=== PATIENT | female | born 1955 | race Caucasian/White ===

== ENCOUNTER 2020-09-22 12:06 | Outpatient (REF) | payer OTHER, SELFPAY ==
[2020-09-22 13:04] LABS: MANUAL DIFF FLAG NO
[2020-09-22 13:08] LABS: Basophils Percent Auto 0.4 % (0-2); Eosinophils Absolute Auto 0.1 X10*3/uL (0.0-0.4); Eosinophils Percent Auto 0.5 % (0-4); Hematocrit 43.6 % (37-47); Hemoglobin 14.3 g/dl (12.0-16.0); Imm Gran Abs Auto 0.04 X10*3/uL (0.00-0.03); Imm Gran Pct Auto 0.4 % (0.0-0.4); Lymphocytes Absolute Auto 1.7 X10*3/uL (1.2-4.9); Lymphocytes Percent Auto 16.1 % (20-40); Mean Corpuscular HGB Conc 32.8 g/dl (31.0-35.0); Mean Corpuscular Hemoglobin 28.5 pg (27.0-33.0); Mean Corpuscular Volume 86.9 fL (80-98); Mean Platelet Volume 11.6 fL (9.4-12.3); Monocytes Absolute Auto 0.5 X10*3/uL (0.1-1.2); Monocytes Percent Auto 4.8 % (2-11); Neutrophils Absolute Auto 8.4 X10*3/uL (2.0-8.3); Neutrophils Percent Auto 77.8 % (45-73); Platelet Count 263 X10*3/uL (160-400); Red Blood Count 5.02 X10*6/uL (4.20-5.50); Red Cell Distribution Width 13.5 % (11.0-16.0); White Blood Count 10.7 X10*3/uL (4.8-10.8)
[2020-09-22 13:16] LABS: Estimated Average Glucose 318 mg/dL; Hemoglobin A1c % 12.7 %
[2020-09-22 13:33] LABS: Alanine Aminotransferase 28 U/L (0-31); Alkaline Phosphatase 117 U/L (39-117); Anion Gap 14 (12-20); Aspartate Amino Transferase 21 U/L (5-31); Bilirubin Total 0.6 mg/dL (0.0-1.0); Blood Urea Nitrogen 14 mg/dL (9-16); C Reactive Protein 2.42 mg/dL (< or = 0.50); Calcium 9.6 mg/dL (8.4-10.2); Carbon Dioxide 24 mmol/L (22-29); Chloride 103 mmol/L (96-108); Cholesterol 248 mg/dL; Estimated Glomerular Filt Rate > 60; Glucose Random 346 mg/dL (60-115); Potassium 4.1 mmol/L (3.3-5.1); Sodium 137 mmol/L (135-145); Total Protein 7.5 g/dL (6.5-8.0)
[2020-09-22 13:55] LABS: Free T4 (Free Thyroxine) 1.05 ng/dL (0.71-1.85); Thyroid Stimulating Hormone 0.77 uIU/mL (0.32-4.0)
== END 2020-09-22 12:07 | disposition home or self-care (01) ==
LOC: HO.LAB 12:06
PROVIDERS: PCP Internal Medicine; Visit Provider Internal Medicine
DX: R00.0 Tachycardia, unspecified (principal); L98.499 Non-pressure chronic ulcer of skin of other sites with unspecified severity; Z83.3 Family history of diabetes mellitus
CPT/HCPCS: 36415; 80053; 82465; 83036; 84439; 84443; 85025; 86140

== ENCOUNTER 2020-10-13 08:49 | Outpatient (RCR) | payer OTHER, SELFPAY ==
--- NOTE | ~2020-10-13 | XR_ITS ---
EXAMINATION: XR FOOT, RIGHT CLINICAL INFORMATION: Nonhealing ulcer. COMPARISON: 11/28/2016 TECHNIQUE: AP, lateral, and oblique views of the right foot. FINDINGS: Screw device again seen overlying the distal fibula. Anterior tibiotalar degenerative changes are again seen. Osteoarthritis is again noted involving the tarsal bones and chronic thickening with periosteal reaction remains in the 2nd and 4th metatarsals. No bony destructive lesions are seen to suggest osteomyelitis. XR/XR foot RT min 3V IMPRESSION: Degenerative and postoperative changes without evidence of osteomyelitis.
[2020-10-13 11:43] LABS: MANUAL DIFF FLAG NO
[2020-10-13 11:56] LABS: Basophils Percent Auto 0.3 % (0-2); Eosinophils Absolute Auto 0.1 X10*3/uL (0.0-0.4); Eosinophils Percent Auto 0.7 % (0-4); Hematocrit 44.1 % (37-47); Hemoglobin 14.3 g/dl (12.0-16.0); Imm Gran Abs Auto 0.03 X10*3/uL (0.00-0.03); Imm Gran Pct Auto 0.3 % (0.0-0.4); Lymphocytes Absolute Auto 1.6 X10*3/uL (1.2-4.9); Lymphocytes Percent Auto 14.5 % (20-40); Mean Corpuscular HGB Conc 32.4 g/dl (31.0-35.0); Mean Corpuscular Hemoglobin 28.2 pg (27.0-33.0); Mean Platelet Volume 11.3 fL (9.4-12.3); Monocytes Absolute Auto 0.5 X10*3/uL (0.1-1.2); Monocytes Percent Auto 4.8 % (2-11); Neutrophils Absolute Auto 8.9 X10*3/uL (2.0-8.3); Neutrophils Percent Auto 79.4 % (45-73); Platelet Count 271 X10*3/uL (160-400); Red Blood Count 5.07 X10*6/uL (4.20-5.50); Red Cell Distribution Width 13.6 % (11.0-16.0); White Blood Count 11.2 X10*3/uL (4.8-10.8)
[2020-10-13 12:02] LABS: Estimated Average Glucose 280 mg/dL; Hemoglobin A1c % 11.4 %
[2020-10-13 12:35] LABS: Anion Gap 13 (12-20); Blood Urea Nitrogen 14 mg/dL (9-16); C Reactive Protein 2.17 mg/dL (< or = 0.50); Calcium 9.6 mg/dL (8.4-10.2); Carbon Dioxide 25 mmol/L (22-29); Chloride 105 mmol/L (96-108); Estimated Glomerular Filt Rate > 60; Glucose Random 290 mg/dL (60-115); Potassium 4.3 mmol/L (3.3-5.1); Sodium 139 mmol/L (135-145)
[2020-10-13 12:53] LABS: Erythrocyte Sedimentation Rate 33 MM/HR (0-20)
== END 2021-03-21 15:08 | disposition home or self-care (01) ==
LOC: HO.WCC 08:49
PROVIDERS: PCP Internal Medicine; Visit Provider Physician Assistant
DX: E11.621 Type 2 diabetes mellitus with foot ulcer (principal); L97.412 Non-pressure chronic ulcer of right heel and midfoot with fat layer exposed; E11.51 Type 2 diabetes mellitus with diabetic peripheral angiopathy without gangrene; E11.40 Type 2 diabetes mellitus with diabetic neuropathy, unspecified; L84 Corns and callosities
CPT/HCPCS: 11042; 11045; 36415; 73630; 80048; 83036; 84134; 85025; 85652; 86140; 97597; 99212

== ENCOUNTER 2020-10-18 09:06 | Outpatient (REF) | payer OTHER, SELFPAY ==
[2020-10-18 09:46] LABS: Appearance Urine HAZY; Color Urine YELLOW; Glucose Urine UA 250 MG/DL (NEG); Leukocyte Esterase Urine NEG (NEG); Nitrite Urine NEG (NEG); Specific Gravity - Urine >= 1.030 (1.005-1.025); Urine Blood NEG (NEG); Urine Ketones 15 MG/DL (NEG); Urine Protein 1+ MG/DL (NEG-TRACE)
[2020-10-18 09:57] LABS: Bacteria Urine 1+ /LPF; Mucus Urine 2+ /LPF; RBC Urine 0-2 /HPF (0); Squamous Epithelial Cell Urine 2+ /LPF; WBC Urine 0-2 /HPF (0-4)
[2020-10-18 10:00] LABS: Creatinine Urine 252.07 mg/dL; Microalbum/Creatinine Ratio Ur 22.2 ug/mg cr
[2020-10-18 10:17] LABS: Anion Gap 15 (12-20); Blood Urea Nitrogen 16 mg/dL (9-16); Calcium 9.6 mg/dL (8.4-10.2); Carbon Dioxide 27 mmol/L (22-29); Chloride 98 mmol/L (96-108); Estimated Glomerular Filt Rate > 60; Glucose Random 356 mg/dL (60-115); Potassium 4.2 mmol/L (3.3-5.1); Sodium 136 mmol/L (135-145)
[2020-10-18 10:57] LABS: Estimated Average Glucose 272 mg/dL; Hemoglobin A1c % 11.1 %
== END 2020-10-18 09:07 | disposition home or self-care (01) ==
LOC: HO.LAB 09:06
PROVIDERS: PCP Internal Medicine; Visit Provider Internal Medicine
DX: E11.9 Type 2 diabetes mellitus without complications (principal)
CPT/HCPCS: 36415; 80048; 81001; 82043; 83036

== ENCOUNTER 2020-12-12 07:40 | Outpatient (REF) | payer OTHER, SELFPAY ==
[2020-12-12 09:01] LABS: Estimated Average Glucose 223 mg/dL; Hemoglobin A1c % 9.4 %
[2020-12-12 09:07] LABS: Alanine Aminotransferase 19 U/L (0-31); Albumin Level 4.1 g/dL (3.5-5.0); Alkaline Phosphatase 94 U/L (39-117); Anion Gap 10 (12-20); Aspartate Amino Transferase 17 U/L (5-31); Bilirubin Total 0.9 mg/dL (0.0-1.0); Blood Urea Nitrogen 8 mg/dL (9-16); Calcium 9.6 mg/dL (8.4-10.2); Carbon Dioxide 29 mmol/L (22-29); Chloride 106 mmol/L (96-108); Cholesterol 227 mg/dL; Estimated Glomerular Filt Rate > 60; Glucose Fasting 163 mg/dL (60-99); HDL Cholesterol 47 mg/dL; LDL Cholesterol Calculated 152 mg/dl; Potassium 4.2 mmol/L (3.3-5.1); Sodium 141 mmol/L (135-145); Total Protein 7.4 g/dL (6.5-8.0); Triglycerides 144 mg/dL
[2020-12-12 10:47] LABS: Creatinine Urine 149.39 mg/dL; Microalbum/Creatinine Ratio Ur 22.7 ug/mg cr
== END 2020-12-12 07:41 | disposition home or self-care (01) ==
LOC: HO.LAB 07:40
PROVIDERS: PCP Internal Medicine; Visit Provider Internal Medicine
DX: E11.9 Type 2 diabetes mellitus without complications (principal); E78.00 Pure hypercholesterolemia, unspecified
CPT/HCPCS: 36415; 80053; 80061; 82043; 83036

== ENCOUNTER 2021-03-19 10:02 | Outpatient (REF) | payer OTHER, SELFPAY ==
[2021-03-19 11:14] LABS: Anion Gap 12 (12-20); Blood Urea Nitrogen 11 mg/dL (9-16); Calcium 9.7 mg/dL (8.4-10.2); Carbon Dioxide 29 mmol/L (22-29); Chloride 104 mmol/L (96-108); Estimated Glomerular Filt Rate > 60; Glucose Random 138 mg/dL (60-115); Potassium 4.2 mmol/L (3.3-5.1); Sodium 141 mmol/L (135-145)
[2021-03-19 11:40] LABS: Estimated Average Glucose 171 mg/dL; Hemoglobin A1c % 7.6 %
== END 2021-03-19 10:03 | disposition home or self-care (01) ==
LOC: HO.LAB 10:02
PROVIDERS: PCP Internal Medicine; Visit Provider Internal Medicine
DX: E11.9 Type 2 diabetes mellitus without complications (principal); R03.0 Elevated blood-pressure reading, without diagnosis of hypertension
CPT/HCPCS: 36415; 80048; 83036

== ENCOUNTER 2021-04-20 08:01 | Outpatient (RCR) | payer OTHER, SELFPAY | END 2021-07-19 08:09 | disposition home or self-care (01) | LOC: HO.WCC 08:01 | PROVIDERS: PCP Internal Medicine; Visit Provider Surgery | DX: L97.411 Non-pressure chronic ulcer of right heel and midfoot limited to breakdown of skin (principal); E11.621 Type 2 diabetes mellitus with foot ulcer; E11.65 Type 2 diabetes mellitus with hyperglycemia; E11.40 Type 2 diabetes mellitus with diabetic neuropathy, unspecified; L84 Corns and callosities | CPT/HCPCS: 11042; 11055; 87071; 87205; 97597; 99212 ==

== ENCOUNTER 2021-06-19 06:35 | Outpatient (REF) | payer OTHER, SELFPAY ==
[2021-06-19 06:50] LABS: MANUAL DIFF FLAG NO
[2021-06-19 07:35] LABS: Basophils Percent Auto 0.2 % (0-2); Eosinophils Absolute Auto 0.1 X10*3/uL (0.0-0.4); Eosinophils Percent Auto 1.7 % (0-4); Hemoglobin 13.4 g/dl (12.0-16.0); Imm Gran Abs Auto 0.03 X10*3/uL (0.00-0.03); Imm Gran Pct Auto 0.4 % (0.0-0.4); Lymphocytes Absolute Auto 1.7 X10*3/uL (1.2-4.9); Lymphocytes Percent Auto 20.1 % (20-40); Mean Corpuscular HGB Conc 32.7 g/dl (31.0-35.0); Mean Corpuscular Hemoglobin 28.6 pg (27.0-33.0); Mean Corpuscular Volume 87.6 fL (80.0-98.0); Mean Platelet Volume 10.7 fL (9.4-12.3); Monocytes Absolute Auto 0.5 X10*3/uL (0.1-1.2); Monocytes Percent Auto 5.7 % (2-11); Neutrophils Percent Auto 71.9 % (45-73); Platelet Count 258 X10*3/uL (160-400); Red Blood Count 4.68 X10*6/uL (4.20-5.50); Red Cell Distribution Width 14.2 % (11.0-16.0); White Blood Count 8.3 X10*3/uL (4.8-10.8)
[2021-06-19 07:57] LABS: Creatinine Urine 65.78 mg/dL; Microalbum/Creatinine Ratio Ur 19.7 ug/mg cr
[2021-06-19 08:14] LABS: Alanine Aminotransferase 17 U/L (0-31); Albumin Level 3.9 g/dL (3.5-5.0); Alkaline Phosphatase 89 U/L (39-117); Anion Gap 11 (12-20); Aspartate Amino Transferase 16 U/L (5-31); Bilirubin Total 0.8 mg/dL (0.0-1.0); Blood Urea Nitrogen 12 mg/dL (9-16); Calcium 9.6 mg/dL (8.4-10.2); Carbon Dioxide 27 mmol/L (22-29); Chloride 107 mmol/L (96-108); Cholesterol 227 mg/dL; Estimated Glomerular Filt Rate > 60; Glucose Fasting 148 mg/dL (60-99); HDL Cholesterol 55 mg/dL; LDL Cholesterol Calculated 147 mg/dl; Potassium 4.7 mmol/L (3.3-5.1); Sodium 140 mmol/L (135-145); Total Protein 7.4 g/dL (6.5-8.0); Triglycerides 129 mg/dL
[2021-06-19 08:25] LABS: Estimated Average Glucose 171 mg/dL; Hemoglobin A1c % 7.6 %
== END 2021-06-19 06:36 | disposition home or self-care (01) ==
LOC: HO.LAB 06:35
PROVIDERS: PCP Internal Medicine; Visit Provider Internal Medicine
DX: E11.9 Type 2 diabetes mellitus without complications (principal); E78.00 Pure hypercholesterolemia, unspecified
CPT/HCPCS: 36415; 80053; 80061; 82043; 83036; 85025

== ENCOUNTER 2021-11-22 10:58 | Outpatient (REF) | payer OTHER, SELFPAY ==
[2021-11-22 12:24] LABS: Estimated Average Glucose 157 mg/dL; Hemoglobin A1C 200.4986 umol/L; Hemoglobin A1c % 7.1 %
[2021-11-22 13:19] LABS: Alanine Aminotransferase 20 U/L (0-31); Albumin Level 4.2 g/dL (3.5-5.0); Alkaline Phosphatase 99 U/L (39-117); Anion Gap 14 (12-20); Aspartate Amino Transferase 15 U/L (5-31); Bilirubin Total 0.4 mg/dL (0.0-1.0); Blood Urea Nitrogen 18 mg/dL (9-16); Calcium 9.8 mg/dL (8.4-10.2); Carbon Dioxide 27 mmol/L (22-29); Chloride 104 mmol/L (96-108); Estimated Glomerular Filt Rate > 60; Glucose Random 113 mg/dL (60-115); Potassium 4.2 mmol/L (3.3-5.1); Sodium 141 mmol/L (135-145); Total Protein 7.3 g/dL (6.5-8.0)
== END 2021-11-22 10:59 | disposition home or self-care (01) ==
LOC: HO.LAB 10:58
PROVIDERS: PCP Internal Medicine; Visit Provider Internal Medicine
DX: E11.9 Type 2 diabetes mellitus without complications (principal); I10 Essential (primary) hypertension
CPT/HCPCS: 36415; 80053; 83036

== ENCOUNTER 2022-04-09 10:54 | Outpatient (REF) | payer MEDICARE, MEDICAID, SELFPAY ==
[2022-04-09 11:15] LABS: MANUAL DIFF FLAG NO
[2022-04-09 11:47] LABS: Basophils Percent Auto 0.4 % (0-2); Eosinophils Absolute Auto 0.2 X10*3/uL (0.0-0.4); Eosinophils Percent Auto 1.6 % (0-4); Hematocrit 45.1 % (37.0-47.0); Hemoglobin 14.9 g/dl (12.0-16.0); Imm Gran Abs Auto 0.05 X10*3/uL (0.00-0.03); Imm Gran Pct Auto 0.5 % (0.0-0.4); Lymphocytes Absolute Auto 1.9 X10*3/uL (1.2-4.9); Lymphocytes Percent Auto 18.2 % (20-40); Mean Corpuscular Hemoglobin 28.8 pg (27.0-33.0); Mean Corpuscular Volume 87.1 fL (80.0-98.0); Mean Platelet Volume 11.4 fL (9.4-12.3); Monocytes Absolute Auto 0.6 X10*3/uL (0.1-1.2); Monocytes Percent Auto 6.2 % (2-11); Neutrophils Absolute Auto 7.6 x10*3/uL (2.0-8.3); Neutrophils Percent Auto 73.1 % (45-73); Platelet Count 256 X10*3/uL (160-400); Red Blood Count 5.18 X10*6/uL (4.20-5.50); Red Cell Distribution Width 13.7 % (11.0-16.0); White Blood Count 10.4 X10*3/uL (4.8-10.8)
[2022-04-09 12:18] LABS: Estimated Average Glucose 298 mg/dL
[2022-04-09 12:50] LABS: Anion Gap 14 (12-20); Blood Urea Nitrogen 17 mg/dL (9-16); Calcium 9.6 mg/dL (8.4-10.2); Carbon Dioxide 28 mmol/L (22-29); Chloride 100 mmol/L (96-108); Estimated Glomerular Filt Rate > 60; Sodium 137 mmol/L (135-145)
[2022-04-09 15:21] LABS: Glucose Random 390 mg/dL (60-115)
== END 2022-04-09 10:55 | disposition home or self-care (01) ==
LOC: HO.LAB 10:54
PROVIDERS: PCP Internal Medicine; Visit Provider Internal Medicine
DX: E11.9 Type 2 diabetes mellitus without complications (principal)
CPT/HCPCS: 36415; 80048; 83036; 85025

== ENCOUNTER 2022-06-17 09:53 | Outpatient (REF) | payer MEDICARE, MEDICAID, SELFPAY ==
[2022-06-17 12:27] LABS: Anion Gap 13 (12-20); Blood Urea Nitrogen 19 mg/dL (9-16); Calcium 9.5 mg/dL (8.4-10.2); Carbon Dioxide 30 mmol/L (22-29); Chloride 104 mmol/L (96-108); Estimated Glomerular Filt Rate > 60; Glucose Random 189 mg/dL (60-115); Potassium 4.5 mmol/L (3.3-5.1); Sodium 142 mmol/L (135-145)
[2022-06-17 12:44] LABS: Estimated Average Glucose 223 mg/dL; Hemoglobin A1c % 9.4 %
== END 2022-06-17 09:54 | disposition home or self-care (01) ==
LOC: HO.10HDL 09:53
PROVIDERS: Visit Provider Internal Medicine
DX: E11.9 Type 2 diabetes mellitus without complications (principal)
CPT/HCPCS: 36415; 80048; 83036

== ENCOUNTER 2022-10-17 09:27 | Outpatient (REF) | payer MEDICARE, OTHER, SELFPAY ==
[2022-10-17 10:39] LABS: Anion Gap 12 (12-20); Blood Urea Nitrogen 16 mg/dL (9-16); Calcium 10.1 mg/dL (8.4-10.2); Carbon Dioxide 28 mmol/L (22-29); Chloride 103 mmol/L (96-108); Estimated Glomerular Filt Rate > 60; Glucose Random 158 mg/dL (60-115); Potassium 4.4 mmol/L (3.3-5.1); Sodium 139 mmol/L (135-145)
[2022-10-17 10:52] LABS: Estimated Average Glucose 160 mg/dL; Hemoglobin A1c % 7.2 % (<6.0)
== END 2022-10-17 09:28 | disposition home or self-care (01) ==
LOC: HO.LAB 09:27
PROVIDERS: PCP Internal Medicine; Visit Provider Internal Medicine
DX: E11.9 Type 2 diabetes mellitus without complications (principal)
CPT/HCPCS: 36415; 80048; 83036

== ENCOUNTER 2022-11-04 08:00 | Outpatient (RCR) | payer MEDICARE, OTHER, SELFPAY ==
--- NOTE | 2022-09-30 08:59 | MHC.PT.EP ---
[facility] [place] Office [place] [facility] [place] Office [address] [phone] F: [phone] F: [phone] F: [phone] F: [phone] Physical Therapy Plan of Care Date of Evaluation: Date of Surgery: NA Diagnosis: Assess and treat for gait training related to non healing wound to R calcaneous Assessment: Colleen is a 66 year old female who is referred to PT for Assess and treat for gait training related to non healing wound to R calcaneous . She has had this non healing wound for about a year. She is currently an active patient with the wound care center. She is referred to PT to improve gait mechanics to enable fast healing of the wound. On PT examination she presents with 2-3/10 pain/ discomfort around R ankle dorsal aspect, decreased R ankle ROM, decreased R LE strength, altered balance and posture. She is independent with all ADLS but has to modify them to decreased weight bearing on R LE. She would benefit from skilled PT to address the aforementioned impairments and improve tolerance to functional activities. Frequency and Duration: The patient will be seen Recommended 2/week for 4 weeks however pt wants to come only 1/week Short Term Goals: 1. Will demonstrate initiation of HEP in 2 weeks 2. Pt will demonstrate improved ankle ROM which will enable her walk with a heel strike in 3 weeks. Penitentiary Goals: 1. Pt will demonstrate an increase in muscle strength by 1 grade which will enable her walk with decreased ankle pronation collapse by 50% in 4 weeks 2. Pt will be independent with all HEP for symptom management and maintenance following d/c in 4 weeks. Treatment Plan: Modalities to reduce pain, spasms and effusion. Manual therapy to restore motion and function. Therapeutic exercise to improve strength and flexibility. Neuromuscular re-education for posture and balance. Therapeutic activities to return to functional activities of daily living. Electronically signed by: Maddie Meyer PT DPT Please sign and return to therapist. Thank you for your referral.
--- NOTE | 2022-11-15 15:19 | MHC.PT.DC ---
[facility] [place] [facility] [place] Office [place] Office [address] Jenniffer Baird [address] [phone] F: [phone] F: [phone] F: [phone] F: [phone] Physical Therapy Discharge Report Diagnosis: Assess and treat for gait training related to non healing wound to R calcaneous Date of Surgery: NA Date of Evaluation: 09/30/22 Date of Discharge: 11/15/22 Treatments to Date: 4 Cancellations to Date: 2 No Shows to Date: Discharge Status: Patient Elected to Stop Discharge Summary: Colleen only attended 4 PT visits. She was non compliant with her HEP and canceled her last visit. Colleen elected to stop PT. She is therefore being d/c from PT. Electronically signed by: Maddie Meyer PT DPT Please sign and return to therapist. Thank you for your referral.
== END 2022-11-15 15:20 | disposition home or self-care (01) ==
LOC: HO.PT 08:00
PROVIDERS: PCP Internal Medicine; Visit Provider Surgery
DX: R26.89 Other abnormalities of gait and mobility (principal); L97.512 Non-pressure chronic ulcer of other part of right foot with fat layer exposed; E11.621 Type 2 diabetes mellitus with foot ulcer
CPT/HCPCS: 11042; 97110; 97116; 97161; 97597

== ENCOUNTER 2022-12-24 16:29 | Outpatient (REF) | payer MEDICARE, OTHER, SELFPAY | END 2022-12-24 16:30 | disposition home or self-care (01) | LOC: HO.LNP 16:29 | PROVIDERS: Visit Provider Physician Assistant | DX: Z13.89 Encounter for screening for other disorder (principal) | CPT/HCPCS: 87070; 87205 ==

== ENCOUNTER 2023-01-06 06:54 | Outpatient (REF) | payer MEDICARE, SELFPAY ==
[2023-01-06 07:05] LABS: MANUAL DIFF FLAG NO
[2023-01-06 07:45] LABS: Basophils Percent Auto 0.3 % (0-2); Eosinophils Absolute Auto 0.2 X10*3/uL (0.0-0.4); Hematocrit 43.1 % (37.0-47.0); Hemoglobin 13.8 g/dl (12.0-16.0); Imm Gran Abs Auto 0.04 X10*3/uL (0.00-0.03); Imm Gran Pct Auto 0.4 % (0.0-0.4); Lymphocytes Absolute Auto 1.8 X10*3/uL (1.2-4.9); Lymphocytes Percent Auto 19.6 % (20-40); Mean Corpuscular Hemoglobin 28.2 pg (27.0-33.0); Mean Platelet Volume 10.8 fL (9.4-12.3); Monocytes Absolute Auto 0.5 X10*3/uL (0.1-1.2); Neutrophils Absolute Auto 6.6 x10*3/uL (2.0-8.3); Neutrophils Percent Auto 72.7 % (45-73); Platelet Count 293 X10*3/uL (160-400); Red Cell Distribution Width 14.7 % (11.0-16.0); White Blood Count 9.1 X10*3/uL (4.8-10.8)
[2023-01-06 07:57] LABS: Estimated Average Glucose 174 mg/dL; Hemoglobin A1c % 7.7 % (<6.0)
[2023-01-06 08:27] LABS: Alanine Aminotransferase 28 U/L (0-31); Albumin Level 4.1 g/dL (3.5-5.0); Alkaline Phosphatase 99 U/L (39-117); Anion Gap 11 (12-20); Aspartate Amino Transferase 19 U/L (5-31); Bilirubin Total 0.6 mg/dL (0.0-1.0); Blood Urea Nitrogen 16 mg/dL (9-16); Calcium 8.8 mg/dL (8.4-10.2); Carbon Dioxide 28 mmol/L (22-29); Chloride 105 mmol/L (96-108); Cholesterol 210 mg/dL (<200); Estimated Glomerular Filt Rate > 60; Glucose Fasting 164 mg/dL (60-99); HDL Cholesterol 60 mg/dL (>40); LDL Cholesterol Calculated 123 mg/dL (<100); Sodium 140 mmol/L (135-145); Triglycerides 138 mg/dL (<150)
[2023-01-06 08:32] LABS: Creatinine Urine 139.09 mg/dL; Microalbum/Creatinine Ratio Ur 38.8 ug/mg cr (<30)
[2023-01-06 08:48] LABS: Thyroid Stimulating Hormone 1.06 uIU/mL (0.32-4.0); Vitamin D 25-OH Total 15.5 ng/mL (>30)
== END 2023-01-06 06:55 | disposition home or self-care (01) ==
LOC: HO.LAB 06:54
PROVIDERS: PCP Internal Medicine; Visit Provider Internal Medicine
DX: E11.9 Type 2 diabetes mellitus without complications (principal); I10 Essential (primary) hypertension; E78.5 Hyperlipidemia, unspecified; M19.90 Unspecified osteoarthritis, unspecified site; M85.80 Other specified disorders of bone density and structure, unspecified site
CPT/HCPCS: 36415; 80053; 80061; 82043; 82306; 82570; 83036; 84443; 85025

== ENCOUNTER 2023-05-12 09:07 | Outpatient (REF) | payer MEDICARE, SELFPAY ==
[2023-05-12 09:44] LABS: MANUAL DIFF FLAG NO
[2023-05-12 10:16] LABS: Basophils Percent Auto 0.2 % (0-2); Eosinophils Absolute Auto 0.1 X10*3/uL (0.0-0.4); Eosinophils Percent Auto 0.9 % (0-4); Hematocrit 42.9 % (37.0-47.0); Hemoglobin 13.7 g/dl (12.0-16.0); Imm Gran Abs Auto 0.03 X10*3/uL (0.00-0.03); Imm Gran Pct Auto 0.3 % (0.0-0.4); Lymphocytes Absolute Auto 1.6 X10*3/uL (1.2-4.9); Lymphocytes Percent Auto 15.7 % (20-40); Mean Corpuscular HGB Conc 31.9 g/dl (31.0-35.0); Mean Corpuscular Hemoglobin 27.7 pg (27.0-33.0); Mean Corpuscular Volume 86.8 fL (80.0-98.0); Monocytes Absolute Auto 0.7 X10*3/uL (0.1-1.2); Monocytes Percent Auto 6.9 % (2-11); Neutrophils Absolute Auto 7.5 x10*3/uL (2.0-8.3); Platelet Count 254 X10*3/uL (160-400); Red Blood Count 4.94 X10*6/uL (4.20-5.50); White Blood Count 9.9 X10*3/uL (4.8-10.8)
[2023-05-12 10:52] LABS: Anion Gap 11 (12-20); Blood Urea Nitrogen 15 mg/dL (9-16); C Reactive Protein 3.43 mg/dL (< or = 0.50); Calcium 9.6 mg/dL (8.4-10.2); Carbon Dioxide 28 mmol/L (22-29); Chloride 103 mmol/L (96-108); Estimated Glomerular Filt Rate > 60; Glucose Random 225 mg/dL (60-115); Potassium 4.1 mmol/L (3.3-5.1); Sodium 138 mmol/L (135-145)
[2023-05-12 10:55] LABS: Erythrocyte Sedimentation Rate 32 MM/HR (0-20)
[2023-05-13 17:48] LABS: Transferrin 265 mg/dL (188-341)
== END 2023-05-12 09:08 | disposition home or self-care (01) ==
LOC: HO.LAB 09:07
PROVIDERS: Visit Provider Podiatrist
DX: L97.412 Non-pressure chronic ulcer of right heel and midfoot with fat layer exposed (principal)
CPT/HCPCS: 36415; 80048; 82040; 84134; 84466; 85025; 85652; 86140

== ENCOUNTER 2023-07-26 07:50 | Outpatient (REF) | payer MEDICARE, SELFPAY ==
[2023-07-26 09:06] LABS: Anion Gap 13 (12-20); Blood Urea Nitrogen 17 mg/dL (9-16); Calcium 9.8 mg/dL (8.4-10.2); Carbon Dioxide 24 mmol/L (22-29); Chloride 108 mmol/L (96-108); Estimated Glomerular Filt Rate > 60; Glucose Random 158 mg/dL (60-115); Potassium 4.1 mmol/L (3.3-5.1); Sodium 141 mmol/L (135-145)
[2023-07-26 09:08] LABS: Estimated Average Glucose 174 mg/dL; Hemoglobin A1c % 7.7 % (<6.0)
== END 2023-07-26 07:51 | disposition home or self-care (01) ==
LOC: HO.LAB 07:50
PROVIDERS: PCP Internal Medicine; Visit Provider Internal Medicine
DX: E11.9 Type 2 diabetes mellitus without complications (principal)
CPT/HCPCS: 36415; 80048; 83036

== ENCOUNTER 2023-10-27 07:45 | Outpatient (REF) | payer MEDICARE, SELFPAY ==
[2023-10-27 11:17] LABS: MANUAL DIFF FLAG NO
[2023-10-27 11:34] LABS: Appearance Urine Cloudy; Color Urine Yellow; Glucose Urine UA Negative (Negative); Leukocyte Esterase Urine Moderate (2+) (Negative); Nitrite Urine Negative (Negative); UMIC TRIGGER UA YES; Urine Blood Negative (Negative); Urine Ketones Negative (Negative); Urine Protein Trace mg/dL (Neg-Trace)
[2023-10-27 11:48] LABS: Basophils Percent Auto 0.4 % (0-2); Eosinophils Absolute Auto 0.1 X10*3/uL (0.0-0.4); Eosinophils Percent Auto 1.7 % (0-4); Hematocrit 41.6 % (37.0-47.0); Hemoglobin 13.3 g/dl (12.0-16.0); Imm Gran Abs Auto 0.03 X10*3/uL (0.00-0.03); Imm Gran Pct Auto 0.4 % (0.0-0.4); Lymphocytes Absolute Auto 1.5 X10*3/uL (1.2-4.9); Lymphocytes Percent Auto 18.1 % (20-40); Mean Corpuscular Hemoglobin 28.1 pg (27.0-33.0); Mean Corpuscular Volume 87.9 fL (80.0-98.0); Mean Platelet Volume 10.9 fL (9.4-12.3); Monocytes Absolute Auto 0.5 X10*3/uL (0.1-1.2); Neutrophils Absolute Auto 6.1 x10*3/uL (2.0-8.3); Neutrophils Percent Auto 73.4 % (45-73); Platelet Count 254 X10*3/uL (160-400); Red Blood Count 4.73 X10*6/uL (4.20-5.50); Red Cell Distribution Width 15.1 % (11.0-16.0); White Blood Count 8.3 X10*3/uL (4.8-10.8)
[2023-10-27 11:49] LABS: Bacteria Urine Trace (None Seen); Hyaline Casts Urine 0-2 /LPF (0-2); RBC Urine 0-2 /HPF (0-2)
[2023-10-27 12:16] LABS: Estimated Average Glucose 177 mg/dL; Hemoglobin A1c % 7.8 % (<6.0)
[2023-10-27 12:20] LABS: Creatinine Urine 106.54 mg/dL; Microalbum/Creatinine Ratio Ur 44.1 ug/mg cr (<30)
[2023-10-27 12:39] LABS: Alanine Aminotransferase 22 U/L (0-31); Albumin Level 3.9 g/dL (3.5-5.0); Alkaline Phosphatase 94 U/L (39-117); Anion Gap 13 (12-20); Aspartate Amino Transferase 18 U/L (5-31); Bilirubin Total 0.5 mg/dL (0.0-1.0); Blood Urea Nitrogen 15 mg/dL (9-16); Calcium 9.5 mg/dL (8.4-10.2); Carbon Dioxide 27 mmol/L (22-29); Chloride 106 mmol/L (96-108); Cholesterol 214 mg/dL (<200); Estimated Glomerular Filt Rate > 60; Glucose Fasting 152 mg/dL (60-99); HDL Cholesterol 54 mg/dL (>40); LDL Cholesterol Calculated 133 mg/dL (<100); Potassium 4.1 mmol/L (3.3-5.1); Sodium 142 mmol/L (135-145); Total Protein 7.6 g/dL (6.5-8.0); Triglycerides 136 mg/dL (<150)
[2023-10-27 12:45] LABS: Vitamin D 25-OH Total 26.5 ng/mL (>30)
== END 2023-10-27 07:46 | disposition home or self-care (01) ==
LOC: HO.WFDLDS 07:45
PROVIDERS: Visit Provider Internal Medicine
DX: Z13.89 Encounter for screening for other disorder (principal)
CPT/HCPCS: 36415; 80053; 80061; 81001; 82043; 82306; 82570; 83036; 85025

== ENCOUNTER 2024-01-27 08:01 | Outpatient (REF) | payer MEDICARE, SELFPAY ==
[2024-01-27 10:54] LABS: Estimated Average Glucose 189 mg/dL; Hemoglobin A1C 231.4707 umol/L; Hemoglobin A1c % 8.2 % (<6.0); Total Hemoglobin (HGBA1C) 3499.2215 umol/L
[2024-01-27 10:57] LABS: Anion Gap 14 (12-20); Blood Urea Nitrogen 15 mg/dL (9-16); Calcium 8.9 mg/dL (8.4-10.2); Carbon Dioxide 25 mmol/L (22-29); Chloride 102 mmol/L (96-108); Estimated Glomerular Filt Rate > 60; Glucose Random 297 mg/dL (60-115); Potassium 4.4 mmol/L (3.3-5.1); Sodium 137 mmol/L (135-145)
== END 2024-01-27 08:02 | disposition home or self-care (01) ==
LOC: HO.HMGCLDS 08:01
PROVIDERS: PCP Internal Medicine; Visit Provider Internal Medicine
DX: E11.9 Type 2 diabetes mellitus without complications (principal)
CPT/HCPCS: 36415; 80048; 83036

== ENCOUNTER 2024-04-20 09:12 | Outpatient (REF) | payer MEDICARE, OTHER, SELFPAY ==
--- OUTSIDE RECORDS SUMMARY | 2024-04-20 10:15 | XMS_ITS | Clinical Summary ---
Author Organization Unknown Care Team Providers Care Decorative Engraver Name Role Phone JAK ALCARAZ, LINDA Unavailable Unavailable RHINA MARQUEZ, MERRITT Unavailable Unavailab dana ZABALA LPN, JENNI Unavailable Unavail able Payers Payer Name Policy Type Policy Number Effective Date Expira tion Date [facility].ID[facility] [id number] MEDICARE.[facility] [id number] Problems Condition Name Condition Details Condition Category Status Onset Date Resolution Date Last Treatment Date Treating Clinician Comments TYPE 2 DIABETES MELLITUS WITH FOOT ULCER Active 11-06 00:00: 00 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 Propensity to adverse reactions Active 2023-10 05:17:1 8 Medications Ordered Medication Name Filled Medication Name Start Date Stop Date Current Medication? Ordering Clinician Indication Dosage Frequency Signature (SIG) Comments Components amoxicillin 875 mg-potassiu m clavulanate 125 mg tablet 11-09 00:00: 00 11-16 23:59 :00 No [id number] CELLULITIS RIGHT HEEL 1 tablet 2 TIMES DAILY 1 tablet 2 TIMES DAILY (route: oral) Med Classific ation: Anti-Infe ctive Agents doxycycline monohydrate 100 mg tablet 11-09 00:00: 00 11-16 23:59 :00 No [id number] CELLULITIS 1 tablet 2 TIMES DAILY 1 tablet 2 TIMES DAILY (route: oral) Med Classific ation: Anti-Infe ctive Agents metformin 500 mg tablet 11-06 00:00: 00 Yes [id number] DIABETES 1 tablet 2 TIMES DAILY 1 tablet 2 TIMES DAILY (route: oral) Med Classific ation: Endocrine acetaminoph en 325 mg tablet 11-09 00:00: 00 11-14 23:59 :00 No [id number] PAIN 2 tablet EVERY 4 HOURS 2 tablet EVERY 4 HOURS (route: oral) Med Classific ation: Analgesic , Anti-infl ammatory or Antipyret ic glipizide ER 10 mg tablet, extended release 24 hr 11-06 00:00: 00 Yes [id number] DIABETES 1 tablet 2 TIMES DAILY 1 tablet 2 TIMES DAILY (route: oral) Med Classific ation: Endocrine cholecalcif angie (vitamin D3) 25 mcg (1,000 unit) tablet 2023-02 00:00: 00 Yes [id number] SUPPLEMENT 1 tablet DAILY 1 tablet DAILY (route: oral) Med Classific ation: Electroly te Balance-N utritiona l Products amlodipine 5 mg tablet 2023-02 00:00: 00 Yes [id number] HTN 5 mg DAILY 5 mg CHRISTINE Y (route: oral) Med Classific ation: Cardiovas cular Therapy Agents Vital Signs Vital Name Observation Time Observation Value Commen ts Temperature 2024-04-09 09:38:00.000 98 [degF] Temperature 2024-04-02 08:53:00.000 97.8 [degF] Temperature 2024-03-26 10:24:00.000 97.7 [degF] Temperature 2024-03-19 08:35:00.000 98.3 [degF] Pulse 2024-04-09 09:38:00.000 70 /min Pulse 2024-04-02 08:53:00.000 61 /min Pulse 2024-03-26 10:24:00.000 90 /min Pulse 2024-03-19 08:35:00.000 80 /min O2 Saturation (%) 2024-04-02 08:53:00.000 97 % O2 Saturation (%) 2024-03-19 08:36:00.000 99 % Respirations 2024-04-09 09:38:00.000 17 /min Respirations 2024-04-02 08:53:00.000 18 /min Respirations 2024-03-26 10:24:00.000 18 /min Respirations 2024-03-19 08:35:00.000 18 /min Systolic Blood Pressure 2024-04-09 09:38:00.000 150 mm [Hg] Systolic Blood Pressure 2024-04-02 08:53:00.000 128 mm [Hg] Systolic Blood Pressure 2024-03-26 10:24:00.000 144 mm [Hg] Systolic Blood Pressure 2024-03-19 08:35:00.000 160 mm [Hg] Diastolic Blood Pressure 2024-04-09 09:38:00.000 67 mm [Hg] Diastolic Blood Pressure 2024-04-02 08:53:00.000 60 mm [Hg] Diastolic Blood Pressure 2024-03-26 10:24:00.000 74 mm [Hg] Diastolic Blood Pressure 2024-03-19 08:35:00.000 90 mm [Hg] Plan of Treatment Planned Activity Planned Date Details Comments Future Scheduled Test RN TO OBSE RVE, ASSESS, EVALUATE, AND DEVELOP AN INDIVIDUALIZED PLAN OF CARE. AGENCY MAY ACCEPT ORDERS FROM CONSULTING PHYSICIANS. RN TO OBSERVE AND ASSESS, HEALTH CENTER MANAGER/TURRET PUNCH OPERATOR TO OBSERVE FOR RISK FOR FALLS AND INSTRUCT IN FALL PREVENTION, HOME SAFETY, MEDICATION MANAGEMENT, INFECTION PREVENTION, AND NUTRITION MANAGEMENT. RN/HEALTH CENTER MANAGER/TURRET PUNCH OPERATOR NURSE MAY PERFORM O2 SATURATION LEVEL ON ADMISSION AND PRN FOR RN TO ASSESS/HEALTH CENTER MANAGER TO OBSERVE PATIENT, WITH NOTIFICATION TO THE PHYSICIAN IF SATURATION IS 90% IN THE ABSENCE OF MORE SPECIFIC PARAMETERS FROM THE PHYSICIAN. AGENCY MAY PERFORM A RESUMPTION OF CARE VISIT FOLLOWING ANY HOSPITAL ADMISSION. RN/HEALTH CENTER MANAGER/TURRET PUNCH OPERATOR TO MONITOR CO-MORBID CONDITIONS LISTED ON THE PLAN OF CARE AND ANY NEW CONDITIONS THAT PRESENT THEMSELVES DURING THIS EPISODE TO IDENTIFY CHANGES AND INTERVENE TO MINIMIZE COMPLICATIONS. [code = RN TO OBSERVE, ASSESS, EVALUATE, AND DEVELOP AN INDIVIDUALIZED PLAN OF CARE. AGENCY MAY ACCEPT ORDERS FROM CONSULTING PHYSICIANS. RN TO OBSERVE AND ASSESS, HEALTH CENTER MANAGER/TURRET PUNCH OPERATOR TO OBSERVE FOR RISK FOR FALLS AND INSTRUCT IN FALL PREVENTION, HOME SAFETY, MEDICATION MANAGEMENT, INFECTION PREVENTION, AND NUTRITION MANAGEMENT. RN/HEALTH CENTER MANAGER/TURRET PUNCH OPERATOR NURSE MAY PERFORM O2 SATURATION LEVEL ON ADMISSION AND PRN FOR RN TO ASSESS/HEALTH CENTER MANAGER TO OBSERVE PATIENT, WITH NOTIFICATION TO THE PHYSICIAN IF SATURATION IS 90% IN THE ABSENCE OF MORE SPECIFIC PARAMETERS FROM THE PHYSICIAN. AGENCY MAY PERFORM A RESUMPTION OF CARE VISIT FOLLOWING ANY HOSPITAL ADMISSION. RN/HEALTH CENTER MANAGER/TURRET PUNCH OPERATOR TO MONITOR CO-MORBID CONDITIONS LISTED ON THE PLAN OF CARE AND ANY NEW CONDITIONS THAT PRESENT THEMSELVES DURING THIS EPISODE TO IDENTIFY CHANGES AND INTERVENE TO MINIMIZE COMPLICATIONS.] Future Scheduled Test RISK FOR H OSPITALIZATION; RN TO ASSESS/TEACH, TURRET PUNCH OPERATOR/HEALTH CENTER MANAGER TO OBSERVE/TEACH PATIENT/CAREGIVER ON RISK FOR HOSPITALIZATION/EMERGENCY ROOM VISITS, TEACH SIGNS AND SYMPTOMS THAT PUT PATIENT AT RISK, WHEN TO NOTIFY NURSE/PHYSICIAN OF COMPLICATIONS/DECLINE, AND WHEN TO CALL 911. [code = RISK FOR HOSPITALIZATION; RN TO ASSESS/TEACH, TURRET PUNCH OPERATOR/HEALTH CENTER MANAGER TO OBSERVE/TEACH PATIENT/CAREGIVER ON RISK FOR HOSPITALIZATION/EMERGENCY ROOM VISITS, TEACH SIGNS AND SYMPTOMS THAT PUT PATIENT AT RISK, WHEN TO NOTIFY NURSE/PHYSICIAN OF COMPLICATIONS/DECLINE, AND WHEN TO CALL 911.] Future Scheduled Test MEDICATION MANAGEMENT; RN/HEALTH CENTER MANAGER/TURRET PUNCH OPERATOR TO REVIEW MEDICATIONS FOR INTERACTIONS, EFFECTIVENESS OF DRUG THERAPY, AND SIGNS/SYMPTOMS OF ADVERSE REACTIONS. MAY INSTRUCT AND REINFORCE MEDICATION TEACHING RELATED TO THE USE OF MEDICATIONS, DOSAGE, FREQUENCY, PURPOSE, SIDE EFFECTS, AND TO REPORT COMPLICATIONS. [code = MEDICATION MANAGEMENT; RN/HEALTH CENTER MANAGER/TURRET PUNCH OPERATOR TO REVIEW MEDICATIONS FOR INTERACTIONS, EFFECTIVENESS OF DRUG THERAPY, AND SIGNS/SYMPTOMS OF ADVERSE REACTIONS. MAY INSTRUCT AND REINFORCE MEDICATION TEACHING RELATED TO THE USE OF MEDICATIONS, DOSAGE, FREQUENCY, PURPOSE, SIDE EFFECTS, AND TO REPORT COMPLICATIONS.] Future Scheduled Test SKIN INTEG RITY RN TO ASSESS AND TEACH, HEALTH CENTER MANAGER/TURRET PUNCH OPERATOR TO OBSERVE AND TEACH INTEGUMENTARY STATUS TO IDENTIFY CHANGES AND INTERVENE TO MINIMIZE COMPLICATIONS. PROVIDE SKILLED TEACHING OF GENERAL WOUND AND SKIN CARE AND PREVENTION RELATED TO ACTUAL ALTERED SKIN INTEGRITY [code = SKIN INTEGRITY RN TO ASSESS AND TEACH, HEALTH CENTER MANAGER/TURRET PUNCH OPERATOR TO OBSERVE AND TEACH INTEGUMENTARY STATUS TO IDENTIFY CHANGES AND INTERVENE TO MINIMIZE COMPLICATIONS. PROVIDE SKILLED TEACHING OF GENERAL WOUND AND SKIN CARE AND PREVENTION RELATED TO ACTUAL ALTERED SKIN INTEGRITY ] Future Scheduled Test RN TO ASSE SS, HEALTH CENTER MANAGER/TURRET PUNCH OPERATOR TO OBSERVE DIABETIC FOOT ULCERS - NEUROPATHIC AND INTERVENE TO MINIMIZE COMPLICATIONS. PROVIDE SKILLED TEACHING TO PATIENT/CAREGIVER RELATED TO ALTERED SKIN INTEGRITY. REPORT SIGNIFICANT CHANGES IN STATUS TO PHYSICIAN FOR EARLY INTERVENTION. [code = RN TO ASSESS, HEALTH CENTER MANAGER/TURRET PUNCH OPERATOR TO OBSERVE DIABETIC FOOT ULCERS - NEUROPATHIC AND INTERVENE TO MINIMIZE COMPLICATIONS. PROVIDE SKILLED TEACHING TO PATIENT/CAREGIVER RELATED TO ALTERED SKIN INTEGRITY. REPORT SIGNIFICANT CHANGES IN STATUS TO PHYSICIAN FOR EARLY INTERVENTION.] Future Scheduled Test PAIN MANAG EMENT; RN TO ASSESS AND TEACH, TURRET PUNCH OPERATOR/HEALTH CENTER MANAGER TO OBSERVE AND TEACH AND PROVIDE EDUCATION ON PAIN MANAGEMENT TECHNIQUES. [code = PAIN MANAGEMENT; RN TO ASSESS AND TEACH, TURRET PUNCH OPERATOR/HEALTH CENTER MANAGER TO OBSERVE AND TEACH AND PROVIDE EDUCATION ON PAIN MANAGEMENT TECHNIQUES.] Future Scheduled Test FALL REDUC TION MANAGEMENT; RN TO ASSESS AND OBSERVE, HEALTH CENTER MANAGER/TURRET PUNCH OPERATOR TO OBSERVE FALL RISK FACTORS AND EDUCATE PATIENT/CAREGIVER ON STRATEGIES TO MINIMIZE THE RISK OF FALLING. [code = FALL REDUCTION MANAGEMENT; RN TO ASSESS AND OBSERVE, HEALTH CENTER MANAGER/TURRET PUNCH OPERATOR TO OBSERVE FALL RISK FACTORS AND EDUCATE PATIENT/CAREGIVER ON STRATEGIES TO MINIMIZE THE RISK OF FALLING.] Goal Patient Goal - HELP HEEL THE WOUND Goal 2024-01-08 Patient Goal - HELP HEEL THE WOUND Goal 2024-03-10 Patient Goal - HELP HEEL THE WOUND Goal Provider Goal - A PLAN OF CARE WILL BE ESTABLISHED THAT MEETS THE PATIENTS NEEDS. PATIENT WILL DEMONSTRATE OXYGEN SATURATION WITHIN NORMAL LIMITS OR PATIENTS OPTIMAL LEVEL ESTABLISHED BY THE PHYSICIAN THROUGHOUT CARE. CHANGES TO CO-MORBID CONDITIONS AND ANY NEW CONDITIONS WILL BE IDENTIFIED AND REPORTED TO THE PHYSICIAN. Goal Provider Goal - PATIENT/CAREGIVER WILL VERBALIZE UNDERSTANDING OF SIGNS AND SYMPTOMS THAT PUT THE PATIENT AT RISK FOR HOSPITALIZATION /EMERGENCY ROOM VISITS, WHEN TO NOTIFY NURSE/PHYSICIAN OF COMPLICATIONS/DECLINE AND WHEN TO CALL 911. Goal Provider Goal - PATIENT/CAREGIVER TO VERBALIZE, AND CONSISTENTLY DEMONSTRATE EFFECTIVE, SAFE MANAGEMENT OF MEDICATION INCLUDING KNOWLEDGE OF EFFECTIVENESS, POTENTIAL SIDE EFFECTS AND DRUG REACTIONS AND WHEN TO CONTACT THE APPROPRIATE CARE PROVIDER. PATIENT/CAREGIVER WILL BE ABLE TO VERBALIZE UNDERSTANDING OF MEDICATION REGIMEN AND ACCURATELY TAKE MEDICATIONS PRESCRIBED WITHOUT ADVERSE EFFECTS BY EOE Goal Provider Goal - CHANGES IN SKIN INTEGRITY STATUS WILL BE IDENTIFIED AND REPORTED TO THE PHYSICIAN FOR PROMPT INTERVENTION. PATIENT / CAREGIVER WILL VERBALIZE/DEMONSTRATE ADEQUATE KNOWLEDGE OF INTEGUMENTARY STATUS AND APPROPRIATE MEASURES TO PROMOTE SKIN INTEGRITY AND PREVENT INJURY BY EOE Goal Provider Goal - CHANGES IN SKIN INTEGRITY STATUS WILL BE IDENTIFIED AND REPORTED TO THE PHYSICIAN FOR PROMPT INTERVENTION. PATIENT / CAREGIVER WILL VERBALIZE/DEMONSTRATE ADEQUATE KNOWLEDGE OF INTEGUMENTARY STATUS AND APPROPRIATE MEASURES TO PROMOTE SKIN INTEGRITY AND PREVENT INJURY BY EOE Goal Provider Goal - PATIENT / CAREGIVER WILL VERBALIZE / DEMONSTRATE UNDERSTANDING OF PAIN CONTROL MEASURES BY EOE Goal Provider Goal - PATIENT/CAREGIVER WILL VERBALIZE/DEMONSTRATE UNDERSTANDING OF FALL RISK FACTORS AND IMPLEMENT STRATEGIES TO MINIMIZE FALL RISK. PATIENT/CAREGIVER WILL VERBALIZE/DEMONSTRATE AN ABILITY TO ADHERE TO FALL REDUCTION SELF-MANAGEMENT AND LIFE-STYLE CHANGES BY EOE Encounters Start Date/Time End Date/Time Encounter Type Admission Type Attending [facility] Care Department Encounter ID Discharge Date Discharge Status Discharge Condition Discharge Reason Percent Goals Met 2023-11-13 00:00:00 2024-05-10 00:00:00 Outpatient RECERTIFIC ATMERRITT COUCH [facility] [id number]
--- OUTSIDE RECORDS SUMMARY | 2024-04-20 10:15 | XMS_ITS | Patient Health Record ---
[facility] Address [address] [facility] [place] [address] Care Team Providers Care Director Special Education Name Role Phone Zia Morales MD Primary Care Provider Ivette Escudero Unavailable [phone] Allergies Allergen (clinical drug ingredient) Drug/Non Drug Allergy documented on EMR Reaction Allergy Type Onset Date Status sulfamethoxazole / trimethoprim Bactrim rash Drug Allergy Active Results Component Value Reference Range Notes HEMOGLOBIN A1C (GLYCOHEMOGLO BIN) Reviewed date:11/21/2023 11:22:30 AM Interpretation: Performing Lab: Notes/Report: TOTAL HEMOGLOBIN (HGBA1C) 7.8 HEMOGLOBIN A1C (GLYCOHEMOGLO BIN) Reviewed date:02/24/2024 09:07:31 AM Interpretation: Performing Lab: Notes/Report: HEMOGLOBIN A1C % (HH) 8.2 Reason For Referral No Information Medications Medication SIG (Take, Route, Frequency, Duration) Notes Start Date End Date Status glipiZIDE ER 10 MG 1 tablet with breakf ast Orally Once a day Active metFORMIN HCl 500 MG 1 tablet with a nata l Orally Once a day Active Walker as directed 05/06/2023 Active Keflex 500 MG 1 capsule Orally srinivas ry 12 hrs for 10 day(s) 08/19/2023 Not-Taking Extra Depth Orthopedic Shoes (1 Pair) with Customized Heat Molded Multidensity Innersoles (3 Pair) as directed Dx: NIDDM/Polyneuropathy (E11.42), Hammertoe Foot Deformity (M20.41,M20.42), Preulcerative Skin Lesion(s) (L85.1, ulcer sub 1st and heel Right -offloading needed for orthotic 02/24/2024 Active Cipro 500 MG 1 tablet Orally ever y 12 hrs for 7 days 08/25/2023 Not-Taking Augmentin 500-125 MG 1 tablet Orally srinivas ry 12 hrs for 7 day(s) 08/25/2023 Not-Taking Immunizations Vaccine Route Administration Date Status Comme nts Influenza Unknown 10/18/2022 Administered Social History Tobacco Use: Social History Observation Description Date Details (start date - stop date) Never Smoker NA - NA Tobacco Use/Smoking Question Answer Notes Are you a: nonsmoker Additional Findings: Tobacco Non-User Current no n-smoker Alcohol Screen Question Answer Notes Did you have a drink containing alcohol in the p ast year? No Points 0 Interpretation Negative Tobacco use other than smoking: Question Answer Notes Are you an other tobacco user? No Problems Problem Type SNOMED Code ICD Code Onset Dates Problem Status W/U Status Risk Notes Problem Acquired hammer toe of right foot (5631900018411170 ) Other hammer toe(s) (acquired), right foot (M20.41) Active confirmed Problem Acquired hammer toe of left foot (0217701205182229 ) Other hammer toe(s) (acquired), left foot (M20.42) Active confirmed Problem Polyneuropathy due to diabetes mellitus type I (706311418) Type 1 diabetes mellitus with diabetic polyneuropathy (E10.42) Active confirmed Problem Polyneuropathy due to type 2 diabetes mellitus (562707971) Type 2 diabetes mellitus with diabetic polyneuropathy (E11.42) Active confirmed Problem 115997429 Non-pressure chronic ulcer of other part of unspecified foot with unspecified severity (L97.509) Active confirmed Problem [id number] Primary osteoarthritis, right ankle and foot (M19.071) Active confirmed Problem 38345732 Type 2 diabetes mellitus with polyneuropathy (E11.42) Active confirmed Problem [id number] Type 2 diabetes mellitus with foot ulcer (E11.621) Active confirmed Problem 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) Active confirmed Response to treatment - Unchanged Problem Localized, secondary osteoarthritis of the ankle and/or foot (118565469) Post-traumatic arthritis of ankle, right (M19.171) Active confirmed Problem Congenital pes planus (66077034) Rigid pes planus, right (Q66.51) Active confirmed Vital Signs Blood pressure diastolic 80 mm Hg 02/24/2024 Height 5ft7in in 02/24/2024 Blood pressure systolic 168 mm Hg 02/24/2024 Weight 260 lbs 02/24/2024 BMI 40.72 kg/m2 02/24/2024 Encounters Encounter Location Date Provider Diagnosis [address] [address] 05/06/2023 Ivette Diaz Type 2 diabetes mellitus with diabetic polyneuropathy E11.42 ; 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 L97.412 ; Tinea unguium B35.1 ; Primary osteoarthritis, right ankle and foot M19.071 ; Post-traumatic arthritis of ankle, right M19.171 and Rigid pes planus, right Q66.[address] [address] 06/06/2023 Ivette Diaz Type 2 diabetes mellitus with diabetic polyneuropathy E11.42 ; 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 L97.412 ; Primary osteoarthritis, right ankle and foot M19.071 ; Post-traumatic arthritis of ankle, right M19.171 and Rigid pes planus, right Q66.[address] [address] 08/19/2023 Ivette Diaz Type 2 diabetes mellitus with diabetic polyneuropathy E11.42 ; 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 L97.412 ; Tinea unguium B35.1 ; Primary osteoarthritis, right ankle and foot M19.071 ; Post-traumatic arthritis of ankle, right M19.171 ; Rigid pes planus, right Q66.51 ; Type 2 diabetes mellitus with foot ulcer E11.621 and Cellulitis of right foot L03.[address] [address] 11/07/2023 Ivette Diaz 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 L97.412 ; Cellulitis of right foot L03.115 ; Type 2 diabetes mellitus with diabetic polyneuropathy E11.42 ; Primary osteoarthritis, right ankle and foot M19.071 ; Post-traumatic arthritis of ankle, right M19.171 ; Rigid pes planus, right Q66.51 and Type 2 diabetes mellitus with foot ulcer E11.[address] [address] 11/21/2023 Ivette Diaz 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 L97.412 ; Cellulitis of right foot L03.115 ; Type 2 diabetes mellitus with diabetic polyneuropathy E11.42 ; Primary osteoarthritis, right ankle and foot M19.071 ; Post-traumatic arthritis of ankle, right M19.171 ; Rigid pes planus, right Q66.51 ; Type 2 diabetes mellitus with foot ulcer E11.621 and Tinea unguium B35.[address] [address] 02/24/2024 Ivette Diaz 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 L97.412 ; Type 2 diabetes mellitus with foot ulcer E11.621 ; Type 2 diabetes mellitus with diabetic polyneuropathy E11.42 ; Primary osteoarthritis, right ankle and foot M19.071 ; Post-traumatic arthritis of ankle, right M19.171 ; Rigid pes planus, right Q66.51 ; Tinea unguium B35.1 ; Other hammer toe(s) (acquired), right foot M20.41 and Other hammer toe(s) (acquired), left foot M20.[address] [address] 05/12/2023 Ivette Diaz [address] [address] 08/01/2023 Ivette Diaz [address] [address] 08/19/2023 Ivette Diaz [facility] [address] 11/07/2023 Ivette Diaz [facility] [address] 11/07/2023 Ivette Diaz [facility] [address] 11/07/2023 Ivette Diaz Assessments Encounter Date Diagnosis (ICD Code) Assessment Notes Treatment Notes Treatment Clinical Notes Section Notes 05/06/2023 Type 2 diabetes mellitus with diabetic polyneuropathy (ICD-10 - E11.42) 05/06/2023 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 (ICD-10 - L97.412) Response to treatment - Unchanged 06/06/2023 Type 2 diabetes mellitus with diabetic polyneuropathy (ICD-10 - E11.42) 08/19/2023 Type 2 diabetes mellitus with diabetic polyneuropathy (ICD-10 - E11.42) 11/07/2023 Cellulitis of right foot (ICD-10 - L03.115) 11/07/2023 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 (ICD-10 - L97.412) 11/21/2023 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 (ICD-10 - L97.412) 11/21/2023 Cellulitis of right foot (ICD-10 - L03.115) 02/24/2024 Type 2 diabetes mellitus with foot ulcer (ICD-10 - E11.621) 02/24/2024 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 (ICD-10 - L97.412) 02/24/2024 Type 2 diabetes mellitus with diabetic polyneuropathy (ICD-10 - E11.42) 11/21/2023 Type 2 diabetes mellitus with diabetic polyneuropathy (ICD-10 - E11.42) 11/07/2023 Type 2 diabetes mellitus with diabetic polyneuropathy (ICD-10 - E11.42) 08/19/2023 Tinea unguium (ICD-10 - B35.1) 05/06/2023 Tinea unguium (ICD-10 - B35.1) 08/19/2023 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 (ICD-10 - L97.412) Response to treatment - Unchanged 06/06/2023 Primary osteoarthritis, right ankle and foot (ICD-10 - M19.071) 06/06/2023 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 (ICD-10 - L97.412) Response to treatment - Unchanged 06/06/2023 Post-traumatic arthritis of ankle, right (ICD-10 - M19.171) 05/06/2023 Primary osteoarthritis, right ankle and foot (ICD-10 - M19.071) 08/19/2023 Primary osteoarthritis, right ankle and foot (ICD-10 - M19.071) 11/07/2023 Primary osteoarthritis, right ankle and foot (ICD-10 - M19.071) 11/21/2023 Primary osteoarthritis, right ankle and foot (ICD-10 - M19.071) 02/24/2024 Primary osteoarthritis, right ankle and foot (ICD-10 - M19.071) 11/21/2023 Post-traumatic arthritis of ankle, right (ICD-10 - M19.171) 11/07/2023 Post-traumatic arthritis of ankle, right (ICD-10 - M19.171) 08/19/2023 Post-traumatic arthritis of ankle, right (ICD-10 - M19.171) 05/06/2023 Post-traumatic arthritis of ankle, right (ICD-10 - M19.171) 06/06/2023 Rigid pes planus, right (ICD-10 - Q66.51) 02/24/2024 Post-traumatic arthritis of ankle, right (ICD-10 - M19.171) 02/24/2024 Rigid pes planus, right (ICD-10 - Q66.51) 05/06/2023 Rigid pes planus, right (ICD-10 - Q66.51) 08/19/2023 Rigid pes planus, right (ICD-10 - Q66.51) 11/07/2023 Rigid pes planus, right (ICD-10 - Q66.51) 11/21/2023 Rigid pes planus, right (ICD-10 - Q66.51) 02/24/2024 Tinea unguium (ICD-10 - B35.1) 11/21/2023 Type 2 diabetes mellitus with foot ulcer (ICD-10 - E11.621) 11/07/2023 Type 2 diabetes mellitus with foot ulcer (ICD-10 - E11.621) 08/19/2023 Type 2 diabetes mellitus with foot ulcer (ICD-10 - E11.621) 08/19/2023 Cellulitis of right foot (ICD-10 - L03.115) 11/21/2023 Tinea unguium (ICD-10 - B35.1) 02/24/2024 Other hammer toe(s) (acquired), right foot (ICD-10 - M20.41) Patient Educated with: DIABETIC FOOT CARE INSTRUCTIONS. pdf (DIABETIC FOOT CARE INSTRUCTIONS. pdf) 02/24/2024 Other hammer toe(s) (acquired), left foot (ICD-10 - M20.42) Plan Of Treatment Pending Test Test Name Order Date Albumin, Serum 05/06/2023 Hemoglobin A1c 05/06/2023 Transferrin 05/06/2023 *CBC With Differential/Platelet 05/06/19 RBC 05/06/2023 C-Reactive Protein, Quant 05/06/2023 Prealbumin 05/06/2023 Basic Metabolic Panel (8) 05/06/2023 ESR 05/06/2023 X ray : Foot, right 3V 05/06/2023 X ray : Foot, right 3V 11/07/2023 X ray : Ankle, right 3V 05/06/2023 Next Appt Details Provider Name:Ivette lock, 05/19/2024 09:00:00 AM, [address] [place] [address], [phone], Insurance Providers Payer Name Payer Address Payer Phone Subscriber Number Group Number Insured Name Patient Relationship to Insured Coverage Start Date Coverage End Date [employer] [address] [place] [address] [id number] Colleen Das Self - patient is the insured 4 Medical (General) History Medical History History ICD Code Diabetic Neuropathy ulcer Measles Bone implants/screws Surgical History Surgery Date(Month/Year) Broken right ankle 2012 Hospitalization History Reason Date(Month/Year) infected ulcer on left foot
--- OUTSIDE RECORDS SUMMARY | 2024-04-20 10:16 | XMS_ITS | Encounter Summary ---
Author Organization [facility] Address [address] [place] [address] Care Team Providers Care Scientist Immunology Name Role Phone Zia Morales MD Primary Care Provider [phone] Reason for Visit * Reason Comments Wound Care Encounter Details Date Type Department Care Team (Late st Contact Info) Description 04/12/2024 9:00 AM EST Office Visit [facility] [address] [place] [phone] Patsy Granado MD [address] [address] Type 2 diabetes mellitus with foot ulcer (CODE) (CMS/HCC) (Primary Dx); Chronic heel ulcer, right, with fat layer exposed (CMS/HCC); Non-pressure chronic ulcer of other part of right foot with fat layer exposed (CMS/HCC) Social History Tobacco Use Types Packs/Day Years Used Date Smoking Tobacco: Never Smokeless Tobacco: Never Alcohol Use Standard Drinks/Week Comments Never 0 (1 standard drink = 0.6 oz pur e alcohol) Comments Unknown Sex and Gender Information Value Date Recorded Sex Assigned at Not on file Legal Sex Female 3:42 PM EDT Gender Identity Not on file Sexual Orientation Not on file documented as of this encounter Last Filed Vital Signs Vital Sign Reading Time Taken Comments Blood Pressure 130/72 04/12/2024 10:00 AM EST Pulse 92 04/12/2024 10:00 AM EST Temperature 36.7 ??C (98 ??F) 04/12/2024 9:15 AM EST Respiratory Rate 18 04/12/2024 10:00 AM EST Oxygen Saturation 98% 04/12/2024 10:00 AM EST Inhaled Oxygen Concentration - - Weight - - Height - - Body Mass Index - - documented in this encounter Progress Notes * Monica Gotti RN - 04/12/2024 9:00 AM EST PROVIDER ORDERS Go to ER if you are presenting with fever, chills, increased redness, pain, swelling, warmth aroundwound area and/or foul smelling odor. If you have any questions or concerns, please contact the [facility] [facility] at . It was noted today during your visit that your blood pressure is elevated. Close follow-up with PCPis recommended for possible evaluation of starting and or changing blood pressure medication. VisitVitals BP 135/74 Pulse 98 Temp 36.7 ??C (98 ??F) (Temporal) Resp 18 SpO2 100% Smoking Status Never Follow up(s)/ Referrals: Podiatry: Follow up as scheduled Make sure to use you offloading shoe Retirement: Home care: [facility] Additional Orders: - Get labs drawn before next visit -Increase protein in your diet to help promote wound healing, -Maintain good blood sugar control Lidocaine Order: Apply Lidocaine 4% Topical Solution prior to debridements at Wound Care appointments Edema Control: (If your compression wrap(s) feel to tight, please elevate your leg(s) about heart level. If your wrap(s) are becoming painful and/or you loose sensation of toes/ are having toe discoloration (a change from your baseline), please remove / unwrap compression and notify [facility] at . ) -Elevate legs above heart level as much as possible, -Avoid standing for extended periods of time Offloading: -Peg Assist offloading shoe to right foot- make sure to wear to help offload wound areas (getting dm shoes scheduled for fitting in april) -Limit pressure to wound as much as possible -Orthofelt Negative Pressure Wound Therapy: (If wound vac is off/non functioning for more than 2 hours, please remove vac dressing, apply a wetto dry dressing and notify your home care agency) N/A Cellular/Tissue Based Products: N/A Bathing / Showering / Hygiene: May shower with protection but DO NOT get wound dressing(s) wet. Protect dressing(s) with water repellant cover ( for example- large plastic bag or cast bag) and then may take shower. Non-wound Condition/ Other Skin Care: Moisturize skin daily, avoiding wound area Wound Location(s): Wound #1 (Right heel): Cleanser: Cleanse with Normal Saline Periwound: N/A Topical: N/A Primary dressing: Calcium Alginate AG Secondary dressinx4 woven gauze (non-sterile), 5x9 ABD pad, Orthofelt Secure with: 3 conforming gauze roll, Spandage size 3, 1 paper tape Compression Therapy: Elevate legs above heart level as much as possible Dressing Change Frequency: Every Other Day Wound #2 (Right plantar foot): Cleanser: Cleanse with Normal Saline Periwound: N/A Topical: N/A Primary dressing: Calcium Alginate AG Secondary dressinx4 woven gauze (non-sterile), Orthofelt Secure with: 3 conforming gauze roll, Spandage size 3, 1 paper tape Compression Therapy: Elevate legs above heart level as much as possible Dressing Change Frequency: Every Other Day * Patsy Granado MD - 04/12/2024 9:00 AM ESTAssociated Order(s): Debridement Diabetic Ulcer Right;Plantar Foot; Debridement Diabetic Ulcer Right Heel Post-Procedure Diagnose(s): 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 Topical: N/A [facility] at [address] [address] Office Visit Visit Date: 04/12/2024 Patient Name: Colleen Das Date of : 1955 PCP: Zia Morales MD HPI: Colleen is seen for follow-up right foot plantar first toe ulcer and right heel ulcer, treatedwith alginate dressing change every other day. Patient is 68 years old woman with history of diabetes mellitus with neuropathy. She has had no fever no chills. Minimal drainage. No pain no leg edema.She has an upcoming appointment with her veterinary virus serum inspector February 24, 2024, right foot offloading shoe was ordered, she got her offloading shoe wears them in the house only. Assessment and Plan: Type 2 diabetes mellitus with right diabetic foot ulcer (CMS/HCC) (Primary) - CBC and differential; Future - Basic metabolic panel; Future - Hemoglobin A1c; Future - C-reactive protein; Future - Sedimentation rate; Future - Debridement Diabetic Ulcer Right;Plantar Foot - Debridement Diabetic Ulcer Right Heel Chronic heel ulcer, right, with fat layer exposed (CMS/HCC) - CBC and differential; Future - Basic metabolic panel; Future - Hemoglobin A1c; Future - C-reactive protein; Future - Sedimentation rate; Future - Debridement Diabetic Ulcer Right Heel Non-pressure chronic ulcer of other part of right foot with fat layer exposed (CMS/HCC) - CBC and differential; Future - Basic metabolic panel; Future - Hemoglobin A1c; Future - C-reactive protein; Future - Sedimentation rate; Future - Debridement Diabetic Ulcer Right;Plantar Foot All questions were answered to her satisfaction. She was counseled regarding my impressions, instructions for management, and the importance of compliance with treatment. Follow up in 2 weeks (on 04/26/2024) for Follow up with Dr. Granado. >>>>>>>>>>>>>>>>>>>>>>>>>>>>>>>>>>>>>>>>>>>>>>>>>>> Vital Signs: Visit Vitals BP 130/72 Pulse 92 Temp 36.7 ??C (98 ??F) (Temporal) Resp 18 Review of Systems: No fever no chills drainage decreased PHYSICAL EXAM right foot plantar heel ulcer with thick callus around the edges, central granulationtissue, fibrin and slough. By measurement both the right foot plantar first toe and heel ulcer smaller in size. Periwound skin is intact no cellulitis. Dorsalis pedis pulse palpable. There is no leg or foot edema no cellulitis. WOUND ASSESSMENT If photograph of wound not visible on this note, please check under Media tab. Wound Diabetic Ulcer 11/24/23 Heel Right (Active) Date First Assessed: 11/24/23 Primary Wound Type: Diabetic Ulcer Wound Approximate Age at First Assessment (Weeks): 67 weeks Hand Hygiene Completed: Yes Diabetic Ulcer Grading: Grade 1 Location: HeelWound Location Orientation: Right Assessments 12/29/2023 9:16 AM 04/12/2024 9:15 AM Wound Image Wound Bed Tissue Assessment Granulation;Pale;[place];Sloughing Red;Granulation;Sloughing Pamela-Wound Assessment Callused;Peeling Callused;Dry;Peeling Wound Length (cm) 0.9 cm 1.2 cm Wound Width (cm) 1.5 cm 1.5 cm Wound Surface Area (cm^2) 1.35 cm^2 1.8 cm^2 Wound Depth (cm) 0.3 cm 0.2 cm Wound Volume (cm^3) 0.405 cm^3 0.36 cm^3 Wound Healing % -- 11 Drainage Description Serosanguineous Serosanguineous Drainage Amount Moderate Moderate Treatments Other (Comment);Cleansed Cleansed;Other (Comment) Dressing Gauze -- Dressing Status Removed Removed Wound Bed Granulation (%) 90 % 40 % Wound Bed Slough (%) 10 % 60 % Wound Bed Eschar (%) 0 % 0 % Tunneling 0 cm 0 cm Undermining 0.3 cm 0 cm Underming Start Clock Position of Wound 10 o'clock -- Underming End Clock Position of Wound 1 o'clock -- Edges Well-defined edges;Not attached Well-defined edges Non-staged Wound Description Full thickness Full thickness Active Orders Date Order Priority Status Authorizing Provider 04/12/24 0946 Debridement Diabetic Ulcer Right Heel Routine Active Patsy Granado MD Inactive Orders Date Order Priority Status Authorizing Provider 03/29/24 0932 Debridement Diabetic Ulcer Right Heel Routine Completed Patsy Granado MD 03/15/24 1043 Debridement Diabetic Ulcer Right Heel Routine Completed Patsy Granado MD 02/23/24 1030 Debridement Diabetic Ulcer Right Heel Routine Completed Patsy Granado MD 02/09/24 1010 Debridement Diabetic Ulcer Right Heel Routine Completed Patsy Granado MD 01/26/24 0946 Debridement Diabetic Ulcer Right Heel Routine Completed Patsy Granado MD 12/29/23 1231 Wound Care Procedure Diabetic Ulcer Right Heel Routine Completed Patsy Granado MD Wound Diabetic Ulcer 11/24/23 Foot Right;Plantar (Active) Date First Assessed: 11/24/23 Primary Wound Type: Diabetic Ulcer Wound Approximate Age at First Assessment (Weeks): 7 weeks Hand Hygiene Completed: Yes Diabetic Ulcer Grading: Grade 1 Location: Foot Wound Location Orientation: Right;Plantar Wo... Assessments 12/29/2023 9:12 AM 04/12/2024 9:17 AM Wound Image Wound Bed Tissue Assessment Granulation;Red Granulation;Sloughing;Red Pamela-Wound Assessment Callused;Peeling Callused;Dry Wound Length (cm) 0.5 cm 0.7 cm Wound Width (cm) 0.2 cm 0.6 cm Wound Surface Area (cm^2) 0.1 cm^2 0.42 cm^2 Wound Depth (cm) 0.3 cm 0.4 cm Wound Volume (cm^3) 0.03 cm^3 0.168 cm^3 Wound Healing % -- -460 Drainage Description Serosanguineous Serosanguineous Drainage Amount Moderate Moderate Treatments Cleansed Cleansed;Other (Comment) Dressing Gauze -- Dressing Status Removed;Old drainage Removed Wound Bed Granulation (%) 100 % 50 % Wound Bed Slough (%) 0 % 50 % Wound Bed Eschar (%) 0 % 0 % Tunneling 0.5 cm 0 cm Tunneling Clock Position of Wound 7 o'clock -- Undermining 0 cm 0.3 cm Underming Start Clock Position of Wound -- 6 o'clock Underming End Clock Position of Wound -- 2 o'clock Edges Well-defined edges;Not attached Well-defined edges;Not attached Non-staged Wound Description Full thickness Full thickness Active Orders Date Order Priority Status Authorizing Provider 04/12/24 0944 Debridement Diabetic Ulcer Right;Plantar Foot Routine Active Patsy Granado MD Inactive Orders Date Order Priority Status Authorizing Provider 03/29/24 0929 Debridement Diabetic Ulcer Right;Plantar Foot Routine Completed Patsy Granado MD 03/15/24 1035 Debridement Diabetic Ulcer Right;Plantar Foot Routine Completed Patsy Granado MD 02/23/24 1028 Debridement Diabetic Ulcer Right;Plantar Foot Routine Completed Patsy Granado MD 02/09/24 1008 Debridement Diabetic Ulcer Right;Plantar Foot Routine Completed Patsy Granado MD 01/26/24 0944 Debridement Diabetic Ulcer Right;Plantar Foot Routine Completed Patsy Granado MD 01/12/24 1012 Debridement Diabetic Ulcer Right;Plantar Foot Routine Completed Patsy Granado MD 12/29/23 1222 Wound Care Procedure Diabetic Ulcer Right;Plantar Foot Routine Completed Patsy Granado MD Debridement Diabetic Ulcer Right;Plantar Foot Performed by: Patsy Granado MD Authorized by: Patsy Granado MD Associated wounds: Wound Diabetic Ulcer 11/24/23 Foot Right;Plantar Consent: Consent obtained: Verbal Consent given by: Patient Risks discussed: Yes Time out: Immediately prior to the procedure a time out was called Time out performed at: 04/12/2024 9:40 AM Debridement Details: Performed by: Physician Type: selective Pain control: Lidocaine 4% Pain control administration: topical anesthesia Severity of Tissue Pre Debridement: Fat layer exposed Severity of Tissue Post Debridement: Fat layer exposed Time taken: 04/12/2024 9:17 AM Length (cm): 0.7 Width (cm): 0.6 Depth (cm): 0.4 Area (cm^2): 0.42 Time taken: 04/12/2024 9:18 AM Length (cm): 0.7 Width (cm): 0.6 Depth (cm): 0.2 Percent Debrided (%): 100 Surface Area (cm^2): 0.42 Area Debrided (cm^2): 0.42 Volume (cm^3): 0.08 Devitalized tissue debrided: callus, fibrin and slough Devitalized tissue debrided comment: Devitalized skin Instrument: Blade and forceps Amount of bleeding: small Hemostasis obtained with: Pressure and silver nitrate Procedural pain: 0 Post-procedural pain: 0 Response to treatment: Procedure was tolerated well Debridement Diabetic Ulcer Right Heel Performed by: Patsy Granado MD Authorized by: Patsy Granado MD Associated wounds: Wound Diabetic Ulcer 11/24/23 Heel Right Consent: Consent obtained: Verbal Consent given by: Patient Risks discussed: Yes Time out: Immediately prior to the procedure a time out was called Time out performed at: 04/12/2024 9:44 AM Debridement Details: Performed by: Physician Type: selective Pain control: Lidocaine 4% Pain control administration: topical anesthesia Severity of Tissue Pre Debridement: Fat layer exposed Severity of Tissue Post Debridement: Fat layer exposed Time taken: 04/12/2024 9:15 AM Length (cm): 1.2 Width (cm): 1.5 Depth (cm): 0.2 Area (cm^2): 1.8 Time taken: 04/12/2024 9:16 AM Length (cm): 1.2 Width (cm): 1.5 Depth (cm): 0.2 Percent Debrided (%): 100 Surface Area (cm^2): 1.8 Area Debrided (cm^2): 1.8 Volume (cm^3): 0.36 Devitalized tissue debrided: callus, fibrin and slough Devitalized tissue debrided comment: Devitalized skin Instrument: Blade and forceps Amount of bleeding: small Hemostasis obtained with: Pressure and silver nitrate Procedural pain: 0 Post-procedural pain: 0 Response to treatment: Procedure was tolerated well Open wound debridement carried out with scalpel and forceps right heel and right foot plantar ulcer, topical 4% lidocaine. Minimal bleeding, controlled with pressure. Patient tolerated the procedure well. PROVIDER ORDERS Patient Instructions PROVIDER ORDERS Go to ER if you are presenting with fever, chills, increased redness, pain, swelling, warmth aroundwound area and/or foul smelling odor. If you have any questions or concerns, please contact the [facility] at . It was noted today during your visit that your blood pressure is elevated. Close follow-up with PCPis recommended for possible evaluation of starting and or changing blood pressure medication. VisitVitals BP 135/74 Pulse 98 Temp 36.7 ??C (98 ??F) (Temporal) Resp 18 SpO2 100% Smoking Status Never Follow up(s)/ Referrals: Podiatry: Follow up as scheduled Make sure to use you offloading shoe Retirement: Home care: [facility] Additional Orders: - Get labs drawn before next visit -Increase protein in your diet to help promote wound healing, -Maintain good blood sugar control Lidocaine Order: Apply Lidocaine 4% Topical Solution prior to debridements at Wound Care appointments Edema Control: (If your compression wrap(s) feel to tight, please elevate your leg(s) about heart level. If your wrap(s) are becoming painful and/or you loose sensation of toes/ are having toe discoloration (a change from your baseline), please remove / unwrap compression and notify [facility] at . ) -Elevate legs above heart level as much as possible, -Avoid standing for extended periods of time Offloading: -Peg Assist offloading shoe to right foot- make sure to wear to help offload wound areas (getting dm shoes scheduled for fitting in april) -Limit pressure to wound as much as possible -Orthofelt Negative Pressure Wound Therapy: (If wound vac is off/non functioning for more than 2 hours, please remove vac dressing, apply a wetto dry dressing and notify your home care agency) N/A Cellular/Tissue Based Products: N/A Bathing / Showering / Hygiene: May shower with protection but DO NOT get wound dressing(s) wet. Protect dressing(s) with water repellant cover ( for example- large plastic bag or cast bag) and then may take shower. Non-wound Condition/ Other Skin Care: Moisturize skin daily, avoiding wound area Wound Location(s): Wound #1 (Right heel): Cleanser: Cleanse with Normal Saline Periwound: N/A Topical: N/A Primary dressing: Calcium Alginate AG Secondary dressinx4 woven gauze (non-sterile), 5x9 ABD pad, Orthofelt Secure with: 3 conforming gauze roll, Spandage size 3, 1 paper tape Compression Therapy: Elevate legs above heart level as much as possible Dressing Change Frequency: Every Other Day Wound #2 (Right plantar foot): Cleanser: Cleanse with Normal Saline Periwound: N/A Topical: N/A Primary dressing: Calcium Alginate AG Secondary dressinx4 woven gauze (non-sterile), Orthofelt Secure with: 3 conforming gauze roll, Spandage size 3, 1 paper tape Compression Therapy: Elevate legs above heart level as much as possible Dressing Change Frequency: Every Other Day 04/12/2024 12:20 PM EST Patsy Granado MD * Adilene Giordano RN - 04/12/2024 9:00 AM EST Discharge Patient directed to check out at front office director and collect visit summary with wound care directions and book follow up as directed. Dressings applied: Wound #1 (Right heel): Cleanser: Normal Saline Primary dressing: Calcium Alginate AG Secondary dressinx4 woven gauze (non-sterile), Orthofelt Secure with: 3 conforming gauze roll, Spandage size 3, 1 paper tape Wound #2 (Right plantar foot): Cleanser: Normal Saline Primary dressing: Calcium Alginate AG Secondary dressinx4 woven gauze (non-sterile), Orthofelt Secure with: 3 conforming gauze roll, Spandage size 3, 1 paper tape Dressing technique was demonstrated and explained. Patient questions answered. Pt discharge from wound care center without issue or incidence. documented in this encounter Plan of Treatment Upcoming Encounters Date Type Department Care Team (Late st Contact Info) Description 04/26/2024 9:15 AM EDT Clinical Support [facility] [address] [place] [phone] Scheduled Orders Name Type Priority Associated Diagnoses Orde r Schedule CBC and differential Lab Routine Type 2 diabetes mellitus with foot ulcer (CODE) (CMS/HCC) Chronic heel ulcer, right, with fat layer exposed (CMS/HCC) Non-pressure chronic ulcer of other part of right foot with fat layer exposed (CMS/HCC) 1 Occurrences starting 04/12/2024 until 04/12/2025 Basic metabolic panel Lab Routine Type 2 diabetes mellitus with foot ulcer (CODE) (CMS/HCC) Chronic heel ulcer, right, with fat layer exposed (CMS/HCC) Non-pressure chronic ulcer of other part of right foot with fat layer exposed (CMS/HCC) 1 Occurrences starting 04/12/2024 until 04/12/2025 Hemoglobin A1c Lab Routine Type 2 diabetes mellitus with foot ulcer (CODE) (CMS/HCC) Chronic heel ulcer, right, with fat layer exposed (CMS/HCC) Non-pressure chronic ulcer of other part of right foot with fat layer exposed (CMS/HCC) 1 Occurrences starting 04/12/2024 until 04/12/2025 C-reactive protein Lab Routine Type 2 diabetes mellitus with foot ulcer (CODE) (CMS/HCC) Chronic heel ulcer, right, with fat layer exposed (CMS/HCC) Non-pressure chronic ulcer of other part of right foot with fat layer exposed (CMS/HCC) 1 Occurrences starting 04/12/2024 until 04/12/2025 Sedimentation rate Lab Routine Type 2 diabetes mellitus with foot ulcer (CODE) (CMS/HCC) Chronic heel ulcer, right, with fat layer exposed (CMS/HCC) Non-pressure chronic ulcer of other part of right foot with fat layer exposed (CMS/HCC) 1 Occurrences starting 04/12/2024 until 04/12/2025 CBC auto differential Lab Routine Type 2 diabetes mellitus with foot ulcer (CODE) (CMS/HCC) Chronic heel ulcer, right, with fat layer exposed (CMS/HCC) Non-pressure chronic ulcer of other part of right foot with fat layer exposed (CMS/HCC) Ordered: 04/12/2024 documented as of this encounter Goals Goal Patient Goal Type Associated Problems Recent Progress Patient-Stated? Author Decrease Wound Volume by X% by date (in notes) Care Plan Impaired Tissue No change(2024 9:22 AM EST) Monica Delgado RN Patient and Caregiver Understand Wound Care Education Care Plan Impaired Tissue Not on track( 025 9:22 AM EST) Monica Delgado RN Wound volume breakdown reduced by X% by week 4 Care Plan Impaired Tissue No Monica Gotti RN Wound volume breakdown reduced by X% by week 8 Care Plan Impaired Tissue No Monica Gotti RN Wound volume breakdown reduced by X% by week 12 Care Plan Impaired Tissue No Monica Gotti RN Quit using tobacco (cigarettes, smokeless, etc) Care Plan Education needed on impact of smoking on wound No Monica Gotti RN Reduce tobacco use (cigarettes, smokeless, etc) Care Plan Education needed on impact of smoking on wound No Monica Gotti RN Decrease Wound Volume by X% by date (in notes) Care Plan Education needed on impact of smoking on wound No Monica Gotti, RN Patient and Caregiver Understand Wound Care Education Care Plan Education needed related to ulceration/compr omised skin integrity. No Monica Gotti RN documented as of this encounter Procedures Procedure Name Priority Date/Time Associated Diagnosis Comments DEBRIDEMENT Routine 04/12/2024 9:00 AM EST Type 2 diabetes mellitus with foot ulcer (CODE) ([facility]) Chronic heel ulcer, right, with fat layer exposed ([facility]) DEBRIDEMENT Routine 04/12/2024 9:00 AM EST Type 2 diabetes mellitus with foot ulcer (CODE) ([facility]) Non-pressure chronic ulcer of other part of right foot with fat layer exposed ([facility]) documented in this encounter Results * Debridement Diabetic Ulcer Right Heel (04/12/2024 9:00 AM EST) Narrative Patsy Granado MD - 04/12/2024 9:00 AM EST Patsy Granado MD ? 04/12/2024 12:30 PM Debridement Diabetic Ulcer Right Heel Performed by: Patsy Granado MD Authorized by: Patsy Granado MD ??Associated wounds: Wound Diabetic Ulcer 11/24/23 Heel Right Consent: ??Consent obtained: ??Verbal ??Consent given by: ??Patient ??Risks discussed: Yes ?? Time out: Immediately prior to the procedure a time out was called ?? Time out performed at: ??04/12/2024 9:44 AM Debridement Details: ??Performed by: ??Physician ??Type: selective ?Pain control: ??Lidocaine 4% ??Pain control administration: topical anesthesia ?Severity of Tissue Pre Debridement: ??Fat layer exposed ??Severity of Tissue Post Debridement: ??Fat layer exposed ??Time taken: ??04/12/2024 9:15 AM ??Length (cm): ??1.2 ??Width (cm): ??1.5 ??Depth (cm): ??0.2 ??Area (cm^2): ??1.8 ??Time taken: ??04/12/2024 9:16 AM ??Length (cm): ??1.2 ??Width (cm): ??1.5 ??Depth (cm): ??0.2 ??Percent Debrided (%): ??100 ??Surface Area (cm^2): ??1.8 ??Area Debrided (cm^2): ??1.8 ??Volume (cm^3): ??0.36 ??Devitalized tissue debrided: callus, fibrin and slough ?Devitalized tissue debrided comment: ??Devitalized skin ??Instrument: ??Blade and forceps ??Amount of bleeding: small ?Hemostasis obtained with: ??Pressure and silver nitrate ??Procedural pain: ??0 ??Post-procedural pain: ??0 ??Response to treatment: ??Procedure was tolerated well us Patsy Granado MD IN CLINIC/BEDSIDE ORDERAB LES Final Result * Debridement Diabetic Ulcer Right;Plantar Foot (04/12/2024 9:00 AM EST) Narrative Patsy Granado MD - 04/12/2024 9:00 AM EST Patsy Granado MD ? 04/12/2024 12:30 PM Debridement Diabetic Ulcer Right;Plantar Foot Performed by: Patsy Granado MD Authorized by: Patsy Granado MD ??Associated wounds: Wound Diabetic Ulcer 11/24/23 Foot Right;Plantar Consent: ??Consent obtained: ??Verbal ??Consent given by: ??Patient ??Risks discussed: Yes ?? Time out: Immediately prior to the procedure a time out was called ?? Time out performed at: ??04/12/2024 9:40 AM Debridement Details: ??Performed by: ??Physician ??Type: selective ?Pain control: ??Lidocaine 4% ??Pain control administration: topical anesthesia ?Severity of Tissue Pre Debridement: ??Fat layer exposed ??Severity of Tissue Post Debridement: ??Fat layer exposed ??Time taken: ??04/12/2024 9:17 AM ??Length (cm): ??0.7 ??Width (cm): ??0.6 ??Depth (cm): ??0.4 ??Area (cm^2): ??0.42 ??Time taken: ??04/12/2024 9:18 AM ??Length (cm): ??0.7 ??Width (cm): ??0.6 ??Depth (cm): ??0.2 ??Percent Debrided (%): ??100 ??Surface Area (cm^2): ??0.42 ??Area Debrided (cm^2): ??0.42 ??Volume (cm^3): ??0.08 ??Devitalized tissue debrided: callus, fibrin and slough ?Devitalized tissue debrided comment: ??Devitalized skin ??Instrument: ??Blade and forceps ??Amount of bleeding: small ?Hemostasis obtained with: ??Pressure and silver nitrate ??Procedural pain: ??0 ??Post-procedural pain: ??0 ??Response to treatment: ??Procedure was tolerated well us Patsy Granado MD IN CLINIC/BEDSIDE ORDERAB LES Final Result documented in this encounter Visit Diagnoses Diagnosis Type 2 diabetes mellitus with foot ulcer (CODE) (CMS/HCC)- Primary Chronic heel ulcer, right, with fat layer exposed (CMS/HCC) Non-pressure chronic ulcer of other part of right foot with fat layer exposed (CMS/HCC) documented in this encounter Additional Health Concerns Active Problems Noted Date Diagnosed Date Impaired Tissue 12/29/2023 Education needed on impact of smoking on wound 1 02/27/2023 Education needed related to ulceration/compromised skin integrity. 12/29/2023 documented as of this encounter Care Teams Scientist Immunology Relationship Specialty Start Date End Date Zia Morales MD [address] [place] [address] Dr Esteban MA PCP - General Internal Medicine 12/15/23 documented as of this encounter
--- OUTSIDE RECORDS SUMMARY | 2024-04-20 10:16 | XMS_ITS ---
[facility] Address 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 Name Role Phone Zai Morales MD Primary Care Provider Ivette Escudero Unavailable [phone] Allergies Allergen (clinical drug ingredient) Drug/Non Drug Allergy documented on EMR Reaction Allergy Type Onset Date Status sulfamethoxazole / trimethoprim Bactrim rash Drug Allergy Active REASON FOR VISIT Open sore, Toe Irritation, At Risk Footcare Medications Medication SIG (Take, Route, Frequency, Duration) Notes Start Date End Date Status metFORMIN HCl 500 MG 1 tablet with a nata l Orally Once a day Active Walker as directed 05/06/2023 Active Keflex 500 MG 1 capsule Orally srinivas ry 12 hrs for 10 day(s) 08/19/2023 Not-Taking Cipro 500 MG 1 tablet Orally ever y 12 hrs for 7 days 08/25/2023 Not-Taking Augmentin 500-125 MG 1 tablet Orally srinivas ry 12 hrs for 7 day(s) 08/25/2023 Not-Taking glipiZIDE ER 10 MG 1 tablet with breakf ast Orally Once a day Active Extra Depth Orthopedic Shoes (1 Pair) with Customized Heat Molded Multidensity Innersoles (3 Pair) as directed Dx: NIDDM/Polyneuropathy (E11.42), Hammertoe Foot Deformity (M20.41,M20.42), Preulcerative Skin Lesion(s) (L85.1, ulcer sub 1st and heel Right -offloading needed for orthotic 02/24/2024 Active Social History Tobacco Use: Social History Observation Description Date Details (start date - stop date) Never Smoker NA - NA Tobacco Use/Smoking Question Answer Notes Are you a: nonsmoker Additional Findings: Tobacco Non-User Current no n-smoker Tobacco use other than smoking: Question Answer Notes Are you an other tobacco user? No Problems Problem Type SNOMED Code ICD Code Onset Dates Problem Status W/U Status Risk Notes Problem Acquired hammer toe of right foot (3924439716552 105) Other hammer toe(s) (acquired), right foot (M20.41) Active confirmed Problem Acquired hammer toe of left foot (3247016368020 103) Other hammer toe(s) (acquired), left foot (M20.42) Active confirmed Vital Signs Height 5ft7in in 02/24/2024 Weight 260 lbs 02/24/2024 BMI 40.72 kg/m2 02/24/2024 Blood pressure systolic 168 mm Hg 02/23/19 25 Blood pressure diastolic 80 mm Hg 025 Encounters Encounter Location Date Provider Diagnosis [facility] [address] [place] [address] 02/24/2024 Ivette Diaz Neuropathic ulcer of right [...] Other hammer toe(s) (acquired), left foot M20.42 Assessments Encounter Date Diagnosis (ICD Code) Assessment Notes Treatment Notes Treatment Clinical Notes Section Notes 02/24/2024 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 pdf (DIABETIC FOOT CARE INSTRUCTIONS. pdf) 02/24/2024 Other hammer toe(s) (acquired), left foot (ICD-10 - M20.42) Plan Of Treatment Medication Medication Name Sig Start Date Stop Date Notes Extra Depth Orthopedic Shoes (1 Pair) with Customized Heat Molded Multidensity Innersoles (3 Pair) as directed Dx: NIDDM/Polyneuropathy (E11.42), Hammertoe Foot Deformity (M20.41,M20.42), Preulcerative Skin Lesion(s) (L85.1, ulcer sub 1st and heel Right -offloading needed for orthotic 02/24/2024 Treatment Notes Assessment Notes Other hammer toe(s) (acquired), right fo ot Patient Educated with: DIABETIC FOOT CARE INSTRUCTIONS.pdf (DIABETIC FOOT CARE INSTRUCTIONS.pdf) Next Appt Details Follow Up: 3 Months, Reason: Provider Name:Ivette lock, 05/19/2024 09:00:00 AM, [address] [place] [address], [id number], Procedure Notes * Category Sub-Category Detail Notes Debride Nail 6-10 Nail debridement Due to the cl inical pathology outlined in the exam findings, performance of this nail treatment is medically necessary as its management by an unskilled/untrained nonprofessional would put this patients foot and overall health at risk. Therefore, debridement to affected nail(s), as described in exam (TA, T1, T2, T3, T4, T5, T6, T7, T8, T9, ), was performed exclusively by the physician of record to reduce/remove overall nail length, girth, thickness, subungual debris, and necrotic tissue, by manual and/or electrical means through the use of a nail nipper and/or dremel-type tile grinder, to a more viable healthy nail plate or bed tissue 6-10 nails in total. Silver nitrate was used for any petechial bleeding as necessary. Definitive antifungal treatment options, both pharmaceutical and surgical, have been reviewed and discussed with the patient. The patient solely prefers the use of intermittent/as needed professional debridement services for their nail condition and understands the need for additional periodic treatments to maintain effectiveness in symptomatic relief - 58545 Keratoma Treatment Parring or Cutting o f Benign Hyperkeratotic Lesion(s) (-57) More than 4 Lesions - Due to the at risk nature of the patients medical condition as documented in the exam findings, performance of this keratoderma treatment is medically necessary as its management by an unskilled/untrained nonprofessional would put this patients foot and overall health at risk. Therefore, the benign hyperkeratotic lesions, (5 ) in total, locations as stated and described in the exam ( TA , T5 , SUB MTH (s) , 1 , B/L , Heel(s) , Right ), were pared, and/or cut utilizing a sterile 15 blade, tissue nippers, and/or power dremel instrumentation by the physician of record - 96262 Progress Notes * Colleen DAS ADOB:[birth year] (68 yo F)Acc No.[id number]:02/24/2024 Progress Note Patient:?Colleen DAS Daria Provider:?Ivette Diaz DPM :1955???Age:68 Y???Sex:Female D ate:02/24/2024 Address:[address] [place], [place] [id number] Pcp:Zia Morales MD Subjective: * Chief Complaints: * ???Open soreToe IrritationAt Risk Footcare * HPI: ???At Risk footcare:?Pt States Last PCP Visit:?Date?02/13/2024 ???Skin problems:?Nature:?Open sore , odor , redness.?Location:?Heel/Rearfoot ,and now forefoot?Bottom , Right.?Duration:?several years.?Onset/Cause:?gradual , walking.?Course:?unchanged, continued wounds to right foot.?Aggravated by:?any pressure , standing , walking , shoe gear.?Treatments:?silver alginate dressing changes QOD, offloading boot, C wound care-per pt she was discharged as there was nothing more they could do for the pt, per wound care notes pt has declined offloading cast boot or PECHANGA due to stability issues and concern for falling, pt defers surgery or ortho consult, pt's PCP was setting pt up with another wound care center, however pt states she did not pursue it and has not had any treatment for her wounds; spent 3 days in [facility] for infection, MRI (-) for osteomyelitis, has [facility] and [facility] currently using Medihoney.?Toe pain:?Location:?B/L feet.?Duration:?several years.?Course:?worse.?Aggravated by:?shoes, any pressure.?Treatments:?change in shoes.? * ROS:?General/Constitutional:?Nausea?denies.?Vomiting?denies.?Hunger Thirst?denies.?Loss appetite?denies.?Chills?denies.?Fatigue?denies.?Fever?denies.?Night Sweats?denies.?Unexplained weight loss?denies.?Unexplained weight gain?denies.?HEENTM:?Dentures?denies.?Dizziness?denies.?Glasses/contacts?denies.?Retinopathy?den ies.?Blurred/double vision?denies.?TMJ?denies.?Discharge/drainage?denies.?Implants?denies.?Sore throat?denies.?Dental implants?denies.?Hard of hearing ?denies.?Difficulty chewing/swallowing/speaking?denies.?Nose bleeds?denies.?Sore mouth?denies.?Respiratory:?On O xygen?denies.?Pneumonia/pleurisy?denies.?Bronchitis?denies.?Emphysema?denies.?Co ughing?denies.?Cough blood?denies.?Shortness of breath?denies.?Wheezing?denies.?Cardiovascular:?Pacemaker?denies.?MVP?denies.?WPW?denies.?CHF?denies.?Heart attack?denies.?Septal defect?denies.?Rapid beat?denies.?Chest pain ?denies.?Atrial Fib.?denies.?Murmur/Palpitations?denies.?Gastrointestinal:?Hemorrhoids?denies.?Stomach/Abdominal pain?denies.?Dark blood stool?denies.?Irritable bowel ?denies.?Constipation?denies.?Diarrhea?denies.?Hematology:?Swelling?denies.?Clots?denies.?Varicose Veins?denies.?Bruising?denies.?Bleeding problem?denies.?Genitourinary:?Blood urine?denies.?Frequent/Painfu/urination/bladder control?denies.?Kidney stones?denies.?Infection (UTI)?denies.?Nephropathy??admits.?sex trans dis (STD)?denies.?Prostate?denies.?Musculoskeletal:?Hammertoes?denies.?Bunions?denies.?Back Pain?denies.?Muscle Cramps/ Resting?denies.?Muscle cramps / walking?denies.?Generalized aches and pains?admits.?Weakness?denies.?Integ.:?Mckinney?denies.?Scars?denies.?Corns/calluses?admits.?Ingrown nails?denies.?Painful nails?denies.?Open Sores?admits.?Rashes?denies.?Neurologic:?Difficulty sleeping?denies.?Brain disorder?denies.?Numbness?admits.?Balance t rouble?denies.?Confusion?denies.?Fainting/blackouts?denies.?Tingling?admits.?Parth mors?denies.? * Medical History:? * Surgical History:?Broken rig ht ankle 2012 * Hospitalization/Major Diagno stic Procedure:?infected ulcer on left foot * Family History:?Mother: dece ased.?Father: .?Siblings: Kidney/Liver Disease, diagnosed with Other specified conditions influencing health status.? * Social History:?Tobacco Use:?Tobacco Use/Smoking?Are you a:?nonsmoker ?Additional Findings: Tobacco Non-User?Current non-smoker ?Tobacco use other than smoking?Are you an other tobacco user??No * Medications:?TakingglipiZIDE ER 10 MG Tablet Extended Release 24 Hour 1 tablet with breakfast Orally Once a day metFORMIN HCl 500 MG Tablet 1 tablet with a meal Orally Once a day Walker as directed Taking glipiZIDE ER 10 MG Tablet Extended Release 24 Hour 1 tablet with breakfast Orally Once a day Taking metFORMIN HCl 500 MG Tablet 1 tablet with a meal Orally Once a day Taking Walker as directed Not- Taking/PRNKeflex 500 MG Capsule 1 capsule Orally every 12 hrs Cipro 500 MG Tablet 1 tablet Orally every 12 hrs Augmentin 500-125 MG Tablet 1 tablet Orally every 12 hrs Medication List reviewed and reconciled with the patientNot-Taking/PRN Keflex 500 MG Capsule 1 capsule Orally every 12 hrs Not-Taking/PRN Cipro 500 MG Tablet 1 tablet Orally every 12 hrs Not-Taking/PRN Augmentin 500-125 MG Tablet 1 tablet Orally every 12 hrs Medication List reviewed and reconciled with the patient * Allergies:?Bactrim: rash - A llergyyes[Allergies Verified] Objective: * Vitals:?Ht: 5ft7in, Wt:260, BMI:40.72, Shoe size: L: 10-11W M10-11, BP:168/80mm Hg, BS: 155, Ht-cm: 170.18 cm, Wt-k.93 kg. * ???Past Orders: ???Lab:HEMOGLOBIN A1C (GLYCO HEMOGLOBIN) (Order Date - 02/13/2024) (Collection Date & Time - 02/13/2024 09:06 AM) ? Value Reference Range ?HEMOGLOBIN A1C % (HH) 8.2 * Examination: ???Ophthalmology Referral: ?DIABETES EYE EXAM?Procedure Performed:?Yes ?Date of Exam Performed?09/02/2023 ?Findings of Diabetic Eye Exam:?retinopathy?Neurological: ?SENSORY:?(DM/Neuro) Neurological exam demonstrates reduced sharp/dull pin prick discrimination reduced light touch sensation reduced vibration sensation reduced proprioception sensation in a stocking fashion 5.07 monofilament test performed at plantar aspects of 5 varied sites per foot shows sensation plantar aspects absent at Forefoot B/L.?Dermatologic: ?SKIN FINDINGS:?Skin shows NO sign(s) of , cellulitis right foot , Skin exam reveals Keratotic lesion(s) located at , TA , T5 , SUB MTH (s) , 1 , B/L , Heel(s) , Right.?ULCER:? LOCATION, plantar heel?RIGHT, SIZE, 40 mm X 30 mm X 4mm, BASE, fibro-granular, RIM, hyperkeratotic, UNDERMINING, severe, TRACKING, Sub Q with Fat layer exposed, DRAINAGE, serosanguineous, increased, NECROTIC TISSUE, adherent, black and yellow slough, MALODOR, absent CALOR, absent, ERYTHEMA, absent; LOCATION, plantar 1st met head RIGHT SIZE, 5 mm X 3 mm X 3mm, BASE, fibro- granular, RIM, hyperkeratotic, UNDERMINING, mild, TRACKING, Sub Q with Fat layer exposed, DRAINAGE, serosanguineous, moderate, NECROTIC TISSUE,adherent, yellow slough, MALODOR, absent, CALOR, absent, ERYTHEMA, absent .?Vascular: ?DP PULSES (B):?3/4, B/L.?PT PULSES (B):?3/4, B/L.?CAPILLARY FILL TIME:?immediate, all digits, B/L.?TROPHIC CONDITION-TEXTURE/ELASTICITY/TURGOR/HAIR GROWTH (B):?decreased, with sparse to absent hair growth, fragile, thin, shiny skin.?TEMPERTURE GRADIENT (C):?normal, warm to cool, proximal to distal, B/L, B/L.?PIGMENTATION:?pale, B/L.?EDEMA (C):?1/, Right, Foot.?Orthopedic: ?MUSCLE STRENGTH:?/5 all groups in a symmetrical fashion, B/L.?GAIT ABNORMALITY:?Pronated.?FOOT MORPHOLOGY:?Rigid medial/plantar protrusion of Midfoot at area of Navicular tuberosity , Pes Planus structure , Rigid R>>L.?DIGITAL DEFORMITIES:?Digital contracture, PIPJ, 2-5 B/L, incompl-reducible to push-up test, no over, nor underlapping,?there is?evidence of shoe producing skin irritation.?FOOTWEAR:?surgical shoe right- , worn, non-supportive, odor present , worn, non-supportive, shoe gear properties exacerbate patient's foot/toe deformity.?General Examination: ?GENERAL APPEARANCE:?Pt relates recent?fever, chills, malaise, lymphadenopathy.?ORIENTED:?person, place, and time.?FOOT EXAM:?Lower Extremity Neurological Exam performed:?Yes Date ?Visual exam of foot performed:?Yes ?Date?02/24/2024 ?Sensory testing performed:?sensations diminished ?Pedal pulse taking performed:?2+ ?Footwear Evaluation?Footwear Evaluation performed:?Yes?Nails: ?NAILS are:?Elongated, overgrown, dystrophic, lytic, greater than 3mm thick, discolored and friable with crumbly malodorous subungual debris , with dull to no pain on palpation due to neuropathy, TA, T1, T2, T3, T4, T5, T6, T7, T8, T9.? 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 Plan: * Treatment: * Procedures:?Debride Nail 6-10:?Nail debridement?Due to the clinical pathology outlined in the exam findings, performance of this nail treatment is medically necessary as its management by an unskilled/untrained nonprofessional would put this patients foot and overall health at risk. Therefore, debridement to affected nail(s), as described in exam (TA, T1, T2, T3, T4, T5, T6, T7, T8, T9, ), was performed exclusively by the physician of record to reduce/remove overall nail length, girth, thickness, subungual debris, and necrotic tissue, by manual and/or electrical means through the use of a nail nipper and/or dremel-type tile grinder, to a more viable healthy nail plate or bed tissue 6- 10 nails in total. Silver nitrate was used for any petechial bleeding as necessary. Definitive antifungal treatment options, both pharmaceutical and surgical, have been reviewed and discussed with the patient. The patient solely prefers the use of intermittent/as needed professional debridement services for their nail condition and understands the need for additional periodic treatments to maintain effectiveness in symptomatic relief - 18398.?Keratoma Treatment:?Parring or Cutting of Benign Hyperkeratotic Lesion(s)?(-57) More than 4 Lesions - Due to the at risk nature of the patients medical condition as documented in the exam findings, performance of this keratoderma treatment is medically necessary as its management by an unskilled/untrained nonprofessional would put this patients foot and overall health at risk. Therefore, the benign hyperkeratotic lesions, (5 ) in total, locations as stated and described in the exam (?TA?,?T5?,?SUB MTH (s)?,?1?,?B/L?,?Heel(s)?,?Right?), were pared, and/or cut utilizing a sterile 15 blade, tissue nippers, and/or power dremel instrumentation by the physician of record - 11367.? * Procedure Codes:?72288 DEBRI DE NAIL, 6 OR MORE, Modifiers: XS 01334 TRIM SKIN LESIONS, OVER 4, Modifiers: XS * Preventive Medicine:? ??Counseling:?Discussion:?-14: Office or other outpatient visit for the evaluation and management of an established patient, which required a medically appropriate history and/or examination and MODERATE level of DECISION MAKING for: 1 OR MORE CHRONIC PROBLEM(S) THATS WORSENING, 2 STABLE CHRONIC PROBLEMS, A NEWLY DIAGNOSED PROBLEM WITH UNCERTAIN PROGNOSIS, AN ACUTE COMPLICATED INJURY WITH MULTIPLE TREATMENT OPTIONS, OR AN ACUTE PROBLEM WITH ACCOMPANYING SYSTEMIC SYMPTOMS, THAT POSE(S) A MODERATE RISK OF MORBIDITY. THIS CONDITION MAY ALSO INCLUDE RX DRUG MANAGEMENT, OR A DECISON FOR MINOR SURGERY. The visit on the day of the encounter encompassed interpreting the data and educating the patient as to the nature of their condition, treatment options available according to their individual PMH, meds, allergies, and overall health/living conditions, as well as any potential risks or complications that may occur from a failure to adhere to, and participate in, the recommended course of therapy. The discussion included a complete verbal, and/or written explanation of the examination results, any x-rays taken, the proposed diagnosis, and outline of the treatment plan. A schedule for future care needs was also explained. The patient verbalized an understanding of the instructions at this time and agreed to be an active participant in their treatment. If the patient should think of any questions or concerns after the visit, I have encouraged the patient to call the office.?Digital Surgery:?Digital surgery was discussed with the patient, We elected to try conservative treatment at the present time, due to the patients medical history and increased asssociated post-operative risks.?Digital Treatment:?HT- I explained to the patient the possible etiologies of Hammertoes, including genetics/foot type/shoegear/activity level/exercise routine and the risks/benefits of all the different treatment options for their pain including: No treatment at all, Rest, Ice, New/supportive/wider/deeper Shoegear, Digital Padding/Strapping/Taping/Bracing/Gel protective sleeves, Foot/Ankle AFO Bracing, Stretching exercises, Deep Tissue Massage, Arch support/shoe inserts with splay metatarsal padding, and Custom orthoses. I insisted that any digital devices be removed daily and not worn overnight for safety. The patient is to carefully examine the toes daily for any skin irritation while using any splinting or padding device. The advantages and disadvantages of each option were discussed and the patients questions re: shoegear, padding, custom vs prefabricated inserts, activity level, and consistency in home treatment regimens for optimal success were answered to their verbally confirmed satisfaction.?Shoe Gear Counseling:?SHOE Rx - The patient was counseled in great detail on their muscoloskeletal foot and toe deformities which coincided with the dermatological presentations visualized on exam. We discussed how their deformities put the integrity of their feet at risk for potential pedal complications which makes the accomidative diabetic shoes and cutomizable inserts medically necessary. We discussed the different shoe and insert treatment types and options, as well as the important advantages for adhering to regularly wearing these accomidative devices daily. The patient was made aware of the fact that a failure to abide by these recommedations may be deleterious to their foot health as they are able to prevent many pedal complications such as skin irritation, skin ulceration, infection, and even loss of toe/foot/leg/or life. Time was also spent with the patient dispensing and discussing proper diabetic footcare techniques including daily skin moisturization, daily foot inspection for any interruption in skin integrity including open lesions, or sign of infection such as redness/malodor/drainage/swelling. Also discussed and recommended were procedures regarding daily shoe inspection for the presence of internal foreign bodies as well as any visualized irregular shoe or insert wear. Patient questions re: shoes, inserts, and self foot inspections were answered to their satisfaction as the patient verbally confirmed a full understanding of the above information. A Rx for Extra Depth Orthopedic Shoes with 3 pair of custom heat-molded inserts was dispensed.?Ulcer:?Pt to continue with Ramiro CARRANZA and MATT for dressing changes, A detailed plan of care was reviewed with the patient. We emphasized the fact that the patient takes on an active participating role in the treatment process and emphasized to them that they are an included, valued, and important member of the wound healing team in order to reach an expedient successful outcome. The patient agreed to follow their medically recommended diet while increasing their protein intake if safely able to do so, maintain proper bodily hydaration, abide by weight-bearing restrictions at all times, quit all current smoking habits if any, and diligently follow any/all dressing change instructions. It was clearly made known to the patient that if they fail to do their part, they will likely extend their course of treatment as well as possibly increase their risk of adverse events including amputation. The patient was instructed on importance of proper wound care consisting of pressure reduction, and proper maintainance of a moist wound environment. The patient is to cleanse the wound with warm soapy water/peroxide/saline, or betadine BID based on product availability. The patient is to apply Medihoney to the wound and cover with a DSD as directed. The patient was instructed to change dressings according to orders, or PRN saturation, leaks. The patient was instructed to monitor and report any signs or symptoms of infection or any untoward reactions. Precautions Taken: Offloading/Pressure reduction via rest/ limited activity to essential to daily life only, cane/ crutches/ walker/ knee scooter/ wheel chair, shoe modification, accommodative padding, sharp debridement, and take/apply medication as directed. THE GOALS of wound debridement to remove devitilized tissue, decrease risk for infection, promote wound healing and prevent further complication were discussed/reviewed. Debridement frequency as indicated, PREVENTIVE STRATEGIES were reviewed with the patient to avoid recurrent ulceration. A set of verbal and written instructions regarding proper daily diabetic footcare techniques was discussed and dispensed. The patient is to pay close attention to skin hydration by maintaining proper moisturization through correct water consumption and consistent application of skin lotions/creams/ointments. They are also to perform regular visual and tactile foot inspections for any interruption in skin integrity including cracks, open lesions, and immediately report to the office any sign of infection such as redness/malodor/drainage/swelling. We discussed and recommended practices and procedures regarding regular shoe and insert evaluations for the presence of foreign bodies as well as for any irregular shoe or insert wear. We reinforced the importance for the patient to adhere to wearing their orthopedic shoes and pressure accommodative innersoles whenever walking. We stressed the significant value for the patient to remain consistent concerning their medically prescribed diet, participate in regular nonweight-bearing exercise (seated weights, exercise bike, or swimming), and keep their scheduled at risk foot care podiatric appointments. We also reviewed the possible role for additional Rx foot/leg bracing or surgical intervention when/if medically warranted. , The wound was not debrided due to appointment at wound care yesterday.? ??Screening/Special Tests:?Fall Risk?Assessment:?Performed ?Screening:?No falls in the past year ?FALLS: Screening for Future Fall Risk?Have you had two or more falls in the past year??No ?Have you had any falls with injury in the past year??No * Follow Up:?3 Months * Images: * Sign off status: Completed true * Provider:?Ivette Diaz DPM Date:?08/2024 Generated for Oleksandr looney/Titi/Ras on:?04/20/2024 10:15 AM EST History and Physical Notes * HPI (History of Present Illness) Category Sub-Category Detail Notes Category Not es Toe pain Location: B/L feet Duration: several years Course: worse Aggravated by: shoes, any pressure Treatments: change in shoes Skin problems Nature: Open sore , odor , redness Location: Heel/Rearfoot ,and n ow forefoot Bottom , Right Duration: several years Onset/Cause: gradual , walking Course: unchanged, continued wounds to right foot Aggravated by: any pressure , stand ing , walking , shoe gear Treatments: silver alginate dres sing changes QOD, offloading boot, [facility] wound care-per pt she was discharged as there was nothing more they could do for the pt, per wound care notes pt has declined offloading cast boot or PECHANGA due to stability issues and concern for falling, pt defers surgery or ortho consult, pt's PCP was setting pt up with another wound care center, however pt states she did not pursue it and has not had any treatment for her wounds; spent 3 days in [facility] for infection, MRI (-) for osteomyelitis, has [facility] and [facility] currently using [facility] Pt States Last PCP Visit: Date: 4 Examination Category Sub-Category Detail Notes Category Not es Neurological SENSORY: (DM/Neuro) Neuro logical exam demonstrates reduced sharp/dull pin prick discrimination reduced light touch sensation reduced vibration sensation reduced proprioception sensation in a stocking fashion 5.07 monofilament test performed at plantar aspects of 5 varied sites per foot shows sensation plantar aspects absent at Forefoot B/L Dermatologic SKIN FINDINGS: Skin shows NO si gn(s) of , cellulitis right foot , Skin exam reveals Keratotic lesion(s) located at , TA , T5 , SUB MTH (s) , 1 , B/L , Heel(s) , Right ULCER: LOCATION, plantar he el RIGHT, SIZE, 40 mm X 30 mm X 4mm, BASE, fibro- granular, RIM, hyperkeratotic, UNDERMINING, severe, TRACKING, Sub Q with Fat layer exposed, DRAINAGE, serosanguineous, increased, NECROTIC TISSUE, adherent, black and yellow slough, MALODOR, absent CALOR, absent, ERYTHEMA, absent; LOCATION, plantar 1st met head RIGHT SIZE, 5 mm X 3 mm X 3mm, BASE, fibro-granular, RIM, hyperkeratotic, UNDERMINING, mild, TRACKING, Sub Q with Fat layer exposed, DRAINAGE, serosanguineous, moderate, NECROTIC TISSUE,adherent, yellow slough, MALODOR, absent, CALOR, absent, ERYTHEMA, absent Orthopedic GAIT ABNORMALITY: Pronated FOOT MORPHOLOGY: Rigid medial/plantar protrusion of Midfoot at area of Navicular tuberosity , Pes Planus structure , Rigid R>>L FOOTWEAR: surgical shoe right- , worn, non-supportive, odor present , worn, non-supportive, shoe gear properties exacerbate patient's foot/toe deformity DIGITAL DEFORMITIES: Digital contracture , PIPJ, 2-5 B/L, incompl-reducible to push-up test, no over, nor underlapping, there is evidence of shoe producing skin irritation MUSCLE STRENGTH: 5/5 all groups in a symmetrical fashion, B/L General Examination GENERAL APPEARANCE: Pt relat es recent fever, chills, malaise, lymphadenopathy FOOT EXAM: Lower Extremity Neurological Exa m performed:: Yes Date Visual exam of foot performed:: Yes Date: 02/24/2024 Sensory testing performed:: sensations d iminished Pedal pulse taking performed:: 2+ ORIENTED: person, place, and t maritza Footwear Evaluation Footwear Evaluation performe d:: Yes Ophthalmology Referral DIABETES EYE EXAM Procedure Perform ed:: Yes ?Date of Exam Performed: 09/02/2023 Findings of Diabetic Eye Exam:: retinopa thy Vascular DP PULSES (B): 3/4, B/L PT PULSES (B): 3/4, B/L CAPILLARY FILL TIME: immediate, all digi ts, B/L TEMPERTURE GRADIENT (C): normal, warm to cool, proximal to distal, B/L, B/L TROPHIC CONDITION-TEXTURE/ELASTICITY/TURGOR/HAIR GROWTH (B): decreased, with sparse to absent hair gr owth, fragile, thin, shiny skin EDEMA (C): 1/4, Right, Foot PIGMENTATION: pale, B/L Nails NAILS are: Elongated, overg rown, dystrophic, lytic, greater than 3mm thick, discolored and friable with crumbly malodorous subungual debris , with dull to no pain on palpation due to neuropathy, TA, T1, T2, T3, T4, T5, T6, T7, T8, T9
--- OUTSIDE RECORDS SUMMARY | 2024-04-20 10:16 | XMS_ITS ---
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 12/29/2023 Goals Goal Patient Goal Type Associated Problems Recent Progress Patient-Stated? Author Decrease Wound Volume by X% by date (in notes) Care Plan Impaired Tissue No change(2024 9:22 AM EST) No Monica Gotti RN Patient and Caregiver Understand Wound Care Education Care Plan Impaired Tissue Not on track( 025 9:22 AM EST) No Monica Gotti RN Wound volume breakdown [...] needed on impact of smoking on wound Monica Delgado RN Decrease Wound Volume by X% by date (in notes) Care Plan Education needed on impact of smoking on wound Monica Delgado RN Patient and Caregiver Understand Wound Care Education Care Plan Education needed related to ulceration/compr omised skin integrity. No Monica Gotti RN Interventions Care Plan Interventions Intervention Entry Date Outcome Provide caregiver with wound care procedure information 12/29/2023 Educate caregiver on proper wound care procedures 12/29/2023 Give provider list of wound care supplies 12/29/2023 Refill wound care supplies 12/29/2023 Send Wound Care Supplies 12/29/2023 Give provider list of wound care supplies 12/29/2023 Refill wound care supplies 12/29/2023 Send Wound Care Supplies 12/29/2023 Provide caregiver with wound care procedure information 12/29/2023 Educate caregiver on proper wound care procedures 12/29/2023 Document patient eligibility for HBO 12/29/2023 Assess patient for HBO treatment 12/29/2023 Record wound depth 12/29/2023 Record total wound area 12/29/2023 Measure wound progress 12/29/2023 Create an action plan identifying patient strengths and supports 12/29/2023 Establish quit date with patient 12/29/2023 Discuss prior cessation attempts 12/29/2023 Discuss preferred method of cessation and plan 12/29/2023 Discuss barriers to smoking cessation 12/29/2023 Discuss smoking status with patient 12/29/2023 Create an action plan identifying patient strengths and supports 12/29/2023 Establish quit date with patient 12/29/2023 Discuss prior cessation attempts 12/29/2023 Discuss preferred method of cessation and plan 12/29/2023 Discuss barriers to smoking cessation 12/29/2023 Discuss smoking status with patient 12/29/2023 Provide caregiver with wound care procedure information 12/29/2023 Educate caregiver on proper wound care procedures 12/29/2023 Document patient eligibility for HBO 12/29/2023 Assess patient for HBO treatment 12/29/2023 Record wound depth 12/29/2023 Record total wound area 12/29/2023 Measure wound progress 12/29/2023 Provide caregiver with wound care procedure information 12/29/2023 Educate caregiver on proper wound care procedures 12/29/2023 Document patient eligibility for HBO 12/29/2023 Assess patient for HBO treatment 12/29/2023 Record wound depth 12/29/2023 Record total wound area 12/29/2023 Measure wound progress 12/29/2023 Provide caregiver with wound care procedure information 12/29/2023 Educate caregiver on proper wound care procedures 12/29/2023 Document patient eligibility for HBO 12/29/2023 Assess patient for HBO treatment 12/29/2023 Record wound depth 12/29/2023 Record total wound area 12/29/2023 Measure wound progress 12/29/2023 Provide caregiver with wound care procedure information 12/29/2023 Educate caregiver on proper wound care procedures 12/29/2023 Give provider list of wound care supplies 12/29/2023 Refill wound care supplies 12/29/2023 Send Wound Care Supplies 12/29/2023 Give provider list of wound care supplies 12/29/2023 Refill wound care supplies 12/29/2023 Send Wound Care Supplies 12/29/2023 Provide caregiver with wound care procedure information 12/29/2023 Educate caregiver on proper wound care procedures 12/29/2023 Document patient eligibility for HBO 12/29/2023 Assess patient for HBO treatment 12/29/2023 Record wound depth 12/29/2023 Record total wound area 12/29/2023 Measure wound progress 12/29/2023 Related Goals and Interventions Goal Associated Intervent ions Decrease Wound Volume by X% by date (in notes) Give provider list of wound care supplie s; Refill wound care supplies; Send Wound Care Supplies; Provide caregiver with wound care procedure information; Educate caregiver on proper wound care procedures; Document patient eligibility for HBO; Assess patient for HBO treatment; Record wound depth; Record total wound area; Measure wound progress Patient and Caregiver Unders tand Wound Care Education Provide caregiver with wound care proced ure information; Educate caregiver on proper wound care procedures; Give provider list of wound care supplies; Refill wound care supplies; Send Wound Care Supplies Wound volume breakdown reduc ed by X% by week 4 Provide caregiver with wound care proced ure information; Educate caregiver on proper wound care procedures; Document patient eligibility for HBO; Assess patient for HBO treatment; Record wound depth; Record total wound area; Measure wound progress Wound volume breakdown reduc ed by X% by week 8 Provide caregiver with wound care proced ure information; Educate caregiver on proper wound care procedures; Document patient eligibility for HBO; Assess patient for HBO treatment; Record wound depth; Record total wound area; Measure wound progress Wound volume breakdown reduc ed by X% by week 12 Provide caregiver with wound care proced ure information; Educate caregiver on proper wound care procedures; Document patient eligibility for HBO; Assess patient for HBO treatment; Record wound depth; Record total wound area; Measure wound progress Quit using tobacco (cigarett es, smokeless, etc) Create an action plan identifying patien t strengths and supports; Establish quit date with patient; Discuss prior cessation attempts; Discuss preferred method of cessation and plan; Discuss barriers to smoking cessation; Discuss smoking status with patient Reduce tobacco use (cigarett es, smokeless, etc) Create an action plan identifying patien t strengths and supports; Establish quit date with patient; Discuss prior cessation attempts; Discuss preferred method of cessation and plan; Discuss barriers to smoking cessation; Discuss smoking status with patient Decrease Wound Volume by X% by date (in notes) Give provider list of wound care supplie s; Refill wound care supplies; Send Wound Care Supplies; Provide caregiver with wound care procedure information; Educate caregiver on proper wound care procedures; Document patient eligibility for HBO; Assess patient for HBO treatment; Record wound depth; Record total wound area; Measure wound progress Patient and Caregiver Unders tand Wound Care Education Provide caregiver with wound care proced ure information; Educate caregiver on proper wound care procedures; Give provider list of wound care supplies; Refill wound care supplies; Send Wound Care Supplies
--- OUTSIDE RECORDS SUMMARY | 2024-04-20 10:16 | XMS_ITS ---
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 Generated for Eligioi aure/Titi/eTransmitting on:?04/20/2024 10:16 AM EST
--- OUTSIDE RECORDS SUMMARY | 2024-04-20 10:16 | XMS_ITS | Encounter Summary ---
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) (Primary Dx); Chronic heel ulcer, right, [...] Sign Reading Time Taken Comments Blood Pressure 142/86 03/29/2024 9:40 AM EST Pulse 89 03/29/2024 9:40 AM EST Temperature 36.4 ??C (97.6 ??F) 03/29/2024 9:04 AM ES T Respiratory Rate 18 03/29/2024 9:40 AM EST Oxygen Saturation 98% 03/29/2024 9:40 AM EST Inhaled Oxygen Concentration - - Weight - - Height - - Body Mass Index - - documented in this encounter Progress Notes * Monica Gotti RN - 03/29/2024 9:00 AM EST PROVIDER ORDERS Go to ER if you are presenting with fever, chills, increased redness, pain, swelling, warmth aroundwound area and/or foul smelling odor. If you have any questions or concerns, please contact the [facility] at . It was noted today during your visit that your blood pressure is elevated. Close follow-up with PCPis recommended for possible evaluation of starting and or changing blood pressure medication. VisitVitals BP (!) 147/88 Pulse 99 Temp 36.4 ??C (97.6 ??F) Resp 18 SpO2 99% Smoking Status Never Follow up(s)/ Referrals: Podiatry: Follow up as scheduled Make sure to use you offloading shoe and bring with you to next appt Group Home: Home care: [facility] Additional Orders: -Increase protein in your diet to help promote wound healing, -Maintain good blood sugar control Edema Control: (If your compression wrap(s) feel to tight, please elevate your leg(s) about heart level. If your wrap(s) are becoming painful and/or you loose sensation of toes/ are having toe discoloration (a change from your baseline), please remove / unwrap compression and notify [facility] at . ) -Elevate legs above heart level as much as possible, -Avoid standing for extended periods of time Offloading: -Open toe surgical shoe to right foot- make sure to wear to help offload wound areas (getting dm shoes scheduled for fitting in april) -Limit pressure to wound as much as possible Negative Pressure Wound Therapy: (If wound vac [...] Secondary dressinx4 woven gauze (non-sterile), 5x9 ABD pad Secure with: 3 conforming gauze roll, 1 paper tape Compression Therapy: Elevate legs above heart level as much as possible Dressing Change Frequency: Every Other Day Wound #2 (Right plantar foot): Cleanser: Cleanse with Normal Saline Periwound: N/A Topical: N/A Primary dressing: Calcium Alginate AG Secondary dressinx4 woven gauze (non-sterile) Secure with: 3 conforming gauze roll, 1 paper tape Compression Therapy: Elevate legs above heart level as much as possible Dressing Change Frequency: Every Other Day * Patsy Granado MD - 03/29/2024 9:00 AM ESTAssociated Order(s): Debridement Diabetic Ulcer [...] [facility] [place] [address] Office Visit Visit Date: 03/29/2024 Patient Name: Colleen Das Date of : 1955 PCP: Zia Morales MD HPI: Colleen is seen for follow-up right foot plantar first toe ulcer and right heel ulcer, treatedwith Medihoney alginate dressing change every other day. Patient is 68 years old woman with historyof diabetes mellitus with neuropathy. She has had no fever no chills. Minimal drainage. No pain no leg edema. She has an upcoming appointment with her instructional media services technician February 24, 2024, right foot offloading shoe was ordered, and is waiting for it. 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 She was counseled regarding my impressions, instructions for management, and the importance of compliance with treatment. Follow up in about 2 weeks (around 04/12/2024) for Follow up with Dr. Granado. >>>>>>>>>>>>>>>>>>>>>>>>>>>>>>>>>>>>>>>>>>>>>>>>>>> Vital Signs: Visit Vitals BP (!) 142/86 Pulse 89 Temp 36.4 ??C (97.6 ??F) Resp 18 Review of Systems: No fever [...] Location Orientation: Right Assessments 12/29/2023 9:16 AM 03/29/2024 9:06 AM Wound Image Wound Bed Tissue Assessment Granulation;Pale;[place];Sloughing Red;Sloughing Pamela-Wound Assessment Callused;Peeling Callused;Dry;Ecchymotic Shape -- Irregular Wound Length (cm) 0.9 cm 1.1 cm Wound Width (cm) 1.5 cm 1.4 cm Wound Surface Area (cm^2) 1.35 cm^2 1.54 cm^2 Wound Depth (cm) 0.3 cm 0.5 cm Wound Volume (cm^3) 0.405 cm^3 0.77 cm^3 Wound Healing % -- -90 Drainage Description Serosanguineous Serosanguineous Drainage Amount Moderate Moderate Treatments Other (Comment);Cleansed Cleansed Dressing Gauze -- Dressing Status Removed Removed Wound Bed Granulation (%) 90 % 30 % Wound Bed Epithelialization (%) -- 0 % Wound Bed Slough (%) 10 % 70 % Wound Bed Eschar (%) 0 % 0 % Tunneling 0 cm 0 cm Undermining 0.3 cm 0 cm Underming Start Clock Position of Wound 10 o'clock -- Underming End Clock Position of Wound 1 o'clock -- Edges Well-defined edges;Not attached Well-defined edges Non-staged Wound Description Full thickness -- Active Orders Date Order Priority Status Authorizing Provider 03/29/24 0932 Debridement Diabetic Ulcer Right Heel Routine Active Patsy Granado MD Inactive Orders Date Order Priority Status Authorizing Provider 03/15/24 1043 Debridement Diabetic Ulcer Right Heel [...] Orientation: Right;Plantar Wo... Assessments 12/29/2023 9:12 AM 03/29/2024 9:07 AM Wound Image Wound Bed Tissue Assessment Granulation;Red Red;Sloughing Pamela-Wound Assessment Callused;Peeling Callused;Dry;Ecchymotic Shape -- Round Wound Length (cm) 0.5 cm 0.5 cm Wound Width (cm) 0.2 cm 0.5 cm Wound Surface Area (cm^2) 0.1 cm^2 0.25 cm^2 Wound Depth (cm) 0.3 cm 0.2 cm Wound Volume (cm^3) 0.03 cm^3 0.05 cm^3 Wound Healing % -- -67 Drainage Description Serosanguineous Serosanguineous Drainage Amount Moderate Moderate Treatments Cleansed Cleansed Dressing Gauze -- Dressing Status Removed;Old drainage Removed Wound Bed Granulation (%) 100 % 70 % Wound Bed Epithelialization (%) -- 0 % Wound Bed Slough (%) 0 % 30 % Wound Bed Eschar (%) 0 % 0 % Tunneling 0.5 cm 0 cm Tunneling Clock Position of Wound 7 o'clock -- Undermining 0 cm 0 cm Edges Well-defined edges;Not attached Well-defined edges Non-staged Wound Description Full thickness -- Active Orders Date Order Priority Status Authorizing Provider 03/29/24 0929 Debridement Diabetic Ulcer Right;Plantar Foot Routine Active Patsy Granado MD Inactive Orders Date Order Priority Status Authorizing Provider 03/15/24 1035 Debridement Diabetic Ulcer Right;Plantar Foot [...] out was called Time out performed at: 03/29/2024 9:25 AM Debridement Details: Performed by: Physician Type: selective Pain control: Lidocaine 4% Pain control administration: topical anesthesia Severity of Tissue Pre Debridement: Fat layer exposed Severity of Tissue Post Debridement: Fat layer exposed Time taken: 03/29/2024 9:07 AM Length (cm): 0.5 Width (cm): 0.5 Depth (cm): 0.2 Area (cm^2): 0.25 Time taken: 03/29/2024 9:08 AM Length (cm): 0.5 Width (cm): 0.5 Depth (cm): 0.2 Percent Debrided (%): 100 Surface Area (cm^2): 0.25 Area Debrided (cm^2): 0.25 Volume (cm^3): 0.05 Devitalized tissue debrided: callus, fibrin and slough Devitalized tissue debrided comment: Devitalized skin Instrument: Blade and forceps Amount of bleeding: small Hemostasis obtained with: Pressure Procedural pain: 0 Post-procedural pain: 0 Response to treatment: Procedure was tolerated well Debridement Diabetic Ulcer Right Heel Performed by: Patsy Granado MD Authorized by: Patsy Granado MD Associated wounds: Wound Diabetic Ulcer 11/24/23 Heel Right Consent: Consent obtained: Verbal Consent given by: Patient Risks discussed: Yes Time out: Immediately prior to the procedure a time out was called Time out performed at: 03/29/2024 9:32 AM Debridement Details: Performed by: Physician Type: selective Pain control administration: topical anesthesia Severity of Tissue Pre Debridement: Fat layer exposed Severity of Tissue Post Debridement: Fat layer exposed Time taken: 03/29/2024 9:06 AM Length (cm): 1.1 Width (cm): 1.4 Depth (cm): 0.5 Area (cm^2): 1.54 Time taken: 03/29/2024 9:07 AM Length (cm): 1.1 Width (cm): 1.4 Depth (cm): 0.3 Percent Debrided (%): 100 Surface Area (cm^2): 1.54 Area Debrided (cm^2): 1.54 Volume (cm^3): 0.46 Devitalized tissue debrided: callus, fibrin and slough Devitalized tissue debrided comment: Devitalized skin Instrument: Blade and forceps Amount of bleeding: small Hemostasis obtained with: Pressure Procedural pain: 0 Post-procedural pain: 0 Response [...] any questions or concerns, please contact the [facility] at . It was noted today during your visit that your blood pressure is elevated. Close follow-up with PCPis recommended for possible evaluation of starting and or changing blood pressure medication. VisitVitals BP (!) 147/88 Pulse 99 Temp 36.4 ??C (97.6 ??F) Resp 18 SpO2 99% Smoking Status Never Follow up(s)/ Referrals: Podiatry: Follow up as scheduled Make sure to use you offloading shoe and bring with you to next appt Group Home: Home care: [facility] Additional Orders: -Increase protein in your diet to help promote wound healing, -Maintain good blood sugar control Edema Control: (If your compression wrap(s) feel to tight, please elevate your leg(s) about heart level. If your wrap(s) are becoming painful and/or you loose sensation of toes/ are having toe discoloration (a change from your baseline), please remove / unwrap compression and notify [facility] at . ) -Elevate legs above heart level as much as possible, -Avoid standing for extended periods of time Offloading: -Open toe surgical shoe to right foot- make sure to wear to help offload wound areas (getting dm shoes scheduled for fitting in april) -Limit pressure to wound as much as possible Negative Pressure Wound Therapy: (If wound vac [...] Secondary dressinx4 woven gauze (non-sterile), 5x9 ABD pad Secure with: 3 conforming gauze roll, 1 paper tape Compression Therapy: Elevate legs above heart level as much as possible Dressing Change Frequency: Every Other Day Wound #2 (Right plantar foot): Cleanser: Cleanse with Normal Saline Periwound: N/A Topical: N/A Primary dressing: Calcium Alginate AG Secondary dressinx4 woven gauze (non-sterile) Secure with: 3 conforming gauze roll, 1 paper tape Compression Therapy: Elevate legs above heart level as much as possible Dressing Change Frequency: Every Other Day 03/29/2024 1:47 PM EST Patsy Granado MD * Adilene Giordano RN - 03/29/2024 9:00 AM EST Discharge Patient directed to check out at front services agent and collect visit summary with wound care directions and book follow up as directed. Dressings applied: Wound #1 (Right heel): Cleanser: Normal Saline Primary dressing: Calcium Alginate AG Secondary dressinx4 woven gauze Secure with: 3 conforming gauze roll, 1 paper tape Wound #2 (Right plantar foot): Cleanser: Normal Saline Primary dressing: Calcium Alginate AG Secondary dressinx4 woven gauze Secure with: 3 conforming gauze roll, 1 paper tape Dressing technique was demonstrated and explained. Patient questions answered. Pt discharge from wound care center without issue or incidence. documented in this encounter Plan of Treatment Upcoming Encounters Date Type Department Care Team (Late st Contact Info) Description 04/26/2024 9:15 AM EDT Clinical Support [facility] [address] [place] [address] documented as of this encounter Goals Goal [...] by week 4 Care Plan Impaired Tissue Monica Delgado RN Wound volume breakdown reduced [...] smoking on wound No Monica Gotti RN Patient and Caregiver Understand Wound Care Education Care Plan Education needed related to ulceration/compr omised skin integrity. 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 03/29/2024 ??1:51 PM Debridement Diabetic Ulcer Right Heel Performed by: Patsy Granado MD Authorized by: Pasty Granado MD ??Associated wounds: Wound Diabetic Ulcer 11/24/23 Heel Right Consent: ??Consent obtained: ??Verbal ??Consent given by: ??Patient ??Risks discussed: Yes ?? Time out: Immediately prior to the procedure a time out was called ?? Time out performed at: ??03/29/2024 9:32 AM Debridement Details: ??Performed by: ??Physician ??Type: selective ?Pain control administration: topical anesthesia ?Severity of Tissue Pre Debridement: ??Fat layer exposed ??Severity of Tissue Post Debridement: ??Fat layer exposed ??Time taken: ??03/29/2024 9:06 AM ??Length (cm): ??1.1 ??Width (cm): ??1.4 ??Depth (cm): ??0.5 ??Area (cm^2): ??1.54 ??Time taken: ??03/29/2024 9:07 AM ??Length (cm): ??1.1 ??Width (cm): ??1.4 ??Depth (cm): ??0.3 ??Percent Debrided (%): ??100 ??Surface Area (cm^2): ??1.54 ??Area Debrided (cm^2): ??1.54 ??Volume (cm^3): ??0.46 ??Devitalized tissue debrided: callus, fibrin and slough ?Devitalized tissue debrided comment: ??Devitalized skin ??Instrument: ??Blade and forceps ??Amount of bleeding: small ?Hemostasis obtained with: ??Pressure ??Procedural pain: ??0 ??Post-procedural pain: ??0 ??Response to treatment: ??Procedure was tolerated well us Patsy Granado MD IN CLINIC/BEDSIDE ORDERAB LES Final Result * Debridement Diabetic Ulcer Right;Plantar Foot (03/29/2024 9:00 AM EST) Narrative Patsy Granado MD - 03/29/2024 9:00 AM EST Patsy Granado MD ? 03/29/2024 ??1:51 PM Debridement Diabetic Ulcer Right;Plantar Foot Performed by: Patsy Granado MD Authorized by: Patsy Granado MD ??Associated wounds: Wound Diabetic Ulcer 11/24/23 Foot Right;Plantar Consent: ??Consent obtained: ??Verbal ??Consent given by: ??Patient ??Risks discussed: Yes ?? Time out: Immediately prior to the procedure a time out was called ?? Time out performed at: ??03/29/2024 9:25 AM Debridement Details: ??Performed by: ??Physician ??Type: selective ?Pain control: ??Lidocaine 4% ??Pain control administration: topical anesthesia ?Severity of Tissue Pre Debridement: ??Fat layer exposed ??Severity of Tissue Post Debridement: ??Fat layer exposed ??Time taken: ??03/29/2024 9:07 AM ??Length (cm): ??0.5 ??Width (cm): ??0.5 ??Depth (cm): ??0.2 ??Area (cm^2): ??0.25 ??Time taken: ??03/29/2024 9:08 AM ??Length (cm): ??0.5 ??Width (cm): ??0.5 ??Depth (cm): ??0.2 ??Percent Debrided (%): ??100 ??Surface Area (cm^2): ??0.25 ??Area Debrided (cm^2): ??0.25 ??Volume (cm^3): ??0.05 ??Devitalized tissue debrided: callus, fibrin and slough ?Devitalized tissue debrided comment: ??Devitalized skin ??Instrument: ??Blade and forceps ??Amount of bleeding: small ?Hemostasis obtained with: ??Pressure ??Procedural pain: ??0 ??Post-procedural pain: ??0 ??Response to treatment: ??Procedure was tolerated well us Patsy Granado MD IN CLINIC/BEDSIDE ORDERAB LES Final Result documented in this encounter Visit Diagnoses Diagnosis Type 2 diabetes mellitus with right diabetic foot ulcer (CMS/HCC)- Primary Chronic heel ulcer, right, with [...] documented as of this encounter Care Teams Durable Medical Equipment Repairer Relationship Specialty Start Date End Date Zia Morales MD [address] [place] [address] Dr Esteban [place] PCP - General Internal Medicine 12/15/23 documented as of this encounter
--- OUTSIDE RECORDS SUMMARY | 2024-04-20 10:16 | XMS_ITS | Clinical Summary ---
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) USE OF ORAL HYPOGLYCEMIC DRUGS Active [...] 11-09 00:00: 00 11-16 23:59 :00 No [id number] CELLULITIS RIGHT HEEL 1 tablet 2 TIMES DAILY 1 tablet 2 TIMES DAILY (route: oral) Med Classific ation: Anti-Infe ctive Agents doxycycline monohydrate 100 mg tablet 11-09 00:00: 00 11-16 23:59 :00 No [id number] CELLULITIS 1 tablet 2 TIMES DAILY 1 tablet 2 TIMES DAILY (route: oral) Med Classific ation: Anti-Infe ctive Agents metformin 500 mg tablet 11-06 00:00: 00 Yes [id number] DIABETES 1 tablet 2 TIMES DAILY 1 tablet 2 TIMES DAILY (route: oral) Med Classific ation: Endocrine acetaminoph en 325 mg tablet 11-09 00:00: 00 11-14 23:59 :00 No [id number] PAIN 2 tablet EVERY 4 HOURS 2 tablet EVERY 4 HOURS (route: oral) Med Classific ation: Analgesic , Anti-infl ammatory or Antipyret ic glipizide ER 10 mg tablet, extended release 24 hr 11-06 00:00: 00 Yes [id number] DIABETES 1 tablet 2 TIMES DAILY 1 tablet 2 TIMES DAILY (route: oral) Med Classific ation: Endocrine cholecalcif angie (vitamin D3) 25 mcg (1,000 unit) tablet 2023-02 00:00: 00 Yes [id number] SUPPLEMENT 1 tablet DAILY 1 tablet DAILY (route: oral) Med Classific ation: Electroly te Balance-N utritiona l Products amlodipine 5 mg tablet 2023-02 00:00: 00 Yes [id number] HTN 5 mg DAILY 5 mg CHRISTINE [...] CONSULTING PHYSICIANS. RN TO OBSERVE AND ASSESS, MOTION PICTURE SET UP WORKER/APPRAISER IRRIGATION TAX TO OBSERVE FOR RISK FOR FALLS AND INSTRUCT IN FALL PREVENTION, HOME SAFETY, MEDICATION MANAGEMENT, INFECTION PREVENTION, AND NUTRITION MANAGEMENT. RN/MOTION PICTURE SET UP WORKER/APPRAISER IRRIGATION TAX NURSE MAY PERFORM O2 SATURATION LEVEL ON ADMISSION AND PRN FOR RN TO ASSESS/MOTION PICTURE SET UP WORKER TO OBSERVE PATIENT, WITH NOTIFICATION TO THE PHYSICIAN IF SATURATION IS 90% IN THE ABSENCE OF MORE SPECIFIC PARAMETERS FROM THE PHYSICIAN. AGENCY MAY PERFORM A RESUMPTION OF CARE VISIT FOLLOWING ANY HOSPITAL ADMISSION. RN/MOTION PICTURE SET UP WORKER/APPRAISER IRRIGATION TAX TO MONITOR CO-MORBID CONDITIONS LISTED ON THE PLAN OF CARE AND ANY NEW CONDITIONS THAT PRESENT THEMSELVES DURING THIS EPISODE TO IDENTIFY CHANGES AND INTERVENE TO MINIMIZE COMPLICATIONS. [code = RN TO OBSERVE, ASSESS, EVALUATE, AND DEVELOP AN INDIVIDUALIZED PLAN OF CARE. AGENCY MAY ACCEPT ORDERS FROM CONSULTING PHYSICIANS. RN TO OBSERVE AND ASSESS, MOTION PICTURE SET UP WORKER/APPRAISER IRRIGATION TAX TO OBSERVE FOR RISK FOR FALLS AND INSTRUCT IN FALL PREVENTION, HOME SAFETY, MEDICATION MANAGEMENT, INFECTION PREVENTION, AND NUTRITION MANAGEMENT. RN/MOTION PICTURE SET UP WORKER/APPRAISER IRRIGATION TAX NURSE MAY PERFORM O2 SATURATION LEVEL ON ADMISSION AND PRN FOR RN TO ASSESS/MOTION PICTURE SET UP WORKER TO OBSERVE PATIENT, WITH NOTIFICATION TO THE PHYSICIAN IF SATURATION IS 90% IN THE ABSENCE OF MORE SPECIFIC PARAMETERS FROM THE PHYSICIAN. AGENCY MAY PERFORM A RESUMPTION OF CARE VISIT FOLLOWING ANY HOSPITAL ADMISSION. RN/MOTION PICTURE SET UP WORKER/APPRAISER IRRIGATION TAX TO MONITOR CO-MORBID CONDITIONS LISTED ON THE PLAN OF CARE AND ANY NEW CONDITIONS THAT PRESENT THEMSELVES DURING THIS EPISODE TO IDENTIFY CHANGES AND INTERVENE TO MINIMIZE COMPLICATIONS.] Future Scheduled Test RISK FOR H OSPITALIZATION; RN TO ASSESS/TEACH, APPRAISER IRRIGATION TAX/MOTION PICTURE SET UP WORKER TO OBSERVE/TEACH PATIENT/CAREGIVER ON RISK FOR HOSPITALIZATION/EMERGENCY ROOM VISITS, TEACH SIGNS AND SYMPTOMS THAT PUT PATIENT AT RISK, WHEN TO NOTIFY NURSE/PHYSICIAN OF COMPLICATIONS/DECLINE, AND WHEN TO CALL 911. [code = RISK FOR HOSPITALIZATION; RN TO ASSESS/TEACH, APPRAISER IRRIGATION TAX/MOTION PICTURE SET UP WORKER TO OBSERVE/TEACH PATIENT/CAREGIVER ON RISK FOR HOSPITALIZATION/EMERGENCY ROOM VISITS, TEACH SIGNS AND SYMPTOMS THAT PUT PATIENT AT RISK, WHEN TO NOTIFY NURSE/PHYSICIAN OF COMPLICATIONS/DECLINE, AND WHEN TO CALL 911.] Future Scheduled Test MEDICATION MANAGEMENT; RN/MOTION PICTURE SET UP WORKER/APPRAISER IRRIGATION TAX TO REVIEW MEDICATIONS FOR INTERACTIONS, EFFECTIVENESS OF DRUG THERAPY, AND SIGNS/SYMPTOMS OF ADVERSE REACTIONS. MAY INSTRUCT AND REINFORCE MEDICATION TEACHING RELATED TO THE USE OF MEDICATIONS, DOSAGE, FREQUENCY, PURPOSE, SIDE EFFECTS, AND TO REPORT COMPLICATIONS. [code = MEDICATION MANAGEMENT; RN/MOTION PICTURE SET UP WORKER/APPRAISER IRRIGATION TAX TO REVIEW MEDICATIONS FOR INTERACTIONS, EFFECTIVENESS OF DRUG THERAPY, AND SIGNS/SYMPTOMS OF ADVERSE REACTIONS. MAY INSTRUCT AND REINFORCE MEDICATION TEACHING RELATED TO THE USE OF MEDICATIONS, DOSAGE, FREQUENCY, PURPOSE, SIDE EFFECTS, AND TO REPORT COMPLICATIONS.] Future Scheduled Test SKIN INTEG RITY RN TO ASSESS AND TEACH, MOTION PICTURE SET UP WORKER/APPRAISER IRRIGATION TAX TO OBSERVE AND TEACH INTEGUMENTARY STATUS TO IDENTIFY CHANGES AND INTERVENE TO MINIMIZE COMPLICATIONS. PROVIDE SKILLED TEACHING OF GENERAL WOUND AND SKIN CARE AND PREVENTION RELATED TO ACTUAL ALTERED SKIN INTEGRITY [code = SKIN INTEGRITY RN TO ASSESS AND TEACH, MOTION PICTURE SET UP WORKER/APPRAISER IRRIGATION TAX TO OBSERVE AND TEACH INTEGUMENTARY STATUS TO IDENTIFY CHANGES AND INTERVENE TO MINIMIZE COMPLICATIONS. PROVIDE SKILLED TEACHING OF GENERAL WOUND AND SKIN CARE AND PREVENTION RELATED TO ACTUAL ALTERED SKIN INTEGRITY ] Future Scheduled Test RN TO ASSE SS, MOTION PICTURE SET UP WORKER/APPRAISER IRRIGATION TAX TO OBSERVE DIABETIC FOOT ULCERS - NEUROPATHIC AND INTERVENE TO MINIMIZE COMPLICATIONS. PROVIDE SKILLED TEACHING TO PATIENT/CAREGIVER RELATED TO ALTERED SKIN INTEGRITY. REPORT SIGNIFICANT CHANGES IN STATUS TO PHYSICIAN FOR EARLY INTERVENTION. [code = RN TO ASSESS, MOTION PICTURE SET UP WORKER/APPRAISER IRRIGATION TAX TO OBSERVE DIABETIC FOOT ULCERS - NEUROPATHIC AND INTERVENE TO MINIMIZE COMPLICATIONS. PROVIDE SKILLED TEACHING TO PATIENT/CAREGIVER RELATED TO ALTERED SKIN INTEGRITY. REPORT SIGNIFICANT CHANGES IN STATUS TO PHYSICIAN FOR EARLY INTERVENTION.] Future Scheduled Test PAIN MANAG EMENT; RN TO ASSESS AND TEACH, APPRAISER IRRIGATION TAX/MOTION PICTURE SET UP WORKER TO OBSERVE AND TEACH AND PROVIDE EDUCATION ON PAIN MANAGEMENT TECHNIQUES. [code = PAIN MANAGEMENT; RN TO ASSESS AND TEACH, APPRAISER IRRIGATION TAX/MOTION PICTURE SET UP WORKER TO OBSERVE AND TEACH AND PROVIDE EDUCATION ON PAIN MANAGEMENT TECHNIQUES.] Future Scheduled Test FALL REDUC TION MANAGEMENT; RN TO ASSESS AND OBSERVE, MOTION PICTURE SET UP WORKER/APPRAISER IRRIGATION TAX TO OBSERVE FALL RISK FACTORS AND EDUCATE PATIENT/CAREGIVER ON STRATEGIES TO MINIMIZE THE RISK OF FALLING. [code = FALL REDUCTION MANAGEMENT; RN TO ASSESS AND OBSERVE, MOTION PICTURE SET UP WORKER/APPRAISER IRRIGATION TAX TO OBSERVE FALL RISK FACTORS AND EDUCATE [...] End Date/Time Encounter Type Admission Type Attending [facility] Care Department Encounter ID Discharge Date Discharge Status Discharge Condition Discharge Reason Percent Goals Met 2023-11-13 00:00:00 2024-05-10 00:00:00 Outpatient RECERTIFIC ATM[facility]ITT [facility] [id number]
--- OUTSIDE RECORDS SUMMARY | 2024-04-20 10:16 | XMS_ITS | Continuity of Care Document ---
Author Organization [facility] Address [address] [place] [address]- Care Team Providers Care Analytics Developer Name Role Phone Zia Morales MD Primary Care Physician Encounter [facility] Date(s): 04/17/24 - 04/17/[address] [address]- Encounter Diagnosis Hypertension(Final) - 04/17/24 Discharge Disposition: A-D/C Home Attending Physician: Radha Alcazar MD Admitting Physician: Radha Alcazar MD Referring Physician: Not on Staff, Referring MD Encounter Type: Disch ES Allergies, Adverse Reactions, Alerts Substance Criticality Severity Reaction Reaction Severity Status sulfa drugs Active Vital Signs Most recent to oldest [Reference Range]: 1 2 Height 170 cm (04/17/24 10:44 AM) Weight 120 kg (04/17/24 10:44 AM) Oxygen Saturation [94-100 %] 100 % (04/17/24 11:00 AM) 100 % (04/17/24 10:00 AM) Pulse Rate [55-90 bpm] 99 bpm *H* (04/17/24 10:00 AM) Blood Pressure [90-138/55-84 mm Hg] 156/ 96mm Hg *H* (04/17/24 11:00 AM) 168/113mm Hg *H* (04/17/24 10:00 AM) Respiratory Rate [16-30 br/min] 18 br/mi n (04/17/24 11:00 AM) Temperature [96.8-100.4 DegF] 98.6 DegF (04/17/24 11:00 AM) Mode of Delivery (Oxygen) Room air (04/17/24 11:00 AM) Room air (04/17/24 10:00 AM) Blood pressure sites Arm, right (04/17/24 11:00 AM) Arm, right (04/17/24 10:00 AM) Dry Weight 120 kg (04/17/24 10:44 AM) Weight Obtained Via Patient/family state d (04/17/24 10:44 AM) Dry Weight Obtained Via Patient/family s tated (04/17/24 10:44 AM) Note * Radha Alcazar MD: PERFORM Event Display: Patient Education Leaflets Authored Date: [id number] High Blood Pressure,??To Be Confirmed, No Treatment ?? [id number] High Blood Pressure,??To Be Confirmed, No Treatment Your blood pressure today was higher than normal. Sometimes anxiety, pain, or other issues can cause a short-term rise in blood pressure. It later returns to normal. Blood pressure that is high only once doesn???t mean that you have high blood pressure (hypertension). High blood pressure is a long-term (chronic) illness. But you should have your blood pressure measured again in the next few days to find out if it???s still high. Blood pressure measurements are given as 2 numbers. Systolic blood pressure is the upper number. This is the pressure when the heart contracts. Diastolic blood pressure is the lower number. This is the pressure when the heart relaxes between beats. You will see your blood pressure readings written together. For example, a person with a systolic pressure of 118 and a diastolic pressure of 78 will have 118/78 written in the medical record. Blood pressure is classified as normal, raised (elevated), or stage 1 or stage 2 high blood pressure. ??? Normal blood pressure. Systolic of less than 120 and diastolic of less than 80 (120/80). ??? Elevated blood pressure. Systolic of 120 to 129 and diastolic less than 80. ??? Stage 1 high blood pressure. Systolic is 130 to 139 or diastolic between 80 to 89. ??? Stage 2 high blood pressure. Systolic is 140 or higher or the diastolic is 90 or higher. Lifestyle changes can help manage your blood pressure. These include weight loss, exercise, and quitting smoking. Have your blood pressure checked regularly to be sure it's under control. Home care To track your blood pressure, your health care provider may ask you to come into the office at different times and on different days. If your provider asks you to check your readings at home, ask them what times of the day to test and for how many days. Before you leave the office, ask your provider to show you how to take your blood pressure. Ask questions if you don't understand something. Using a home blood pressure monitor Think about buying an automatic blood pressure monitor. Ask your provider for a recommendation as well as the correct size cuff to fit your arm. You can buy blood pressure monitors at most pharmacies. The [place] [employer] advises the following guidelines for home blood pressure monitoring:??? Don't smoke or drink coffee or other caffeinated drinks for 30 minutes before taking your bloodpressure. ??? Go to the bathroom before the test. ??? Relax for at least 5 minutes before taking the measurement. ??? Sit with your back supported (don't sit on a couch or soft chair). Keep your feeton the floor uncrossed. Place your arm on a solid flat surface (like a table) with the upper part of the arm at heart level. Place the middle of the cuff directly above the bend of the elbow. Do not take measurements over clothing. Check the monitor's instruction manual for an illustration. ??? Take multiple readings. When you measure, take 2 or 3 readings 1 minute apart. Record all of the results. ??? Take your blood pressure at the same time every day, or as your provider advises. ??? Record the date, time, and blood pressure reading. ??? Take the record with you to your next medical appointment. If your blood pressure monitor has a built-in memory, simply take the monitor with you to your next appointment. ??? Call your provider if you have several high readings. Don't be frightened bya single high blood pressure reading. But if you get a few high readings, check in with your provider. ?? Follow-up care Go to all of your follow-up appointments. If your blood pressure is more than 120 over 80 on 2 out of 3 days, you will need to follow up with your health care provider for more evaluation and treatment. Don???t put this off! High blood pressure can be treated. High blood pressure that???s not treated raises your risk for heart attack, heart failure, kidney disease, and stroke. ?? Call 911 Call 911 if you have any of these: ??? Blood pressure of 180/120 or higher, along with any symptomslisted below ??? Unusual chest pain or shortness of breath ??? Weakness of an arm or leg or one side of the face ??? Problems speaking or seeing ??? Severe headache ??? Sudden severe pain in your belly (abdomen) ??? Extreme drowsiness, confusion, or fainting ??? Severe or persistent dizziness or spinning feeling (vertigo) ?? When to get medical advice Contact your health care provider or get medical care right away if you have: ??? Blood pressure of 180/120 or higher after testing several times, without other symptoms. ??? Throbbing or rushing sound in the ears. ??? Nosebleed. ??? Mild or intermittent dizziness or spinning feeling (vertigo). ?? Last Reviewed Date: 2024 ?? [id number] [employer]!. All rights reserved. This information is not intended as a substitute for professional medical care. Always follow your healthcare professional's instructions. ?? Patient Care team information Care Team Personnel Name: Zia Morales MD Position: [facility] Outreach Member Role: PCP Address: [address] [place] [address] [place] [address] [employer]: Insurance Providers Guarantor name: [employer] Health Plan Information #: 1 Payer: [employer] Member Number: [id number] Policy Number: [employer] Group Number: [id number] Plan Information #: 2 Payer: [employer] Member Number: [id number] Policy Number: [employer]AR[employer] Group Number: [id number]
--- OUTSIDE RECORDS SUMMARY | 2024-04-20 10:16 | XMS_ITS | Clinical Summary ---
Author Organization [facility] Address [address] [place] [address] Phone Care Team Providers Care Inspector Conveyor Line Name Role Phone Zia Morales MD Primary Care Provider [phone] Allergies Active Allergy Reactions Criticality Noted Date Comments Sulfa (Sulfonamide Antibiotics) Hives High 10/19 Medications glipiZIDE (GLUCOTROL XL) 10 mg 24 hr tablet Take 1 tablet (10 mg total) by mouth 2 (two) times a day. Active metFORMIN (GLUCOPHAGE) 500 mg tablet Take 1 tablet (500 mg total) by mouth 2 (two) times a day. Active blood sugar diagnostic (True Metrix Glucose Test Strip) test strip USE TO TEST BLOOD SUGAR TWICE DAILY DIRECTED 12/09/2023 Active Active Problems Problem Noted Date Diagnosed Date Chronic heel ulcer, right, with fat layer expose d 01/12/2024 Type 2 diabetes mellitus with right diabetic alisia t ulcer 01/05/2024 Non-pressure chronic ulcer o f other part of right foot with fat layer exposed 01/05/2024 Encounters Date Type Department Care Team Description 04/12/2024 9:00 AM EST Office Visit [facility] [address] [place] [address] Patsy Granado MD Type 2 diabetes mellitus with foot ulcer (CODE) ([facility]/HCC) (Primary Dx); Chronic heel ulcer, right, with fat layer exposed (CMS/HCC); Non-pressure chronic ulcer of other part of right foot with fat layer exposed (CMS/HCC) 03/29/2024 9:00 AM EST Office Visit [facility] [address] [place] [phone] Patsy Granado MD Type 2 diabetes mellitus with right diabetic foot ulcer (CMS/HCC) (Primary Dx); Chronic heel ulcer, right, with fat layer exposed (CMS/HCC); Non-pressure chronic ulcer of other part of right foot with fat layer exposed (CMS/HCC) 03/15/2024 9:30 AM EST Office Visit [facility] [address] [place] [phone] Patsy Granado MD Type 2 diabetes mellitus with right diabetic foot ulcer (CMS/HCC) (Primary Dx); Chronic heel ulcer, right, with fat layer exposed (CMS/HCC); Non-pressure chronic ulcer of other part of right foot with fat layer exposed (CMS/HCC) 02/23/2024 9:30 AM EST Office Visit [facility] [address] [place] [phone] Patsy Granado MD Type 2 diabetes mellitus with right diabetic foot ulcer (CMS/HCC) (Primary Dx); Chronic heel ulcer, right, with fat layer exposed (CMS/HCC); Non-pressure chronic ulcer of other part of right foot with fat layer exposed (CMS/HCC) 02/09/2024 9:15 AM EST Office Visit [facility] [address] [place] [phone] Patsy Granado MD Type 2 diabetes mellitus with right diabetic foot ulcer (CMS/HCC) (Primary Dx); Chronic heel ulcer, right, with fat layer exposed (CMS/HCC); Non-pressure chronic ulcer of other part of right foot with fat layer exposed (CMS/HCC) 01/26/2024 9:15 AM EST Office Visit [facility] [address] [place] [phone] Patsy Granado MD Type 2 diabetes mellitus with right diabetic foot ulcer (CMS/HCC) (Primary Dx); Chronic heel ulcer, right, with fat layer exposed (CMS/HCC); Non-pressure chronic ulcer of other part of right foot with fat layer exposed (CMS/HCC) from Last 3 Months Surgical History Surgery Date Site/Laterality Comments ANKLE FRACTURE SURGERY 02/18/2012 - 02/16/2013 Right Medical History Medical History Date Comments Diabetes mellitus (CMS/HCC) Arthritis Neuropathy Family History Medical History Relation Name Comments Diabetes Father Heart disease Father Diabetes Sister 1 Kidney disease Sister 1 Liver cancer Sister 2 Relation Name Status Comments Father Mother Sister 1 Sister 2 Social History Tobacco Use Types Packs/Day Years Used Date Smoking Tobacco: Never Smokeless Tobacco: Never Tobacco Cessation:Counseling Given: Not Answered Alcohol Use Standard Drinks/Week Comments Never 0 (1 standard drink = 0.6 oz pur e alcohol) Comments Unknown Sex and Gender Information Value Date Recorded Sex Assigned at Not on file Legal Sex Female 3:42 PM EDT Gender Identity Not on file Sexual Orientation Not on file Obstetrics History Last Filed Vital Signs Vital Sign Reading Time Taken Comments Blood Pressure 130/72 04/12/2024 10:00 AM EST Pulse 92 04/12/2024 10:00 AM EST Temperature 36.7 ??C (98 ??F) 04/12/2024 9:15 AM EST Respiratory Rate 18 04/12/2024 10:00 AM EST Oxygen Saturation 98% 04/12/2024 10:00 AM EST Inhaled Oxygen Concentration - - Weight 116 kg (255 lb) 12/29/2023 9:08 AM EST Height 170.2 cm (5' 7 ) 02/09/2024 9:26 AM EST Body Mass Index 39.94 12/29/2023 9:08 AM EST Plan of Treatment Upcoming Encounters Date Type Department Care Team (Late st Contact Info) Description 04/26/2024 9:15 AM EDT Clinical Support [facility] [address] [place] [phone] Health Maintenance Due Date Last Done Comments Breast Cancer Screening 1955 Diabetes: Annual GFR (Glomerular Filtration Rate) 1956 Diabetes: Annual Foot Exam 1966 Diabetes: Annual Retina Eye Exam 1966 Pneumococcal Vaccine: 50+ Years (1 of 2 - PCV) 12/17/1975 Zoster Vaccines (1 of 2) 2006 RSV Immunization Patients 60 + Years Old (1 - Risk 60-74 years 1-dose series) 2016 DTaP,Tdap,and Td Vaccines (2 - Td or Tdap) 10/28/2022 10/28/2012 COVID-19 Vaccine (3 - 2023-2 5 season) 2023 02/05/2021, 12/14/2020 Influenza Vaccine (#1) 2023 Cholesterol Screening (Lipid Panel) 11/27/2023 Colorectal Cancer Screening: Colonoscopy 11/27/2023 Depression Screening 11/27/2023 Diabetes: Annual Urine Albumin-Creatinine Ratio (uACR) 11/27/2023 Diabetes: Blood Sugar Contro l Test (HGBA1C) 11/27/2023 Hepatitis C Screening 11/27/2023 Medicare Annual Wellness Visit 11/27/2023 Osteoporosis Screening (Bone Density Screening) 11/27/2023 Social Influencers of Health Screening 11/27/2023 Falls Risk Assessment 02/08/2025 02/09/2024 HIB Vaccines Aged Out No longer eligi ble based on patient's age to complete this topic HPV Vaccines Aged Out No longer eligi ble based on patient's age to complete this topic Hepatitis A Vaccines Aged Out No long er eligible based on patient's age to complete this topic Hepatitis B Vaccines Aged Out No long er eligible based on patient's age to complete this topic IPV Vaccines Aged Out No longer eligi ble based on patient's age to complete this topic MMR Vaccines Aged Out No longer eligi ble based on patient's age to complete this topic Meningococcal ACWY Vaccine Aged Out N o longer eligible based on patient's age to complete this topic Meningococcal B Vacine Aged Out No lo nger eligible based on patient's age to complete this topic RSV Immunization Patients Under 20 months Aged Out No longer eligible b ased on patient's age to complete this topic Varicella Vaccines Aged Out No longer eligible based on patient's age to complete this topic Goals Goal Patient Goal Type Associated Problems Recent Progress Patient-Stated? Author Decrease Wound Volume by X% by date (in notes) Care Plan Impaired Tissue No change(2024 9:22 AM EST) No Monica Gotti RN Patient and Caregiver Understand Wound Care Education Care Plan Impaired Tissue Not on track( 025 9:22 AM EST) No Monica Gotti insurance underwriting assistant volume breakdown reduced by X% by week 4 Care Plan Impaired Tissue Monica Delgado RN Wound volume breakdown reduced by X% by week 8 Care Plan Impaired Tissue Monica Delgado RN Wound volume breakdown reduced by X% by week 12 Care Plan Impaired Tissue Monica Delgado RN Quit using tobacco (cigarettes, smokeless, etc) Care Plan Education needed on impact of smoking on wound Monica Delgado RN Reduce tobacco use (cigarettes, smokeless, etc) Care Plan Education needed on impact of smoking on wound Monica Delgado RN Decrease Wound Volume by X% by date (in notes) Care Plan Education needed on impact of smoking on wound Monica Delgado RN Patient and Caregiver Understand Wound Care Education Care Plan Education needed related to ulceration/compr omised skin integrity. Monica Delgado RN Procedures Procedure Name Priority Date/Time Associated Diagnosis Comments DEBRIDEMENT Routine 04/12/2024 9:00 AM EST Type 2 diabetes mellitus with foot ulcer (CODE) (CMS/HCC) Chronic heel ulcer, right, with fat layer exposed (CMS/HCC) DEBRIDEMENT Routine 04/12/2024 9:00 AM EST Type 2 diabetes mellitus with foot ulcer (CODE) (CMS/HCC) Non-pressure chronic ulcer of other part of right foot with fat layer exposed (CMS/HCC) DEBRIDEMENT Routine 03/29/2024 9:00 AM EST Type 2 diabetes mellitus with right diabetic foot ulcer (CMS/HCC) Chronic heel ulcer, right, with fat layer exposed (CMS/HCC) DEBRIDEMENT Routine 03/29/2024 9:00 AM EST Type 2 diabetes mellitus with right diabetic foot ulcer (CMS/HCC) Non-pressure chronic ulcer of other part of right foot with fat layer exposed (CMS/HCC) DEBRIDEMENT Routine 03/15/2024 9:30 AM EST Type 2 diabetes mellitus with right diabetic foot ulcer (CMS/HCC) Chronic heel ulcer, right, with fat layer exposed (CMS/HCC) DEBRIDEMENT Routine 03/15/2024 9:30 AM EST Type 2 diabetes mellitus with right diabetic foot ulcer (CMS/HCC) Non-pressure chronic ulcer of other part of right foot with fat layer exposed (CMS/HCC) DEBRIDEMENT Routine 02/23/2024 9:30 AM EST Type 2 diabetes mellitus with right diabetic foot ulcer (CMS/HCC) Chronic heel ulcer, right, with fat layer exposed (CMS/HCC) DEBRIDEMENT Routine 02/23/2024 9:30 AM EST Type 2 diabetes mellitus with right diabetic foot ulcer (CMS/HCC) Non-pressure chronic ulcer of other part of right foot with fat layer exposed (CMS/HCC) DEBRIDEMENT Routine 02/09/2024 9:15 AM EST Type 2 diabetes mellitus with right diabetic foot ulcer (CMS/HCC) Chronic heel ulcer, right, with fat layer exposed (CMS/HCC) DEBRIDEMENT Routine 02/09/2024 9:15 AM EST Type 2 diabetes mellitus with right diabetic foot ulcer (CMS/HCC) Non-pressure chronic ulcer of other part of right foot with fat layer exposed (CMS/HCC) DEBRIDEMENT Routine 01/26/2024 9:15 AM EST Type 2 diabetes mellitus with right diabetic foot ulcer (CMS/HCC) Chronic heel ulcer, right, with fat layer exposed (CMS/HCC) DEBRIDEMENT Routine 01/26/2024 9:15 AM EST Type 2 diabetes mellitus with right diabetic foot ulcer (CMS/HCC) Non-pressure chronic ulcer of other part of right foot with fat layer exposed (CMS/HCC) from Last 3 Months Results * Debridement Diabetic Ulcer Right Heel (04/12/2024 9:00 AM EST) Patsy Lutz MD - 04/12/2024 9:00 AM EST Patsy [...] LES Final Result * Debridement Diabetic Ulcer Right Heel (03/29/2024 [...] Ulcer Right;Plantar Foot (03/29/2024 9:00 AM EST) Patsy Lutz MD - 03/29/2024 9:00 AM EST Patsy [...] LES Final Result * Debridement Diabetic Ulcer Right Heel (03/15/2024 9:30 AM EST) Narrative Patsy Granado MD - 03/15/2024 9:30 AM EST Patsy Granado MD ? 03/15/2024 12:16 PM Debridement Diabetic Ulcer Right Heel Performed by: Patsy Granado MD Authorized by: Patsy Granado MD ?? Associated wounds: Wound Diabetic Ulcer 11/24/23 Heel Right Consent: ??Consent obtained: ??Verbal ??Consent given by: ??Patient ??Risks discussed: Yes ?? Time out: Immediately prior to the procedure a time out was called ?? Time out performed at: ??03/15/2024 10:39 AM Debridement Details: ??Performed by: ??Physician ??Type: selective ?Pain control: ??Lidocaine 4% ??Pain control administration: topical anesthesia ?Severity of Tissue Pre Debridement: ??Fat layer exposed ??Severity of Tissue Post Debridement: ??Fat layer exposed ??Time taken: ??03/15/2024 9:46 AM ??Length (cm): ??1 ??Width (cm): ??1.3 ??Depth (cm): ??0.3 ??Area (cm^2): ??1.3 ??Time taken: ??03/15/2024 9:47 AM ??Length (cm): ??1 ??Width (cm): ??1.3 ??Depth (cm): ??0.3 ??Percent Debrided (%): ??100 ??Surface Area (cm^2): ??1.3 ??Area Debrided (cm^2): ??1.3 ??Volume (cm^3): ??0.39 ??Devitalized tissue debrided: callus, fibrin and slough ?Devitalized tissue debrided comment: ??Devitalized skin ??Instrument: ??Blade and forceps ??Amount of bleeding: small ?Hemostasis obtained with: ??Pressure ??Procedural pain: ??0 ??Post-procedural pain: ??0 ??Response to treatment: ??Procedure was tolerated well us Patsy Granado MD IN CLINIC/BEDSIDE ORDERAB LES Final Result * Debridement Diabetic Ulcer Right;Plantar Foot (03/15/2024 9:30 AM EST) Narrative Patsy Granado MD - 03/15/2024 9:30 AM EST Patsy Granado MD ? 03/15/2024 12:16 PM Debridement Diabetic Ulcer Right;Plantar Foot Performed by: Patsy Granado MD Authorized by: Patsy Granado MD ?? Associated wounds: Wound Diabetic Ulcer 11/24/23 Foot Right;Plantar Consent: ??Consent obtained: ??Verbal ??Consent given by: ??Patient ??Risks discussed: Yes ?? Time out: Immediately prior to the procedure a time out was called ?? Time out performed at: ??03/15/2024 10:35 AM Debridement Details: ??Performed by: ??Physician ??Type: selective ?Pain control: ??Lidocaine 4% ??Pain control administration: topical anesthesia ?Severity of Tissue Pre Debridement: ??Fat layer exposed ??Severity of Tissue Post Debridement: ??Fat layer exposed ??Time taken: ??03/15/2024 9:47 AM ??Length (cm): ??0.5 ??Width (cm): ??0.5 ??Depth (cm): ??0.3 ??Area (cm^2): ??0.25 ??Time taken: ??03/15/2024 9:48 AM ??Length (cm): ??0.7 ??Width (cm): ??0.7 ??Depth (cm): ??0.2 ??Percent Debrided (%): ??100 ??Surface Area (cm^2): ??0.49 ??Area Debrided (cm^2): ??0.49 ??Volume (cm^3): ??0.1 ??Devitalized tissue debrided: callus, fibrin and slough ?Devitalized tissue debrided comment: ??Devitalized skin ??Instrument: ??Blade and forceps ??Amount of bleeding: small ?Hemostasis obtained with: ??Pressure ??Procedural pain: ??0 ??Post-procedural pain: ??0 ??Response to treatment: ??Procedure was tolerated well us Patsy Granado MD IN CLINIC/BEDSIDE ORDERAB LES Final Result * Debridement Diabetic Ulcer Right Heel (02/23/2024 9:30 AM EST) Narrative Oneil Grissom MD - 02/23/2024 9:30 AM EST Oneil Grissom MD ? 02/26/2024 ??8:50 AM Debridement Diabetic Ulcer Right Heel Performed by: Patsy Granado MD Authorized by: Patsy Granado MD ?? Associated wounds: Wound Diabetic Ulcer 11/24/23 Heel Right Consent: ??Consent obtained: ??Verbal ??Consent given by: ??Patient ??Risks discussed: Yes ?? Time out: Immediately prior to the procedure a time out was called ?? Time out performed at: ??02/23/2024 10:30 AM Debridement Details: ??Performed by: ??Physician ??Type: surgical ?Level: subcutaneous tissue ?Pain control: ??Lidocaine 4% ??Pain control administration: topical anesthesia ?Severity of Tissue Pre Debridement: ??Fat layer exposed ??Severity of Tissue Post Debridement: ??Fat layer exposed ??Time taken: ??02/23/2024 9:54 AM ??Length (cm): ??0.8 ??Width (cm): ??1.5 ??Depth (cm): ??0.2 ??Area (cm^2): ??1.2 ??Time taken: ??02/23/2024 9:55 AM ??Length (cm): ??0.8 ??Width (cm): ??1.5 ??Depth (cm): ??0.2 ??Percent Debrided (%): ??100 ??Surface Area (cm^2): ??1.2 ??Area Debrided (cm^2): ??1.2 ??Volume (cm^3): ??0.24 ??Tissue and other material debrided: subcutaneous tissue ?Devitalized tissue debrided: callus, fibrin and slough ?Devitalized tissue debrided comment: ??Devitalized skin ??Instrument: ??Blade and forceps ??Amount of bleeding: small ?Hemostasis obtained with: ??Pressure ??Procedural pain: ??0 ??Post-procedural pain: ??0 ??Response to treatment: ??Procedure was tolerated well us Patsy Granado MD IN CLINIC/BEDSIDE ORDERAB LES Edited Result - Final * Debridement Diabetic Ulcer Right;Plantar Foot (02/23/2024 9:30 AM EST) Narrative Oneil Grissom MD - 02/23/2024 9:30 AM EST Oneil Grissom MD ? 02/26/2024 ??8:50 AM Debridement Diabetic Ulcer Right;Plantar Foot Performed by: Patsy Granado MD Authorized by: Patsy Granado MD ?? Associated wounds: Wound Diabetic Ulcer 11/24/23 Foot Right;Plantar Consent: ??Consent obtained: ??Verbal ??Consent given by: ??Patient ??Risks discussed: Yes ?? Time out: Immediately prior to the procedure a time out was called ?? Time out performed at: ??02/23/2024 10:28 AM Debridement Details: ??Performed by: ??Physician ??Type: surgical ?Level: subcutaneous tissue ?Pain control: ??Lidocaine 4% ??Pain control administration: topical anesthesia ?Severity of Tissue Pre Debridement: ??Fat layer exposed ??Severity of Tissue Post Debridement: ??Fat layer exposed ??Time taken: ??02/23/2024 9:51 AM ??Length (cm): ??0.6 ??Width (cm): ??0.7 ??Depth (cm): ??0.2 ??Area (cm^2): ??0.42 ??Time taken: ??02/23/2024 9:52 AM ??Length (cm): ??0.6 ??Width (cm): ??0.7 ??Depth (cm): ??0.2 ??Percent Debrided (%): ??100 ??Surface Area (cm^2): ??0.42 ??Area Debrided (cm^2): ??0.42 ??Volume (cm^3): ??0.08 ??Tissue and other material debrided: subcutaneous tissue ?Devitalized tissue debrided: callus, fibrin and slough ?Devitalized tissue debrided comment: ??Devitalized skin ??Instrument: ??Blade and forceps ??Amount of bleeding: small ?Hemostasis obtained with: ??Pressure ??Procedural pain: ??0 ??Post-procedural pain: ??0 ??Response to treatment: ??Procedure was tolerated well us Patsy Granado MD IN CLINIC/BEDSIDE ORDERAB LES Edited Result - Final * Debridement Diabetic Ulcer Right Heel (02/09/2024 9:15 AM EST) Narrative Patsy Granado MD - 02/09/2024 9:15 AM EST Patsy Granado MD ? 02/09/2024 ??1:08 PM Debridement Diabetic Ulcer Right Heel Performed by: Patsy Granado MD Authorized by: Patsy Granado MD ?? Associated wounds: Wound Diabetic Ulcer 11/24/23 Heel Right Consent: ??Consent obtained: ??Verbal ??Consent given by: ??Patient ??Risks discussed: Yes ?? Time out: Immediately prior to the procedure a time out was called ?? Time out performed at: ??02/09/2024 10:10 AM Debridement Details: ??Performed by: ??Physician ??Type: surgical ?Level: subcutaneous tissue ?Pain control: ??Lidocaine 5% and lidocaine 4% ??Pain control administration: topical anesthesia ?Severity of Tissue Pre Debridement: ??Fat layer exposed ??Severity of Tissue Post Debridement: ??Fat layer exposed ??Time taken: ??02/09/2024 9:38 AM ??Length (cm): ??1.2 ??Width (cm): ??1.5 ??Depth (cm): ??0.3 ??Area (cm^2): ??1.8 ??Time taken: ??02/09/2024 9:39 AM ??Length (cm): ??1.2 ??Width (cm): ??1.5 ??Depth (cm): ??0.2 ??Percent Debrided (%): ??100 ??Surface Area (cm^2): ??1.8 ??Area Debrided (cm^2): ??1.8 ??Volume (cm^3): ??0.36 ??Tissue and other material debrided: subcutaneous tissue ?Devitalized tissue debrided: callus, fibrin and slough ?Devitalized tissue debrided comment: ??Devitalized skin ??Instrument: ??Blade and forceps ??Amount of bleeding: small ?Hemostasis obtained with: ??Pressure ??Procedural pain: ??0 ??Post-procedural pain: ??0 ??Response to treatment: ??Procedure was tolerated well us Patsy Granado MD IN CLINIC/BEDSIDE ORDERAB LES Final Result * Debridement Diabetic Ulcer Right;Plantar Foot (02/09/2024 9:15 AM EST) Narrative Patsy Granado MD - 02/09/2024 9:15 AM EST Patsy Granado MD ? 02/09/2024 ??1:08 PM Debridement Diabetic Ulcer Right;Plantar Foot Performed by: Patsy Granado MD Authorized by: Patsy Granado MD ?? Associated wounds: Wound Diabetic Ulcer 11/24/23 Foot Right;Plantar Consent: ??Consent obtained: ??Verbal ??Consent given by: ??Patient ??Risks discussed: Yes ?? Time out: Immediately prior to the procedure a time out was called ?? Time out performed at: ??02/09/2024 10:08 AM Debridement Details: ??Performed by: ??Physician ??Type: surgical ?Level: subcutaneous tissue ?Pain control: ??Lidocaine 4% ??Pain control administration: topical anesthesia ?Severity of Tissue Pre Debridement: ??Fat layer exposed ??Severity of Tissue Post Debridement: ??Fat layer exposed ??Time taken: ??02/09/2024 9:36 AM ??Length (cm): ??0.5 ??Width (cm): ??0.3 ??Depth (cm): ??0.1 ??Area (cm^2): ??0.15 ??Time taken: ??02/09/2024 9:37 AM ??Length (cm): ??0.5 ??Width (cm): ??0.7 ??Depth (cm): ??0.1 ??Percent Debrided (%): ??100 ??Surface Area (cm^2): ??0.35 ??Area Debrided (cm^2): ??0.35 ??Volume (cm^3): ??0.03 ??Tissue and other material debrided: subcutaneous tissue ?Devitalized tissue debrided: callus, fibrin and slough ?Devitalized tissue debrided comment: ??Devitalized skin ??Instrument: ??Blade and forceps ??Amount of bleeding: small ?Hemostasis obtained with: ??Pressure ??Procedural pain: ??0 ??Post-procedural pain: ??0 ??Response to treatment: ??Procedure was tolerated well us Patsy Granado MD IN CLINIC/BEDSIDE ORDERAB LES Final Result * Debridement Diabetic Ulcer Right Heel (01/26/2024 9:15 AM EST) Narrative Patsy Granado MD - 01/26/2024 9:15 AM EST Patsy Granado MD ? 01/26/2024 10:49 AM Debridement Diabetic Ulcer Right Heel Performed by: Patsy Granado MD Authorized by: Patsy Granado MD ?? Associated wounds: Wound Diabetic Ulcer 11/24/23 Heel Right Consent: ??Consent obtained: ??Verbal ??Consent given by: ??Patient ??Risks discussed: Yes ?? Time out: Immediately prior to the procedure a time out was called ?? Time out performed at: ??01/26/2024 9:46 AM Debridement Details: ??Performed by: ??Physician ??Type: surgical ?Level: subcutaneous tissue ?Pain control: ??Lidocaine 4% ??Pain control administration: topical anesthesia ?Severity of Tissue Pre Debridement: ??Fat layer exposed ??Severity of Tissue Post Debridement: ??Fat layer exposed ??Time taken: ??01/26/2024 9:25 AM ??Length (cm): ??1.1 ??Width (cm): ??1.5 ??Depth (cm): ??0.3 ??Area (cm^2): ??1.65 ??Time taken: ??01/26/2024 9:26 AM ??Length (cm): ??1.1 ??Width (cm): ??1.5 ??Depth (cm): ??0.2 ??Percent Debrided (%): ??100 ??Surface Area (cm^2): ??1.65 ??Area Debrided (cm^2): ??1.65 ??Volume (cm^3): ??0.33 ??Tissue and other material debrided: subcutaneous tissue ?Instrument: ??Blade and forceps ??Amount of bleeding: small ?Hemostasis obtained with: ??Pressure ??Procedural pain: ??0 ??Post-procedural pain: ??0 ??Response to treatment: ??Procedure was tolerated well us Patsy Granado MD IN CLINIC/BEDSIDE ORDERAB LES Final Result * Debridement Diabetic Ulcer Right;Plantar Foot (01/26/2024 9:15 AM EST) Narrative Patsy Granado MD - 01/26/2024 9:15 AM EST Patsy Granado MD ? 01/26/2024 10:49 AM Debridement Diabetic Ulcer Right;Plantar Foot Performed by: Patsy Granado MD Authorized by: Patsy Granado MD ?? Associated wounds: Wound Diabetic Ulcer 11/24/23 Foot Right;Plantar Consent: ??Consent obtained: ??Verbal ??Consent given by: ??Patient ??Risks discussed: Yes ?? Time out: Immediately prior to the procedure a time out was called ?? Time out performed at: ??01/26/2024 9:42 AM Debridement Details: ??Performed by: ??Physician ??Type: surgical ?Level: subcutaneous tissue ?Pain control: ??Lidocaine 4% ??Pain control administration: topical anesthesia ?Severity of Tissue Pre Debridement: ??Fat layer exposed ??Severity of Tissue Post Debridement: ??Fat layer exposed ??Time taken: ??01/26/2024 9:24 AM ??Length (cm): ??0.8 ??Width (cm): ??0.1 ??Depth (cm): ??0.4 ??Area (cm^2): ??0.08 ??Time taken: ??01/26/2024 9:25 AM ??Length (cm): ??0.8 ??Width (cm): ??0.1 ??Depth (cm): ??0.3 ??Percent Debrided (%): ??100 ??Surface Area (cm^2): ??0.08 ??Area Debrided (cm^2): ??0.08 ??Volume (cm^3): ??0.02 ??Tissue and other material debrided: subcutaneous tissue ?Devitalized tissue debrided: callus, fibrin and slough ?Instrument: ??Blade and forceps ??Amount of bleeding: small ?Hemostasis obtained with: ??Pressure ??Procedural pain: ??0 ??Post-procedural pain: ??0 ??Response to treatment: ??Procedure was tolerated well us Patsy Granado MD IN CLINIC/BEDSIDE ORDERAB LES Final Result from Last 3 Months Additional Health Concerns Active Problems Noted Date Diagnosed Date Impaired Tissue 12/29/2023 Education needed on impact of smoking on wound 1 02/27/2023 Education needed related to ulceration/compromised skin integrity. 12/29/2023 Insurance MEDICARE HEALTH SAFETY NET [employer] MED[employer]ARE [employer]AGE Care Teams Inspector Conveyor Line Relationship Specialty Start Date End Date Zia Morales MD [address] [place] [address] Dr Esteban MA PCP - General Internal Medicine 12/15/23
--- OUTSIDE RECORDS SUMMARY | 2024-04-20 10:17 | XMS_ITS ---
[facility] Address [address] [address] Care Team Providers Care Legal Manager Name Role Phone Zia Morales MD Primary Care Provider Ivette Escudero Unavailable [phone] Allergies Allergen (clinical drug ingredient) Drug/Non Drug Allergy documented on EMR Reaction Allergy Type Onset Date Status sulfamethoxazole / trimethoprim Bactrim rash Drug Allergy Active REASON FOR VISIT last visit pcp 11/14/23, Open sore Medications Medication SIG (Take, Route, Fr equency, Duration) Notes Start Date End Date Status Cipro 500 MG 1 tablet Orally ever y 12 hrs for 7 days 08/25/2023 Active Augmentin 500-125 MG 1 tablet Orally srinivas ry 12 hrs for 7 day(s) 08/25/2023 Active Walker as directed 05/06/2023 Active Keflex 500 MG 1 capsule Orally srinivas ry 12 hrs for 10 day(s) 08/19/2023 Active metFORMIN HCl 500 MG 1 tablet with a nata l Orally Once a day Active glipiZIDE ER 10 MG 1 tablet with breakf ast Orally Once a day Active Social History Tobacco Use: Social History [...] Problem Status W/U Status Risk Notes Problem Localized, secondary osteoarthritis of the ankle and/or foot (857729826) Post-traumati c arthritis of ankle, right (M19.171) Active confirmed Problem Congenital pes planus (63232347) Rigid pes planus, right (Q66.51) Active confirmed Vital Signs Height 5ft 7in in 11/21/2023 Weight 250 lbs 11/21/2023 BMI 39.15 kg/m2 11/21/2023 Encounters Encounter Location Date Provider Diagnosis [facility] [address] [place] [address] 11/21/2023 Ivette Diaz 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 L97.412 ; Cellulitis of right foot L03.115 ; Type 2 diabetes mellitus with diabetic polyneuropathy E11.42 ; Primary osteoarthritis, right ankle and foot M19.071 ; Post-traumatic arthritis of ankle, right M19.171 ; Rigid pes planus, right Q66.51 ; Type 2 diabetes mellitus with foot ulcer E11.621 and Tinea unguium B35.1 Assessments Encounter Date Diagnosis (ICD Code) Assessment Notes Treatment Notes Treatment Clinical Notes Section Notes 11/21/2023 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 (ICD-10 - L97.412) 11/21/2023 Cellulitis of right foot (ICD-10 - L03.115) 11/21/2023 Type 2 diabetes mellitus with diabetic polyneuropathy (ICD-10 - E11.42) 11/21/2023 Primary osteoarthritis, right ankle and foot (ICD-10 - M19.071) 11/21/2023 Post-traumatic arthritis of ankle, right (ICD-10 - M19.171) 11/21/2023 Rigid pes planus, right (ICD-10 - Q66.51) 11/21/2023 Type 2 diabetes mellitus with foot ulcer (ICD-10 - E11.621) 11/21/2023 Tinea unguium (ICD-10 - B35.1) Plan Of Treatment Next Appt Details Follow Up: 2 Months, Reason: Provider Name:Ivette lock, 05/19/2024 09:00:00 AM, [address] [place] [address], [phone], Procedure Notes * Category Sub-Category Detail Notes Debride Nail 6-10 Nail debridement Performance o f this nail treatment by a nonprofessional would put this patients foot and overall health at risk. Therefore, nail debridement was performed extensively to reduce/remove overall nail length, girth, thickness, subungual debris, and necrotic tissue, by manual and/or electrical means through the use of a nail nipper and/or dremel-type backside grinder, to a more viable healthy nail plate or bed tissue 6-10. Silver nitrate used for any petechial bleeding as necessary. Definitive antifungal treatment options have been reviewed and discussed with the patient. The patient chooses, no pharmaceutical tx - 56920 Debride skin and subQ Open wound NEUROPATHY : Physician of record performed open wound selective debridement of devitalized necrotic/nonviable soft tissue, fibrin, exudate, epidermis, dermis, thru skin and subcutaneous fat tissue, first 20 sq cm or less, using sharp dissection with sterile 15 blade, and/or tissue nippers. ANESTHESIA was not required due to presence of NEUROPATHY. Hemostasis was controlled through direct pressure. Sterile antibiotic dressing applied. Post debridement measurements: 45 mm x 25 mm x 8mm , The patient was instructed on importance of proper wound care consisting of pressure reduction, maintainance of moist wound environment, and regular debridement of devitilized tissue Keratoma Treatment Parring or Cutting o f Benign Hyperkeratotic Lesion(s) (-57) More than 4 Lesions - The Benign hyperkeratotic lesions, as described above were pared, and/or cut utilizing a sterile 15 blade, tissue nippers, and/or dremel - 32251 Progress Notes * BRANDENDARIUSCARMELOColleen Stanford ADOB:[birth year] (68 yo F)Acc No.[id number]:11/21/2023 Progress Notes Patient:?Colleen DAS Provider:?Ivette Diaz DPM :1955???Age:67 Y???Sex:Female D ate:11/21/2023 Address: [address] [facility] Pcp:Zia Morales MD Subjective: * Chief Complaints: * ???Last visit pcp 11/14/23Op en sore * HPI: ???Skin problems:?Nature:?Open sore , odor , redness.?Location:?Heel/Rearfoot ,and now forefoot?Bottom , Right.?Duration:?2 years per pt for heel and worse in last few months.?Onset/Cause:?gradual , walking.?Course:?infection. improved.?Aggravated by:?any pressure , standing , walking , shoe gear.?Treatments:?silver alginate dressing changes QOD, offloading boot, [facility] wound care-per pt she was discharged as there was nothing more they could do for the pt, per wound care notes pt has declined offloading cast boot or EKUK due to stability issues and concern for falling, pt defers surgery or ortho consult, pt's PCP was setting pt up with another wound care center, however pt states she did not pursue it and has not had any treatment for her wounds; spent 3 days in [facility] for infection, MRI (-) for osteomyelitis, [facility].?At Risk footcare:?Pt States Last PCP Visit:?Date?11/14/2023 * ROS:?General/Constitutional:?Nausea?denies.?Vomiting?denies.?Hunger Thirst?denies.?Loss appetite?denies.?Chills?denies.?Fatigue?denies.?Fever?denies.?Night Sweats?denies.?Unexplained weight loss?denies.?Unexplained [...] than smoking?Are you an other tobacco user??No ???Drugs/Alcohol:?Drugs?Have you used drugs other than those for medical reasons in the past 12 months??No ?Alcohol Screen?Did you have a drink containing alcohol in the past year??No ?Points?0 ?Interpretation?Negative ???Miscellaneous:?Caffeine: yes, more than 4 cups per day - coffee and tea. ?Children: no. ?Exercise: no. ?Marital status: single. 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 * Medications:?TakingglipiZIDE ER 10 MG Tablet Extended Release 24 Hour 1 tablet with breakfast Orally Once a day metFORMIN HCl 500 MG Tablet 1 tablet with a meal Orally Once a day Walker as directed Keflex 500 MG Capsule 1 capsule Orally every 12 hrs Cipro 500 MG Tablet 1 tablet Orally every 12 hrs Augmentin 500-125 MG Tablet 1 tablet Orally every 12 hrs Medication List reviewed and reconciled with the patientTaking glipiZIDE ER 10 MG Tablet Extended Release 24 Hour 1 tablet with breakfast Orally Once a day Taking metFORMIN HCl 500 MG Tablet 1 tablet with a meal Orally Once a day Taking Walker as directed Taking Keflex 500 MG Capsule 1 capsule Orally every 12 hrs Taking Cipro 500 MG Tablet 1 tablet Orally every 12 hrs Taking Augmentin 500-125 MG Tablet 1 tablet Orally every 12 hrs Medication List reviewed and reconciled with the patient * Allergies:?Bactrim: rash - A llergyyes[Allergies Verified] Objective: * Vitals:?Ht:5ft 7in, Wt:250, BMI:39.15, BS:189, Ht-cm: 170.18 cm, Wt-k.4 kg. * ???Past Orders: ???Lab:HEMOGLOBIN A1C (GLYCO HEMOGLOBIN) (Order Date - 11/14/2023) (Collection Date & Time - 11/14/2023 11:20 AM) ? Value Reference Range ?TOTAL HEMOGLOBIN (HGBA1C) 7.8 * Examination: ???Ophthalmology Referral: ?DIABETES EYE EXAM?Procedure Performed:?Yes ?Date of Exam Performed?09/02/2023 ?Diabetic Retinopathy Screening:?Yes ?Findings of Diabetic Eye Exam:?no retinopathy?Neurological: ?SENSORY:? Neurological exam demonstrates, reduced light touch sensation, reduced sharp/dull pin prick discrimination , B/L, 5.07 monofilament test performed at plantar aspects of 5 varied sites per foot shows sensation, reduced , B/L, Pt relates, anesthesia, B/L.?Dermatologic: ?SKIN FINDINGS:?Skin shows NO sign(s) of , cellulitis with localized lymphangitis, redness, warmth right foot , Skin exam reveals Keratotic [...] FILL TIME:?immediate, all digits, B/L.?TROPHIC CONDITION-TEXTURE/ELASTICITY/TURGOR/HAIR GROWTH (B):?normal, B/L.?TEMPERTURE GRADIENT (C):?warm right foot and leg.?PIGMENTATION:?rubrous , Right.?EDEMA (C):?2/4 , Right.?Orthopedic: ?MUSCLE STRENGTH:?5/5 all groups in a symmetrical fashion, B/L.?GAIT ABNORMALITY:?Pronated.?FOOT MORPHOLOGY:?Rigid medial/plantar protrusion of Midfoot at area of Navicular tuberosity , Pes Planus structure , Rigid R>>L.?FOOTWEAR:?surgical shoe right- , worn, non-supportive, odor present , fair condition.?General Examination: ?GENERAL APPEARANCE:?Pt relates recent?fever, chills, malaise, lymphadenopathy.?ORIENTED:?person, place, and time.?FOOT EXAM:?Lower Extremity Neurological Exam performed:?Yes ?Visual exam of foot performed:?Yes ?Date?11/21/2023 ?Footwear Evaluation?Footwear Evaluation performed:?Yes?Nails: ?NAILS are:?Elongated, overgrown, dystrophic, lytic, greater than 3mm thick, discolored and friable with crumbly malodorous subungual debris , with dull to no pain on palpation due to neuropathy , 1-5 B/L.? Assessment: * Assessment: 1.?Cellulitis of right foot - L03.115 (Primary)???2.?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 - L97.412???3.?Type 2 diabetes mellitus with diabetic polyneuropathy - E11.42???4.?Primary osteoarthritis, right ankle and foot - M19.071???5.?Post-traumatic arthritis of ankle, right - M19.171???6.?Rigid pes planus, right - Q66.51???7.?Type 2 diabetes mellitus with foot ulcer - E11.621???8.?Tinea unguium - B35.1??? Plan: * Treatment: * Procedures:?Debride Nail 6-10:?Nail debridement?Performance of this nail treatment by a nonprofessional would put this patients foot and overall health at risk. Therefore, nail debridement was performed extensively to reduce/remove overall nail length, girth, thickness, subungual debris, and necrotic tissue, by manual and/or electrical means through the use of a nail nipper and/or dremel-type backside grinder, to a more viable healthy nail plate or bed tissue 6-10. Silver nitrate used for any petechial bleeding as necessary. Definitive antifungal treatment options have been reviewed and discussed with the patient. The patient chooses, no pharmaceutical tx - 59068.?Debride skin and subQ:?Open wound?NEUROPATHY: Physician of record performed open wound selective debridement of devitalized necrotic/nonviable soft tissue, fibrin, exudate, epidermis, dermis, thru skin and subcutaneous fat tissue, first 20 sq cm or less, using sharp dissection with sterile 15 blade, and/or tissue nippers. ANESTHESIA was not required due to presence of NEUROPATHY. Hemostasis was controlled through direct pressure. Sterile antibiotic dressing applied. Post debridement measurements: 45 mm x 25 mm x 8mm , The patient was instructed on importance of proper wound care consisting of pressure reduction, maintainance of moist wound environment, and regular debridement of devitilized tissue.?Keratoma Treatment:?Parring or Cutting of Benign Hyperkeratotic Lesion(s)?(-57) More than 4 Lesions - The Benign hyperkeratotic lesions, as described above were pared, and/or cut utilizing a sterile 15 blade, tissue nippers, and/or dremel - 42920.? * Procedure Codes:?80952 DEBRI DE SKIN/TISSUE, Modifiers: XS 50597 DEBRIDE NAIL, 6 OR MORE, Modifiers: XS 06922 TRIM SKIN LESIONS, OVER 4, Modifiers: XS * Preventive Medicine:? ??Counseling:?Discussion:?-13: Office or other outpatient visit for the evaluation and management of an established patient, which required a medically appropriate history and/or examination and LOW level of DECISION MAKING for: 1 STABLE ACUTE UNCOMPLICATED PROBLEM, 2 OR MORE MINOR PROBLEMS, OR 1 STABLE CHRONIC PROBLEM, THAT POSE(S) A LOW RISK FOR MORBIDITY/MORTALITY. The visit on the day of the [...] have encouraged the patient to call the office.?Cellulitis/Lymphangitis?completed antibiotics.?Ulcer:?Pt has appt with Tamy CARRANZA on Friday and VN for dressing changes, A detailed plan of [...] further complication were discussed/reviewed. Debridement frequency as indicated.? ??Screening/Special Tests:?Fall Risk?Assessment:?Performed ?Screening:?No falls in the past year ?FALLS: Screening for Future Fall Risk?Have you had two or more falls in the past year??No ?Have you had any falls with injury in the past year??No * Follow Up:?2 Months * Images: * Sign off status: Completed true * Provider:?Ivette Diaz DPM Date:?05/2023 Generated for Oleksandr looney/Titi/Ras on:?04/20/2024 10:16 AM EST History and Physical Notes * HPI (History of Present Illness) Category Sub-Category Detail Notes Category Not es Skin problems Nature: Open sore , odor , redness Location: Heel/Rearfoot ,and n ow forefoot Bottom , Right Duration: 2 years per pt for h eel and worse in last few months Onset/Cause: gradual , walking Course: infection. improved Aggravated by: any pressure , stand ing , walking , shoe gear Treatments: silver alginate dres sing changes QOD, offloading boot, [facility] wound care-per pt she was discharged as there was nothing more they could do for the pt, per wound care notes pt has declined offloading cast boot or EKUK due to stability issues and concern for falling, pt defers surgery or ortho consult, pt's PCP was setting pt up with another wound care center, however pt states she did not pursue it and has not had any treatment for her wounds; spent 3 days in [facility] for infection, MRI (-) for osteomyelitis, has [facility] At Risk footcare Pt States Last PCP Visit: Date: 4 Examination Category Sub-Category Detail Notes Category Not es Neurological SENSORY: Neurological exa m demonstrates, reduced light touch sensation, reduced sharp/dull pin prick discrimination , B/L, 5.07 monofilament test performed at plantar aspects of 5 varied sites per foot shows sensation, reduced , B/L, Pt relates, anesthesia, B/L Dermatologic SKIN FINDINGS: Skin shows NO si gn(s) of , cellulitis with localized lymphangitis, redness, warmth right foot , Skin exam reveals Keratotic [...] right- , worn, non-supportive, odor present , fair condition MUSCLE STRENGTH: 5/5 all groups in a symmetrical fashion, B/L General Examination GENERAL APPEARANCE: Pt relat es recent fever, chills, malaise, lymphadenopathy FOOT EXAM: Lower Extremity Neurological Exa m performed:: Yes Visual exam of foot performed:: Yes Date: 11/21/2023 ORIENTED: person, place, and t maritza Footwear Evaluation Footwear Evaluation performe d:: Yes Ophthalmology Referral DIABETES EYE EXAM Procedure Perform ed:: Yes ?Date of Exam Performed: 09/02/2023 Diabetic Retinopathy Screening:: Yes Findings of Diabetic Eye Exam:: no retin opathy Vascular DP PULSES (B): 3/4, B/L PT PULSES (B): 3/4, B/L CAPILLARY FILL TIME: immediate, all digi ts, B/L TEMPERTURE GRADIENT (C): warm right foot and leg TROPHIC CONDITION-TEXTURE/EL ASTICITY/TURGOR/HAIR GROWTH (B): normal, B/L EDEMA (C): 2/4 , Right PIGMENTATION: rubrous , Right Nails NAILS are: Elongated, overg rown, dystrophic, lytic, greater than 3mm thick, discolored and friable with crumbly malodorous subungual debris , with dull to no pain on palpation due to neuropathy , 1-5 B/L
[2024-04-20 14:11] LABS: MANUAL DIFF FLAG NO
[2024-04-20 14:20] LABS: Basophils Percent Auto 0.3 % (0-2); Eosinophils Absolute Auto 0.2 X10*3/uL (0.0-0.4); Eosinophils Percent Auto 1.9 % (0-4); Hematocrit 42.1 % (37.0-47.0); Hemoglobin 13.5 g/dl (12.0-16.0); Imm Gran Abs Auto 0.04 X10*3/uL (0.00-0.03); Imm Gran Pct Auto 0.4 % (0.0-0.4); Lymphocytes Absolute Auto 1.7 X10*3/uL (1.2-4.9); Lymphocytes Percent Auto 18.5 % (20-40); Mean Corpuscular HGB Conc 32.1 g/dl (31.0-35.0); Mean Corpuscular Hemoglobin 27.6 pg (27.0-33.0); Mean Corpuscular Volume 85.9 fL (80.0-98.0); Monocytes Absolute Auto 0.5 X10*3/uL (0.1-1.2); Monocytes Percent Auto 5.4 % (2-11); Neutrophils Absolute Auto 6.7 x10*3/uL (2.0-8.3); Neutrophils Percent Auto 73.5 % (45-73); Platelet Count 277 X10*3/uL (160-400); Red Cell Distribution Width 15.5 % (11.0-16.0); White Blood Count 9.1 X10*3/uL (4.8-10.8)
[2024-04-20 14:40] LABS: Alanine Aminotransferase 23 U/L (0-31); Albumin Level 3.8 g/dL (3.5-5.0); Alkaline Phosphatase 95 U/L (39-117); Anion Gap 12 (12-20); Aspartate Amino Transferase 37 U/L (5-31); Bilirubin Total 0.6 mg/dL (0.0-1.0); Blood Urea Nitrogen 13 mg/dL (9-16); C Reactive Protein 0.78 mg/dL (< or = 0.50); Carbon Dioxide 26 mmol/L (22-29); Chloride 106 mmol/L (96-108); Estimated Glomerular Filt Rate > 60; Glucose Fasting 189 mg/dL (60-99); Potassium 4.1 mmol/L (3.3-5.1); Sodium 140 mmol/L (135-145); Total Protein 7.9 g/dL (6.5-8.0)
[2024-04-20 14:59] LABS: Vitamin D 25-OH Total 35.5 ng/mL (>30)
[2024-04-20 15:03] LABS: Erythrocyte Sedimentation Rate 26 MM/HR (0-20)
[2024-04-20 15:25] LABS: Estimated Average Glucose 177 mg/dL; Hemoglobin A1C 218.2642 umol/L; Hemoglobin A1c % 7.8 % (<6.0); Total Hemoglobin (HGBA1C) 3533.1075 umol/L
== END 2024-04-20 09:13 | disposition home or self-care (01) ==
LOC: HO.CHCLDS 09:12
PROVIDERS: PCP Internal Medicine; Visit Provider Internal Medicine
DX: E11.9 Type 2 diabetes mellitus without complications (principal); E55.9 Vitamin D deficiency, unspecified; L97.819 Non-pressure chronic ulcer of other part of right lower leg with unspecified severity
CPT/HCPCS: 36415; 80053; 82306; 83036; 85025; 85652; 86140

== ENCOUNTER 2024-07-01 10:18 | Outpatient (AMB) | payer MEDICARE, MEDICAID, SELFPAY ==
--- NOTE | 2024-07-01 10:19 | MHC.PC.OV ---
Vital Signs 07/01/24 10:35 Height 5 ft 7 in Weight 255 lb BMI 39.9 BP 138/84 Blood Pressure Location Lt brachial Position Sitting Pulse 100 Pulse Source Pulse Oximeter Temp 97.6 F Temp Source Axillary Pulse Oximetry (%) 98 Oxygen Delivery Method Room Air Intake Visit Reasons: Routine - see comments Pre Press Proofer Required: No Accompanied by: Self / Same As Patient Allergies Iodinated Contrast Media [IV CONTRAST] Allergy (Mild, Verified 07/01/24 10:19) itching on trunk of body dye-radiology Allergy (Unknown, Uncoded 07/01/24 10:19) Unknown Tobacco use date assessed: 07/01/24 Fall risk assessment: 1 Fall in past year Last assessed Fall Risk: 07/01/24 Dental Screening Dental Screen Date: 07/01/24 Did you have a dental visit in the last 12 months?: No Did you have a dental problem in the last 6 months where you did not have access to dental care?: No HPI HPI Comments History of Present Illness Details The patient is a 68 year old female with a past medical history of diabetes, hypertension, neuropathy, depression, low vitamin D presenting for follow up. Seen in Dec by pcp CV: 138/84. Denies chest pain, exertional dyspnea. DM-glipizide 10mg twice daily, metformin 500mg twice daily. Last A1C 7.9% 04/2024 from 8.2. Gets eye exams-fosters eye and lasik. Sees Dr Rouse at [facility] and goes to [facility]. She does not want to increase medications at this time Mammogram-declines testing Colon cancer screening-declines colonoscopy and cologuard. ROS CONSTITUTIONAL: Denies weight loss, fever and chills. HEENT: Denies changes in vision and hearing. RESPIRATORY: Denies SOB and cough. CV: Denies palpitations and CP GI: Denies abdominal pain, nausea, vomiting and diarrhea. : Denies dysuria and urinary frequency. MSK: Denies new myalgia and joint pain. SKIN: Denies rash and pruritus. NEUROLOGICAL: Denies headache PSYCHIATRIC: Denies recent changes in mood. PHYSICAL EXAM: GENERAL: Alert and oriented x 3. NAD EYES: EOMI. Anicteric. HENT: Moist mucous membranes. No scleral icterus. No cervical lymphadenopathy. LUNGS: Clear to auscultation bilaterally. CARDIOVASCULAR: Regular rate and rhythm. No murmur. No JVD. ABDOMEN: Soft, non-tender +bs EXTREMITIES: Non pitting edema. Right foot in boot SKIN: No rashes or lesions. Warm. NEUROLOGIC: No focal neurological deficits. CN II-XII grossly intact PSYCHIATRIC: Cooperative. Appropriate mood and affect [facility] Family History Mother No problems noted. Father No problems noted. Social History Housing: House Patient Tobacco Use Status: Never used Tobacco e-Cigarette/Vaping Use: Never Used service: No Current occupational status: retired Cognitive needs: Yes (cane) Hearing needs: No Vision needs: Yes (reading glasses) Questionnaire PHQ-9 Over the last 2 weeks, how often have you been bothered by any of the following problems? 1. Little interest or pleasure in doing things: not at all 2. Feeling down, depressed, or hopeless: not at all 3. Trouble falling or staying asleep, or sleeping too much: not at all 4. Feeling tired or having little energy: not at all 5. Poor appetite or overeating: not at all 6. Feeling bad about yourself - or that you are a failure or have let yourself or your family down: not at all 7. Trouble concentrating on things, such as reading the newspaper or watching television: not at all 8. Moving or speaking so slowly that other people could have noticed. Or the opposite - being so fidgety or restless that you have been moving around a lot more than usual: not at all 9. Thoughts that you would be better off or of hurting yourself in some way: not at all Total score: 0 Depression Screening Interpretation: Negative Depression Screening Done: Yes 07956 - PHQ-9 Billing: Yes Source: Developed by Drs. René Barnard, Nava Jenkins, Florentin Lucio and colleagues, with an educational jana from [email or web address]. Thrive Questionnaire Date Thrive assessed: 07/01/24 I am a: Patient Within the past 12 months, did the food you bought not last and you didn't have the money to get more?: Never true Within the past 12 months, did you worry whether your food would run out before you got money to buy more?: Never true Do you have trouble paying for medicines?: No Do you have trouble getting transportation to medical appointments?: No Do you have trouble paying your heating and electricity bill?: No Do you have trouble taking care of your child, family member or friend?: No Do you have trouble with day-to-day activities such as bathing, preparing meals, shopping, managing finances, etc.?: No Are you currently unemployed and looking for a job?: No Are you interested in more education?: No THRIVE Score: 0 AUDIT C Alcohol Use Questionnaire (AUDIT-C) 1. How often do you have a drink containing alcohol?: Never 3. How often do you have six or more drinks on one occasion?: Never Total Score: 0 CARISA-7 AMB Questionnaire CARISA-7 Date CARISA - 7 assessed: 07/01/24 Feeling nervous, anxious, or on edge: 0 = Not at all Not being able to stop or control worryin = Not at all Worrying too much about different things: 0 = Not at all Trouble relaxin = Not at all Being so restless that it is hard to sit still: 0 = Not at all Becoming easily annoyed or irritable: 0 = Not at all Feeling afraid as if something awful might happen: 0 = Not at all Total CARISA-7 score (0-4 normal; 5-9 mild; 10-14 moderate; 15-21 severe): 0 Source: Developed by Drs. René Barnard, Nava Jenkins, Florentin Lucio and colleagues, with an educational jana from [email or web address]. Physical exam (Primary Care) Vital Signs: Last Vital Signs Temp 97.6 F 07/01/24 10:35 Pulse 100 07/01/24 10:35 BP 138/84 07/01/24 10:35 Pulse Ox 98 07/01/24 10:35 Oxygen Delivery Method Room Air 07/01/24 10:35 BMI result Body Mass Index 39.9 Tobacco/Smoking Status: Tobacco use Status Tobacco use date assessed 07/01/24 07/01/24 10:21 Patient Tobacco Use Status Never used Tobacco 07/01/24 10:21 e-Cigarette/Vaping Use Never Used 07/01/24 10:21 PHQ-9: PHQ-9 Score PHQ-9: Total score 0 07/01/24 10:44 Depression Screening Interpretation: Negative Thrive Assessment: Date of Thrive Assessment Date Thrive assessed 07/01/24 07/01/24 10:21 Coding Level of Care Code New Pt Level 4 (57247) Complex EM visit Add On G2211 Diagnoses Diabetic polyneuropathy associated with type 2 diabetes mellitus E11.42 Diabetes mellitus type: type 2 Diabetes mellitus complication detail: diabetic polyneuropathy Type 2 diabetes mellitus with hyperglycemia, without long-term current use of insulin E11.65 Diabetes mellitus type: type 2 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: without marine oil 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 superintendent use Diabetes mellitus complication status: with hyperglycemia Weight gain R63.5 Additional Codes PHQ-9 - 08570 - PHQ-9 Billing: Yes ([id number]) Assessment & Plan Assessment & Plan (1) Diabetic neuropathy: Code(s): E11.40 - Type 2 diabetes mellitus with diabetic neuropathy, unspecified Category: Medical Qualifiers: Diabetes mellitus type: type 2 Diabetes mellitus complication detail: diabetic polyneuropathy Qualified Code(s): E11.42 - Type 2 diabetes mellitus with diabetic polyneuropathy (2) Diabetes mellitus: Code(s): E11.9 - Type 2 diabetes mellitus without complications Category: Medical Qualifiers: Diabetes mellitus type: type 2 Diabetes mellitus nursing home insulin use: without marine oil terminal superintendent use Diabetes mellitus complication status: with hyperglycemia Qualified Code(s): E11.65 - Type 2 diabetes mellitus with hyperglycemia (3) Weight gain: Code(s): R63.5 - Abnormal weight gain Category: Medical Plan 68 year old female presenting to replaced by [facility] Past medical, surgical, social reviewed DM-suboptimal control. Discussed increasing metformin or adding GLP-declines at this time She will work on dietary changes and increase walking as tolerated Discussed and declined mammogram and colon cancer screening Orders: Orders Lipid Panel 3 Months E11.40 - Type 2 diabetes mellitus with diabetic neuropathy, unspecified, E11.9 - Type 2 diabetes mellitus without complications Hemoglobin A1c 3 Months E11.40 - Type 2 diabetes mellitus with diabetic neuropathy, unspecified, E11.9 - Type 2 diabetes mellitus without complications Comprehensive Met. Panel 3 Months E11.40 - Type 2 diabetes mellitus with diabetic neuropathy, unspecified, E11.9 - Type 2 diabetes mellitus without complications Microalbumin, Random (w Creat) 3 Months E11.40 - Type 2 diabetes mellitus with diabetic neuropathy, unspecified, E11.9 - Type 2 diabetes mellitus without complications TSH reflex Free T4 Today R63.5 - Abnormal weight gain
[2024-07-01 10:35] VITALS: BP 138/84; PULSE 100; TEMP 36.4; O2SAT 98; BMI 39.9
--- OUTSIDE RECORDS SUMMARY | 2024-07-01 11:18 | XMS_ITS | Encounter Summary ---
Author Organization [facility] Address [address] [place] [address] Care Team Providers Care Studio Owner Name Role Phone Zia Morales MD Primary Care Provider [phone] Reason for Visit * Reason Comments Wound Care Encounter Details Date Type Department Care Team (Late st Contact Info) Description 06/28/2024 8:30 AM EDT Office Visit [facility] [address] [place] [phone] Patsy Granado MD [address] [address] Type 2 diabetes mellitus with foot ulcer (CODE) ([facility] V24, [facility] V28) (Primary Dx); Chronic heel ulcer, right, with fat layer exposed ([facility] V24, [facility] V28) Social History Tobacco Use Types Packs/Day Years [...] Sign Reading Time Taken Comments Blood Pressure 158/82 06/28/2024 8:39 AM EDT Pulse 96 06/28/2024 8:39 AM EDT Temperature 36 ??C (96.8 ??F) 06/28/2024 8:39 AM EDT Respiratory Rate 17 06/28/2024 8:39 AM EDT Oxygen Saturation 97% 06/28/2024 8:39 AM EDT Inhaled Oxygen Concentration - - Weight - - Height - - Body Mass Index - - documented in this encounter Progress Notes * Monica Gotti RN - 06/28/2024 8:30 AM EDT PROVIDER ORDERS Go to ER if you are presenting with fever, chills, increased redness, pain, swelling, warmth aroundwound area and/or foul smelling odor. If you have any questions or concerns, please contact the [facility] [place] at . It was noted today during your visit that your blood pressure is elevated. Close follow-up with PCPis recommended for possible evaluation of starting and or changing blood pressure medication. VisitVitals BP (!) 158/82 Pulse 96 Temp 36 ??C (96.8 ??F) (Temporal) Resp 17 SpO2 97% Smoking Status Never Follow up(s)/ Referrals: Podiatry: Follow up as scheduled -Make sure to use you offloading shoe Senior Care: Home care: [facility] Additional Orders: -Increase protein in your diet to help promote wound healing, -Maintain good blood sugar control Lidocaine Order: Apply Lidocaine 5% Topical Ointment prior to debridements at Wound Care appointments Edema Control: (If your compression wrap(s) feel to tight, please elevate your leg(s) about heart level. If your wrap(s) are becoming painful and/or you loose sensation of toes/ are having toe discoloration (a change from your baseline), please remove / unwrap compression and notify [facility] at . ) -Elevate legs above heart level as much as possible, -Avoid standing for extended periods of time Offloading: -Peg Assist offloading shoe to right foot- make sure to wear to help offload wound areas (dm shoes fitted, awaiting appt for sign off on paperwork in June) -Limit pressure to wound as much as possible -Orthofelt if tolerates Negative Pressure Wound Therapy: (If wound vac [...] Saline Periwound: N/A Topical: N/A Primary dressing: Collagen with Silver- will dissolve in wound. If not dissolving you may moisten with saline prior to covering. Secondary dressinx4 woven gauze (non-sterile) Secure with: 3 conforming gauze roll, Spandage size 3, 1 paper tape Compression Therapy: Elevate legs above heart level as much as possible Dressing Change Frequency: Every Other Day * Patsy Granado MD - 06/28/2024 8:30 AM EDTAssociated Order(s): Debridement Diabetic Ulcer Right Heel Post-Procedure Diagnose(s): Type 2 diabetes mellitus with foot ulcer (CODE) ([facility] V24, [facility] V28); Chronic heel ulcer, right, with fat layer exposed ([facility] V24, [facility] V28) Images from the original note were not included. Topical: N/A [facility] [place] [address] Office Visit Visit Date: 06/28/2024 Patient Name: Colleen Das Date of : 1955 PCP: Zia Morales MD HPI: Colleen is seen for follow-up right foot plantar first toe ulcer and right heel ulcer, treatedwith alginate dressing change every other day. Patient is 68 years old woman with history of diabetes mellitus with neuropathy. She denies any dysuria or frequency or cough. No pain no leg edema. Herdiabetes is well- controlled, last hemoglobin A1c in February was 7.8. She declined the use of total contact cast to offload her foot. She is afraid she may fall The ulcers have improved, smaller in size with pink granulation tissue. She had also a medial heel ulcer that is now healed. Assessment and Plan: Type 2 diabetes mellitus with foot ulcer (CODE) ([facility] V24, [facility] V28) (Primary) - Debridement Diabetic Ulcer Right Heel Chronic heel ulcer, right, with fat layer exposed ([facility] V24, [facility] V28) - Debridement Diabetic Ulcer Right Heel Open wound debridement right foot ulcers covered with scalpel and forceps. Continue Aquacel Ag dressing. Continue her antibiotics. All questions were answered to her satisfaction. She was counseled regarding my impressions, instructions for management, and the importance of compliance with treatment. Follow up in about 1 week (around 07/05/2024) for Follow up with Dr. Granado. >>>>>>>>>>>>>>>>>>>>>>>>>>>>>>>>>>>>>>>>>>>>>>>>>>> Vital Signs: Visit Vitals BP (!) 158/82 Pulse 96 Temp 36 ??C (96.8 ??F) (Temporal) Resp 17 Review of Systems: No fever no chills drainage decreased PHYSICAL EXAM right foot plantar heel ulcer with thick callus around the edges, central granulationtissue, fibrin and slough. Right foot plantar MP joint first toe ulcer is healed. There is callus on the first toe MP joint area. Right foot heel ulcer smaller in size with pink granulation tissue, thick callus around the edges, and fibrin. Periwound skin is intact no cellulitis. Dorsalis pedis pulse palpable. There is no leg or foot edema WOUND ASSESSMENT If photograph of wound not visible on this note, please check under Media tab. Wound Diabetic Ulcer 11/24/23 Heel Right (Active) Date First Assessed: 11/24/23 Primary Wound Type: Diabetic Ulcer Wound Approximate Age at First Assessment (Weeks): 67 weeks Hand Hygiene Completed: Yes Diabetic Ulcer Grading: Grade 1 Location: HeelWound Location Orientation: Right Assessments 12/29/2023 9:16 AM 06/28/2024 8:43 AM Wound Image Wound Bed Tissue Assessment Granulation;Pale;[place];Sloughing Granulation Pamela-Wound Assessment Callused;Peeling Callused;Dry;Intact Wound Length (cm) 0.9 cm 0.7 cm Wound Width (cm) 1.5 cm 0.9 cm Wound Surface Area (cm^2) 1.35 cm^2 0.63 cm^2 Wound Depth (cm) 0.3 cm 0.3 cm Wound Volume (cm^3) 0.405 cm^3 0.189 cm^3 Wound Healing % -- 53 Drainage Description Serosanguineous Serosanguineous Drainage Amount Moderate Moderate Treatments Other (Comment);Cleansed Cleansed;Other (Comment) Dressing Gauze -- Dressing Status Removed Removed Wound Bed Granulation (%) 90 % 100 % Wound Bed Slough (%) 10 % 0 % Wound Bed Eschar (%) 0 % 0 % Tunneling 0 cm 0 cm Undermining 0.3 cm 0 cm Underming Start Clock Position of Wound 10 o'clock -- Underming End Clock Position of Wound 1 o'clock -- Edges Well-defined edges;Not attached Well-defined edges;Attached edges Non-staged Wound Description Full thickness Full thickness Active Orders Date Order Priority Status Authorizing Provider 06/28/24 0911 Debridement Diabetic Ulcer Right Heel Routine Active Patsy Granado MD Inactive Orders Date Order Priority Status Authorizing Provider 06/14/24 0918 Debridement Diabetic Ulcer Right Heel Routine Completed Patsy Granado MD 06/08/24 1022 Debridement Diabetic Ulcer Right Heel Routine Completed JANUSZ Sanders 05/24/24 1009 Debridement Diabetic Ulcer Right Heel Routine Completed Patsy Granado MD 05/10/24 1032 Debridement Diabetic Ulcer Right Heel Routine Completed Patsy Granado MD 04/26/24 1053 Debridement Diabetic Ulcer Right Heel Routine Completed Patsy Granado MD 04/12/24 0946 Debridement Diabetic Ulcer Right Heel Routine Completed aPtsy Granado MD 03/29/24 0932 Debridement Diabetic Ulcer Right Heel [...] Right Heel Routine Completed Patsy Granado MD Debridement Diabetic Ulcer Right Heel Performed by: Patsy Granado MD Authorized by: Patsy Granado MD Associated wounds: Wound Diabetic Ulcer 11/24/23 Heel Right Consent: Consent obtained: Verbal Consent given by: Patient Risks discussed: Yes Time out: Immediately prior to the procedure a time out was called Time out performed at: 06/28/2024 9:11 AM Debridement Details: Performed by: Physician Type: selective Pain control: Lidocaine 5% Pain control administration: topical anesthesia Severity of Tissue Pre Debridement: Fat layer exposed Severity of Tissue Post Debridement: Fat layer exposed Time taken: 06/28/2024 8:43 AM Length (cm): 0.7 Width (cm): 0.9 Depth (cm): 0.3 Area (cm^2): 0.63 Time taken: 06/28/2024 8:44 AM Length (cm): 0.7 Width (cm): 0.9 Depth (cm): 0.2 Percent Debrided (%): 100 Surface Area (cm^2): 0.63 Area Debrided (cm^2): 0.63 Volume (cm^3): 0.13 Devitalized tissue debrided: callus, fibrin and slough [...] any questions or concerns, please contact the [facility] at . It was noted today during your visit that your blood pressure is elevated. Close follow-up with PCPis recommended for possible evaluation of starting and or changing blood pressure medication. VisitVitals BP (!) 158/82 Pulse 96 Temp 36 ??C (96.8 ??F) (Temporal) Resp 17 SpO2 97% Smoking Status Never Follow up(s)/ Referrals: Podiatry: Follow up as scheduled -Make sure to use you offloading shoe Senior Care: Home care: [facility] Additional Orders: -Increase protein in your diet to help promote wound healing, -Maintain good blood sugar control Lidocaine Order: Apply Lidocaine 5% Topical Ointment prior to debridements at Wound Care appointments Edema Control: (If your compression wrap(s) feel to tight, please elevate your leg(s) about heart level. If your wrap(s) are becoming painful and/or you loose sensation of toes/ are having toe discoloration (a change from your baseline), please remove / unwrap compression and notify [facility] at . ) -Elevate legs above heart level as much as possible, -Avoid standing for extended periods of time Offloading: -Peg Assist offloading shoe to right foot- make sure to wear to help offload wound areas (dm shoes fitted, awaiting appt for sign off on paperwork in June) -Limit pressure to wound as much as possible -Orthofelt if tolerates Negative Pressure Wound Therapy: (If wound vac [...] Saline Periwound: N/A Topical: N/A Primary dressing: Collagen with Silver- will dissolve in wound. If not dissolving you may moisten with saline prior to covering. Secondary dressinx4 woven gauze (non-sterile) Secure with: 3 conforming gauze roll, Spandage size 3, 1 paper tape Compression Therapy: Elevate legs above heart level as much as possible Dressing Change Frequency: Every Other Day 06/28/2024 1:10 PM EDT Patsy Granado MD * Kalee Grayson RN - 06/28/2024 8:30 AM EDT Discharge Patient directed to check out at service desk lead and collect visit summary with wound care directions and book follow up as directed. Dressings applied: Wound #1 (Right heel): Cleanser: Cleanse with Normal Saline Primary dressing: Collagen with Silver- will dissolve in wound. If not dissolving you may moisten with saline prior to covering. Secondary dressinx4 woven gauze (non-sterile) Secure with: 3 conforming gauze roll, Spandage size 3, 1 paper tape Dressing technique was demonstrated and explained. Patient questions answered. Pt discharge from wound care center without issue or incidence. documented in this encounter Plan of Treatment Upcoming Encounters Date Type Department Care Team (Late st Contact Info) Description 07/05/2024 9:00 AM EDT Clinical Support [facility] [address] [place] [phone] documented as of this encounter Goals Goal Patient Goal Type Associated Problems Recent Progress Patient-Stated? Author Decrease Wound Volume by X% by date (in notes) Care Plan Impaired Tissue On track( 025 9:13 AM EDT) Monica Delgado RN Note: 04/26- Patient still is not wearing Offloading shoe Patient and Caregiver Understand Wound Care Education Care Plan Impaired Tissue On track( 025 9:13 AM EDT) Monica Delgado comber tender volume breakdown reduced by X% by week [...] Priority Date/Time Associated Diagnosis Comments DEBRIDEMENT Routine 06/28/2024 8:30 AM EDT Type 2 diabetes mellitus with foot ulcer (CODE) ([facility] V24, [facility] V28) Chronic heel ulcer, right, with fat layer exposed ([facility] V24, [facility] V28) documented in this encounter Results * Debridement Diabetic Ulcer Right Heel (06/28/2024 8:30 AM EDT) Narrative Patsy Granado MD - 06/28/2024 8:30 AM EDT Patsy Granado MD ? 06/28/2024 ??1:12 PM Debridement Diabetic Ulcer Right Heel Performed by: Patsy Granado MD Authorized by: Patsy Granado MD ??Associated wounds: Wound Diabetic Ulcer 11/24/23 Heel Right Consent: ??Consent obtained: ??Verbal ??Consent given by: ??Patient ??Risks discussed: Yes ?? Time out: Immediately prior to the procedure a time out was called ?? Time out performed at: ??06/28/2024 9:11 AM Debridement Details: ??Performed by: ??Physician ??Type: selective ?Pain control: ??Lidocaine 5% ??Pain control administration: topical anesthesia ?Severity of Tissue Pre Debridement: ??Fat layer exposed ??Severity of Tissue Post Debridement: ??Fat layer exposed ??Time taken: ??06/28/2024 8:43 AM ??Length (cm): ??0.7 ??Width (cm): ??0.9 ??Depth (cm): ??0.3 ??Area (cm^2): ??0.63 ??Time taken: ??06/28/2024 8:44 AM ??Length (cm): ??0.7 ??Width (cm): ??0.9 ??Depth (cm): ??0.2 ??Percent Debrided (%): ??100 ??Surface Area (cm^2): ??0.63 ??Area Debrided (cm^2): ??0.63 ??Volume (cm^3): ??0.13 ??Devitalized tissue debrided: callus, fibrin and slough [...] 2 diabetes mellitus with foot ulcer (CODE) ([facility] V24, [facility] V28)- Primary Chronic heel ulcer, right, with fat layer exposed ([facility] V24, [facility] V28) documented in this encounter Additional Health Concerns Active Problems Noted Date Diagnosed Date Impaired Tissue 12/29/2023 Education needed on impact of smoking on wound 1 02/27/2023 Education needed related to ulceration/compromised skin integrity. 12/29/2023 documented as of this encounter Care Teams Studio Owner Relationship Specialty Start Date End Date Zia Morales MD [address] [place] [address] Dr Esteban [place] PCP - General Internal Medicine 12/15/23 documented as of this encounter
--- OUTSIDE RECORDS SUMMARY | 2024-07-01 11:18 | XMS_ITS | Patient Health Record ---
Author Organization [facility] Address [address] [place] [address] Care Team Providers Care Director Of Healthcare Systems Name Role Phone Alison Christian MD Primary Care Provider Ivette Castellano Unavailable [phone] Allergies Allergen (clinical drug ingredient) Drug/Non Drug [...] Duration) Notes Start Date End Date Status Ciprofloxacin HCl 500 MG 1 tablet Orally every 12 hrs for 7 days 05/24/2024 Active Augmentin 500-125 MG 1 tablet Orally srinivas ry 12 hrs for 10 days 08/25/2023 Active Walker as directed 05/06/2023 Active Extra Depth Orthopedic Shoes (1 Pair) with Customized Heat Molded Multidensity Innersoles (3 Pair) as directed Dx: NIDDM/Polyneuropathy (E11.42), Hammertoe Foot Deformity (M20.41,M20.42), Preulcerative Skin Lesion(s) (L85.1, ulcer sub 1st and heel Right -offloading needed for orthotic 02/24/2024 Active glipiZIDE ER 10 MG 1 tablet with breakf ast Orally Once a day Active metFORMIN HCl 500 MG 1 tablet with a nata l Orally Once a day Active Keflex 500 MG 1 capsule Orally srinivas ry 12 hrs for 10 day(s) 08/19/2023 Not-Taking Cipro 500 MG 1 tablet Orally ever y 12 hrs for 7 days 08/25/2023 Not-Taking Immunizations Vaccine Route Administration Date [...] Problem Acquired hammer toe of right foot (1919341091884507 ) Other hammer toe(s) (acquired), right foot (M20.41) Active confirmed Problem Acquired hammer toe of left foot (2253129586404773 ) Other hammer toe(s) (acquired), left foot (M20.42) Active confirmed Problem Polyneuropathy due to diabetes mellitus type I (644820757) Type 1 diabetes mellitus with diabetic polyneuropathy (E10.42) Active confirmed Problem Polyneuropathy due to type 2 diabetes mellitus (751411823) Type 2 diabetes mellitus with diabetic polyneuropathy (E11.42) Active confirmed Problem 846185873 Non-pressure chronic ulcer of other part of unspecified foot with unspecified severity (L97.509) Active confirmed Problem 653912069312688 Primary osteoarthritis, right ankle and foot (M19.071) Active confirmed Problem 41777472 Type 2 diabetes mellitus with polyneuropathy (E11.42) Active confirmed Problem 0154998229776 Type 2 diabetes mellitus with foot ulcer (E11.621) Active confirmed Problem 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) Active confirmed Response to treatment - Unchanged Problem Localized, secondary osteoarthritis of the ankle and/or foot (526417524) Post-traumatic arthritis of ankle, right (M19.171) Active confirmed Problem Congenital pes planus (94094432) Rigid pes planus, right (Q66.51) Active confirmed Vital Signs Blood pressure diastolic 80 mm Hg 05/19/2024 Height 5ft7in in 05/19/2024 Blood pressure systolic 120 mm Hg 05/19/2024 Weight 260 lbs 05/19/2024 BMI 40.72 kg/m2 05/19/2024 Encounters Encounter Location Date Provider Diagnosis [address] [phone] 08/19/2023 Ivette Diaz Type 2 diabetes mellitus with diabetic polyneuropathy E11.42 ; 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 L97.412 ; Tinea unguium B35.1 ; Primary osteoarthritis, right ankle and foot M19.071 ; Post-traumatic arthritis of ankle, right M19.171 ; Rigid pes planus, right Q66.51 ; Type 2 diabetes mellitus with foot ulcer E11.621 and Cellulitis of right foot L03.[address] [address] 11/07/2023 Ivette Diaz 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 L97.412 ; Cellulitis of right foot L03.115 ; Type 2 diabetes mellitus with diabetic polyneuropathy E11.42 ; Primary osteoarthritis, right ankle and foot M19.071 ; Post-traumatic arthritis of ankle, right M19.171 ; Rigid pes planus, right Q66.51 and Type 2 diabetes mellitus with foot ulcer E11.[address] [address] 11/21/2023 Ivette Diaz 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 L97.412 ; Cellulitis of right foot L03.115 ; Type 2 diabetes mellitus with diabetic polyneuropathy E11.42 ; Primary osteoarthritis, right ankle and foot M19.071 ; Post-traumatic arthritis of ankle, right M19.171 ; Rigid pes planus, right Q66.51 ; Type 2 diabetes mellitus with foot ulcer E11.621 and Tinea unguium B35.[address] [address] 02/24/2024 Ivette Diaz Neuropathic ulcer of right [...] Other hammer toe(s) (acquired), left foot M20.42 [facility] [address] 05/19/2024 Ivette Diaz Type 2 diabetes mellitus with foot ulcer E11.621 ; Cellulitis of right foot L03.115 ; 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 L97.412 ; Type 2 diabetes mellitus with diabetic polyneuropathy E11.42 ; Primary osteoarthritis, right ankle and foot M19.071 ; Post-traumatic arthritis of ankle, right M19.171 ; Rigid pes planus, right Q66.51 ; Tinea unguium B35.1 ; Other hammer toe(s) (acquired), right foot M20.41 and Other hammer toe(s) (acquired), left foot M20.[address] [address] 08/01/2023 Ivette Diaz [facility] [address] 08/19/2023 Ivette Figueroaa [address] [address] 11/07/2023 Ivette Perica [facility] [address] 11/07/2023 Ivette Perica [facility] [address] 11/07/2023 Ivette Perica [facility] [address] 05/19/2024 Ivette Diaz Assessments Encounter Date Diagnosis (ICD Code) Assessment Notes Treatment Notes Treatment Clinical Notes Section Notes 08/19/2023 Type 2 diabetes mellitus with diabetic [...] with fat layer exposed (ICD-10 - L97.412) 05/19/2024 Cellulitis of right foot (ICD-10 - L03.115) 05/19/2024 Type 2 diabetes mellitus with foot ulcer (ICD-10 - E11.621) 05/19/2024 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 (ICD-10 - L97.412) 02/24/2024 Type 2 diabetes mellitus with diabetic polyneuropathy (ICD-10 - E11.42) 11/21/2023 Type 2 diabetes mellitus with diabetic polyneuropathy (ICD-10 - E11.42) 11/07/2023 Type 2 diabetes mellitus with diabetic polyneuropathy (ICD-10 - E11.42) 08/19/2023 Tinea unguium (ICD-10 - B35.1) 08/19/2023 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 (ICD-10 - L97.412) Response to treatment - Unchanged 08/19/2023 Primary osteoarthritis, right ankle and foot (ICD-10 - M19.071) 11/07/2023 Primary osteoarthritis, right ankle and foot (ICD-10 - M19.071) 11/21/2023 Primary osteoarthritis, right ankle and foot (ICD-10 - M19.071) 02/24/2024 Primary osteoarthritis, right ankle and foot (ICD-10 - M19.071) 05/19/2024 Type 2 diabetes mellitus with diabetic polyneuropathy (ICD-10 - E11.42) 05/19/2024 Primary osteoarthritis, right ankle and foot (ICD-10 - M19.071) 02/24/2024 Post-traumatic arthritis of ankle, right (ICD-10 - M19.171) 11/21/2023 Post-traumatic arthritis of ankle, right (ICD-10 - M19.171) 11/07/2023 Post-traumatic arthritis of ankle, right (ICD-10 - M19.171) 08/19/2023 Post-traumatic arthritis of ankle, right (ICD-10 - M19.171) 08/19/2023 Rigid pes planus, right (ICD-10 - Q66.51) 11/07/2023 Rigid pes planus, right (ICD-10 - Q66.51) 11/21/2023 Rigid pes planus, right (ICD-10 - Q66.51) 02/24/2024 Rigid pes planus, right (ICD-10 - Q66.51) 05/19/2024 Post-traumatic arthritis of ankle, right (ICD-10 - M19.171) 05/19/2024 Rigid pes planus, right (ICD-10 - Q66.51) [...] INSTRUCTIONS. pdf (DIABETIC FOOT CARE INSTRUCTIONS. pdf) 05/19/2024 Tinea unguium (ICD-10 - B35.1) 05/19/2024 Other hammer toe(s) (acquired), right foot (ICD-10 - M20.41) 02/24/2024 Other hammer toe(s) (acquired), left foot (ICD-10 - M20.42) 05/19/2024 Other hammer toe(s) (acquired), left foot (ICD-10 [...] 05/06/2023 Next Appt Details Provider Name:Ivette lock, 08/18/2024 09:00:00 AM, [address] [place] [address], [place], [phone], Insurance Providers Payer Name Payer Address Payer Phone Subscriber Number Group Number Insured Name Patient Relationship to Insured Coverage Start Date Coverage End Date [employer] [address] [place] [address] [id number] Colleen Das Self - patient is the insured 4 Medical (General) History Medical History History ICD Code Diabetic Neuropathy ulcer Measles Bone implants/screws Surgical History Surgery Date(Month/Year) Broken right ankle 2012 Hospitalization History Reason Date(Month/Year) infected ulcer on left foot ER- fell 04/17/24
--- OUTSIDE RECORDS SUMMARY | 2024-07-01 11:18 | XMS_ITS ---
[facility] Address [address] [place] [address] Care Team Providers Care Per Diem Name Role Phone Anahi ALCARAZ, Alison Primary Care Provider Ivette Castellano Unavailable [phone] Allergies Allergen (clinical drug ingredient) Drug/Non Drug Allergy documented on EMR Reaction Allergy Type Onset Date Status sulfamethoxazole / trimethoprim Bactrim rash Drug Allergy Active REASON FOR VISIT Open sore, Toe Irritation, At Risk Footcare Medications Medication SIG (Take, Route, Frequency, Duration) Notes Start Date End Date Status Augmentin 500-125 MG 1 tablet Orally srinivas ry 12 hrs for 10 days 08/25/2023 Active Walker as directed 05/06/2023 Active Extra Depth Orthopedic Shoes (1 Pair) with Customized Heat Molded Multidensity Innersoles (3 Pair) as directed Dx: NIDDM/Polyneuropathy (E11.42), Hammertoe Foot Deformity (M20.41,M20.42), Preulcerative Skin Lesion(s) (L85.1, ulcer sub 1st and heel Right -offloading needed for orthotic 02/24/2024 Active Keflex 500 MG 1 capsule Orally srinivas ry 12 hrs for 10 day(s) 08/19/2023 Not-Taking Cipro 500 MG 1 tablet Orally ever y 12 hrs for 7 days 08/25/2023 Not-Taking glipiZIDE ER 10 MG 1 tablet with breakf ast Orally Once a day Active metFORMIN HCl 500 MG 1 tablet with a nata l Orally Once a day Active Social History Tobacco Use: Social History Observation Description Date Details (start date - stop date) Never Smoker NA - NA Tobacco Use/Smoking Question Answer Notes Are you a: nonsmoker Additional Findings: Tobacco Non-User Current no n-smoker Tobacco use other than smoking: Question Answer Notes Are you an other tobacco user? 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 (ICD-10 - L97.412) 05/19/2024 Type 2 diabetes mellitus with diabetic polyneuropathy (ICD-10 - E11.42) 05/19/2024 Primary osteoarthritis, right ankle and foot (ICD-10 - M19.071) 05/19/2024 Post-traumatic arthritis of ankle, right (ICD-10 - M19.171) 05/19/2024 Rigid pes planus, right (ICD-10 - Q66.51) 05/19/2024 Tinea unguium (ICD-10 - B35.1) 05/19/2024 Other hammer toe(s) (acquired), right foot (ICD-10 - M20.41) 05/19/2024 Other hammer toe(s) (acquired), left foot (ICD-10 - M20.42) Plan Of Treatment Medication Medication Name Sig Start Date Stop Date Notes Augmentin 500-125 MG 1 tablet Orally srinivas ry 12 hrs for 10 days 08/25/2023 Next Appt Details Follow Up: 3 Months, Reason: Provider Name:Ivettestuart lock, 08/18/2024 09:00:00 AM, [address] [place] [address], [id number], Procedure Notes * Category Sub-Category Detail Notes [...] use of a nail nipper and/or dremel-type tool grinder operator, to a more viable healthy nail plate [...] to maintain effectiveness in symptomatic relief - 95762 Debride skin and subQ Open wound NEUROPATHY [...] Sterile antibiotic dressing applied. Post debridement measurements: 25 mm x 25 mm x 5 mm. Character of the wound post debridement is stable (43412), The patient was instructed on importance of proper wound care consisting of pressure reduction, maintainance of moist wound environment, and regular debridement of devitilized tissue, The patient is to cleanse the wound with warm soapy water/peroxide/saline or betadine BID based on product availability, The patient is to apply Alginate to the wound and cover with a DSD, The patient was instructed to change dressings according to orders or PRN saturation, leaks, The patient was instructed to monitor and report any signs or symptoms of infection or any untoward reactions, The patient is to cont the local wound care as directed Keratoma Treatment Parring or Cutting o f Benign Hyperkeratotic Lesion(s) (-57) More than 4 Lesions - Due to the at risk nature of the patients medical condition as documented in the exam findings, performance of this keratoderma treatment is medically necessary as its management by an unskilled/untrained nonprofessional would put this patients foot and overall health at risk. Therefore, the benign hyperkeratotic lesions, (6 ) in total, locations as stated and described in the exam ( Medial plantar, TA , T5 , SUB MTH (s) , 1 , B/L , Heel(s) , B/L ), were pared, and/or cut utilizing a sterile 15 blade, tissue nippers, and/or power dremel instrumentation by the physician of record - 16003 Progress Notes * DAMIANCARMELOColleen Stanford ADOB:[birth year] (68 yo F)Acc No.[id number]:05/19/2024 Progress Note Patient:?Colleen DAS Provider:?Ivette Diaz DPM :1955???Age:68 Y???Sex:Female D ate:05/19/2024 [facility] Pcp:Alison Christian MD Subjective: * Chief Complaints: * ???Open soreToe IrritationAt Risk Footcare * HPI: ???At Risk footcare:?Pt States Last PCP Visit:?Date?02/13/2024 ???Skin problems:?Nature:?Open sore , odor , redness.?Location:?Heel/Rearfoot ,and now forefoot?Bottom , Right.?Duration:?several years.?Onset/Cause:?gradual , walking.?Course:?worse, increased odor.?Aggravated by:?any pressure , standing , walking , shoe gear.?Treatments:?silver alginate dressing changes QOD, offloading boot, C wound care-per pt she was discharged as there was nothing more they could do for the pt, per wound care notes pt has declined offloading cast boot or ZUNI due to stability issues and concern for falling, pt defers surgery or ortho consult, pt's PCP was setting pt up with another wound care center, however pt states she did not pursue it and has not had any treatment for her wounds; spent 3 days in [facility] for infection, MRI (-[facility] for osteomyelitis[facility].?Misc:?Patient relates a few days of chills, denies N/V/F or BS changes.?Toe pain:?Location:?B/L feet.?Duration:?several years.?Course:?worse.?Aggravated by:?shoes, any pressure.?Treatments:?states delivery pending.? * ROS:?General/Constitutional:?Nausea?denies.?Vomiting?denies.?Hunger Thirst?denies.?Loss appetite?denies.?Chills?denies.?Fatigue?denies.?Fever?denies.?Night Sweats?denies.?Unexplained weight loss?denies.?Unexplained [...] Diagno stic Procedure:?infected ulcer on left foot ER- fell 04/17/24 * Family History:?Mother: dece ased.?Father: .?Siblings: Kidney/Liver Disease, diagnosed with Other specified conditions influencing health status.? * Social History:?Tobacco Use:?Tobacco Use/Smoking?Are you a:?nonsmoker ?Additional Findings: Tobacco Non-User?Current non-smoker ?Tobacco use other than smoking?Are you an other tobacco user??No ???Miscellaneous:?Caffeine: yes, more than 4 cups per day - coffee and tea. ?Children: no. ?Exercise: no. ?Marital status: single. 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 * Medications:?TakingglipiZIDE ER 10 MG Tablet Extended Release 24 Hour 1 tablet with breakfast Orally Once a day metFORMIN HCl 500 MG Tablet 1 tablet with a meal Orally Once a day Walker as directed Extra Depth Orthopedic Shoes (1 Pair) with Customized Heat Molded Multidensity Innersoles (3 Pair) as directed Dx: NIDDM/Polyneuropathy (E11.42), Hammertoe Foot Deformity (M20.41,M20.42), Preulcerative Skin Lesion(s) (L85.1, ulcer sub 1st and heel Right -offloading needed for orthotic Taking glipiZIDE ER 10 MG Tablet Extended Release 24 Hour 1 tablet with breakfast Orally Once a day Taking metFORMIN HCl 500 MG Tablet 1 tablet with a meal Orally Once a day Taking Walker as directed Taking Extra Depth Orthopedic Shoes (1 Pair) with Customized Heat Molded Multidensity Innersoles (3 Pair) as directed Dx: NIDDM/Polyneuropathy (E11.42), Hammertoe Foot Deformity (M20.41,M20.42), Preulcerative Skin Lesion(s) (L85.1, ulcer sub 1st and heel Right -offloading needed for orthotic Not-Taking/PRNKeflex 500 MG Capsule 1 capsule Orally every [...] Wt:260, BMI:40.72, Shoe size: L: 10-11W M10-11, BP:120/80mm Hg, BS: 162, Ht-cm: 170.18 cm, Wt-k.94 kg. * ???Past Orders: ???Lab:HEMOGLOBIN A1C (GLYCO HEMOGLOBIN) (Order Date - 02/13/2024) (Collection Date & Time - 02/13/2024 09:06 AM) ? Value Reference Range ?HEMOGLOBIN A1C % (HH) 8.2 * Examination: ???Ophthalmology Referral: ?DIABETES EYE EXAM?Procedure Performed:?Yes ?Date of Exam Performed?08/18/2023 ?Findings of Diabetic Eye Exam:?no retinopathy?Neurological: ?SENSORY:?(DM/Neuro) Neurological exam demonstrates reduced sharp/dull pin prick discrimination reduced light touch sensation reduced vibration sensation reduced proprioception sensation in a stocking fashion 5.07 monofilament test performed at plantar aspects of 5 varied sites per foot shows sensation plantar aspects absent at Forefoot B/L.?Dermatologic: ?SKIN FINDINGS:?Skin shows sign(s) of localized cellulitis right heel/foot , Skin exam reveals Keratotic lesion(s) located at , Medial plantar, TA , T5 , SUB MTH (s) , 1 , B/L , Heel(s) , B/L.?ULCER:? LOCATION, plantar heel?RIGHT, SIZE, 25 mm X 20 mm X 4mm, BASE, fibro-granular, RIM, hyperkeratotic, UNDERMINING, severe, TRACKING, Sub Q with Fat layer exposed, DRAINAGE, serosanguineous, increased, NECROTIC TISSUE, adherent, black and yellow slough, MALODOR, present CALOR, present, ERYTHEMA, present; LOCATION, plantar 1st met head RIGHT SIZE, 2 mm X 3 mm X 3mm, BASE, fibro- granular, RIM, hyperkeratotic, UNDERMINING, mild, TRACKING, Sub Q with Fat layer exposed, DRAINAGE, serosanguineous, moderate, NECROTIC TISSUE,adherent, yellow slough, MALODOR, absent, CALOR, absent, ERYTHEMA, absent.?Vascular: ?DP PULSES (B):?3/4, B/L.?PT PULSES (B):?3/4, B/L.?CAPILLARY FILL TIME:?immediate, all digits, B/L.?TROPHIC CONDITION-TEXTURE/ELASTICITY/TURGOR/HAIR GROWTH (B):?decreased, with sparse to absent hair growth, fragile, thin, shiny skin.?TEMPERTURE GRADIENT (C):?increased warmth right foot.?PIGMENTATION:?pale, B/L.?EDEMA (C):?1/4, Right, Foot.?Orthopedic: ?MUSCLE STRENGTH:?5/5 all groups in a symmetrical fashion, B/L.?GAIT ABNORMALITY:?Pronated.?FOOT MORPHOLOGY:?Rigid medial/plantar protrusion of Midfoot at area of Navicular tuberosity , Pes Planus structure , Rigid R>>L.?DIGITAL DEFORMITIES:?Digital contracture, PIPJ, 2-5 B/L, incompl-reducible to push-up test, no over, nor underlapping,?there is?evidence of shoe producing skin irritation.?FOOTWEAR EVALUATION:?surgical shoe right- , worn, non-supportive, odor present , worn, non-supportive, shoe gear properties exacerbate patient's foot/toe deformity.?General Examination: ?GENERAL APPEARANCE:?Pt relates recent?fever, malaise, lymphadenopathy; (+) chills.?ORIENTED:?person, place, and time.?FOOT EXAM:?Lower Extremity Neurological Exam performed:?Yes Date ?Visual exam of foot performed:?Yes ?Date?05/19/2024 ?Sensory testing performed:?sensations diminished ?Pedal pulse taking performed:?2+ ?Footwear Evaluation?Footwear Evaluation performed:?Yes?Nails: ?NAILS are:?Elongated, overgrown, dystrophic, lytic, greater than 3mm thick, discolored and friable with crumbly malodorous subungual debris , with dull to no pain on palpation due to neuropathy, TA, T1, T2, T3, T4, T5, T6, T7, T8, T9.? Assessment: * Assessment: 1.?Cellulitis of right foot - L03.115 (Primary)???Specify :Acute problem, Complicated w/ Multiple Tx Options(4)???2.?Type 2 diabetes mellitus with foot ulcer - E11.621???3. 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 - L97.412???4.?Type 2 diabetes mellitus with diabetic polyneuropathy - E11.42???5.?Primary osteoarthritis, right ankle and foot - M19.071???6.?Post-traumatic arthritis of ankle, right - M19.171???7.?Rigid pes planus, right - Q66.51???8.?Tinea unguium - B35.1???9.?Other hammer toe(s) (acquired), right foot - M20.41???Specify :Chronic problem, Worse (4),Rx Management (4)???10.?Other hammer toe(s) (acquired), left foot - M20.42???Specify [...] use of a nail nipper and/or dremel-type tool grinder operator, to a more viable healthy nail plate [...] to maintain effectiveness in symptomatic relief - 03413.?Debride skin and subQ:?Open wound?NEUROPATHY: Physician of record [...] Sterile antibiotic dressing applied. Post debridement measurements: 25 mm x 25 mm x 5 mm. Character of the wound post debridement is stable (61899), The patient was instructed on importance of proper wound care consisting of pressure reduction, maintainance of moist wound environment, and regular debridement of devitilized tissue, The patient is to cleanse the wound with warm soapy water/peroxide/saline or betadine BID based on product availability, The patient is to apply Alginate to the wound and cover with a DSD, The patient was instructed to change dressings according to orders or PRN saturation, leaks, The patient was instructed to monitor and report any signs or symptoms of infection or any untoward reactions, The patient is to cont the local wound care as directed.?Keratoma Treatment:?Parring or Cutting of Benign Hyperkeratotic Lesion(s)?(-57) More than 4 Lesions - Due to the at risk nature of the patients medical condition as documented in the exam findings, performance of this keratoderma treatment is medically necessary as its management by an unskilled/untrained nonprofessional would put this patients foot and overall health at risk. Therefore, the benign hyperkeratotic lesions, (6 ) in total, locations as stated and described in the exam (?Medial plantar,?TA?,?T5?,?SUB MTH (s)?,?1?,?B/L?,?Heel(s)?,?B/L??), were pared, and/or cut utilizing a sterile 15 blade, tissue nippers, and/or power dremel instrumentation by the physician of record - 30493.? * Procedure Codes:?46152 DEBRI DE NAIL, 6 OR MORE, Modifiers: XS 98580 TRIM SKIN LESIONS, OVER 4, Modifiers: XS 72318 DEBRIDE SKIN/TISSUE, Modifiers: XS * Preventive Medicine:? ??Counseling:?Discussion:?-14: Office [...] have encouraged the patient to call the office.?Cellulitis/Lymphangitis?The patient was counseled on the diagnosis, etiology, treatment options, and importance for adherence to recommendations regarding the treatment for Cellulitis. Abx were Rxed to address the cellulitis. The advantages and disadvantages of an antibiotic medication, along with its side effects, were discussed with the patient to their comprehended satisfaction. Patient questions re: use, dosage, and possible pharmacutical interactions were reviewed and the answers clearly understood. If the condition should worsen while taking the antibiotics as directed, it was recommeded that the patient call the office immediately or seek emergency medical care. The patient verbally confirmed a full understanding of the above information, Rxed Abx, Wound culture taken and will call pt with results and change antibiotics accordingly.?Digital Surgery:?Digital surgery was discussed with the patient, [...] answered to their verbally confirmed satisfaction.?Shoe Gear Counseling:?Patient to obtain shoes hopefully soon.?Ulcer:?Pt to continue with [facility] and [facility] for dressing changes,, A detailed plan of care was reviewed [...] able to do so, maintain proper bodily hydration, abide by weight-bearing restrictions at all times, [...] care consisting of pressure reduction, and proper maintenance of a moist wound environment. The patient is to cleanse the wound with warm soapy water/peroxide/saline, or betadine BID based on product availability. The patient is to apply (alginate) Antibiotic to the wound and cover with a DSD as directed. The patient was instructed to change dressings according to orders, or PRN saturation, leaks. The patient was instructed to monitor and report any signs or symptoms of infection or any untoward reactions. Precautions Taken: Offloading/Pressure reduction via rest/ limited activity to essential to daily life only, cane/ crutches/ walker/ knee scooter/ wheelchair, shoe modification, accommodative padding, sharp debridement, and take/apply medication as directed. THE SHORT-TERM GOALS of wound care include, prevent hospitalization, debridement to remove devitalized tissue, minimize risk for soft tissue or bone infection, initiate and promote the wound healing process, and prevent further complication such as loss of limb or life were discussed/reviewed. THE LONG-TERM GOALS of wound care include, complete wound closure if possible, facilitate patient comfort, prevent recurrence, and return the patient to their pre-ulcerative state of activity and lifestyle if possible, Debridement frequency as indicated, ER: Discussed with the patient that if there is any worsening of the condition, then he/she is to report to the ER/EW for evaluation/treatment. The patient stated to fully understand the recommendations/instructions.? ??Screening/Special Tests:?Fall Risk?Assessment:?Performed ?Screening:?No falls in the past year ?FALLS: Screening for Future Fall Risk?Have you had two or more falls in the past year??No ?Have you had any falls with injury in the past year??No * Follow Up:?3 Months * Images: * Sign off status: Completed true * Provider:?Ivette Diaz DPM Date:?03/2024 Generated for Oleksandr looney/Titi/Pratibhaitting on:?07/01/2024 11:18 AM EDT History and Physical Notes * HPI (History of Present Illness) Category Sub-Category Detail Notes Category Not es Toe pain Location: B/L feet Duration: several years Course: worse Aggravated by: shoes, any pressure Treatments: states delivery pend ing Skin problems Nature: Open sore , odor , redness Location: Heel/Rearfoot ,and n ow forefoot Bottom , Right Duration: several years Onset/Cause: gradual , walking Course: worse, increased odo r Aggravated by: any pressure , stand ing , walking , shoe gear Treatments: silver alginate dres sing changes QOD, offloading boot, [facility] wound care-per pt she was discharged as there was nothing more they could do for the pt, per wound care notes pt has declined offloading cast boot or ZUNI due to stability issues and concern for falling, pt defers surgery or ortho consult, pt's PCP was setting pt up with another wound care center, however pt states she did not pursue it and has not had any treatment for her wounds; spent 3 days in [facility] for infection, MRI (-) for osteomyelitis, has [facility] and [facility] currently using alginate Misc: Patient relates a fe w days of chills, denies N/V/F or BS changes At Risk footcare Pt States Last PCP [...] Forefoot B/L Dermatologic SKIN FINDINGS: Skin shows sign( s) of localized cellulitis right heel/foot , Skin exam reveals Keratotic lesion(s) located at , Medial plantar, TA , T5 , SUB MTH (s) , 1 , B/L , Heel(s) , B/L ULCER: LOCATION, plantar he el RIGHT, SIZE, 25 mm X 20 mm X 4mm, BASE, fibro- granular, RIM, hyperkeratotic, UNDERMINING, severe, TRACKING, Sub Q with Fat layer exposed, DRAINAGE, serosanguineous, increased, NECROTIC TISSUE, adherent, black and yellow slough, MALODOR, present CALOR, present, ERYTHEMA, present; LOCATION, plantar 1st met head RIGHT SIZE, 2 mm X 3 mm X 3mm, BASE, fibro-granular, RIM, hyperkeratotic, UNDERMINING, mild, TRACKING, Sub Q with Fat layer exposed, DRAINAGE, serosanguineous, moderate, NECROTIC TISSUE,adherent, yellow slough, MALODOR, absent, CALOR, absent, ERYTHEMA, absent Orthopedic GAIT ABNORMALITY: Pronated FOOT MORPHOLOGY: Rigid medial/plantar protrusion of Midfoot at area of Navicular tuberosity , Pes Planus structure , Rigid R>>L FOOTWEAR EVALUATION: surgical shoe right - , worn, non-supportive, odor present , worn, non-supportive, shoe gear properties exacerbate patient's foot/toe deformity DIGITAL DEFORMITIES: Digital contracture , PIPJ, 2-5 B/L, incompl-reducible to push-up test, no over, nor underlapping, there is evidence of shoe producing skin irritation MUSCLE STRENGTH: 5/5 all groups in a symmetrical fashion, B/L General Examination GENERAL APPEARANCE: Pt relat es recent fever, malaise, lymphadenopathy; (+) chills FOOT EXAM: Lower Extremity Neurological Exa m performed:: Yes Date Visual exam of foot performed:: Yes Date: 05/19/2024 Sensory testing performed:: sensations d iminished Pedal pulse taking performed:: 2+ ORIENTED: person, place, and t maritza Footwear Evaluation Footwear Evaluation performe d:: Yes Ophthalmology Referral DIABETES EYE EXAM Procedure Perform ed:: Yes ?Date of Exam Performed: 08/18/2023 Findings of Diabetic Eye Exam:: no retin opathy Vascular DP PULSES (B): 3/4, B/L PT PULSES (B): 3/4, B/L CAPILLARY FILL TIME: immediate, all digi ts, B/L TEMPERTURE GRADIENT (C): increased warmt h right foot TROPHIC CONDITION-TEXTURE/ELASTICITY/TURGOR/HAIR GROWTH (B): decreased, with sparse [...]
--- OUTSIDE RECORDS SUMMARY | 2024-07-01 11:18 | XMS_ITS ---
Care Plan Created on: July 01, 2024 Colleen Das : 1955 Sex: Female Author Organization [facility] Address [address] [place] [address] Phone Care Team Providers Care Manager E [employer] Name Role Phone Zia Morales MD Primary Care Provider Active Problems Problem Noted Date Diagnosed Date Diabetic polyneuropathy asso ciated with type 2 diabetes mellitus ([facility] V24, [facility] V28) 05/24/2024 Type 2 diabetes mellitus wit h foot ulcer (CODE) ([facility] V24, [facility] V28) 04/26/2024 Chronic heel ulcer, right, w ith fat layer exposed ([facility] V24, [facility] V28) 01/12/2024 Type 2 diabetes mellitus wit h right diabetic foot ulcer ([facility] V24, [facility] V28) 01/05/2024 Non-pressure chronic ulcer o f other part of right foot with fat layer exposed ([facility] V24, [facility] V28) 01/05/2024 Additional Health Concerns Active Problems Noted Date Diagnosed Date Impaired Tissue 12/29/2023 Education needed on impact of smoking on wound 1 02/27/2023 Education needed related to ulceration/compromised skin integrity. 12/29/2023 Goals Goal Patient Goal Type Associated Problems Recent Progress Patient-Stated? Author Decrease Wound Volume by X% by date (in notes) Care Plan Impaired Tissue On track( 025 9:13 AM EDT) Monica Delgado, RN Note: 04/26- Patient still is not wearing Offloading shoe Patient and Caregiver Understand Wound Care Education Care Plan Impaired Tissue On track( 025 9:13 AM EDT) Monica Delgado RN Wound volume breakdown reduced [...] ulceration/compr omised skin integrity. Monica Delgado RN Interventions Care Plan Interventions Intervention Entry [...]
--- OUTSIDE RECORDS SUMMARY | 2024-07-01 11:18 | XMS_ITS ---
Author Organization [facility] Address [address] [place] [address] Care Team Providers Care Knowledge Management Consultant Name Role Phone Anahi ALCARAZ, Alison Primary Care Provider Ivette Castellano Unavailable [phone] Allergies Allergen (clinical drug ingredient) Drug/Non Drug [...] Problem Acquired hammer toe of right foot (9331053142804 105) Other hammer toe(s) (acquired), right foot (M20.41) Active confirmed Problem Acquired hammer toe of left foot (5183922107456 103) Other hammer toe(s) (acquired), left foot (M20.42) Active confirmed Vital Signs Height 5ft7in in 02/24/2024 Weight 260 lbs 02/24/2024 BMI 40.72 kg/m2 02/24/2024 Blood pressure systolic 168 mm Hg 02/23/19 25 Blood pressure diastolic 80 mm Hg 025 Encounters Encounter Location Date Provider Diagnosis [facility] [address] [address] 02/24/2024 Ivette Diaz Neuropathic ulcer of right [...] Up: 3 Months, Reason: Provider Name:Ivette lock, 08/18/2024 09:00:00 AM, [address] [place] [address], [place], [address], Procedure Notes * Category Sub-Category Detail Notes [...] use of a nail nipper and/or dremel-type watch crystal grinder, to a more viable healthy nail [...] to maintain effectiveness in symptomatic relief - 06564 Keratoma Treatment Parring or Cutting o f [...] instrumentation by the physician of record - 43182 Progress Notes * Colleen DAS ADOB:[birth year] (68 yo F)Acc No.[id number]:02/24/2024 Progress Note Patient:?Colleen DAS Daria Provider:?Ivette Diaz DPM :1955???Age:68 Y???Sex:Female D ate:02/24/2024 Address:[address] [place], [place] [address]dot [facility]ly [facility] Pcp:Zia Morales MD Subjective: * Chief Complaints: [...] pt has declined offloading cast boot or NIKOLAI due to stability issues and concern for falling, pt defers surgery or ortho consult, pt's PCP was setting pt up with another wound care center, however pt states she did not pursue it and has not had any treatment for her wounds; spent 3 days in [facility] for infection, MRI (-) for osteomyelitis, has [facility] and [facility] currently using [employer].?Toe pain:?Location:?B/L feet.?Duration:?several years.?Course:?worse.?Aggravated by:?shoes, [...] cool, proximal to distal, B/L, B/L.?PIGMENTATION:?pale, B/L.?EDEMA (C):?1/4, Right, Foot.?Orthopedic: ?MUSCLE STRENGTH:?/5 all groups in [...] use of a nail nipper and/or dremel-type watch crystal grinder, to a more viable healthy nail [...] to maintain effectiveness in symptomatic relief - 43425.?Keratoma Treatment:?Parring or Cutting of Benign Hyperkeratotic Lesion(s)?(-57) [...] instrumentation by the physician of record - 83123.? * Procedure Codes:?88184 DEBRI DE NAIL, 6 OR MORE, Modifiers: XS 28866 TRIM SKIN LESIONS, OVER 4, Modifiers: XS [...] Diaz DPM Date:?08/2024 Generated for Oleksandr looney/Titi/Ras on:?07/01/2024 11:17 AM EDT History and Physical Notes * [...] pt has declined offloading cast boot or NIKOLAI due to stability issues and concern for falling, pt defers surgery or ortho consult, pt's PCP was setting pt up with another wound care center, however pt states she did not pursue it and has not had any treatment for her wounds; spent 3 days in [facility] for infection, MRI (-) for osteomyelitis, has [facility] and [facility] currently using [facility] Pt States Last PCP [...]
--- OUTSIDE RECORDS SUMMARY | 2024-07-01 11:18 | XMS_ITS | Clinical Summary ---
Author Organization Unknown Care Team Providers Care Roustabout Head Name Role Phone JAK ALCARAZ, LINDA Unavailable Unavailable RHINA MARQUEZ, MERRITT Unavailable Unavailab dana ZABALA LPN, JENNI Unavailable Unavail able Payers Payer Name Policy Type Policy Number Effective Date Expira tion Date [id number] MED[facility] [id number] Problems Condition Name Condition Details Condition Category [...] CELL COUNT, UNSPECIFIED Active 11-12 00:00: 00 HALF-WAY (CURRENT) USE OF ORAL HYPOGLYCEMIC DRUGS Active [...] 11-09 00:00: 00 11-16 23:59 :00 No [id number] CELLULITIS RIGHT HEEL 1 tablet 2 TIMES DAILY 1 tablet 2 TIMES DAILY (route: oral) Med Classific ation: Anti-Infe ctive Agents doxycycline monohydrate 100 mg tablet 11-09 00:00: 00 11-16 23:59 :00 No [id number] CELLULITIS 1 tablet 2 TIMES DAILY 1 tablet 2 TIMES DAILY (route: oral) Med Classific ation: Anti-Infe ctive Agents metformin 500 mg tablet 11-06 00:00: 00 Yes [id number] DIABETES 1 tablet 2 TIMES DAILY 1 tablet 2 TIMES DAILY (route: oral) Med Classific ation: Endocrine acetaminoph en 325 mg tablet 11-09 00:00: 00 11-14 23:59 :00 No [id number] PAIN 2 tablet EVERY 4 HOURS 2 tablet EVERY 4 HOURS (route: oral) Med Classific ation: Analgesic , Anti-infl ammatory or Antipyret ic glipizide ER 10 mg tablet, extended release 24 hr 11-06 00:00: 00 Yes [id number] DIABETES 1 tablet 2 TIMES DAILY 1 tablet 2 TIMES DAILY (route: oral) Med Classific ation: Endocrine cholecalcif angie (vitamin D3) 25 mcg (1,000 unit) tablet 2023-02 00:00: 00 Yes [id number] SUPPLEMENT 1 tablet DAILY 1 tablet DAILY (route: oral) Med Classific ation: Electroly te Balance-N utritiona l Products amlodipine 5 mg tablet 2023-02 00:00: 00 Yes [id number] HTN 5 mg DAILY 5 mg CHRISTINE Y (route: oral) Med Classific ation: Cardiovas cular Therapy Agents amoxicillin 500 mg-potassiu m clavulanate 125 mg tablet 05-19 00:00: 00 05-29 23:59 :00 No [id number] FOOT INFECTION 1 tablet 2 TIMES DAILY 1 tablet 2 TIMES DAILY (route: oral) Med Classific ation: Anti-Infe ctive Agents Vital Signs Vital Name Observation Time Observation Value Commen ts Temperature 2024-06-23 10:39:00.000 98.1 [degF] Temperature 2024-06-11 09:13:00.000 98.2 [degF] Temperature 2024-06-04 08:21:00.000 97.9 [degF] Temperature 2024-05-28 15:24:00.000 97.5 [degF] Temperature 2024-05-21 09:25:00.000 97.9 [degF] Temperature 2024-05-14 08:49:00.000 98 [degF] Pulse 2024-06-23 10:39:00.000 91 /min Pulse 2024-06-11 09:13:00.000 88 /min Pulse 2024-06-04 08:21:00.000 99 /min Pulse 2024-05-28 15:24:00.000 100 /min Pulse 2024-05-21 09:25:00.000 88 /min Pulse 2024-05-14 08:49:00.000 85 /min O2 Saturation (%) 2024-06-23 10:39:00.000 98 % O2 Saturation (%) 2024-06-11 09:13:00.000 97 % O2 Saturation (%) 2024-06-04 08:21:00.000 99 % O2 Saturation (%) 2024-05-21 09:25:00.000 98 % O2 Saturation (%) 2024-05-14 08:49:00.000 98 % Respirations 2024-06-23 10:39:00.000 18 /min Respirations 2024-06-11 09:13:00.000 18 /min Respirations 2024-06-04 08:21:00.000 18 /min Respirations 2024-05-28 15:24:00.000 18 /min Respirations 2024-05-21 09:25:00.000 18 /min Respirations 2024-05-14 08:49:00.000 18 /min Systolic Blood Pressure 2024-06-23 10:39:00.000 130 mm [Hg] Systolic Blood Pressure 2024-06-11 09:13:00.000 122 mm [Hg] Systolic Blood Pressure 2024-06-04 08:21:00.000 130 mm [Hg] Systolic Blood Pressure 2024-05-28 15:24:00.000 160 mm [Hg] Systolic Blood Pressure 2024-05-21 09:25:00.000 128 mm [Hg] Systolic Blood Pressure 2024-05-14 08:49:00.000 120 mm [Hg] Diastolic Blood Pressure 2024-06-23 10:39:00.000 70 mm [Hg] Diastolic Blood Pressure 2024-06-11 09:13:00.000 62 mm [Hg] Diastolic Blood Pressure 2024-06-04 08:21:00.000 70 mm [Hg] Diastolic Blood Pressure 2024-05-28 15:24:00.000 80 mm [Hg] Diastolic Blood Pressure 2024-05-21 09:25:00.000 70 mm [Hg] Diastolic Blood Pressure 2024-05-14 08:49:00.000 60 mm [Hg] Plan of Treatment Planned Activity Planned Date Details Comments Future Scheduled Test RN TO OBSE RVE, ASSESS, EVALUATE, AND DEVELOP AN INDIVIDUALIZED PLAN OF CARE. AGENCY MAY ACCEPT ORDERS FROM CONSULTING PHYSICIANS. RN TO OBSERVE AND ASSESS, LUMP MACHINE OPERATOR/AIRLINE OPERATIONS AGENT TO OBSERVE FOR RISK FOR FALLS AND INSTRUCT IN FALL PREVENTION, HOME SAFETY, MEDICATION MANAGEMENT, INFECTION PREVENTION, AND NUTRITION MANAGEMENT. RN/LUMP MACHINE OPERATOR/AIRLINE OPERATIONS AGENT NURSE MAY PERFORM O2 SATURATION LEVEL ON ADMISSION AND PRN FOR RN TO ASSESS/LUMP MACHINE OPERATOR TO OBSERVE PATIENT, WITH NOTIFICATION TO THE PHYSICIAN IF SATURATION IS 90% IN THE ABSENCE OF MORE SPECIFIC PARAMETERS FROM THE PHYSICIAN. AGENCY MAY PERFORM A RESUMPTION OF CARE VISIT FOLLOWING ANY HOSPITAL ADMISSION. RN/LUMP MACHINE OPERATOR/AIRLINE OPERATIONS AGENT TO MONITOR CO-MORBID CONDITIONS LISTED ON THE PLAN OF CARE AND ANY NEW CONDITIONS THAT PRESENT THEMSELVES DURING THIS EPISODE TO IDENTIFY CHANGES AND INTERVENE TO MINIMIZE COMPLICATIONS. [code = RN TO OBSERVE, ASSESS, EVALUATE, AND DEVELOP AN INDIVIDUALIZED PLAN OF CARE. AGENCY MAY ACCEPT ORDERS FROM CONSULTING PHYSICIANS. RN TO OBSERVE AND ASSESS, LUMP MACHINE OPERATOR/AIRLINE OPERATIONS AGENT TO OBSERVE FOR RISK FOR FALLS AND INSTRUCT IN FALL PREVENTION, HOME SAFETY, MEDICATION MANAGEMENT, INFECTION PREVENTION, AND NUTRITION MANAGEMENT. RN/LUMP MACHINE OPERATOR/AIRLINE OPERATIONS AGENT NURSE MAY PERFORM O2 SATURATION LEVEL ON ADMISSION AND PRN FOR RN TO ASSESS/LUMP MACHINE OPERATOR TO OBSERVE PATIENT, WITH NOTIFICATION TO THE PHYSICIAN IF SATURATION IS 90% IN THE ABSENCE OF MORE SPECIFIC PARAMETERS FROM THE PHYSICIAN. AGENCY MAY PERFORM A RESUMPTION OF CARE VISIT FOLLOWING ANY HOSPITAL ADMISSION. RN/LUMP MACHINE OPERATOR/AIRLINE OPERATIONS AGENT TO MONITOR CO-MORBID CONDITIONS LISTED ON THE PLAN OF CARE AND ANY NEW CONDITIONS THAT PRESENT THEMSELVES DURING THIS EPISODE TO IDENTIFY CHANGES AND INTERVENE TO MINIMIZE COMPLICATIONS.] Future Scheduled Test MEDICATION MANAGEMENT; RN/LUMP MACHINE OPERATOR/AIRLINE OPERATIONS AGENT TO REVIEW MEDICATIONS FOR INTERACTIONS, EFFECTIVENESS OF DRUG THERAPY, AND SIGNS/SYMPTOMS OF ADVERSE REACTIONS. MAY INSTRUCT AND REINFORCE MEDICATION TEACHING RELATED TO THE USE OF MEDICATIONS, DOSAGE, FREQUENCY, PURPOSE, SIDE EFFECTS, AND TO REPORT COMPLICATIONS. [code = MEDICATION MANAGEMENT; RN/LUMP MACHINE OPERATOR/AIRLINE OPERATIONS AGENT TO REVIEW MEDICATIONS FOR INTERACTIONS, EFFECTIVENESS OF DRUG THERAPY, AND SIGNS/SYMPTOMS OF ADVERSE REACTIONS. MAY INSTRUCT AND REINFORCE MEDICATION TEACHING RELATED TO THE USE OF MEDICATIONS, DOSAGE, FREQUENCY, PURPOSE, SIDE EFFECTS, AND TO REPORT COMPLICATIONS.] Future Scheduled Test RISK FOR H OSPITALIZATION; RN TO ASSESS/TEACH, AIRLINE OPERATIONS AGENT/LUMP MACHINE OPERATOR TO OBSERVE/TEACH PATIENT/CAREGIVER ON RISK FOR HOSPITALIZATION/EMERGENCY ROOM VISITS, TEACH SIGNS AND SYMPTOMS THAT PUT PATIENT AT RISK, WHEN TO NOTIFY NURSE/PHYSICIAN OF COMPLICATIONS/DECLINE, AND WHEN TO CALL 911. [code = RISK FOR HOSPITALIZATION; RN TO ASSESS/TEACH, AIRLINE OPERATIONS AGENT/LUMP MACHINE OPERATOR TO OBSERVE/TEACH PATIENT/CAREGIVER ON RISK FOR HOSPITALIZATION/EMERGENCY ROOM VISITS, TEACH SIGNS AND SYMPTOMS THAT PUT PATIENT AT RISK, WHEN TO NOTIFY NURSE/PHYSICIAN OF COMPLICATIONS/DECLINE, AND WHEN TO CALL 911.] Future Scheduled Test CARDIOVASC ULAR SYSTEM; RN TO ASSESS/TEACH, LUMP MACHINE OPERATOR/AIRLINE OPERATIONS AGENT TO OBSERVE/TEACH RELATED TO ALTERED CARDIOVASCULAR STATUS TO MINIMIZE COMPLICATIONS AND REDUCE HOSPITALIZATION. [code = CARDIOVASCULAR SYSTEM; RN TO ASSESS/TEACH, LUMP MACHINE OPERATOR/AIRLINE OPERATIONS AGENT TO OBSERVE/TEACH RELATED TO ALTERED CARDIOVASCULAR STATUS TO MINIMIZE COMPLICATIONS AND REDUCE HOSPITALIZATION.] Future Scheduled Test HYPERTENSI ON MANAGEMENT; RN TO ASSESS AND TEACH, LUMP MACHINE OPERATOR/AIRLINE OPERATIONS AGENT TO OBSERVE AND TEACH WARNING SIGNS AND SYMPTOMS TO AVOID HOSPITALIZATION. [code = HYPERTENSION MANAGEMENT; RN TO ASSESS AND TEACH, LUMP MACHINE OPERATOR/AIRLINE OPERATIONS AGENT TO OBSERVE AND TEACH WARNING SIGNS AND SYMPTOMS TO AVOID HOSPITALIZATION.] Future Scheduled Test SKIN INTEG RITY RN TO ASSESS AND TEACH, LUMP MACHINE OPERATOR/AIRLINE OPERATIONS AGENT TO OBSERVE AND TEACH INTEGUMENTARY STATUS TO IDENTIFY CHANGES AND INTERVENE TO MINIMIZE COMPLICATIONS. PROVIDE SKILLED TEACHING OF GENERAL WOUND AND SKIN CARE AND PREVENTION RELATED TO ACTUAL ALTERED SKIN INTEGRITY [code = SKIN INTEGRITY RN TO ASSESS AND TEACH, LUMP MACHINE OPERATOR/AIRLINE OPERATIONS AGENT TO OBSERVE AND TEACH INTEGUMENTARY STATUS TO IDENTIFY CHANGES AND INTERVENE TO MINIMIZE COMPLICATIONS. PROVIDE SKILLED TEACHING OF GENERAL WOUND AND SKIN CARE AND PREVENTION RELATED TO ACTUAL ALTERED SKIN INTEGRITY ] Future Scheduled Test RN/LUMP MACHINE OPERATOR/AIRLINE OPERATIONS AGENT TO PERFORM/TEACH DIABETIC ULCER - NEUROPATHIC CARE TO DIABETIC PLANTAR WOUND IRRIGATE/CLEANSE WITH WOUND WASH APPLY SILVER ALGINATE APPLY 4X4 GAUZE COVER WITH ROLLED GAUZE SECURE WITH TAPE. CHANGE DRESSING 3X WEEK AND PRN FOR SOILAGE OR DISLODGED DRESSING. PATIENT TO DO TREATMENT IN NURSING ABSENCE RN/LUMP MACHINE OPERATOR/AIRLINE OPERATIONS AGENT TO PERFORM/TEACH DIABETIC ULCER - NEUROPATHIC CARE TO DIABETIC HEEL WOUND IRRIGATE/CLEANSE WITH WOUND WASH APPLY SILVER ALGINATE APPLY 4X4 GAUZE COVER WITH ROLLED GAUZE SECURE WITH TAPE. CHANGE DRESSING 3X WEEK AND PRN FOR SOILAGE OR DISLODGED DRESSING. PATIENT TO DO TREATMENT IN NURSING ABSENCE [code = RN/LUMP MACHINE OPERATOR/AIRLINE OPERATIONS AGENT TO PERFORM/TEACH DIABETIC ULCER - NEUROPATHIC CARE TO DIABETIC PLANTAR WOUND IRRIGATE/CLEANSE WITH WOUND WASH APPLY SILVER ALGINATE APPLY 4X4 GAUZE COVER WITH ROLLED GAUZE SECURE WITH TAPE. CHANGE DRESSING 3X WEEK AND PRN FOR SOILAGE OR DISLODGED DRESSING. PATIENT TO DO TREATMENT IN NURSING ABSENCE RN/LUMP MACHINE OPERATOR/AIRLINE OPERATIONS AGENT TO PERFORM/TEACH DIABETIC ULCER - NEUROPATHIC CARE TO DIABETIC HEEL WOUND IRRIGATE/CLEANSE WITH WOUND WASH APPLY SILVER ALGINATE APPLY 4X4 GAUZE COVER WITH ROLLED GAUZE SECURE WITH TAPE. CHANGE DRESSING 3X WEEK AND PRN FOR SOILAGE OR DISLODGED DRESSING. PATIENT TO DO TREATMENT IN NURSING ABSENCE] Future Scheduled Test PAIN MANAG EMENT; RN TO ASSESS AND TEACH, AIRLINE OPERATIONS AGENT/LUMP MACHINE OPERATOR TO OBSERVE AND TEACH AND PROVIDE EDUCATION ON PAIN MANAGEMENT TECHNIQUES. [code = PAIN MANAGEMENT; RN TO ASSESS AND TEACH, AIRLINE OPERATIONS AGENT/LUMP MACHINE OPERATOR TO OBSERVE AND TEACH AND PROVIDE EDUCATION ON PAIN MANAGEMENT TECHNIQUES.] Future Scheduled Test FALL REDUC TION MANAGEMENT; RN TO ASSESS AND OBSERVE, LUMP MACHINE OPERATOR/AIRLINE OPERATIONS AGENT TO OBSERVE FALL RISK FACTORS AND EDUCATE PATIENT/CAREGIVER ON STRATEGIES TO MINIMIZE THE RISK OF FALLING. [code = FALL REDUCTION MANAGEMENT; RN TO ASSESS AND OBSERVE, LUMP MACHINE OPERATOR/AIRLINE OPERATIONS AGENT TO OBSERVE FALL RISK FACTORS AND EDUCATE PATIENT/CAREGIVER ON STRATEGIES TO MINIMIZE THE RISK OF FALLING.] Goal 2024-05-07 Patient Goal - HELP HEEL THE WOUND Goal 2024-01-08 Patient Goal - HELP HEEL THE WOUND Goal 2024-03-10 Patient Goal - HELP HEEL THE WOUND Goal Patient Goal - HELP HEEL THE WOUND Goal Provider Goal - A PLAN OF CARE WILL BE ESTABLISHED THAT MEETS THE PATIENTS NEEDS. PATIENT WILL DEMONSTRATE OXYGEN SATURATION WITHIN NORMAL LIMITS OR PATIENTS OPTIMAL LEVEL ESTABLISHED BY THE PHYSICIAN THROUGHOUT CARE. CHANGES TO CO-MORBID CONDITIONS AND ANY NEW CONDITIONS WILL BE IDENTIFIED AND REPORTED TO THE PHYSICIAN. Goal Provider Goal - PATIENT/CAREGIVER TO VERBALIZE, AND CONSISTENTLY DEMONSTRATE EFFECTIVE, SAFE MANAGEMENT OF MEDICATION INCLUDING KNOWLEDGE OF EFFECTIVENESS, POTENTIAL SIDE EFFECTS AND DRUG REACTIONS AND WHEN TO CONTACT THE APPROPRIATE CARE PROVIDER. PATIENT/CAREGIVER WILL BE ABLE TO VERBALIZE UNDERSTANDING OF MEDICATION REGIMEN AND ACCURATELY TAKE MEDICATIONS PRESCRIBED WITHOUT ADVERSE EFFECTS BY EOE Goal Provider Goal - PATIENT/CAREGIVER WILL VERBALIZE UNDERSTANDING OF SIGNS AND SYMPTOMS THAT PUT THE PATIENT AT RISK FOR HOSPITALIZATION /EMERGENCY ROOM VISITS, WHEN TO NOTIFY NURSE/PHYSICIAN OF COMPLICATIONS/DECLINE AND WHEN TO CALL 911. Goal Provider Goal - PATIENT / CAREGIVER WILL VERBALIZE/DEMONSTRATE UNDERSTANDING OF MEASURES TO MANAGE ALTERED CARDIOVASCULAR STATUS BY EOE. Goal Provider Goal - PATIENT / CAREGIVER WILL VERBALIZE/DEMONSTRATE AN ABILITY TO ADHERE TO SELF-MANAGEMENT OF HTN TO MINIMIZE COMPLICATIONS AND AVOID HOSPITALIZATION BY END OF EPISODE. Goal Provider Goal - CHANGES IN SKIN INTEGRITY STATUS WILL BE IDENTIFIED AND REPORTED TO THE PHYSICIAN FOR PROMPT INTERVENTION. PATIENT / CAREGIVER WILL VERBALIZE/DEMONSTRATE ADEQUATE KNOWLEDGE OF INTEGUMENTARY STATUS AND APPROPRIATE MEASURES TO PROMOTE SKIN INTEGRITY AND PREVENT INJURY BY EOE Goal Provider Goal - PATIENT / CAREGIVER WILL VERBALIZE UNDERSTANDING OF DIABETIC ULCER - NEUROPATHIC CARE INCLUDING BUT NOT LIMITED TO DEFINITION, SIGNS AND SYMPTOMS OF COMPLICATIONS AND PRESCRIBED TREATMENT REGIME BY EOE Goal Provider Goal - PATIENT [...] End Date/Time Encounter Type Admission Type Attending [facility] Care Facility Care Department Encounter ID Discharge Date Discharge Status Discharge Condition Discharge Reason Percent Goals Met 2024-05-11 00:00:00 2024-07-09 00:00:00 [facility] [id number] 25.00
--- OUTSIDE RECORDS SUMMARY | 2024-07-01 11:19 | XMS_ITS | Clinical Summary ---
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 Active cephalexin (KEFLEX) 500 mg capsule Take 1 capsule (500 mg total) by mouth 3 (three) times a day for 10 days. 30 each 5 06/19/19 25 doxycycline (MONODOX) 100 mg capsule Take 1 capsule (100 mg total) by mouth 2 (two) times a day for 7 days. Take with at least 8 ounces (large glass) of water, do not lie down for 30 minutes after 14 each 5 06/16/19 25 Active Problems Problem Noted Date Diagnosed Date Diabetic polyneuropathy asso ciated with type 2 diabetes mellitus ([facility] V24, [facility] V28) 05/24/2024 Type 2 diabetes mellitus wit h foot ulcer (CODE) ([facility] V24, [facility] V28) 04/26/2024 Chronic heel ulcer, right, w ith fat layer exposed ([facility] V24, [facility] V28) 01/12/2024 Type 2 diabetes mellitus wit h right diabetic foot ulcer ([facility] V24, [facility] V28) 01/05/2024 Non-pressure chronic ulcer o f other part of right foot with fat layer exposed ([facility] V24, [facility] V28) 01/05/2024 Encounters Date Type Department Care Team Description 06/28/2024 8:30 AM EDT Office Visit [facility] [address] [place] [phone] Patsy Granado MD Type 2 diabetes mellitus with foot ulcer (CODE) ([facility] V24, [facility] V28) (Primary Dx); Chronic heel ulcer, right, with fat layer exposed ([facility] V24, [facility] V28) 06/14/2024 8:30 AM EDT Office Visit [facility] [address] [place] [phone] Patsy Granado MD Type 2 diabetes mellitus with foot ulcer (CODE) ([facility] V24, [facility] V28) (Primary Dx); Chronic heel ulcer, right, with fat layer exposed ([facility] V24, [facility] V28); Non-pressure chronic ulcer of other part of right foot with fat layer exposed ([facility] V24, [facility] V28); Diabetic polyneuropathy associated with type 2 diabetes mellitus ([facility] V24, [facility] V28) 06/08/2024 9:30 AM EDT Office Visit [facility] [address] [place] [phone] Adrian Madden PA Type 2 diabetes mellitus with foot ulcer (CODE) ([facility] V24, [facility] V28) (Primary Dx); Chronic heel ulcer, right, with fat layer exposed ([facility] V24, [facility] V28); Non-pressure chronic ulcer of other part of right foot with fat layer exposed ([facility] V24, [facility] V28); Diabetic polyneuropathy associated with type 2 diabetes mellitus ([facility] V24, [facility] V28) 05/24/2024 9:15 AM EDT Office Visit [facility] [address] [place] [phone] Patsy Granado MD Type 2 diabetes mellitus with foot ulcer (CODE) ([facility] V24, [facility] V28) (Primary Dx); Chronic heel ulcer, right, with fat layer exposed ([facility] V24, [facility] V28); Non-pressure chronic ulcer of other part of right foot with fat layer exposed ([facility] V24, [facility] V28); Diabetic polyneuropathy associated with type 2 diabetes mellitus ([facility] V24, [facility] V28) 05/10/2024 10:15 AM EDT Office Visit [facility] [address] [place] [phone] Patsy Granado MD Type 2 diabetes mellitus with foot ulcer (CODE) ([facility] V24, [facility] V28) (Primary Dx); Chronic heel ulcer, right, with fat layer exposed ([facility] V24, [facility] V28); Non-pressure chronic ulcer of other part of right foot with fat layer exposed ([facility] V24, [facility] V28) 04/26/2024 9:45 AM EDT Office Visit [facility] [address] [place] [phone] Patsy Granado MD Type 2 diabetes mellitus with foot ulcer (CODE) ([facility] V24, [facility] V28) (Primary Dx); Chronic heel ulcer, right, with fat layer exposed ([facility] V24, [facility] V28); Non-pressure chronic ulcer of other part of right foot with fat layer exposed ([facility] V24, [facility] V28) 04/20/2024 Telephone [facility] [address] [place] [phone] Oneil Grissom MD 04/12/2024 9:00 AM EST Office Visit [facility] [address] [place] [phone] Patsy Granado MD Type 2 diabetes mellitus with foot ulcer (CODE) ([facility] V24, [facility] V28) (Primary Dx); Chronic heel ulcer, right, with fat layer exposed ([facility] V24, [facility] V28); Non-pressure chronic ulcer of other part of right foot with fat layer exposed ([facility] V24, [facility] V28) from Last 3 Months Surgical History Surgery Date Site/Laterality Comments ANKLE FRACTURE SURGERY 02/18/2012 - 02/16/2013 Right Medical History Medical History Date Comments Diabetes mellitus ([facility] V24, [facility] V28) Arthritis Neuropathy Family History Medical History Relation [...] EDT Inhaled Oxygen Concentration - - Weight 116 kg (255 lb) 12/29/2023 9:08 AM EST Height 170.2 cm (5' 7 ) 02/09/2024 9:26 AM EST Body Mass Index 39.94 12/29/2023 9:08 AM EST Plan of Treatment Upcoming Encounters Date Type Department Care Team (Late st Contact Info) Description 07/05/2024 9:00 AM EDT Clinical Support [facility] [address] [place] [phone] Health Maintenance Due Date Last Done Comments Breast Cancer Screening 1955 Diabetes: Annual GFR (Glomerular Filtration Rate) 1955 Diabetes: Annual Foot Exam 1966 Diabetes: Annual Retina Eye Exam 1966 Pneumococcal Vaccine: 50+ Years (1 of 2 - PCV) 12/17/1975 Zoster Vaccines (1 of 2) 2006 RSV Immunization Adult Patients (1 - Risk 60-74 years 1-dose series) 2016 DTaP,Tdap,and Td Vaccines (2 - Td or Tdap) 10/28/2022 10/28/2012 COVID-19 Vaccine ( - 2023-2 5 season) 2023 02/05/2021, 12/14/2020 Cholesterol Screening (Lipid Panel) 11/27/2023 Colorectal Cancer Screening: Colonoscopy 11/27/2023 Depression Screening 11/27/2023 Diabetes: Annual Urine Albumin-Creatinine Ratio (uACR) 11/27/2023 Diabetes: Blood Sugar Contro l Test (HGBA1C) 11/27/2023 Hepatitis C Screening 11/27/2023 Medicare Annual Wellness Visit 11/27/2023 Osteoporosis Screening (Bone Density Screening) 11/27/2023 Social Influencers of Health Screening 11/27/2023 Hypertension/CHF/CAD Annual BMP Blood Test 05/10/2024 Influenza Vaccine (Season Ended) 2024 Falls Risk Assessment 04/26/2025 04/26/2024 HIB Vaccines Aged Out No longer eligi [...] age to complete this topic Meningococcal B Vaccine Aged Out No l onger eligible based on patient's age to complete [...] week 8 Care Plan Impaired Tissue Monica Delgdao RN Wound volume breakdown reduced by X% [...] 2 diabetes mellitus with foot ulcer (CODE) ([facility] V24, [facility] V28) Chronic heel ulcer, right, with fat layer exposed ([facility] V24, [facility] V28) DEBRIDEMENT Routine 06/14/2024 8:30 AM EDT Type 2 diabetes mellitus with foot ulcer (CODE) ([facility] V24, [facility] V28) Chronic heel ulcer, right, with fat layer exposed ([facility] V24, [facility] V28) Diabetic polyneuropathy associated with type 2 diabetes mellitus ([facility] V24, [facility] V28) CULTURE WOUND WITH GRAM STAIN Routine 06/08/2024 10:26 AM EDT Type 2 diabetes mellitus with foot ulcer (CODE) ([facility] V24, [facility] V28) Non-pressure chronic ulcer of other part of right foot with fat layer exposed ([facility] V24, [facility] V28) DEBRIDEMENT Routine 06/08/2024 9:30 AM EDT Type 2 diabetes mellitus with foot ulcer (CODE) ([facility] V24, [facility] V28) Non-pressure chronic ulcer of other part of right foot with fat layer exposed ([facility] V24, [facility] V28) DEBRIDEMENT Routine 06/08/2024 9:30 AM EDT Type 2 diabetes mellitus with foot ulcer (CODE) ([facility] V24, [facility] V28) Chronic heel ulcer, right, with fat layer exposed ([facility] V24, [facility] V28) DEBRIDEMENT Routine 05/24/2024 9:15 AM EDT Type 2 diabetes mellitus with foot ulcer (CODE) ([facility] V24, [facility] V28) Chronic heel ulcer, right, with fat layer exposed ([facility] V24, [facility] V28) Diabetic polyneuropathy associated with type 2 diabetes mellitus ([facility] V24, [facility] V28) DEBRIDEMENT Routine 05/24/2024 9:15 AM EDT Type 2 diabetes mellitus with foot ulcer (CODE) ([facility] V24, [facility] V28) Non-pressure chronic ulcer of other part of right foot with fat layer exposed ([facility] V24, [facility] V28) Diabetic polyneuropathy associated with type 2 diabetes mellitus ([facility] V24, [facility] V28) DEBRIDEMENT Routine 05/10/2024 10:15 AM EDT Type 2 diabetes mellitus with foot ulcer (CODE) ([facility] V24, [facility] V28) Chronic heel ulcer, right, with fat layer exposed ([facility] V24, [facility] V28) DEBRIDEMENT Routine 05/10/2024 10:15 AM EDT Type 2 diabetes mellitus with foot ulcer (CODE) ([facility] V24, [facility] V28) Non-pressure chronic ulcer of other part of right foot with fat layer exposed ([facility] V24, [facility] V28) DEBRIDEMENT Routine 04/26/2024 9:45 AM EDT Type 2 diabetes mellitus with foot ulcer (CODE) ([facility] V24, [facility] V28) Non-pressure chronic ulcer of other part of right foot with fat layer exposed ([facility] V24, [facility] V28) DEBRIDEMENT Routine 04/26/2024 9:45 AM EDT Type 2 diabetes mellitus with foot ulcer (CODE) ([facility] V24, [facility] V28) Chronic heel ulcer, right, with fat layer exposed ([facility] V24, [facility] V28) DEBRIDEMENT Routine 04/12/2024 9:00 AM EST Type 2 diabetes mellitus with foot ulcer (CODE) ([facility] V24, [facility] V28) Chronic heel ulcer, right, with fat layer exposed ([facility] V24, [facility] V28) DEBRIDEMENT Routine 04/12/2024 9:00 AM EST Type 2 diabetes mellitus with foot ulcer (CODE) ([facility] V24, [facility] V28) Non-pressure chronic ulcer of other part of right foot with fat layer exposed ([facility] V24, [facility] V28) from Last 3 Months Results * Debridement Diabetic Ulcer Right Heel (06/28/2024 8:30 AM EDT) Patsy Lutz MD - 06/28/2024 8:30 AM EDT Patsy [...] Result * Debridement Diabetic Ulcer Right Heel (06/14/2024 8:30 AM EDT) Narrative Patsy Granado MD - 06/14/2024 8:30 AM EDT Patsy Granado MD ? 06/14/2024 11:24 AM Debridement Diabetic Ulcer Right Heel Performed by: Patsy Granado MD Authorized by: Patsy Granado MD ??Associated wounds: Wound Diabetic Ulcer 11/24/23 Heel Right Consent: ??Consent obtained: ??Verbal ??Consent given by: ??Patient ??Risks discussed: Yes ?? Time out: Immediately prior to the procedure a time out was called ?? Time out performed at: ??06/14/2024 9:18 AM Debridement Details: ??Performed by: ??Physician ??Type: selective ?Pain control: ??Lidocaine 5% ??Pain control administration: topical anesthesia ?Time taken: ??06/14/2024 8:41 AM ??Length (cm): ??0.7 ??Width (cm): ??1.1 ??Depth (cm): ??0.3 ??Area (cm^2): ??0.77 ??Time taken: ??06/14/2024 8:42 AM ??Length (cm): ??0.7 ??Width (cm): ??1.1 ??Depth (cm): ??0.3 ??Percent Debrided (%): ??100 ??Surface Area (cm^2): ??0.77 ??Area Debrided (cm^2): ??0.77 ??Volume (cm^3): ??0.23 ??Devitalized tissue debrided: callus, fibrin and slough ?Devitalized tissue debrided comment: ??Devitalized skin ??Instrument: ??Blade and forceps ??Amount of bleeding: small ?Hemostasis obtained with: ??Pressure ??Procedural pain: ??0 ??Post-procedural pain: ??0 ??Response to treatment: ??Procedure was tolerated well us Patsy Granado MD IN CLINIC/BEDSIDE ORDERAB LES Final Result * (ABNORMAL) Culture wound with gram stain (06/08/2024 10:26 AM EDT) Culture, Wound No pathogens isolated. 06/11/2024 9:00 AM EDT [facility] Gram Stain Result No polymorphonuclear leukocytes seen(A) 06/11/2024 9:00 AM EDT [facility] Gram Stain Result Rare Epithelial cells(A) 06/11/2024 9:00 AM EDT [facility] Gram Stain Result Moderate Gram positive cocci(A) 06/11/2024 9:00 AM EDT [facility] Gram Stain Result Few Gram positive bacilli(A) 06/11/2024 9:00 AM EDT [facility] Swab Structure of right foot / Unknown Non-blood Collection / Unknown 06/08/2024 10:26 AM EDT 06/08/2024 4:05 PM EDT Narrative [facility] - 06/11/2024 9:00 AM EDT Mixed normal skin jarrett present Adrian [facility] MICROBIOLOGY - GENERAL ORDERABLES Final Result [facility] [address] [place] [address], * Debridement Diabetic Ulcer Right;Medial Foot (06/08/2024 9:30 AM EDT) Narrative Oneil Grissom MD - 06/08/2024 9:30 AM EDT JANUSZ Sanders ? 06/08/2024 10:29 AM Debridement Diabetic Ulcer Right;Medial Foot Performed by: JANUSZ Sanders Authorized by: JANUSZ Sanders ??Associated wounds: Wound Diabetic Ulcer 06/08/24 Foot Right;Medial Consent: ??Consent obtained: ??Verbal ??Consent given by: ??Patient ??Risks discussed: Yes ?? Time out: Immediately prior to the procedure a time out was called ?? Debridement Details: ??Performed by: ??PA ??Type: surgical ?Level: subcutaneous tissue ?Pain control: ??Lidocaine 4% ??Severity of Tissue Pre Debridement: ??Fat layer exposed ??Severity of Tissue Post Debridement: ??Fat layer exposed ??Length (cm): ??1.1 ??Width (cm): ??0.9 ??Depth (cm): ??0.1 ??Area (cm^2): ??0.99 ??Length (cm): ??1.1 ??Width (cm): ??0.9 ??Depth (cm): ??0.1 ??Percent Debrided (%): ??100 ??Surface Area (cm^2): ??0.99 ??Area Debrided (cm^2): ??0.99 ??Volume (cm^3): ??0.1 ??Tissue and other material debrided: epidermis and subcutaneous tissue ?Devitalized tissue debrided: biofilm and slough ?Instrument: ??Curette ??Amount of bleeding: none ?Hemostasis obtained with: ??Not applicable ??Procedural pain: ??0 ??Post-procedural pain: ??0 ??Response to treatment: ??Procedure was tolerated well us Adrian BOUDREAUX IN CLINIC/BEDSIDE ORDERABLE S Final Result * Debridement Diabetic Ulcer Right Heel (06/08/2024 9:30 AM EDT) Narrative Oneil Grissom MD - 06/08/2024 9:30 AM EDT JANUSZ Sanders ? 06/08/2024 10:29 AM Debridement Diabetic Ulcer Right Heel Performed by: JANUSZ Sanders Authorized by: JANUSZ Sanders ??Associated wounds: Wound Diabetic Ulcer 11/24/23 Heel Right Consent: ??Consent obtained: ??Verbal ??Consent given by: ??Patient ??Risks discussed: Yes ?? Time out: Immediately prior to the procedure a time out was called ?? Debridement Details: ??Performed by: ??PA ??Type: surgical ?Level: subcutaneous tissue ?Pain control: ??Lidocaine 4% ??Severity of Tissue Pre Debridement: ??Fat layer exposed ??Severity of Tissue Post Debridement: ??Fat layer exposed ??Length (cm): ??0.7 ??Width (cm): ??1.1 ??Depth (cm): ??0.3 ??Area (cm^2): ??0.77 ??Length (cm): ??0.7 ??Width (cm): ??1.1 ??Depth (cm): ??0.3 ??Percent Debrided (%): ??100 ??Surface Area (cm^2): ??0.77 ??Area Debrided (cm^2): ??0.77 ??Volume (cm^3): ??0.23 ??Tissue and other material debrided: dermis, epidermis and subcutaneous tissue ?Devitalized tissue debrided: biofilm, callus and slough ?Instrument: ??Curette, forceps and blade ??Amount of bleeding: small ?Hemostasis obtained with: ??Pressure ??Procedural pain: ??0 ??Post-procedural pain: ??0 ??Response to treatment: ??Procedure was tolerated well us Adrian BOUDREAUX IN CLINIC/BEDSIDE ORDERABLE S Final Result * Debridement Diabetic Ulcer Right Heel (05/24/2024 9:15 AM EDT) Narrative Patsy Granado MD - 05/24/2024 9:15 AM EDT Patsy Granado MD ? 05/24/2024 11:16 AM Debridement Diabetic Ulcer Right Heel Performed by: Patsy Granado MD Authorized by: Patsy Granado MD ??Associated wounds: Wound Diabetic Ulcer 11/24/23 Heel Right Consent: ??Consent obtained: ??Verbal ??Consent given by: ??Patient ??Risks discussed: Yes ?? Time out: Immediately prior to the procedure a time out was called ?? Time out performed at: ??05/24/2024 10:05 AM Debridement Details: ??Performed by: ??Physician ??Type: selective ?Pain control: ??Lidocaine 5% ??Pain control administration: topical anesthesia ?Severity of Tissue Pre Debridement: ??Fat layer exposed ??Severity of Tissue Post Debridement: ??Fat layer exposed ??Time taken: ??05/24/2024 9:32 AM ??Length (cm): ??0.9 ??Width (cm): ??1 ??Depth (cm): ??0.3 ??Area (cm^2): ??0.9 ??Time taken: ??05/24/2024 9:33 AM ??Length (cm): ??0.9 ??Width (cm): ??1 ??Depth (cm): ??0.3 ??Percent Debrided (%): ??100 ??Surface Area (cm^2): ??0.9 ??Area Debrided (cm^2): ??0.9 ??Volume (cm^3): ??0.27 ??Devitalized tissue debrided: callus, fibrin and slough ?Devitalized tissue debrided comment: ??Devitalized skin ??Instrument: ??Blade and forceps ??Amount of bleeding: small ?Hemostasis obtained with: ??Pressure and silver nitrate ??Procedural pain: ??0 ??Post-procedural pain: ??0 ??Response to treatment: ??Procedure was tolerated well us Patsy Granado MD IN CLINIC/BEDSIDE ORDERAB LES Final Result * Debridement Diabetic Ulcer Right;Plantar Foot (05/24/2024 9:15 AM EDT) Narrative Taya Jay - 05/24/2024 9:15 AM EDT Patsy Granado MD ? 05/24/2024 11:16 AM Debridement Diabetic Ulcer Right;Plantar Foot Performed by: Patsy Granado MD Authorized by: Patsy Granado MD ??Associated wounds: Wound Diabetic Ulcer 11/24/23 Foot Right;Plantar Consent: ??Consent obtained: ??Verbal ??Consent given by: ??Patient ??Risks discussed: Yes ?? Time out: Immediately prior to the procedure a time out was called ?? Time out performed at: ??05/24/2024 9:54 AM Debridement Details: ??Performed by: ??Physician ??Type: selective ?Pain control: ??Lidocaine 5% ??Pain control administration: topical anesthesia ?Severity of Tissue Pre Debridement: ??Fat layer exposed ??Severity of Tissue Post Debridement: ??Fat layer exposed ??Time taken: ??05/24/2024 9:34 AM ??Length (cm): ??0.2 ??Width (cm): ??0.2 ??Depth (cm): ??0.3 ??Area (cm^2): ??0.04 ??Time taken: ??05/24/2024 9:35 AM ??Length (cm): ??0.2 ??Width (cm): ??0.2 ??Depth (cm): ??0.3 ??Percent Debrided (%): ??100 ??Surface Area (cm^2): ??0.04 ??Area Debrided (cm^2): ??0.04 ??Volume (cm^3): ??0.01 ??Devitalized tissue debrided: callus, fibrin and slough ?Devitalized tissue debrided comment: ??Devitalized skin ??Instrument: ??Blade and forceps ??Amount of bleeding: small ?Hemostasis obtained with: ??Pressure and silver nitrate ??Procedural pain: ??0 ??Post-procedural pain: ??0 ??Response to treatment: ??Procedure was tolerated well Procedure Note Patsy Granado MD - 05/24/2024 9:15 AM EDT Images from the original note were not included. Topical: [facility] [place] [place] [address] Office Visit Visit Date: 05/24/2024 Patient Name: Colleen Das Date of : 1955 PCP: Zia Morales MD HPI: Colleen is seen for follow-up right foot plantar first toe ulcer andright heel ulcer, treated with alginate dressing change every other day.Patient is 68 years old woman with history of diabetes mellitus withneuropathy. She she had fever last week when she went to see herpodiatrist, was started on Augmentin for 10 days. She denies any dysuriaor frequency or cough. No pain no leg edema. Her diabetes iswell-controlled, last hemoglobin A1c in February was 7.8. She declined theuse of total contact cast to offload her foot. She is afraid she mayfall The ulcers have improved, smaller in size with pink granulation tissue. Assessment and Plan: Type 2 diabetes mellitus with foot ulcer (CODE) (Primary) - Debridement Diabetic Ulcer Right;Plantar Foot - Debridement Diabetic Ulcer Right Heel Chronic heel ulcer, right, with fat layer exposed (CMS/HCC) - Debridement Diabetic Ulcer Right Heel Non-pressure chronic ulcer of other part of right foot with fat layerexposed - Debridement Diabetic Ulcer Right;Plantar Foot Diabetic polyneuropathy associated with type 2 diabetes mellitus - Debridement Diabetic Ulcer Right;Plantar Foot - Debridement Diabetic Ulcer Right Heel Open wound debridement right foot ulcers covered with scalpel and forceps.Continue Aquacel Ag dressing. Continue her antibiotics. All questions were answered to her satisfaction. She was counseledregarding my impressions, instructions for management, and the importanceof compliance with treatment. Follow up in about 2 weeks (around 06/07/2024) for with availableprovider. >>>>>>>>>>>>>>>>>>>>>>>>>>>>>>>>>>>>>>>>>>>>>>>>>>> Vital Signs: Visit Vitals BP (!) 151/77 Pulse 96 Temp 36.5 ??C (97.7 ??F) (Temporal) Resp 17 Review of Systems: No fever no chills drainage decreased PHYSICAL EXAM right foot plantar heel ulcer with thick callus around theedges, central granulation tissue, fibrin and slough. By measurement boththe right foot plantar first toe and heel ulcer smaller in size.Periwound skin is intact no cellulitis. Dorsalis pedis pulse palpable.There is no leg or foot edema no cellulitis. First toe MP joint plantar ulcer smaller with thick callus around theedges, central granulation tissue some fibrin and slough in the base. Nofoot edema no cellulitis. WOUND ASSESSMENT If photograph of wound not visible on thisnote, please check under Media tab. Wound Diabetic Ulcer 11/24/23 Heel Right (Active) Date First Assessed: 11/24/23 Primary Wound Type: Diabetic Ulcer WoundApproximate Age at First Assessment (Weeks): 67 weeks Hand HygieneCompleted: Yes Diabetic Ulcer Grading: Grade 1 Location: Heel WoundLocation Orientation: Right Assessments 12/29/2023 9:16 AM 05/24/2024 9:32 AM Wound Image Wound Bed Tissue Assessment Granulation;Pale;[place];SloughingGranulation;Sloughing Pamela-Wound Assessment Callused;Peeling Callused;Dark edges Wound Length (cm) 0.9 cm 0.9 cm Wound Width (cm) 1.5 cm 1 cm Wound Surface Area (cm^2) 1.35 cm^2 0.9 cm^2 Wound Depth (cm) 0.3 cm 0.3 cm Wound Volume (cm^3) 0.405 cm^3 0.27 cm^3 Wound Healing % -- 33 Drainage Description Serosanguineous Serosanguineous Drainage Amount Moderate Moderate Treatments Other (Comment);Cleansed Cleansed Dressing Gauze Other (Comment) Dressing Status Removed Removed Wound Bed Granulation (%) 90 % 95 % Wound Bed Epithelialization (%) -- 0 % Wound Bed Slough (%) 10 % 5 % Wound Bed Eschar (%) 0 % 0 % Tunneling 0 cm 0 cm Undermining 0.3 cm 0 cm Underming Start Clock Position of Wound 10 o'clock -- Underming End Clock Position of Wound 1 o'clock -- Edges Well-defined edges;Not attached Well-defined edges;Attached edges Non-staged Wound Description Full thickness Full thickness Active Orders Date Order Priority Status Authorizing Provider 05/24/24 1009 Debridement Diabetic Ulcer Right Heel Routine Active Butch Granado MD Inactive Orders Date Order Priority Status Authorizing Provider 05/10/24 1032 Debridement Diabetic Ulcer Right Heel Routine Atul Granado MD 04/26/24 1053 Debridement Diabetic Ulcer Right Heel Routine Atul Granado MD 04/12/24 0946 Debridement Diabetic Ulcer Right Heel Routine Atul Granado MD 03/29/24 0932 Debridement Diabetic Ulcer Right Heel Routine Atul Granado MD 03/15/24 1043 Debridement Diabetic Ulcer Right Heel Routine Atul Granado MD 02/23/24 1030 Debridement Diabetic Ulcer Right Heel Routine Atul Granado MD 02/09/24 1010 Debridement Diabetic Ulcer Right Heel Routine Atul Granado MD 01/26/24 0946 Debridement Diabetic Ulcer Right Heel Routine Atul Granado MD 12/29/23 1231 Wound Care Procedure Diabetic Ulcer Right Heel RoutineCompleted Patsy Granado MD Wound Diabetic Ulcer 11/24/23 Foot Right;Plantar (Active) Date First Assessed: 11/24/23 Primary Wound Type: Diabetic Ulcer WoundApproximate Age at First Assessment (Weeks): 7 weeks Hand HygieneCompleted: Yes Diabetic Ulcer Grading: Grade 1 Location: Foot WoundLocation Orientation: Right;Plantar Wo... Assessments 12/29/2023 9:12 AM 05/24/2024 9:34 AM Wound Image Wound Bed Tissue Assessment Granulation;Red Other (Comment) Pamela-Wound Assessment Callused;Peeling Callused;Dark edges Wound Length (cm) 0.5 cm 0.2 cm Wound Width (cm) 0.2 cm 0.2 cm Wound Surface Area (cm^2) 0.1 cm^2 0.04 cm^2 Wound Depth (cm) 0.3 cm 0.3 cm Wound Volume (cm^3) 0.03 cm^3 0.012 cm^3 Wound Healing % -- 60 Drainage Description Serosanguineous Serosanguineous Drainage Amount Moderate Scant Treatments Cleansed -- Dressing Gauze -- Dressing Status Removed;Old drainage Removed Wound Bed Granulation (%) 100 % -- Wound Bed Epithelialization (%) -- 0 % Wound Bed Slough (%) 0 % -- Wound Bed Eschar (%) 0 % -- Tunneling 0.5 cm 0 cm Tunneling Clock Position of Wound 7 o'clock -- Undermining 0 cm 0 cm Edges Well-defined edges;Not attached Well-defined edges;Attached edges Non-staged Wound Description Full thickness -- Active Orders Date Order Priority Status Authorizing Provider 05/24/24 0954 Debridement Diabetic Ulcer Right;Plantar Foot Routine ActivePatsy Granado MD Inactive Orders Date Order Priority Status Authorizing Provider 05/10/24 1027 Debridement Diabetic Ulcer Right;Plantar Foot RoutineCompleted Patsy Granado MD 04/26/24 1059 Debridement Diabetic Ulcer Right;Plantar Foot RoutineComlaed Patsy Granado MD 04/12/24 0944 Debridement Diabetic Ulcer Right;Plantar Foot RoutineComlaed Patsy Granado MD 03/29/24 0929 Debridement Diabetic Ulcer Right;Plantar Foot RoutineComlaed Patsy Granado MD 03/15/24 1035 Debridement Diabetic Ulcer Right;Plantar Foot RoutineCompleted Patsy Granado MD 02/23/24 1028 Debridement Diabetic Ulcer Right;Plantar Foot RoutineCompleted Patsy Granado MD 02/09/24 1008 Debridement Diabetic Ulcer Right;Plantar Foot RoutineCompleted Patsy Granado MD 01/26/24 0944 Debridement Diabetic Ulcer Right;Plantar Foot RoutineCompleted Patsy Granado MD 01/12/24 1012 Debridement Diabetic Ulcer Right;Plantar Foot RoutineCompleted Patsy Granado MD 12/29/23 1222 Wound Care Procedure Diabetic Ulcer Right;Plantar FootRoutine Completed Patsy Granado MD Debridement Diabetic Ulcer Right;Plantar Foot Performed by: Patsy Granado MD Authorized by: Patsy Granado MD Associated wounds: Wound Diabetic Ulcer 11/24/23 Foot Right;Plantar Consent: Consent obtained: Verbal Consent given by: Patient Risks discussed: Yes Time out: Immediately prior to the procedure a time out was called Time out performed at: 05/24/2024 9:54 AM Debridement Details: Performed by: Physician Type: selective Pain control: Lidocaine 5% Pain control administration: topical anesthesia Severity of Tissue Pre Debridement: Fat layer exposed Severity of Tissue Post Debridement: Fat layer exposed Time taken: 05/24/2024 9:34 AM Length (cm): 0.2 Width (cm): 0.2 Depth (cm): 0.3 Area (cm^2): 0.04 Time taken: 05/24/2024 9:35 AM Length (cm): 0.2 Width (cm): 0.2 Depth (cm): 0.3 Percent Debrided (%): 100 Surface Area (cm^2): 0.04 Area Debrided (cm^2): 0.04 Volume (cm^3): 0.01 Devitalized tissue debrided: callus, fibrin and slough [...] out was called Time out performed at: 05/24/2024 10:05 AM Debridement Details: Performed by: Physician Type: selective Pain control: Lidocaine 5% Pain control administration: topical anesthesia Severity of Tissue Pre Debridement: Fat layer exposed Severity of Tissue Post Debridement: Fat layer exposed Time taken: 05/24/2024 9:32 AM Length (cm): 0.9 Width (cm): 1 Depth (cm): 0.3 Area (cm^2): 0.9 Time taken: 05/24/2024 9:33 AM Length (cm): 0.9 Width (cm): 1 Depth (cm): 0.3 Percent Debrided (%): 100 Surface Area (cm^2): 0.9 Area Debrided (cm^2): 0.9 Volume (cm^3): 0.27 Devitalized tissue debrided: callus, fibrin and slough Devitalized tissue debrided comment: Devitalized skin Instrument: Blade and forceps Amount of bleeding: small Hemostasis obtained with: Pressure and silver nitrate Procedural pain: 0 Post-procedural pain: 0 Response to treatment: Procedure was tolerated well Open wound debridement carried out with scalpel and forceps right heel andright foot plantar ulcer, topical 4% lidocaine. Minimal bleeding,controlled with pressure. Patient tolerated the procedure well. PROVIDER ORDERS Patient Instructions PROVIDER ORDERS Go to ER if you are presenting with fever, chills, increased redness,pain, swelling, warmth around wound area and/or foul smelling odor. If youhave any questions or concerns, please contact the [facility]at . It was noted today during your visit that your blood pressure is elevated.Close follow-up with PCP is recommended for possible evaluation ofstarting and or changing blood pressure medication. Visit Vitals BP (!) 151/77 Pulse 96 Temp 36.5 ??C (97.7 ??F) (Temporal) Resp 17 SpO2 99% Smoking Status Never Follow up(s)/ Referrals: Podiatry: Follow up as scheduled -Make sure to use you offloading shoe (Reinforced 04/26) Jail: Home care: [facility] Additional Orders: -Increase protein in your diet to help promote wound healing, -Maintain good blood sugar control Lidocaine Order: Apply Lidocaine 5% Topical Ointment prior to debridementsat Wound Care appointments Edema Control: (If your compression wrap(s) feel to tight, please elevate your leg(s)about heart level. If your wrap(s) are becoming painful and/or you loosesensation of toes/ are having toe discoloration (a change from yourbaseline), please remove / unwrap compression and notify [facility] at . ) -Elevate legs above heart level as much as possible, -Avoid standing for extended periods of time Offloading: -Peg Assist offloading shoe to right foot- make sure to wear to helpoffload wound areas (getting dm shoes scheduled for fitting in april) -Limit pressure to wound as much as possible -Orthofelt if tolerates Negative Pressure Wound Therapy: (If wound vac is off/non functioning for more than 2 hours, please removevac dressing, apply a wet to dry dressing and notify your home careagency) N/A Cellular/Tissue Based Products: N/A Bathing / Showering / Hygiene: May shower with protection but DO NOT get wound dressing(s) wet. Protectdressing(s) with water repellant cover ( for example- large plastic bag orcast bag) and then may take shower. Non-wound [...] possible Dressing Change Frequency: Every Other Day 05/24/2024 11:15 AM EDT Patsy Granado MD us Patsy Granado MD IN CLINIC/BEDSIDE ORDERAB LES Final Result * Debridement Diabetic Ulcer Right Heel (05/10/2024 10:15 AM EDT) Narrative Patsy Granado MD - 05/10/2024 10:15 AM EDT Patsy Granado MD ? 05/10/2024 ??1:19 PM Debridement Diabetic Ulcer Right Heel Performed by: Patsy Granado MD Authorized by: Patsy Granado MD ??Associated wounds: Wound Diabetic Ulcer 11/24/23 Heel Right Consent: ??Consent obtained: ??Verbal ??Consent given by: ??Patient ??Risks discussed: Yes ?? Time out: Immediately prior to the procedure a time out was called ?? Time out performed at: ??05/10/2024 10:32 AM Debridement Details: ??Performed by: ??Physician ??Type: selective ?Pain control administration: topical anesthesia ?Time taken: ??05/10/2024 10:10 AM ??Length (cm): ??1.1 ??Width (cm): ??1.2 ??Depth (cm): ??0.5 ??Area (cm^2): ??1.32 ??Time taken: ??05/10/2024 10:11 AM ??Length (cm): ??1.1 ??Width (cm): ??1.2 ??Depth (cm): ??0.3 ??Percent Debrided (%): ??100 ??Surface Area (cm^2): ??1.32 ??Area Debrided (cm^2): ??1.32 ??Volume (cm^3): ??0.4 ??Devitalized tissue debrided: callus, fibrin and slough ?Devitalized tissue debrided comment: ??Devitalized skin ??Instrument: ??Blade and forceps ??Amount of bleeding: small ?Hemostasis obtained with: ??Pressure ??Procedural pain: ??0 ??Post-procedural pain: ??0 ??Response to treatment: ??Procedure was tolerated well us Patsy Granado MD IN CLINIC/BEDSIDE ORDERAB LES Final Result * Debridement Diabetic Ulcer Right;Plantar Foot (05/10/2024 10:15 AM EDT) Patsy Lutz MD - 05/10/2024 10:15 AM EDT Patsy Granado MD ? 05/10/2024 ??1:19 PM Debridement Diabetic Ulcer Right;Plantar Foot Performed by: Patsy Granado MD Authorized by: Patsy Granado MD ??Associated wounds: Wound Diabetic Ulcer 11/24/23 Foot Right;Plantar Consent: ??Consent obtained: ??Verbal ??Consent given by: ??Patient ??Risks discussed: Yes ?? Time out: Immediately prior to the procedure a time out was called ?? Time out performed at: ??05/10/2024 10:27 AM Debridement Details: ??Performed by: ??Physician ??Type: selective ?Pain control: ??Lidocaine 5% ??Pain control administration: topical anesthesia ?Severity of Tissue Pre Debridement: ??Fat layer exposed ??Severity of Tissue Post Debridement: ??Fat layer exposed ??Time taken: ??05/10/2024 10:09 AM ??Length (cm): ??0.3 ??Width (cm): ??0.4 ??Depth (cm): ??0.4 ??Area (cm^2): ??0.12 ??Time taken: ??05/10/2024 10:10 AM ??Length (cm): ??0.3 ??Width (cm): ??0.4 ??Depth (cm): ??0.2 ??Percent Debrided (%): ??100 ??Surface Area (cm^2): ??0.12 ??Area Debrided (cm^2): ??0.12 ??Volume (cm^3): ??0.02 ??Devitalized tissue debrided: callus, fibrin and slough ?Devitalized tissue debrided comment: ??Devitalized skin ??Instrument: ??Blade and forceps ??Amount of bleeding: small ?Hemostasis obtained with: ??Pressure ??Procedural pain: ??0 ??Post-procedural pain: ??0 ??Response to treatment: ??Procedure was tolerated well us Patsy Granado MD IN CLINIC/BEDSIDE ORDERAB LES Final Result * Debridement Diabetic Ulcer Right;Plantar Foot (04/26/2024 9:45 AM EDT) Narrative Patsy Granado MD - 04/26/2024 9:45 AM EDT Patsy Granado MD ? 04/26/2024 ??1:02 PM Debridement Diabetic Ulcer Right;Plantar Foot Performed by: Patsy Granado MD Authorized by: Patsy Granado MD ??Associated wounds: Wound Diabetic Ulcer 11/24/23 Foot Right;Plantar Consent: ??Consent obtained: ??Verbal ??Consent given by: ??Patient ??Risks discussed: Yes ?? Time out: Immediately prior to the procedure a time out was called ?? Time out performed at: ??04/26/2024 10:59 AM Debridement Details: ??Performed by: ??Physician ??Type: selective ?Pain control: ??Lidocaine 5% ??Pain control administration: topical anesthesia ?Severity of Tissue Pre Debridement: ??Fat layer exposed ??Severity of Tissue Post Debridement: ??Fat layer exposed ??Time taken: ??04/26/2024 10:23 AM ??Length (cm): ??0.4 ??Width (cm): ??0.6 ??Depth (cm): ??0.3 ??Area (cm^2): ??0.24 ??Time taken: ??04/26/2024 10:24 AM ??Length (cm): ??0.4 ??Width (cm): ??0.6 ??Depth (cm): ??0.3 ??Percent Debrided (%): ??100 ??Surface Area (cm^2): ??0.24 ??Area Debrided (cm^2): ??0.24 ??Volume (cm^3): ??0.07 ??Devitalized tissue debrided: callus, fibrin and slough ?Devitalized tissue debrided comment: ??Devitalized skin ??Instrument: ??Blade and forceps ??Amount of bleeding: small ?Hemostasis obtained with: ??Pressure ??Procedural pain: ??0 ??Post-procedural pain: ??0 ??Response to treatment: ??Procedure was tolerated well us Patsy Granado MD IN CLINIC/BEDSIDE ORDERAB LES Final Result * Debridement Diabetic Ulcer Right Heel (04/26/2024 9:45 AM EDT) Narrative Patsy Granado MD - 04/26/2024 9:45 AM EDT Patsy Granado MD ? 04/26/2024 ??1:02 PM Debridement Diabetic Ulcer Right Heel Performed by: Patsy Granado MD Authorized by: Patsy Granado MD ??Associated wounds: Wound Diabetic Ulcer 11/24/23 Heel Right Consent: ??Consent obtained: ??Verbal ??Consent given by: ??Patient ??Risks discussed: Yes ?? Time out: Immediately prior to the procedure a time out was called ?? Time out performed at: ??04/26/2024 10:54 AM Debridement Details: ??Performed by: ??Physician ??Type: selective ?Pain control: ??Lidocaine 5% ??Pain control administration: topical anesthesia ?Severity of Tissue Pre Debridement: ??Fat layer exposed ??Severity of Tissue Post Debridement: ??Fat layer exposed ??Time taken: ??04/26/2024 10:24 AM ??Length (cm): ??1.3 ??Width (cm): ??1.8 ??Depth (cm): ??0.5 ??Area (cm^2): ??2.34 ??Time taken: ??04/26/2024 10:25 AM ??Length (cm): ??1.3 ??Width (cm): ??1.8 ??Depth (cm): ??0.3 ??Percent Debrided (%): ??100 ??Surface Area (cm^2): ??2.34 ??Area Debrided (cm^2): ??2.34 ??Volume (cm^3): ??0.7 ??Devitalized tissue debrided: callus, fibrin and slough ?Devitalized tissue debrided comment: ??Devitalized skin ??Instrument: ??Blade and forceps ??Amount of bleeding: small ?Hemostasis obtained with: ??Pressure ??Procedural pain: ??0 ??Post-procedural pain: ??0 ??Response to treatment: ??Procedure was tolerated well us Patsy Granado MD IN CLINIC/BEDSIDE ORDERAB LES Final Result * Debridement Diabetic Ulcer Right Heel (04/12/2024 [...] related to ulceration/compromised skin integrity. 12/29/2023 Insurance [employer] MEDICARE ADVANTAGE MEDICAID - [place] Care Teams Civil Structural Engineer Relationship Specialty Start Date End Date Zia Morales MD [address] [place] [address] Dr [place] PCP - General Internal Medicine 12/15/23
--- OUTSIDE RECORDS SUMMARY | 2024-07-01 11:19 | XMS_ITS | Clinical Summary ---
Author Organization Unknown Care Team Providers Care Occup Therapist Name Role Phone JAK ALCARAZ, LINDA Unavailable Unavailable RHINA MARQUEZ, MERRITT Unavailable Unavailab dana ZABALA LPN, JENNI Unavailable Unavail able Payers Payer Name Policy Type Policy Number Effective Date Expira tion Date [facility] [id number] MEDICARE.[facility] [id number] Problems Condition Name Condition Details Condition Category [...] CELL COUNT, UNSPECIFIED Active 11-12 00:00: 00 SNF (CURRENT) USE OF ORAL HYPOGLYCEMIC DRUGS Active [...] 11-09 00:00: 00 11-16 23:59 :00 No [id number] CELLULITIS RIGHT HEEL 1 tablet 2 TIMES DAILY 1 tablet 2 TIMES DAILY (route: oral) Med Classific ation: Anti-Infe ctive Agents doxycycline monohydrate 100 mg tablet 11-09 00:00: 00 11-16 23:59 :00 No [id number] CELLULITIS 1 tablet 2 TIMES DAILY 1 tablet 2 TIMES DAILY (route: oral) Med Classific ation: Anti-Infe ctive Agents metformin 500 mg tablet 11-06 00:00: 00 Yes [id number] DIABETES 1 tablet 2 TIMES DAILY 1 tablet 2 TIMES DAILY (route: oral) Med Classific ation: Endocrine acetaminoph en 325 mg tablet 11-09 00:00: 00 11-14 23:59 :00 No [id number] PAIN 2 tablet EVERY 4 HOURS 2 tablet EVERY 4 HOURS (route: oral) Med Classific ation: Analgesic , Anti-infl ammatory or Antipyret ic glipizide ER 10 mg tablet, extended release 24 hr 11-06 00:00: 00 Yes [id number] DIABETES 1 tablet 2 TIMES DAILY 1 tablet 2 TIMES DAILY (route: oral) Med Classific ation: Endocrine cholecalcif angie (vitamin D3) 25 mcg (1,000 unit) tablet 2023-02 00:00: 00 Yes [id number] SUPPLEMENT 1 tablet DAILY 1 tablet DAILY (route: oral) Med Classific ation: Electroly te Balance-N utritiona l Products amlodipine 5 mg tablet 2023-02 00:00: 00 Yes [id number] HTN 5 mg DAILY 5 mg CHRISTINE Y (route: oral) Med Classific ation: Cardiovas cular Therapy Agents amoxicillin 500 mg-potassiu m clavulanate 125 mg tablet 05-19 00:00: 00 05-29 23:59 :00 No [id number] FOOT INFECTION 1 tablet 2 TIMES DAILY [...] CONSULTING PHYSICIANS. RN TO OBSERVE AND ASSESS, BAGGAGE SMASHER/COMMERCIAL PARTS PROFESSIONAL TO OBSERVE FOR RISK FOR FALLS AND INSTRUCT IN FALL PREVENTION, HOME SAFETY, MEDICATION MANAGEMENT, INFECTION PREVENTION, AND NUTRITION MANAGEMENT. RN/BAGGAGE SMASHER/COMMERCIAL PARTS PROFESSIONAL NURSE MAY PERFORM O2 SATURATION LEVEL ON ADMISSION AND PRN FOR RN TO ASSESS/BAGGAGE SMASHER TO OBSERVE PATIENT, WITH NOTIFICATION TO THE PHYSICIAN IF SATURATION IS 90% IN THE ABSENCE OF MORE SPECIFIC PARAMETERS FROM THE PHYSICIAN. AGENCY MAY PERFORM A RESUMPTION OF CARE VISIT FOLLOWING ANY HOSPITAL ADMISSION. RN/BAGGAGE SMASHER/COMMERCIAL PARTS PROFESSIONAL TO MONITOR CO-MORBID CONDITIONS LISTED ON THE PLAN OF CARE AND ANY NEW CONDITIONS THAT PRESENT THEMSELVES DURING THIS EPISODE TO IDENTIFY CHANGES AND INTERVENE TO MINIMIZE COMPLICATIONS. [code = RN TO OBSERVE, ASSESS, EVALUATE, AND DEVELOP AN INDIVIDUALIZED PLAN OF CARE. AGENCY MAY ACCEPT ORDERS FROM CONSULTING PHYSICIANS. RN TO OBSERVE AND ASSESS, BAGGAGE SMASHER/COMMERCIAL PARTS PROFESSIONAL TO OBSERVE FOR RISK FOR FALLS AND INSTRUCT IN FALL PREVENTION, HOME SAFETY, MEDICATION MANAGEMENT, INFECTION PREVENTION, AND NUTRITION MANAGEMENT. RN/BAGGAGE SMASHER/COMMERCIAL PARTS PROFESSIONAL NURSE MAY PERFORM O2 SATURATION LEVEL ON ADMISSION AND PRN FOR RN TO ASSESS/BAGGAGE SMASHER TO OBSERVE PATIENT, WITH NOTIFICATION TO THE PHYSICIAN IF SATURATION IS 90% IN THE ABSENCE OF MORE SPECIFIC PARAMETERS FROM THE PHYSICIAN. AGENCY MAY PERFORM A RESUMPTION OF CARE VISIT FOLLOWING ANY HOSPITAL ADMISSION. RN/BAGGAGE SMASHER/COMMERCIAL PARTS PROFESSIONAL TO MONITOR CO-MORBID CONDITIONS LISTED ON THE PLAN OF CARE AND ANY NEW CONDITIONS THAT PRESENT THEMSELVES DURING THIS EPISODE TO IDENTIFY CHANGES AND INTERVENE TO MINIMIZE COMPLICATIONS.] Future Scheduled Test MEDICATION MANAGEMENT; RN/BAGGAGE SMASHER/COMMERCIAL PARTS PROFESSIONAL TO REVIEW MEDICATIONS FOR INTERACTIONS, EFFECTIVENESS OF DRUG THERAPY, AND SIGNS/SYMPTOMS OF ADVERSE REACTIONS. MAY INSTRUCT AND REINFORCE MEDICATION TEACHING RELATED TO THE USE OF MEDICATIONS, DOSAGE, FREQUENCY, PURPOSE, SIDE EFFECTS, AND TO REPORT COMPLICATIONS. [code = MEDICATION MANAGEMENT; RN/BAGGAGE SMASHER/COMMERCIAL PARTS PROFESSIONAL TO REVIEW MEDICATIONS FOR INTERACTIONS, EFFECTIVENESS OF DRUG THERAPY, AND SIGNS/SYMPTOMS OF ADVERSE REACTIONS. MAY INSTRUCT AND REINFORCE MEDICATION TEACHING RELATED TO THE USE OF MEDICATIONS, DOSAGE, FREQUENCY, PURPOSE, SIDE EFFECTS, AND TO REPORT COMPLICATIONS.] Future Scheduled Test RISK FOR H OSPITALIZATION; RN TO ASSESS/TEACH, COMMERCIAL PARTS PROFESSIONAL/BAGGAGE SMASHER TO OBSERVE/TEACH PATIENT/CAREGIVER ON RISK FOR HOSPITALIZATION/EMERGENCY ROOM VISITS, TEACH SIGNS AND SYMPTOMS THAT PUT PATIENT AT RISK, WHEN TO NOTIFY NURSE/PHYSICIAN OF COMPLICATIONS/DECLINE, AND WHEN TO CALL 911. [code = RISK FOR HOSPITALIZATION; RN TO ASSESS/TEACH, COMMERCIAL PARTS PROFESSIONAL/BAGGAGE SMASHER TO OBSERVE/TEACH PATIENT/CAREGIVER ON RISK FOR HOSPITALIZATION/EMERGENCY ROOM VISITS, TEACH SIGNS AND SYMPTOMS THAT PUT PATIENT AT RISK, WHEN TO NOTIFY NURSE/PHYSICIAN OF COMPLICATIONS/DECLINE, AND WHEN TO CALL 911.] Future Scheduled Test CARDIOVASC ULAR SYSTEM; RN TO ASSESS/TEACH, BAGGAGE SMASHER/COMMERCIAL PARTS PROFESSIONAL TO OBSERVE/TEACH RELATED TO ALTERED CARDIOVASCULAR STATUS TO MINIMIZE COMPLICATIONS AND REDUCE HOSPITALIZATION. [code = CARDIOVASCULAR SYSTEM; RN TO ASSESS/TEACH, BAGGAGE SMASHER/COMMERCIAL PARTS PROFESSIONAL TO OBSERVE/TEACH RELATED TO ALTERED CARDIOVASCULAR STATUS TO MINIMIZE COMPLICATIONS AND REDUCE HOSPITALIZATION.] Future Scheduled Test HYPERTENSI ON MANAGEMENT; RN TO ASSESS AND TEACH, BAGGAGE SMASHER/COMMERCIAL PARTS PROFESSIONAL TO OBSERVE AND TEACH WARNING SIGNS AND SYMPTOMS TO AVOID HOSPITALIZATION. [code = HYPERTENSION MANAGEMENT; RN TO ASSESS AND TEACH, BAGGAGE SMASHER/COMMERCIAL PARTS PROFESSIONAL TO OBSERVE AND TEACH WARNING SIGNS AND SYMPTOMS TO AVOID HOSPITALIZATION.] Future Scheduled Test SKIN INTEG RITY RN TO ASSESS AND TEACH, BAGGAGE SMASHER/COMMERCIAL PARTS PROFESSIONAL TO OBSERVE AND TEACH INTEGUMENTARY STATUS TO IDENTIFY CHANGES AND INTERVENE TO MINIMIZE COMPLICATIONS. PROVIDE SKILLED TEACHING OF GENERAL WOUND AND SKIN CARE AND PREVENTION RELATED TO ACTUAL ALTERED SKIN INTEGRITY [code = SKIN INTEGRITY RN TO ASSESS AND TEACH, BAGGAGE SMASHER/COMMERCIAL PARTS PROFESSIONAL TO OBSERVE AND TEACH INTEGUMENTARY STATUS TO IDENTIFY CHANGES AND INTERVENE TO MINIMIZE COMPLICATIONS. PROVIDE SKILLED TEACHING OF GENERAL WOUND AND SKIN CARE AND PREVENTION RELATED TO ACTUAL ALTERED SKIN INTEGRITY ] Future Scheduled Test RN/BAGGAGE SMASHER/COMMERCIAL PARTS PROFESSIONAL TO PERFORM/TEACH DIABETIC ULCER - NEUROPATHIC CARE TO DIABETIC PLANTAR WOUND IRRIGATE/CLEANSE WITH WOUND WASH APPLY SILVER ALGINATE APPLY 4X4 GAUZE COVER WITH ROLLED GAUZE SECURE WITH TAPE. CHANGE DRESSING 3X WEEK AND PRN FOR SOILAGE OR DISLODGED DRESSING. PATIENT TO DO TREATMENT IN NURSING ABSENCE RN/BAGGAGE SMASHER/COMMERCIAL PARTS PROFESSIONAL TO PERFORM/TEACH DIABETIC ULCER - NEUROPATHIC CARE TO DIABETIC HEEL WOUND IRRIGATE/CLEANSE WITH WOUND WASH APPLY SILVER ALGINATE APPLY 4X4 GAUZE COVER WITH ROLLED GAUZE SECURE WITH TAPE. CHANGE DRESSING 3X WEEK AND PRN FOR SOILAGE OR DISLODGED DRESSING. PATIENT TO DO TREATMENT IN NURSING ABSENCE [code = RN/BAGGAGE SMASHER/COMMERCIAL PARTS PROFESSIONAL TO PERFORM/TEACH DIABETIC ULCER - NEUROPATHIC CARE TO DIABETIC PLANTAR WOUND IRRIGATE/CLEANSE WITH WOUND WASH APPLY SILVER ALGINATE APPLY 4X4 GAUZE COVER WITH ROLLED GAUZE SECURE WITH TAPE. CHANGE DRESSING 3X WEEK AND PRN FOR SOILAGE OR DISLODGED DRESSING. PATIENT TO DO TREATMENT IN NURSING ABSENCE RN/BAGGAGE SMASHER/COMMERCIAL PARTS PROFESSIONAL TO PERFORM/TEACH DIABETIC ULCER - NEUROPATHIC CARE TO DIABETIC HEEL WOUND IRRIGATE/CLEANSE WITH WOUND WASH APPLY SILVER ALGINATE APPLY 4X4 GAUZE COVER WITH ROLLED GAUZE SECURE WITH TAPE. CHANGE DRESSING 3X WEEK AND PRN FOR SOILAGE OR DISLODGED DRESSING. PATIENT TO DO TREATMENT IN NURSING ABSENCE] Future Scheduled Test PAIN MANAG EMENT; RN TO ASSESS AND TEACH, COMMERCIAL PARTS PROFESSIONAL/BAGGAGE SMASHER TO OBSERVE AND TEACH AND PROVIDE EDUCATION ON PAIN MANAGEMENT TECHNIQUES. [code = PAIN MANAGEMENT; RN TO ASSESS AND TEACH, COMMERCIAL PARTS PROFESSIONAL/BAGGAGE SMASHER TO OBSERVE AND TEACH AND PROVIDE EDUCATION ON PAIN MANAGEMENT TECHNIQUES.] Future Scheduled Test FALL REDUC TION MANAGEMENT; RN TO ASSESS AND OBSERVE, BAGGAGE SMASHER/COMMERCIAL PARTS PROFESSIONAL TO OBSERVE FALL RISK FACTORS AND EDUCATE PATIENT/CAREGIVER ON STRATEGIES TO MINIMIZE THE RISK OF FALLING. [code = FALL REDUCTION MANAGEMENT; RN TO ASSESS AND OBSERVE, BAGGAGE SMASHER/COMMERCIAL PARTS PROFESSIONAL TO OBSERVE FALL RISK FACTORS AND EDUCATE [...] End Date/Time Encounter Type Admission Type Attending [facility] Care Facility Care Department Encounter ID Discharge Date Discharge Status Discharge Condition Discharge Reason Percent Goals Met 2024-05-11 00:00:00 2024-07-09 00:00:[facility] [id number] 25.00
--- OUTSIDE RECORDS SUMMARY | 2024-07-01 11:19 | XMS_ITS ---
Author Organization [facility] Address [address] [place] [address] Care Team Providers Care Billet Heater Name Role Phone Anahi ALCARAZ, Alison Primary Care Provider Ivette Castellano [phone] REASON FOR VISIT Bako Medications Medication SIG (Take, Route, Frequency, Duration) Notes Start Date End Date Status Ciprofloxacin HCl 500 MG 1 tablet Orally every 12 hrs for 7 days 05/24/2024 Active Encounters Encounter Location Date Provider Diagnosis [facility] [address] [place] [address] 05/19/2024 Ivette Diaz Plan Of Treatment Medication Medication Name Sig Start Date Stop Date Notes Ciprofloxacin HCl 500 MG 1 tablet Orally every 12 hrs for 7 days 05/24/2024 Next Appt Details Provider Name:Ivette lock, 08/18/2024 09:00:00 AM, [address] [place], [address], Progress Notes * Colleen DAS ADOB:[birth year] (68 yo F)Acc No.[id number]:05/19/2024 Patient:?Colleen DAS :1955???Age:68 Y???Sex:Female Address: [place] [address] * Refills? Start Ciprofloxacin HCl Tablet, 500 MG, Orally, 14 Tablet, 1 tablet, every 12 hrs, 7 days, Refills=0 * true * Date:? Generated for Oleksandr looney/Titi/Pratibhaitting on:?07/01/2024 11:19 AM EDT
== END 2024-07-01 11:06 | disposition home or self-care (01) ==
LOC: HO.HMCHD 10:18
PROVIDERS: PCP Internal Medicine; Visit Provider Internal Medicine
DX: E11.42 Type 2 diabetes mellitus with diabetic polyneuropathy (principal); E11.65 Type 2 diabetes mellitus with hyperglycemia; R63.5 Abnormal weight gain

== ENCOUNTER → 2024-07-01 10:18 | Outpatient (BNVA) | payer MEDICARE, OTHER, SELFPAY | PROVIDERS: PCP Internal Medicine; Visit Provider Internal Medicine | DX: E11.42 Type 2 diabetes mellitus with diabetic polyneuropathy (principal); E11.65 Type 2 diabetes mellitus with hyperglycemia; R63.5 Abnormal weight gain; Z68.39 Body mass index [BMI] 39.0-39.9, adult; I10 Essential (primary) hypertension; Z79.84 Long term (current) use of oral hypoglycemic drugs | CPT/HCPCS: 96127; 99202 ==

== ENCOUNTER → 2024-09-21 23:59 | Outpatient (BNV) | payer MEDICARE, MEDICAID, SELFPAY | PROVIDERS: PCP Internal Medicine; Visit Provider Internal Medicine | DX: E11.621 Type 2 diabetes mellitus with foot ulcer (principal); L97.518 Non-pressure chronic ulcer of other part of right foot with other specified severity; L97.412 Non-pressure chronic ulcer of right heel and midfoot with fat layer exposed | CPT/HCPCS: G0179 ==

== ENCOUNTER 2024-11-09 06:55 | Outpatient (REF) | payer MEDICARE, MEDICAID, SELFPAY ==
--- OUTSIDE RECORDS SUMMARY | 2024-11-05 20:00 | XMS_ITS | Clinical Summary ---
Author Organization Unknown Care Team Providers Care Team Driver Name Role Phone JAK ALCARAZ, LINDA Unavailable Unavailable RHINA MARQUEZ, MERRITT Unavailable Unavailab dana ZABALA LPN, JENNI Unavailable Unavail able Payers Payer Name Policy Type Policy Number Effective Date Expira tion Date [facility] [id number] MEDICARE.[facility] [id number] Problems Condition Name Condition Details Condition Category Status Onset Date Resolution Date Last Treatment Date Treating Clinician Comments TYPE 2 DIABETES MELLITUS WITH FOOT ULCER Active 08-13 00:00: 00 NON-PRS CHRONIC ULCER OTH PRT RIGHT FOOT WITH OTH SEVERITY Active 08-13 00:00: 00 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 FAT LAYER EXPOS Active 08-13 00:00: 00 TYPE 2 DIABETES MELLITUS WITH DIABETIC POLYNEUROPAT HY Active 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 Active [...] 11-09 00:00: 00 11-16 23:59 :00 No [id number] CELLULITIS RIGHT HEEL 1 tablet 2 TIMES DAILY 1 tablet 2 TIMES DAILY (route: oral) Med Classific ation: Anti-Infe ctive Agents doxycycline monohydrate 100 mg tablet 11-09 00:00: 00 11-16 23:59 :00 No [id number] CELLULITIS 1 tablet 2 TIMES DAILY 1 tablet 2 TIMES DAILY (route: oral) Med Classific ation: Anti-Infe ctive Agents metformin 500 mg tablet 11-06 00:00: 00 Yes [id number] DIABETES 1 tablet 2 TIMES DAILY 1 tablet 2 TIMES DAILY (route: oral) Med Classific ation: Endocrine acetaminoph en 325 mg tablet 11-09 00:00: 00 11-14 23:59 :00 No [id number] PAIN 2 tablet EVERY 4 HOURS 2 tablet EVERY 4 HOURS (route: oral) Med Classific ation: Analgesic , Anti-infl ammatory or Antipyret ic glipizide ER 10 mg tablet, extended release 24 hr 11-06 00:00: 00 Yes [id number] DIABETES 1 tablet 2 TIMES DAILY 1 tablet 2 TIMES DAILY (route: oral) Med Classific ation: Endocrine cholecalcif angie (vitamin D3) 25 mcg (1,000 unit) tablet 2023-02 00:00: 00 09-03 23:59 :00 No [id number] SUPPLEMENT 1 tablet DAILY 1 tablet DAILY (route: oral) Med Classific ation: Electroly te Balance-N utritiona l Products amlodipine 5 mg tablet 2023-02 00:00: 00 09-03 23:59 :00 No [id number] HTN 5 mg DAILY 5 mg DAILY (route: oral) Med Classific ation: Cardiovas cular Therapy Agents amoxicillin 500 mg-potassiu m clavulanate 125 mg tablet 05-19 00:00: 00 05-29 23:59 :00 No [id number] FOOT INFECTION 1 tablet 2 TIMES DAILY 1 tablet 2 TIMES DAILY (route: oral) Med Classific ation: Anti-Infe ctive Agents Vital Signs Vital Name Observation Time Observation Value Commen ts Temperature 2024-11-05 08:24:00.000 97.9 [degF] Temperature 2024-10-29 08:39:00.000 97 [degF] Temperature 2024-10-22 08:45:00.000 97.1 [degF] Temperature 2024-10-15 08:30:00.000 97.5 [degF] Temperature 2024-10-08 09:15:00.000 98 [degF] Temperature 2024-10-01 08:50:00.000 97.5 [degF] Temperature 2024-09-24 08:29:00.000 97.3 [degF] Temperature 2024-09-17 07:44:00.000 97.9 [degF] Temperature 2024-09-10 09:06:00.000 97.3 [degF] Pulse 2024-11-05 08:24:00.000 89 /min Pulse 2024-10-29 08:39:00.000 77 /min Pulse 2024-10-22 08:45:00.000 89 /min Pulse 2024-10-15 08:30:00.000 94 /min Pulse 2024-10-08 09:15:00.000 88 /min Pulse 2024-10-01 08:50:00.000 92 /min Pulse 2024-09-24 08:29:00.000 99 /min Pulse 2024-09-17 07:44:00.000 93 /min Pulse 2024-09-10 09:06:00.000 99 /min O2 Saturation (%) 2024-11-05 08:24:00.000 98 % O2 Saturation (%) 2024-10-29 08:39:00.000 98 % O2 Saturation (%) 2024-10-22 08:45:00.000 98 % O2 Saturation (%) 2024-10-15 08:30:00.000 98 % O2 Saturation (%) 2024-10-08 09:15:00.000 99 % O2 Saturation (%) 2024-10-01 08:50:00.000 98 % O2 Saturation (%) 2024-09-24 08:29:00.000 99 % O2 Saturation (%) 2024-09-17 07:44:00.000 97 % O2 Saturation (%) 2024-09-10 09:06:00.000 98 % Respirations 2024-11-05 08:24:00.000 18 /min Respirations 2024-10-29 08:39:00.000 18 /min Respirations 2024-10-22 08:45:00.000 18 /min Respirations 2024-10-15 08:30:00.000 18 /min Respirations 2024-10-08 09:15:00.000 18 /min Respirations 2024-10-01 08:50:00.000 18 /min Respirations 2024-09-24 08:29:00.000 18 /min Respirations 2024-09-17 07:44:00.000 18 /min Respirations 2024-09-10 09:06:00.000 18 /min Systolic Blood Pressure 2024-11-05 08:24:00.000 150 mm [Hg] Systolic Blood Pressure 2024-10-29 08:39:00.000 128 mm [Hg] Systolic Blood Pressure 2024-10-22 08:45:00.000 128 mm [Hg] Systolic Blood Pressure 2024-10-15 08:30:00.000 126 mm [Hg] Systolic Blood Pressure 2024-10-08 09:15:00.000 148 mm [Hg] Systolic Blood Pressure 2024-10-01 08:50:00.000 122 mm [Hg] Systolic Blood Pressure 2024-09-24 08:29:00.000 120 mm [Hg] Systolic Blood Pressure 2024-09-17 07:44:00.000 124 mm [Hg] Systolic Blood Pressure 2024-09-10 09:06:00.000 135 mm [Hg] Diastolic Blood Pressure 2024-11-05 08:24:00.000 60 mm [Hg] Diastolic Blood Pressure 2024-10-29 08:39:00.000 70 mm [Hg] Diastolic Blood Pressure 2024-10-22 08:45:00.000 70 mm [Hg] Diastolic Blood Pressure 2024-10-15 08:30:00.000 60 mm [Hg] Diastolic Blood Pressure 2024-10-08 09:15:00.000 60 mm [Hg] Diastolic Blood Pressure 2024-10-01 08:50:00.000 62 mm [Hg] Diastolic Blood Pressure 2024-09-24 08:29:00.000 70 mm [Hg] Diastolic Blood Pressure 2024-09-17 07:44:00.000 64 mm [Hg] Diastolic Blood Pressure 2024-09-10 09:06:00.000 80 mm [Hg] Plan of Treatment Planned Activity Planned Date Details Comments Future Scheduled Test RN TO OBSE RVE, ASSESS, EVALUATE, AND DEVELOP AN INDIVIDUALIZED PLAN OF CARE. AGENCY MAY ACCEPT ORDERS FROM CONSULTING PHYSICIANS RN TO OBSERVE AND ASSESS, OFFSHORE WIND TURBINE TECHNICIAN/RARE/ENDANGERED SPECIES SPECIALIST TO OBSERVE FOR RISK FOR FALLS AND INSTRUCT IN FALL PREVENTION, HOME SAFETY, MEDICATION MANAGEMENT, INFECTION PREVENTION, AND NUTRITION MANAGEMENT. RN/OFFSHORE WIND TURBINE TECHNICIAN/RARE/ENDANGERED SPECIES SPECIALIST NURSE MAY PERFORM O2 SATURATION LEVEL ON ADMISSION AND PRN FOR RN TO ASSESS/OFFSHORE WIND TURBINE TECHNICIAN TO OBSERVE PATIENT, WITH NOTIFICATION TO THE PHYSICIAN IF SATURATION IS 90% IN THE ABSENCE OF MORE SPECIFIC PARAMETERS FROM THE PHYSICIAN. AGENCY MAY PERFORM A RESUMPTION OF CARE VISIT FOLLOWING ANY HOSPITAL ADMISSION. RN/OFFSHORE WIND TURBINE TECHNICIAN/RARE/ENDANGERED SPECIES SPECIALIST TO MONITOR CO-MORBID CONDITIONS LISTED ON THE PLAN OF CARE AND ANY NEW CONDITIONS THAT PRESENT THEMSELVES DURING THIS EPISODE TO IDENTIFY CHANGES AND INTERVENE TO MINIMIZE COMPLICATIONS. [code = RN TO OBSERVE, ASSESS, EVALUATE, AND DEVELOP AN INDIVIDUALIZED PLAN OF CARE. AGENCY MAY ACCEPT ORDERS FROM CONSULTING PHYSICIANS RN TO OBSERVE AND ASSESS, OFFSHORE WIND TURBINE TECHNICIAN/RARE/ENDANGERED SPECIES SPECIALIST TO OBSERVE FOR RISK FOR FALLS AND INSTRUCT IN FALL PREVENTION, HOME SAFETY, MEDICATION MANAGEMENT, INFECTION PREVENTION, AND NUTRITION MANAGEMENT. RN/OFFSHORE WIND TURBINE TECHNICIAN/RARE/ENDANGERED SPECIES SPECIALIST NURSE MAY PERFORM O2 SATURATION LEVEL ON ADMISSION AND PRN FOR RN TO ASSESS/OFFSHORE WIND TURBINE TECHNICIAN TO OBSERVE PATIENT, WITH NOTIFICATION TO THE PHYSICIAN IF SATURATION IS 90% IN THE ABSENCE OF MORE SPECIFIC PARAMETERS FROM THE PHYSICIAN. AGENCY MAY PERFORM A RESUMPTION OF CARE VISIT FOLLOWING ANY HOSPITAL ADMISSION. RN/OFFSHORE WIND TURBINE TECHNICIAN/RARE/ENDANGERED SPECIES SPECIALIST TO MONITOR CO-MORBID CONDITIONS LISTED ON THE PLAN OF CARE AND ANY NEW CONDITIONS THAT PRESENT THEMSELVES DURING THIS EPISODE TO IDENTIFY CHANGES AND INTERVENE TO MINIMIZE COMPLICATIONS.] Future Scheduled Test MEDICATION MANAGEMENT; RN/OFFSHORE WIND TURBINE TECHNICIAN/RARE/ENDANGERED SPECIES SPECIALIST TO REVIEW MEDICATIONS FOR INTERACTIONS, EFFECTIVENESS OF DRUG THERAPY, AND SIGNS/SYMPTOMS OF ADVERSE REACTIONS. MAY INSTRUCT AND REINFORCE MEDICATION TEACHING RELATED TO THE USE OF MEDICATIONS, DOSAGE, FREQUENCY, PURPOSE, SIDE EFFECTS, AND TO REPORT COMPLICATIONS. [code = MEDICATION MANAGEMENT; RN/OFFSHORE WIND TURBINE TECHNICIAN/RARE/ENDANGERED SPECIES SPECIALIST TO REVIEW MEDICATIONS FOR INTERACTIONS, EFFECTIVENESS OF DRUG THERAPY, AND SIGNS/SYMPTOMS OF ADVERSE REACTIONS. MAY INSTRUCT AND REINFORCE MEDICATION TEACHING RELATED TO THE USE OF MEDICATIONS, DOSAGE, FREQUENCY, PURPOSE, SIDE EFFECTS, AND TO REPORT COMPLICATIONS.] Future Scheduled Test RISK FOR H OSPITALIZATION; RN TO ASSESS/TEACH, RARE/ENDANGERED SPECIES SPECIALIST/OFFSHORE WIND TURBINE TECHNICIAN TO OBSERVE/TEACH PATIENT/CAREGIVER ON RISK FOR HOSPITALIZATION/EMERGENCY ROOM VISITS, TEACH SIGNS AND SYMPTOMS THAT PUT PATIENT AT RISK, WHEN TO NOTIFY NURSE/PHYSICIAN OF COMPLICATIONS/DECLINE, AND WHEN TO CALL 911. [code = RISK FOR HOSPITALIZATION; RN TO ASSESS/TEACH, RARE/ENDANGERED SPECIES SPECIALIST/OFFSHORE WIND TURBINE TECHNICIAN TO OBSERVE/TEACH PATIENT/CAREGIVER ON RISK FOR HOSPITALIZATION/EMERGENCY ROOM VISITS, TEACH SIGNS AND SYMPTOMS THAT PUT PATIENT AT RISK, WHEN TO NOTIFY NURSE/PHYSICIAN OF COMPLICATIONS/DECLINE, AND WHEN TO CALL 911.] Future Scheduled Test RN/OFFSHORE WIND TURBINE TECHNICIAN/RARE/ENDANGERED SPECIES SPECIALIST TO PERFORM/TEACH DIABETIC ULCER - NEUROPATHIC CARE TO RIGHT PLANTAR METATARSAL WOUND: CLEANSE WITH NORMAL SALINE, APPLY SILVER AQUACELL, COVER WITH DRY PROTECTIVE SELF ADHESIVE DRESSING CHANGE DRESSING 3X WEEKLY AND PRN FOR DISLODGED DRESSING. RN/OFFSHORE WIND TURBINE TECHNICIAN/RARE/ENDANGERED SPECIES SPECIALIST TO PERFORM/TEACH DIABETIC ULCER - NEUROPATHIC CARE TO RIGHT PLANTAR HEEL WOUND: CLEANSE WITH NORMAL SALINE, APPLY SILVER AQUACELL, COVER WITH STERILE 4X4, ABD PAD, AND ROLLED GAUZE SECURE WITH TAPE CHANGE DRESSING 3X WEEKLY AND PRN FOR DISLODGED DRESSING. [code = RN/OFFSHORE WIND TURBINE TECHNICIAN/RARE/ENDANGERED SPECIES SPECIALIST TO PERFORM/TEACH DIABETIC ULCER - NEUROPATHIC CARE TO RIGHT PLANTAR METATARSAL WOUND: CLEANSE WITH NORMAL SALINE, APPLY SILVER AQUACELL, COVER WITH DRY PROTECTIVE SELF ADHESIVE DRESSING CHANGE DRESSING 3X WEEKLY AND PRN FOR DISLODGED DRESSING. RN/OFFSHORE WIND TURBINE TECHNICIAN/RARE/ENDANGERED SPECIES SPECIALIST TO PERFORM/TEACH DIABETIC ULCER - NEUROPATHIC CARE TO RIGHT PLANTAR HEEL WOUND: CLEANSE WITH NORMAL SALINE, APPLY SILVER AQUACELL, COVER WITH STERILE 4X4, ABD PAD, AND ROLLED GAUZE SECURE WITH TAPE CHANGE DRESSING 3X WEEKLY AND PRN FOR DISLODGED DRESSING.] Future Scheduled Test PAIN MANAG EMENT; RN TO ASSESS AND TEACH, RARE/ENDANGERED SPECIES SPECIALIST/OFFSHORE WIND TURBINE TECHNICIAN TO OBSERVE AND TEACH AND PROVIDE EDUCATION ON PAIN MANAGEMENT TECHNIQUES. [code = PAIN MANAGEMENT; RN TO ASSESS AND TEACH, RARE/ENDANGERED SPECIES SPECIALIST/OFFSHORE WIND TURBINE TECHNICIAN TO OBSERVE AND TEACH AND PROVIDE EDUCATION ON PAIN MANAGEMENT TECHNIQUES.] Future Scheduled Test DIABETES M ANAGEMENT; RN TO ASSESS AND TEACH, RARE/ENDANGERED SPECIES SPECIALIST/OFFSHORE WIND TURBINE TECHNICIAN TO OBSERVE AND TEACH INSTRUCTIONS OF DIABETIC CARE TO INCLUDE: DIET CCHO, LOW SALT, LOW FAT SKIN CARE, SIGNS AND SYMPTOMS OF HYPO/HYPERGLYCEMIA, PROPER ADMINISTRATION OF DIABETIC MEDICATION. RN/RARE/ENDANGERED SPECIES SPECIALIST/OFFSHORE WIND TURBINE TECHNICIAN TO INSTRUCT ON DIABETIC FOOT CARE AND MONITOR FOR SKIN LESIONS ON LOWER EXTREMITIES. BLOOD GLUCOSE TESTING TWICE DAILY RN TO ASSESS AND TEACH, RARE/ENDANGERED SPECIES SPECIALIST/OFFSHORE WIND TURBINE TECHNICIAN TO OBSERVE AND TEACH PATIENT/CAREGIVER ABILITY TO PERFORM AND RECORD BLOOD GLUCOSE TESTING ORDERED AND TO REPORT ABNORMAL FINDINGS TO PHYSICIAN. RN/RARE/ENDANGERED SPECIES SPECIALIST/OFFSHORE WIND TURBINE TECHNICIAN MAY PERFORM BLOOD GLUCOSE TEST NEEDED. RN/RARE/ENDANGERED SPECIES SPECIALIST/OFFSHORE WIND TURBINE TECHNICIAN TO REPORT TO PHYSICIAN BLOOD GLUCOSE READINGS GREATER THAN 200 OR LESS THAN 80 RN/RARE/ENDANGERED SPECIES SPECIALIST/OFFSHORE WIND TURBINE TECHNICIAN TO INSTRUCT PATIENT ON IMPORTANCE OF HGBA1C MONITORING, KIDNEY FUNCTION TEST, EYE AND FOOT EXAMS. [code = DIABETES MANAGEMENT; RN TO ASSESS AND TEACH, RARE/ENDANGERED SPECIES SPECIALIST/OFFSHORE WIND TURBINE TECHNICIAN TO OBSERVE AND TEACH INSTRUCTIONS OF DIABETIC CARE TO INCLUDE: DIET CCHO, LOW SALT, LOW FAT SKIN CARE, SIGNS AND SYMPTOMS OF HYPO/HYPERGLYCEMIA, PROPER ADMINISTRATION OF DIABETIC MEDICATION. RN/RARE/ENDANGERED SPECIES SPECIALIST/OFFSHORE WIND TURBINE TECHNICIAN TO INSTRUCT ON DIABETIC FOOT CARE AND MONITOR FOR SKIN LESIONS ON LOWER EXTREMITIES. BLOOD GLUCOSE TESTING TWICE DAILY RN TO ASSESS AND TEACH, RARE/ENDANGERED SPECIES SPECIALIST/OFFSHORE WIND TURBINE TECHNICIAN TO OBSERVE AND TEACH PATIENT/CAREGIVER ABILITY TO PERFORM AND RECORD BLOOD GLUCOSE TESTING ORDERED AND TO REPORT ABNORMAL FINDINGS TO PHYSICIAN. RN/RARE/ENDANGERED SPECIES SPECIALIST/OFFSHORE WIND TURBINE TECHNICIAN MAY PERFORM BLOOD GLUCOSE TEST NEEDED. RN/RARE/ENDANGERED SPECIES SPECIALIST/OFFSHORE WIND TURBINE TECHNICIAN TO REPORT TO PHYSICIAN BLOOD GLUCOSE READINGS GREATER THAN 200 OR LESS THAN 80 RN/RARE/ENDANGERED SPECIES SPECIALIST/OFFSHORE WIND TURBINE TECHNICIAN TO INSTRUCT PATIENT ON IMPORTANCE OF HGBA1C MONITORING, KIDNEY FUNCTION TEST, EYE AND FOOT EXAMS.] Future Scheduled Test FALL REDUC TION MANAGEMENT; RN TO ASSESS AND OBSERVE, OFFSHORE WIND TURBINE TECHNICIAN/RARE/ENDANGERED SPECIES SPECIALIST TO OBSERVE FALL RISK FACTORS AND EDUCATE PATIENT/CAREGIVER ON STRATEGIES TO MINIMIZE THE RISK OF FALLING. [code = FALL REDUCTION MANAGEMENT; RN TO ASSESS AND OBSERVE, OFFSHORE WIND TURBINE TECHNICIAN/RARE/ENDANGERED SPECIES SPECIALIST TO OBSERVE FALL RISK FACTORS AND EDUCATE PATIENT/CAREGIVER ON STRATEGIES TO MINIMIZE THE RISK OF FALLING.] Goal 2024-01-08 Patient Goal - HELP HEEL THE WOUND Goal Patient Goal - HELP HEEL THE WOUNDS Goal 2024-11-05 Patient Goal - HELP HEEL THE WOUNDS Goal 2024-09-03 Patient Goal - HELP HEEL THE WOUNDS Goal 2024-07-08 Patient Goal - HELP HEEL THE WOUND Goal 2024-03-10 Patient Goal - HELP HEEL THE WOUND Goal 2024-05-07 Patient Goal - HELP HEEL THE WOUND Goal Provider Goal - A PLAN OF CARE WILL BE ESTABLISHED THAT MEETS THE PATIENT S NEEDS. PATIENT WILL DEMONSTRATE OXYGEN SATURATION WITHIN NORMAL LIMITS OR PATIENT S OPTIMAL LEVEL ESTABLISHED BY THE PHYSICIAN THROUGHOUT [...] MEASURES BY EOE Goal Provider Goal - PATIENT / CAREGIVER WILL VERBALIZE / DEMONSTRATE AN ABILITY TO ADHERE TO SELF-MANAGEMENT OF DIABETES MANAGEMENT BY EOE Goal Provider Goal - PATIENT/CAREGIVER WILL VERBALIZE/DEMONSTRATE UNDERSTANDING OF FALL RISK FACTORS AND IMPLEMENT STRATEGIES TO MINIMIZE FALL RISK. PATIENT/CAREGIVER WILL VERBALIZE/DEMONSTRATE AN ABILITY TO ADHERE TO FALL REDUCTION SELF-MANAGEMENT AND LIFE-STYLE CHANGES BY EOE Encounters Start Date/Time End Date/Time Encounter Type Admission Type Attending [facility] Facility Care Department Encounter ID Discharge Date Discharge Status Discharge Condition Discharge Reason Percent Goals Met 2024-09-08 00:00:00 2024-11-06 00:00:00 Outpatient [facility] [id number] 10.00
--- OUTSIDE RECORDS SUMMARY | 2024-11-08 09:15 | XMS_ITS | Encounter Summary ---
Author Organization [facility] Address [address] [place] [address] Care Team Providers Care Car Salesman Name Role Phone Zia Morales MD Primary Care Provider [phone] Reason for Visit * Reason Comments Wound Care Encounter Details Date Type Department Care Team (Latest Contact Info) Description 11/08/2024 9:15 AM EDT Office Visit [facility] [address] [place] [address] Patsy Granado MD [address] [place] [address] [phone] Type 2 diabetes mellitus with foot ulcer (CODE) ([facility] V24, [facility] V28) (Primary Dx); Non-pressure chronic ulcer of right heel and midfoot with fat layer exposed ([facility] V24, [facility] V28); Non-pressure chronic ulcer of other part of right foot with fat layer exposed ([facility] V24, [facility] V28); Diabetic polyneuropathy associated with type 2 diabetes mellitus ([facility] V24, [facility] V28) Social History Tobacco Use Types [...] Sign Reading Time Taken Comments Blood Pressure 171/80 11/08/2024 9:10 AM EDT Pt asymptomatic Pulse 97 11/08/2024 9:10 AM EDT Temperature 36.2 C (97.2 F) 11/08/2024 9:10 AM EDT Respiratory Rate 17 11/08/2024 9:10 AM EDT Oxygen Saturation 100% 11/08/2024 9:1 0 AM EDT Inhaled Oxygen Concentration - - Weight - - Height - - Body Mass Index - - documented in this encounter Progress Notes * Monica Gotti RN - 11/08/2024 9:15 AM EDT PROVIDER ORDERS Go to ER if you are presenting with fever, chills, increased redness, pain, swelling, warmth aroundwound area and/or foul smelling odor. If you have any questions or concerns, please contact the [facility] [place] at . Follow up(s)/ Referrals: Podiatry: Follow up as scheduled -Make sure to use you offloading shoe [facility]: Home care: [facility] Additional Orders: -Increase protein in your diet to help promote wound healing, -Maintain good blood sugar control Lidocaine Order: Apply Lidocaine 4% Topical Solution prior to debridements at Wound Care appointments, Apply Lidocaine 5% Topical Ointment prior to debridements at Wound Care appointments Edema Control: (If your compression wrap(s) feel to tight, please elevate your leg(s) about heart level. If your wrap(s) are becoming painful and/or you loose sensation of toes/ are having toe discoloration (a change from your baseline), please remove / unwrap compression and notify [facility] [place] at . ) -Elevate legs above heart level as much as possible, -Avoid standing for extended periods of time Offloading: -Peg Assist offloading shoe to right foot- make sure to wear to help offload wound areas (dm shoes picked up) -Limit pressure to wound as much as [...] Wound #1 (Right heel): Cleanser: Cleanse with Vashe Periwound: Apply Zinc Oxide to pamela wound Topical: N/A Primary dressing: Hydrofiber with silver (Aquacel AG)- cut to fit to wound bed, Collagen with Silver- will dissolve in wound. If not dissolving you may moisten with saline prior to covering. (Telma to the base and alginate ag over) Secondary dressinx4 woven gauze (non-sterile), Other: May add some foam padding around wound tohelp offload wound Secure with: 3 conforming gauze roll, Spandage size 3, 1 paper tape Compression Therapy: Elevate legs above heart level as much as possible Dressing Change Frequency: Every Other Day Wound #2 (Right 1st met plantar foot): Cleanser: Cleanse with Vashe Periwound: Apply Zinc Oxide to pamela wound Topical: N/A Primary dressing: Hydrofiber with silver (Aquacel AG)- cut to fit to wound bed, Collagen with Silver- will dissolve in wound. If not dissolving you may moisten with saline prior to covering.(Telma to the base and alginate ag over) Secondary dressinx3 Foam border dressing Secure with: Spandage size 3 Compression Therapy: Elevate legs above heart level as much as possible Dressing Change Frequency: Every Other Day * Adilene Giordano RN - 11/08/2024 9:15 AM EDT Discharge Patient directed to check out at spreader operator automatic and collect visit summary with wound care directions and book follow up as directed. Dressings applied: Wound #1 (Right heel): Cleanser: Cleanse with Vashe Periwound: Zinc Oxide to pamela wound Primary dressing: Hydrofiber with silver (Aquacel AG)- cut to fit to wound bed, Collagen with Silver- will dissolve in wound. If not dissolving you may moisten with saline prior to covering. (Telma to the base and alginate ag over) Secondary dressinx4 woven gauze, 5x9 abd Secure with: 3 conforming gauze roll, Spandage size 3, 1 paper tape Wound #2 (Right 1st met plantar foot): Cleanser: Cleanse with Vashe Periwound:Zinc Oxide to pamela wound Primary dressing: Hydrofiber with silver (Aquacel AG)- cut to fit to wound bed, Collagen with Silver- will dissolve in wound. If not dissolving you may moisten with saline prior to covering.(Telma to the base and alginate ag over) Secondary dressing: gauze 4x4 Secure with: 3 conforming gauze roll, Spandage size 3, 1 paper tape Dressing technique was demonstrated and explained. Patient questions answered. Pt discharge from wound care center without issue or incidence. * Patsy Granado MD - 11/08/2024 9:15 AM EDTAssociated Order(s): Debridement Diabetic Ulcer (clustered) Right;Plantar Foot; Debridement Diabetic Ulcer (Cluster ) Right Heel Post-Procedure Diagnose(s): Type 2 diabetes mellitus with foot ulcer (CODE) ([facility] V24, [facility] V28); Non-pressure chronic ulcer of other part of right foot with fat layer exposed (CMS/HCC V24, CMS/HCC V28); Diabetic polyneuropathy associated with type 2 diabetes mellitus (CMS/HCC V24, CMS/HCC V28); Non- pressure chronic ulcer of right heel and midfoot with fat layer exposed (CMS/HCC V24, CMS/HCC V28) Images from the original note were not included. [facility] at [address] [id number] Office Visit Visit Date: 11/08/2024 Patient Name: Colleen Das Date of : 1955 PCP: Zia Morales MD HPI: Colleen comes in for follow-up of left foot first toe MP joint and ulcer and left heel ulcer, treated with Aquacel Ag dressing change 3 times weekly. Patient is a diabetic with neuropathy. She has had no fever no chills. Visiting nurses helping with dressing change at home. She declined to have a total cast application, she is afraid of falling down. Assessment and Plan: Type 2 diabetes mellitus with foot ulcer (CODE) ([facility] V24, [facility] V28) (Primary) - Debridement Diabetic Ulcer (clustered) Right;Plantar Foot - Debridement Diabetic Ulcer (Cluster ) Right Heel Non-pressure chronic ulcer of right heel and midfoot with fat layer exposed ([facility] V24, [facility] V28) - Debridement Diabetic Ulcer (Cluster ) Right Heel Non-pressure chronic ulcer of other part of right foot with fat layer exposed ([facility] V24, [facility]) - Debridement Diabetic Ulcer (clustered) Right;Plantar Foot Diabetic polyneuropathy associated with type 2 diabetes mellitus ([facility] V24, [facility] V28) - Debridement Diabetic Ulcer (clustered) Right;Plantar Foot - Debridement Diabetic Ulcer (Cluster ) Right Heel All questions were answered to her satisfaction. She was counseled regarding my impressions, instructions for management, and the importance of compliance with treatment. Follow up in about 1 week (around 11/15/2024) for Follow up with Dr. Granado. >>>>>>>>>>>>>>>>>>>>>>>>>>>>>>>>>>>>>>>>>>>>>>>>>>> Vital Signs: Visit Vitals BP (!) 171/80 Comment: Pt asymptomatic Pulse 97 Temp 36.2 ??C (97.2 ??F) (Temporal) Resp 17 Review of Systems: Review of Systems PHYSICAL EXAM. Left foot first toe plantar ulcer, MP joint area down to subcu tissue, thick callus around the edges, fibrin and slough in the base. There is some granulation tissue in the wound. Left heel ulcer about same size, with pink granulation tissue in the base, fibrin and slough, thickcallus around the edges. Periwound skin intact no cellulitis. No foot edema. Dorsalis pedis pulse palpable. WOUND ASSESSMENT If photograph of wound not visible on this note, please check under Media tab. Wound Diabetic Ulcer 11/24/23 Heel Right (Active) Date First Assessed: 11/24/23 Primary Wound Type: (c) Diabetic Ulcer Wound Approximate Age at FirstAssessment (Weeks): 67 weeks Hand Hygiene Completed: Yes Diabetic Ulcer Grading: Grade 1 Location: Heel Wound Location Orientation: Right Assessments 12/29/2023 9:16 AM 11/08/2024 9:16 AM Wound Image Wound Bed Tissue Assessment Granulation;Pale;Cataract;Sloughing Granulation;Sloughing Pamela-Wound Assessment Callused;Peeling Callused;Dry;Peeling Wound Length (cm) 0.9 cm 0.9 cm Wound Width (cm) 1.5 cm 0.7 cm Wound Surface Area (cm^2) 1.35 cm^2 0.63 cm^2 Wound Depth (cm) 0.3 cm 0.7 cm Wound Volume (cm^3) 0.405 cm^3 0.441 cm^3 Wound Healing % -- -9 Drainage Description Serosanguineous Serosanguineous Drainage Amount Moderate Moderate Treatments Other (Comment);Cleansed Cleansed;Other (Comment) Dressing Gauze Alginate;Gauze Dressing Status Removed Removed Wound Bed Granulation (%) 90 % 60 % Wound Bed Slough (%) 10 % 40 % Wound Bed Eschar (%) 0 % 0 % Tunneling 0 cm 0 cm Undermining 0.3 cm 0.6 cm Underming Start Clock Position of Wound 10 o'clock 12 o'clock Underming End Clock Position of Wound 1 o'clock 12 o'clock Edges Well-defined edges;Not attached Well-defined edges;Not attached Non-staged Wound Description Full thickness Full thickness Active Orders Date Order Priority Status Authorizing Provider 11/08/24 0947 Debridement Diabetic Ulcer (Cluster ) Right Heel Routine Active Patsy Granado MD Inactive Orders Date Order Priority Status Authorizing Provider 10/25/24 1040 Debridement Diabetic Ulcer (Cluster ) Right Heel Routine Completed Patsy Granado MD 10/11/24 0928 Debridement Diabetic Ulcer (Cluster ) Right Heel Routine Completed Patsy Granado MD 10/04/24 0932 Debridement Diabetic Ulcer (Cluster ) Right Heel Routine Completed Patsy Granado MD 09/27/24 0940 Debridement Diabetic Ulcer (Cluster ) Right Heel Routine Completed Patsy Granado MD 09/20/24 1028 Debridement Diabetic Ulcer (Cluster ) Right Heel Routine Completed Patsy Granado MD 09/13/24 1042 Debridement Diabetic Ulcer Right Heel Routine Completed Patsy Granado MD 08/30/24 1006 Debridement Diabetic Ulcer Right Heel Routine Completed Patsy Granado MD 08/16/24 1011 Debridement Diabetic Ulcer Right Heel Routine Completed Patsy Granado MD 08/02/24 0941 Debridement Diabetic Ulcer Right Heel Routine Completed Patsy Granado MD 07/19/24 0934 Debridement Diabetic Ulcer Right Heel Routine Completed Patsy Granado MD 07/05/24 0938 Debridement Diabetic Ulcer Right Heel Routine Completed Patsy Granado MD 06/28/24 0911 Debridement Diabetic Ulcer Right Heel Routine Completed Patsy Granado MD 06/14/24 0918 Debridement Diabetic Ulcer Right Heel [...] Right Heel Routine Completed Patsy Granado MD 03/29/24 0932 Debridement Diabetic Ulcer [...] Completed Patsy Granado MD Wound Diabetic Ulcer 07/05/24 Foot Right;Plantar (Active) Date First Assessed: 07/05/24 Primary Wound Type: (c) Diabetic Ulcer Wound Approximate Age at FirstAssessment (Weeks): 1 weeks Hand Hygiene Completed: Yes Diabetic Ulcer Grading: Grade 1 Location: Foot Wound Location Orientation: Right;Plantar... Assessments 07/05/2024 9:09 AM 11/08/2024 9:18 AM Wound Image Wound Bed Tissue Assessment Cataract Granulation;Sloughing Pamela-Wound Assessment Callused;Dry Callused;Scarred;Moist Wound Length (cm) 1 cm 1 cm Wound Width (cm) 1.2 cm 0.5 cm Wound Surface Area (cm^2) 1.2 cm^2 0.5 cm^2 Wound Depth (cm) 0.2 cm 0.5 cm Wound Volume (cm^3) 0.24 cm^3 0.25 cm^3 Wound Healing % -- -4 Drainage Description Serosanguineous Serosanguineous Drainage Amount -- Moderate Treatments Cleansed Cleansed;Other (Comment) Dressing -- Alginate;Gauze Dressing Status -- Removed Wound Bed Granulation (%) 100 % 80 % Wound Bed Slough (%) 0 % 20 % Wound Bed Eschar (%) 0 % 0 % Tunneling 0 cm 0 cm Undermining 0 cm 0.5 cm Underming Start Clock Position of Wound -- 4 o'clock Underming End Clock Position of Wound -- 7 o'clock Edges Attached edges Well-defined edges;Not attached Non-staged Wound Description -- Full thickness Active Orders Date Order Priority Status Authorizing Provider 11/08/24 0947 Debridement Diabetic Ulcer (clustered) Right;Plantar Foot Routine Active Patsy Granado MD Inactive Orders Date Order Priority Status Authorizing Provider 10/25/24 1029 Debridement Diabetic Ulcer (clustered) Right;Plantar Foot Routine Completed Patsy Granado MD 10/11/24 0924 Debridement Diabetic Ulcer (clustered) Right;Plantar Foot Routine Completed Patsy Granado MD 10/04/24 0928 Debridement Diabetic Ulcer (clustered) Right;Plantar Foot Routine Completed Patsy Granado MD 09/27/24 0934 Debridement Diabetic Ulcer (clustered) Right;Plantar Foot Routine Completed Patsy Granado MD 09/20/24 1023 Debridement Diabetic Ulcer (clustered) Right;Plantar Foot Routine Completed Patsy Granado MD 09/13/24 1032 Debridement Diabetic Ulcer (clustered) Right;Plantar Foot Routine Completed Patsy Granado MD 08/30/24 0959 Debridement Diabetic Ulcer (clustered) Right;Plantar Foot Routine Completed Patsy Granado MD 08/02/24 0940 Debridement Diabetic Ulcer (clustered) Right;Plantar Foot Routine Completed Patsy Granado MD 07/19/24 0927 Debridement Diabetic Ulcer (clustered) Right;Plantar Foot Routine Completed Patsy Granado MD 07/05/24 0926 Debridement Diabetic Ulcer Right;Plantar Foot Routine Completed Patsy Granado MD Pertinent Labs: No results found for: ALB , WBC , PREALBUMIN , HEMOGLOBIN A1C , POCT GLUCOSE Procedure Note: Debridement Diabetic Ulcer (clustered) Right;Plantar Foot Performed by: Patsy Granado MD Authorized by: Patsy Granado MD Associated wounds: Wound Diabetic Ulcer 07/05/24 Foot Right;Plantar Consent: Consent obtained: Verbal Consent given by: Patient Risks discussed: Yes Time out: Immediately prior to the procedure a time out was called Time out performed at: 11/08/2024 9:47 AM Debridement Details: Performed by: Physician Type: selective Pain control: Lidocaine 5% Pain control administration: topical anesthesia Severity of Tissue Pre Debridement: Fat layer exposed Severity of Tissue Post Debridement: Fat layer exposed Length (cm): 1 Width (cm): 0.5 Depth (cm): 0.5 Area (cm^2): 0.5 Length (cm): 1 Width (cm): 0.5 Depth (cm): 0.3 Percent Debrided (%): 100 Surface Area (cm^2): 0.5 Area Debrided (cm^2): 0.5 Volume (cm^3): 0.15 Devitalized tissue debrided: callus, fibrin and slough Devitalized tissue debrided comment: Devitalized skin Instrument: Blade and forceps Amount of bleeding: small Hemostasis obtained with: Pressure Procedural pain: 0 Post-procedural pain: 0 Response to treatment: Procedure was tolerated well Debridement Diabetic Ulcer (Cluster ) Right Heel Performed by: Patsy Granado MD Authorized by: Patsy Granado MD Associated wounds: Wound Diabetic Ulcer 11/24/23 Heel Right Consent: Consent obtained: Verbal Consent given by: Patient Risks discussed: Yes Time out: Immediately prior to the procedure a time out was called Time out performed at: 11/08/2024 10:05 AM Debridement Details: Performed by: Physician Type: selective Pain control administration: topical anesthesia Severity of Tissue Pre Debridement: Fat layer exposed Severity of Tissue Post Debridement: Fat layer exposed Length (cm): 0.9 Width (cm): 0.7 Depth (cm): 0.7 Area (cm^2): 0.63 Length (cm): 0.9 Width (cm): 0.7 Depth (cm): 0.4 Percent Debrided (%): 100 Surface Area (cm^2): 0.63 Area Debrided (cm^2): 0.63 Volume (cm^3): 0.25 Devitalized tissue debrided: callus, fibrin and slough Devitalized tissue debrided comment: Devitalized skin Instrument: Blade and forceps Amount of bleeding: small Hemostasis obtained with: Pressure Procedural pain: 0 Post-procedural pain: 0 Response to treatment: Procedure was tolerated well PROVIDER ORDERS Patient Instructions PROVIDER ORDERS Go to ER if you are presenting with fever, chills, increased redness, pain, swelling, warmth aroundwound area and/or foul smelling odor. If you have any questions or concerns, please contact the [facility] at . Follow up(s)/ Referrals: Podiatry: Follow up as scheduled -Make sure to use you offloading shoe [facility]: Home care: [facility] Additional Orders: -Increase protein in your diet to help promote wound healing, -Maintain good blood sugar control Lidocaine Order: Apply Lidocaine 4% Topical Solution prior to debridements at Wound Care appointments, Apply Lidocaine 5% Topical Ointment prior to debridements at Wound Care appointments Edema Control: (If your compression wrap(s) feel to tight, please elevate your leg(s) about heart level. If your wrap(s) are becoming painful and/or you loose sensation of toes/ are having toe discoloration (a change from your baseline), please remove / unwrap compression and notify [facility] at . ) -Elevate legs above heart level as much as possible, -Avoid standing for extended periods of time Offloading: -Peg Assist offloading shoe to right foot- make sure to wear to help offload wound areas (dm shoes picked up) -Limit pressure to wound as much as [...] Wound #1 (Right heel): Cleanser: Cleanse with Vashe Periwound: Apply Zinc Oxide to pamela wound Topical: N/A Primary dressing: Hydrofiber with silver (Aquacel AG)- cut to fit to wound bed, Collagen with Silver- will dissolve in wound. If not dissolving you may moisten with saline prior to covering. (Telma to the base and alginate ag over) Secondary dressinx4 woven gauze (non-sterile), Other: May add some foam padding around wound tohelp offload wound Secure with: 3 conforming gauze roll, Spandage size 3, 1 paper tape Compression Therapy: Elevate legs above heart level as much as possible Dressing Change Frequency: Every Other Day Wound #2 (Right 1st met plantar foot): Cleanser: Cleanse with Vashe Periwound: Apply Zinc Oxide to pamela wound Topical: N/A Primary dressing: Hydrofiber with silver (Aquacel AG)- cut to fit to wound bed, Collagen with Silver- will dissolve in wound. If not dissolving you may moisten with saline prior to covering.(Telma to the base and alginate ag over) Secondary dressinx3 Foam border dressing Secure with: Spandage size 3 Compression Therapy: Elevate legs above heart level as much as possible Dressing Change Frequency: Every Other Day 11/08/2024 11:43 AM EDT Patsy Granado MD documented in this encounter Plan of Treatment Upcoming Encounters Date Type Department Care Team (Late st Contact Info) Description 11/15/2024 9:30 AM EDT Clinical Support [facility] [address] [place] [phone] 11/22/2024 9:15 AM EDT Clinical Support [facility] [address] [place] [phone] 12/06/2024 9:15 AM EDT Clinical Support [facility] [address] [place] [phone] 12/20/2024 9:15 AM EST Clinical Support [facility] [address] [place] [phone] documented as of this encounter Goals Goal Patient Goal Type Associated Problems Recent Progress Patient-Stated? Author Decrease Wound Volume by X% by date (in notes) Care Plan Impaired Tissue No change(2024 9:47 AM EDT) No Monica Gotti RN Note: 04/26- Patient still is not wearing Offloading shoe Patient and Caregiver Understand Wound Care Education Care Plan Impaired Tissue Not on track( 9:47 AM EDT) No Monica Gotti RN Wound volume breakdown [...] Priority Date/Time Associated Diagnosis Comments DEBRIDEMENT Routine 11/08/2024 9:15 AM EDT Type 2 diabetes mellitus with foot ulcer (CODE) (CMS/[facility] V24, CMS/HCC V28) Non-pressure chronic ulcer of right heel and midfoot with fat layer exposed (CMS/HCC V24, CMS/HCC V28) Diabetic polyneuropathy associated with type 2 diabetes mellitus (CMS/HCC V24, CMS/HCC V28) DEBRIDEMENT Routine 11/08/2024 9:15 AM EDT Type 2 diabetes mellitus with foot ulcer (CODE) (CMS/HCC V24, CMS/HCC V28) Non-pressure chronic ulcer of other part of right foot with fat layer exposed (CMS/HCC V24, CMS/[facility] V28) Diabetic polyneuropathy associated with type 2 diabetes mellitus (CMS/HCC V24, CMS/[facility] V28) documented in this encounter Results * Debridement Diabetic Ulcer (Cluster ) Right Heel (11/08/2024 9:15 AM EDT) Patsy Lutz MD - 11/08/2024 9:15 AM EDT Patsy Granado MD 11/08/2024 11:43 AM Debridement Diabetic Ulcer (Cluster ) Right Heel Performed by: Patsy Granado MD Authorized by: Patsy Granado MD Associated wounds: Wound Diabetic Ulcer 11/24/23 Heel Right Consent: Consent obtained: Verbal Consent given by: Patient Risks discussed: Yes Time out: Immediately prior to the procedure a time out was called Time out performed at: 11/08/2024 10:05 AM Debridement Details: Performed by: Physician Type: selective Pain control administration: topical anesthesia Severity of Tissue Pre Debridement: Fat layer exposed Severity of Tissue Post Debridement: Fat layer exposed Length (cm): 0.9 Width (cm): 0.7 Depth (cm): 0.7 Area (cm^2): 0.63 Length (cm): 0.9 Width (cm): 0.7 Depth (cm): 0.4 Percent Debrided (%): 100 Surface Area (cm^2): 0.63 Area Debrided (cm^2): 0.63 Volume (cm^3): 0.25 Devitalized tissue debrided: callus, fibrin and slough Devitalized tissue debrided comment: Devitalized skin Instrument: Blade and forceps Amount of bleeding: small Hemostasis obtained with: Pressure Procedural pain: 0 Post-procedural pain: 0 Response to treatment: Procedure was tolerated well Patsy Granado MD IN CLINIC/BEDSIDE ORDERAB LES Final Result * Debridement Diabetic Ulcer (clustered) Right;Plantar Foot (11/08/2024 9:15 AM EDT) Patsy Lutz MD - 11/08/2024 9:15 AM EDT Patsy Granado MD 11/08/2024 11:43 AM Debridement Diabetic Ulcer (clustered) Right;Plantar Foot Performed by: Patsy Granado MD Authorized by: Patsy Granado MD Associated wounds: Wound Diabetic Ulcer 07/05/24 Foot Right;Plantar Consent: Consent obtained: Verbal Consent given by: Patient Risks discussed: Yes Time out: Immediately prior to the procedure a time out was called Time out performed at: 11/08/2024 9:47 AM Debridement Details: Performed by: Physician Type: selective Pain control: Lidocaine 5% Pain control administration: topical anesthesia Severity of Tissue Pre Debridement: Fat layer exposed Severity of Tissue Post Debridement: Fat layer exposed Length (cm): 1 Width (cm): 0.5 Depth (cm): 0.5 Area (cm^2): 0.5 Length (cm): 1 Width (cm): 0.5 Depth (cm): 0.3 Percent Debrided (%): 100 Surface Area (cm^2): 0.5 Area Debrided (cm^2): 0.5 Volume (cm^3): 0.15 Devitalized tissue debrided: callus, fibrin and slough Devitalized tissue debrided comment: Devitalized skin Instrument: Blade and forceps Amount of bleeding: small Hemostasis obtained with: Pressure Procedural pain: 0 Post-procedural pain: 0 Response to treatment: Procedure was tolerated well Result [facility] Patsy Granado MD IN CLINIC/BEDSIDE ORDERAB LES Final Result documented in this encounter Visit Diagnoses Diagnosis Type 2 diabetes mellitus with foot ulcer (CODE) ([facility] V24, [facility] V28)- Primary Non-pressure chronic ulcer of right heel and midfoot with fat layer exposed ([facility]/HCC V24, [facility] V28) Non-pressure chronic ulcer of other part of right foot with fat layer exposed ([facility] V24, CMS/[facility] V28) Diabetic polyneuropathy associated with type 2 diabetes mellitus ([facility] [facility] V24, [facility] V28) documented in this encounter Additional Health Concerns Active Problems Noted Date Diagnosed Date Impaired Tissue 12/29/2023 Education needed on impact of smoking on wound 1 02/27/2023 Education needed related to ulceration/compromised skin integrity. 12/29/2023 documented as of this encounter Care Teams Car Salesman Relationship Specialty Start Date End Date Zia Morales MD [address] [place] [address] Dr Esteban [place] PCP - General Internal Medicine 12/15/23 documented as of this encounter
--- OUTSIDE RECORDS SUMMARY | 2024-11-09 06:59 | XMS_ITS | Patient Health Record ---
[facility] Address [address] [place] [address] Care Team Providers Care Magazine Designer Name Role Phone Alison Christian MD Primary Care Provider Ivette Castellano Unavailable [phone] Allergies Allergen (clinical drug ingredient) Drug/Non Drug [...] Lab: Notes/Report: HEMOGLOBIN A1C % (HH) 8.2 HEMOGLOBIN A1C (GLYCOHEMOGLO BIN) Reviewed date:08/18/2024 08:58:55 AM Interpretation: Performing Lab: Notes/Report: HEMOGLOBIN A1C % (HH) 7.8 Reason For Referral No Information Medications Medication [...] Right -offloading needed for orthotic 02/24/2024 Active Augmentin 500-125 MG 1 tablet Orally srinivas ry 12 hrs; Duration: 10 days 08/25/2023 Active metFORMIN HCl 500 MG 1 tablet with a nata l Orally Once a day Active Walker as directed 05/06/2023 Active Keflex 500 MG 1 capsule Orally srinivas ry 12 hrs; Duration: 10 day(s) 08/19/2023 Not-Taking Cipro 500 MG 1 tablet Orally ever y 12 hrs; Duration: 7 days 08/25/2023 Not-Taking Ciprofloxacin HCl 500 MG 1 tablet Orally every 12 hrs; Duration: 7 days 05/24/2024 Not-Taking Immunizations Vaccine Route Administration Date Status Comme nts Influenza Unknown 10/18/2022 Administered Influenza Unknown 10/19/2023 Administered Social History Tobacco Use: Social History [...] Problem Acquired hammer toe of right foot (2279933654232886 ) Other hammer toe(s) (acquired), right foot (M20.41) Active confirmed Problem Acquired hammer toe of left foot (4860222382297064 ) Other hammer toe(s) (acquired), left foot (M20.42) Active confirmed Problem Polyneuropathy due to type 2 diabetes mellitus (855423886) Type 2 diabetes mellitus with diabetic polyneuropathy (E11.42) Active confirmed Problem Chronic ulcer of right foot (5006675916999918 0) Type 2 diabetes mellitus with foot ulcer (E11.621) Active confirmed Vital Signs Blood pressure diastolic 82 mm Hg 08/18/2024 Height 5ft7in in 08/18/2024 Blood pressure systolic 134 mm Hg 08/18/2024 Weight 265 lbs 08/18/2024 BMI 41.5 kg/m2 08/18/2024 Encounters Encounter Location Date Provider Diagnosis [facility] [place] [address] [place] [address] 11/21/2023 Ivette Perica 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 L97.412 ; Cellulitis of right foot L03.115 ; Type 2 diabetes mellitus with diabetic polyneuropathy E11.42 ; Primary osteoarthritis, right ankle and foot M19.071 ; Post-traumatic arthritis of ankle, right M19.171 ; Rigid pes planus, right Q66.51 ; Type 2 diabetes mellitus with foot ulcer E11.621 and Tinea unguium B35.[address] [address] 02/24/2024 Ivette Diaz Neuropathic ulcer of right [...] Other hammer toe(s) (acquired), left foot M20.[address] [address] 05/19/2024 Ivette Diaz Type 2 diabetes mellitus [...] Other hammer toe(s) (acquired), left foot M20.[address] [address] 08/18/2024 Ivette Diaz Type 2 diabetes mellitus with foot ulcer E11.621 ; Type 2 diabetes mellitus with diabetic polyneuropathy E11.42 ; 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 L97.412 and Tinea unguium B35.[address] [address] 05/19/2024 Ivette Diaz Assessments Encounter Date Diagnosis [...] mellitus with foot ulcer (ICD-10 - E11.621) 08/18/2024 Type 2 diabetes mellitus with diabetic polyneuropathy (ICD-10 - E11.42) 08/18/2024 Type 2 diabetes mellitus with foot ulcer (ICD-10 - E11.621) 08/18/2024 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 (ICD-10 - L97.412) 05/19/2024 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 (ICD-10 - L97.412) 02/24/2024 Type 2 diabetes mellitus with diabetic polyneuropathy (ICD-10 - E11.42) 11/21/2023 Type 2 diabetes mellitus with diabetic polyneuropathy (ICD-10 - E11.42) 11/21/2023 Primary osteoarthritis, right ankle and foot (ICD-10 - M19.071) 02/24/2024 Primary osteoarthritis, right ankle and foot (ICD-10 - M19.071) 08/18/2024 Tinea unguium (ICD-10 - B35.1) 05/19/2024 Type 2 diabetes mellitus with diabetic [...] E11.621) 11/21/2023 Tinea unguium (ICD-10 - B35.1) 02/24/2024 [...] 05/06/2023 Transferrin 05/06/2023 *CBC With Differential/Platelet 05/06/19 24 RBC 05/06/2023 C-Reactive Protein, Quant 05/06/2023 Prealbumin 05/06/2023 Basic Metabolic Panel (8) 05/06/2023 ESR 05/06/2023 X ray : Foot, right 3V 05/06/2023 X ray : Foot, right 3V 11/07/2023 X ray : Ankle, right 3V 05/06/2023 Next Appt Details Provider Name:Ivette lock, 12/01/2024 09:00:00 AM, [address] [place] [address], [phone], Insurance Providers Payer Name Payer Address Payer Phone Subscriber Number Group Number Insured Name Patient Relationship to Insured Coverage Start Date Coverage End Date [employer] [address] [place]em[place] [phone] [id number] Colleen Das Self - patient is the insured 4 Medical (General) History Medical History History ICD Code Diabetic Neuropathy ulcer Measles Bone implants/screws Surgical History Surgery Date(Month/Year) Broken right ankle 2012 Hospitalization History Reason Date(Month/Year) ER- fell 04/17/24 infected ulcer on left foot
--- OUTSIDE RECORDS SUMMARY | 2024-11-09 06:59 | XMS_ITS ---
Care Plan Created on: November 09, 2024 Colleen Das : 1955 Sex: Female Author Organization [facility] Address [address] [place] [address] Phone Care Team Providers Care Surveying Teacher Name Role Phone Zia Morales MD Primary Care Provider [phone] Active Problems Problem Noted Date Diagnosed Date Non-pressure chronic ulcer o f other part of right foot limited to breakdown of skin ([facility] [place], [facility] V28) 08/30/2024 Non-pressure chronic ulcer o f right heel and midfoot with fat layer exposed ([facility], [facility] V28) 07/19/2024 Diabetic polyneuropathy asso ciated with type 2 diabetes mellitus ([facility] V24, [facility] V28) 05/24/2024 Type 2 diabetes mellitus wit h foot ulcer (CODE) ([facility], [facility] V28) 04/26/2024 Chronic heel ulcer, right, w ith fat layer exposed ([facility] V24, [facility] V28) 01/12/2024 Type 2 diabetes mellitus wit h right diabetic foot ulcer ([facility] V24, [facility] V28) 01/05/2024 Non-pressure chronic ulcer o f other part of right foot with fat layer exposed ([facility] V24, [facility] V28) 01/05/2024 Additional Health Concerns Active Problems Noted Date Diagnosed Date Impaired Tissue 12/29/2023 Education needed on impact of smoking on wound 1 02/27/2023 Education needed related to ulceration/compromised skin integrity. 12/29/2023 Goals Goal Patient Goal Type Associated Problems Recent Progress Patient-Stated? Author Decrease Wound Volume by X% by date (in notes) Care Plan Impaired Tissue No change(2024 9:47 AM EDT) Monica Delgado RN Note: 04/26- Patient still is not wearing Offloading shoe Patient and Caregiver Understand Wound Care Education Care Plan Impaired Tissue Not on track( 025 9:47 AM EDT) Monica Delgado RN Wound volume breakdown reduced by X% by week 4 Care Plan Impaired Tissue Monica Delgado RN Wound volume breakdown reduced by X% by week 8 Care Plan Impaired Tissue Moinca Delgado RN Wound volume breakdown reduced by [...]
--- OUTSIDE RECORDS SUMMARY | 2024-11-09 06:59 | XMS_ITS | Clinical Summary ---
Author Organization [facility] Address [address] [place] [address] Phone Care Team Providers Care Burlap Spreader Name Role Phone Zia Morales MD Primary Care Provider [phone] Allergies Active Allergy Reactions Criticality Noted Date [...] BLOOD SUGAR TWICE DAILY DIRECTED 12/09/2023 Active amoxicillin-cla vulanate (AUGMENTIN) 500-125 mg per tablet Take by mouth. 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 ([facility] V24, [facility] V28) 07/19/2024 Diabetic polyneuropathy asso ciated with type 2 diabetes mellitus ([facility] V24, [facility] V28) 05/24/2024 Type 2 diabetes mellitus wit h foot ulcer (CODE) ([facility] V24, [facility] V28) 04/26/2024 Chronic heel ulcer, right, w ith fat layer exposed ([facility] V24, [facility] V28) 01/12/2024 Type 2 diabetes mellitus wit h right diabetic foot ulcer (CMS/HCC V24, CMS/HCC V28) 01/05/2024 Non-pressure chronic ulcer o f other part of right foot with fat layer exposed (CMS/HCC V24, CMS/HCC V28) 01/05/2024 Encounters Date Type Department Care Team Description 11/08/2024 9:15 AM EDT Office Visit [facility] [address] [place] [phone] Patsy Granado MD Type 2 diabetes mellitus with foot ulcer (CODE) (CMS/HCC V24, CMS/[facility] V28) (Primary Dx); Non-pressure chronic ulcer of right heel and midfoot with fat layer exposed (CMS/HCC V24, CMS/HCC V28); Non-pressure chronic ulcer of other part of right foot with fat layer exposed (CMS/HCC V24, CMS/HCC V28); Diabetic polyneuropathy associated with type 2 diabetes mellitus (CMS/HCC V24, CMS/HCC V28) 10/25/2024 9:15 AM EDT Office Visit [facility] [address] [place] [phone] Patsy Granado MD Type 2 diabetes mellitus with foot ulcer (CODE) (CMS/HCC V24, CMS/[facility] V28) (Primary Dx); Non-pressure chronic ulcer of right heel and midfoot with fat layer exposed (CMS/HCC V24, CMS/HCC V28); Non-pressure chronic ulcer of other part of right foot with fat layer exposed (CMS/HCC V24, CMS/HCC V28); Diabetic polyneuropathy associated with type 2 diabetes mellitus (CMS/HCC V24, CMS/HCC V28) 10/11/2024 9:00 AM EDT Office Visit [facility] [address] [place] [phone] Patsy Granado MD Type 2 diabetes mellitus with foot ulcer (CODE) ([facility]/HCC V24, CMS/HCC V28) (Primary Dx); Non-pressure chronic ulcer of right heel and midfoot with fat layer exposed (CMS/HCC V24, CMS/HCC V28); Non-pressure chronic ulcer of other part of right foot with fat layer exposed (CMS/HCC V24, CMS/HCC V28); Diabetic polyneuropathy associated with type 2 diabetes mellitus (CMS/HCC V24, CMS/HCC V28) 10/04/2024 9:00 AM EDT Office Visit [facility] [address] [place] [phone] Patsy Granado MD Type 2 diabetes mellitus with foot ulcer (CODE) (CMS/HCC V24, CMS/HCC V28) (Primary Dx); Non-pressure chronic ulcer of right heel and midfoot with fat layer exposed (CMS/HCC V24, CMS/HCC V28); Non-pressure chronic ulcer of other part of right foot with fat layer exposed (CMS/HCC V24, CMS/HCC V28); Diabetic polyneuropathy associated with type 2 diabetes mellitus (CMS/HCC V24, CMS/HCC V28) 09/27/2024 9:15 AM EDT Office Visit [facility] [address] [place] [phone] Patsy Granado MD Type 2 diabetes mellitus with foot ulcer (CODE) (CMS/HCC V24, CMS/HCC V28) (Primary Dx); Non-pressure chronic ulcer of right heel and midfoot with fat layer exposed (CMS/HCC V24, CMS/HCC V28); Non-pressure chronic ulcer of other part of right foot with fat layer exposed (CMS/HCC V24, CMS/HCC V28); Diabetic polyneuropathy associated with type 2 diabetes mellitus (CMS/HCC V24, CMS/HCC V28) 09/20/2024 9:15 AM EDT Office Visit [facility] [address] [place] [phone] Patsy Granado MD Type 2 diabetes mellitus with foot ulcer (CODE) (CMS/HCC V24, CMS/HCC V28) (Primary Dx); Non-pressure chronic ulcer of right heel and midfoot with fat layer exposed (CMS/HCC V24, CMS/HCC V28); Non-pressure chronic ulcer of other part of right foot with fat layer exposed (CMS/HCC V24, CMS/[facility] V28) 09/13/2024 9:30 AM EDT Office Visit [facility] [address] [place] [phone] Patsy Granado MD Type 2 diabetes mellitus with foot ulcer (CODE) ([facility]/HCC V24, CMS/HCC V28) (Primary Dx); Non-pressure chronic ulcer of right heel and midfoot with fat layer exposed (CMS/HCC V24, CMS/HCC V28); Non-pressure chronic ulcer of other part of right foot with fat layer exposed (CMS/HCC V24, CMS/HCC V28); Diabetic polyneuropathy associated with type 2 diabetes mellitus (CMS/HCC V24, CMS/HCC V28) 08/30/2024 9:30 AM EDT Office Visit [facility] [address] [place] [phone] Patsy Granado MD Type 2 diabetes mellitus with foot ulcer (CODE) (CMS/HCC V24, CMS/[facility] V28) (Primary Dx); Non-pressure chronic ulcer of right heel and midfoot with fat layer exposed (CMS/HCC V24, CMS/HCC V28); Non-pressure chronic ulcer of other part of right foot limited to breakdown of skin (CMS/HCC V24, CMS/HCC V28); Diabetic polyneuropathy associated with type 2 diabetes mellitus (CMS/HCC V24, CMS/HCC V28) 08/16/2024 9:15 AM EDT Office Visit [facility] [address] [place] [phone] Patsy Granado MD Type 2 diabetes mellitus with foot ulcer (CODE) ([facility]/HCC V24, CMS/HCC V28) (Primary Dx); Non-pressure chronic ulcer of right heel and midfoot with fat layer exposed (CMS/HCC V24, CMS/[facility] V28); Non-pressure chronic ulcer of other part of right foot limited to breakdown of skin (CMS/HCC V24, CMS/HCC V28) from Last 3 Months Surgical History Surgery Date Site/Laterality Comments ANKLE FRACTURE SURGERY 02/18/2012 - 02/16/2013 Right Medical History Medical History Date Comments Diabetes mellitus ([facility]/HCC V24, CMS/HCC V28) Arthritis Neuropathy Delayed wound healing Family History Medical History Relation Name Comments [...] Description 11/15/2024 9:30 AM EDT Clinical Support [facility] [address] [place] [phone] 11/22/2024 9:15 AM EDT Clinical Support [facility] [address] [place] [phone] 12/06/2024 9:15 AM EDT Clinical Support [facility] [address] [place] [phone] 12/20/2024 9:15 AM EST Clinical Support [facility] [address] [place] [phone] Health Maintenance Due Date Last Done Comments [...] (2 - Td or Tdap) 10/28/2022 10/28/2012 Cholesterol Screening (Lipid Panel) 11/27/2023 Colorectal Cancer Screening: Colonoscopy 11/27/2023 Diabetes: Annual Urine Albumin-Creatinine Ratio (uACR) 11/27/2023 Diabetes: Blood Sugar Contro l Test (HGBA1C) 11/27/2023 Hepatitis C Screening 11/27/2023 Medicare Annual Wellness Visit 11/27/2023 Osteoporosis Screening (Bone Density Screening) 11/27/2023 Social Influencers of Health Screening 11/27/2023 Depression Screening 02/18/2024 Hypertension/CHF/CAD Annual BMP Blood Test 05/10/2024 COVID-19 Vaccine (3 - 2024-2 6 season) 2024 02/05/2021, 12/14/2020 Influenza Vaccine (#1) 2024 , 10/18/2022 Falls Risk Assessment 04/26/2025 04/26/2024 HIB Vaccines [...] Tissue Not on track( 9:47 AM EDT) Monica Delgado RN Wound [...] omised skin integrity. No Monica Gotti RN Procedures Procedure Name Priority Date/Time Associated Diagnosis Comments DEBRIDEMENT Routine 11/08/2024 9:15 AM EDT Type 2 diabetes mellitus with foot ulcer (CODE) ([facility] V24, CMS/[facility] V28) Non-pressure chronic ulcer of right heel and midfoot with fat layer exposed (CMS/[facility] V24, CMS/[facility] V28) Diabetic polyneuropathy associated with type 2 diabetes mellitus (CMS/[facility] V24, CMS/[facility] V28) DEBRIDEMENT Routine 11/08/2024 9:15 AM EDT Type 2 diabetes mellitus with foot ulcer (CODE) (CMS/[facility] V24, CMS/[facility] V28) Non-pressure chronic ulcer of other part of right foot with fat layer exposed (CMS/HCC V24, CMS/HCC V28) Diabetic polyneuropathy associated with type 2 diabetes mellitus (CMS/HCC V24, CMS/HCC V28) DEBRIDEMENT Routine 10/25/2024 9:15 AM EDT Type 2 diabetes mellitus with foot ulcer (CODE) (CMS/HCC V24, CMS/HCC V28) Non-pressure chronic ulcer of right heel and midfoot with fat layer exposed (CMS/HCC V24, CMS/HCC V28) Diabetic polyneuropathy associated with type 2 diabetes mellitus (CMS/HCC V24, CMS/HCC V28) DEBRIDEMENT Routine 10/25/2024 9:15 AM EDT Type 2 diabetes mellitus with foot ulcer (CODE) (CMS/HCC V24, CMS/HCC V28) Non-pressure chronic ulcer of other part of right foot with fat layer exposed (CMS/HCC V24, CMS/HCC V28) Diabetic polyneuropathy associated with type 2 diabetes mellitus (CMS/HCC V24, CMS/HCC V28) DEBRIDEMENT Routine 10/11/2024 9:00 AM EDT Type 2 diabetes mellitus with foot ulcer (CODE) (CMS/HCC V24, CMS/HCC V28) Non-pressure chronic ulcer of right heel and midfoot with fat layer exposed (CMS/HCC V24, CMS/HCC V28) Diabetic polyneuropathy associated with type 2 diabetes mellitus (CMS/HCC V24, CMS/HCC V28) DEBRIDEMENT Routine 10/11/2024 9:00 AM EDT Type 2 diabetes mellitus with foot ulcer (CODE) (CMS/HCC V24, CMS/HCC V28) Non-pressure chronic ulcer of other part of right foot with fat layer exposed (CMS/HCC V24, CMS/HCC V28) Diabetic polyneuropathy associated with type 2 diabetes mellitus (CMS/HCC V24, CMS/HCC V28) DEBRIDEMENT Routine 10/04/2024 9:00 AM EDT Type 2 diabetes mellitus with foot ulcer (CODE) (CMS/HCC V24, CMS/HCC V28) Non-pressure chronic ulcer of right heel and midfoot with fat layer exposed (CMS/HCC V24, CMS/HCC V28) Diabetic polyneuropathy associated with type 2 diabetes mellitus (CMS/HCC V24, CMS/HCC V28) DEBRIDEMENT Routine 10/04/2024 9:00 AM EDT Type 2 diabetes mellitus with foot ulcer (CODE) (CMS/HCC V24, CMS/HCC V28) Non-pressure chronic ulcer of other part of right foot with fat layer exposed (CMS/HCC V24, CMS/HCC V28) Diabetic polyneuropathy associated with type 2 diabetes mellitus (CMS/HCC V24, CMS/HCC V28) DEBRIDEMENT Routine 09/27/2024 9:15 AM EDT Type 2 diabetes mellitus with foot ulcer (CODE) (CMS/HCC V24, CMS/HCC V28) Non-pressure chronic ulcer of right heel and midfoot with fat layer exposed (CMS/HCC V24, CMS/HCC V28) Diabetic polyneuropathy associated with type 2 diabetes mellitus (CMS/HCC V24, CMS/HCC V28) DEBRIDEMENT Routine 09/27/2024 9:15 AM EDT Type 2 diabetes mellitus with foot ulcer (CODE) (CMS/HCC V24, CMS/HCC V28) Non-pressure chronic ulcer of other part of right foot with fat layer exposed (CMS/HCC V24, CMS/HCC V28) Diabetic polyneuropathy associated with type 2 diabetes mellitus (CMS/HCC V24, CMS/HCC V28) DEBRIDEMENT Routine 09/20/2024 9:15 AM EDT Type 2 diabetes mellitus with foot ulcer (CODE) (CMS/HCC V24, CMS/HCC V28) Non-pressure chronic ulcer of right heel and midfoot with fat layer exposed (CMS/HCC V24, CMS/HCC V28) DEBRIDEMENT Routine 09/20/2024 9:15 AM EDT Type 2 diabetes mellitus with foot ulcer (CODE) (CMS/HCC V24, CMS/HCC V28) Non-pressure chronic ulcer of other part of right foot with fat layer exposed (CMS/HCC V24, CMS/HCC V28) CULTURE WOUND WITH GRAM STAIN Routine 09/13/2024 10:45 AM EDT Type 2 diabetes mellitus with foot ulcer (CODE) (CMS/HCC V24, CMS/HCC V28) Non-pressure chronic ulcer of right heel and midfoot with fat layer exposed (CMS/HCC V24, CMS/HCC V28) Diabetic polyneuropathy associated with type 2 diabetes mellitus (CMS/HCC V24, CMS/HCC V28) DEBRIDEMENT Routine 09/13/2024 9:30 AM EDT Type 2 diabetes mellitus with foot ulcer (CODE) (CMS/HCC V24, CMS/HCC V28) Non-pressure chronic ulcer of right heel and midfoot with fat layer exposed (CMS/HCC V24, CMS/HCC V28) Diabetic polyneuropathy associated with type 2 diabetes mellitus (CMS/HCC V24, CMS/HCC V28) DEBRIDEMENT Routine 09/13/2024 9:30 AM EDT Type 2 diabetes mellitus with foot ulcer (CODE) (CMS/HCC V24, CMS/HCC V28) Non-pressure chronic ulcer of other part of right foot with fat layer exposed (CMS/HCC V24, CMS/HCC V28) Diabetic polyneuropathy associated with type 2 diabetes mellitus (CMS/HCC V24, CMS/HCC V28) DEBRIDEMENT Routine 08/30/2024 9:30 AM EDT Type 2 diabetes mellitus with foot ulcer (CODE) (CMS/HCC V24, CMS/HCC V28) Non-pressure chronic ulcer of right heel and midfoot with fat layer exposed (CMS/HCC V24, CMS/HCC V28) Diabetic polyneuropathy associated with type 2 diabetes mellitus (CMS/HCC V24, CMS/HCC V28) DEBRIDEMENT Routine 08/30/2024 9:30 AM EDT Type 2 diabetes mellitus with foot ulcer (CODE) (CMS/HCC V24, CMS/HCC V28) Non-pressure chronic ulcer of other part of right foot limited to breakdown of skin (CMS/HCC V24, CMS/HCC V28) Diabetic polyneuropathy associated with type 2 diabetes mellitus (CMS/HCC V24, CMS/HCC V28) DEBRIDEMENT Routine 08/16/2024 9:15 AM EDT Type 2 diabetes mellitus with foot ulcer (CODE) ([facility] V24, [facility] V28) Non-pressure chronic ulcer of right heel and midfoot with fat layer exposed ([facility] V24, [facility] V28) from Last 3 Months Results * Debridement Diabetic Ulcer (Cluster ) [...] Response to treatment: Procedure was tolerated well us Patsy Granado MD [...] Response to treatment: Procedure was tolerated well us Patsy Granado MD IN CLINIC/BEDSIDE ORDERAB LES Final Result * Debridement Diabetic Ulcer (Cluster ) Right Heel (10/25/2024 9:15 AM EDT) Patsy Lutz MD - 10/25/2024 9:15 AM EDT Patsy Granado MD 10/25/2024 12:39 PM Debridement Diabetic Ulcer (Cluster ) Right Heel Performed by: Patsy Granado MD Authorized by: Patsy Granado MD Associated wounds: Wound Diabetic Ulcer 11/24/23 Heel Right Consent: Consent obtained: Verbal Consent given by: Patient Risks discussed: Yes Time out: Immediately prior to the procedure a time out was called Time out performed at: 10/25/2024 10:35 AM Debridement Details: Performed by: Physician Type: selective Pain control: Lidocaine 5% Pain control administration: topical anesthesia Severity of Tissue Pre Debridement: Fat layer exposed Severity of Tissue Post Debridement: Fat layer exposed Time taken: 10/25/2024 9:32 AM Length (cm): 1 Width (cm): 1.2 Depth (cm): 0.6 Area (cm^2): 1.2 Time taken: 10/25/2024 9:33 AM Length (cm): 1 Width (cm): 1.2 Depth (cm): 0.4 Percent Debrided (%): 100 Surface Area (cm^2): 1.2 Area Debrided (cm^2): 1.2 Volume (cm^3): 0.48 Devitalized tissue debrided: callus, fibrin and slough Devitalized tissue debrided comment: Devitalized skin Instrument: Blade and forceps Amount of bleeding: small Hemostasis obtained with: Pressure Procedural pain: 0 Post-procedural pain: 0 Response to treatment: Procedure was tolerated well us Patsy Granado MD IN CLINIC/BEDSIDE ORDERAB LES Final Result * Debridement Diabetic Ulcer (clustered) Right;Plantar Foot (10/25/2024 9:15 AM EDT) Patsy Lutz MD - 10/25/2024 9:15 AM EDT Patsy Granado MD 10/25/2024 12:39 PM Debridement Diabetic Ulcer (clustered) Right;Plantar Foot Performed by: Patsy Granado MD Authorized by: Patsy Granado MD Associated wounds: Wound Diabetic Ulcer 07/05/24 Foot Right;Plantar Consent: Consent obtained: Verbal Consent given by: Patient Risks discussed: Yes Time out: Immediately prior to the procedure a time out was called Time out performed at: 10/25/2024 10:29 AM Debridement Details: Performed by: Physician Type: selective Pain control: Lidocaine 5% Pain control administration: topical anesthesia Severity of Tissue Pre Debridement: Fat layer exposed Severity of Tissue Post Debridement: Fat layer exposed Time taken: 10/25/2024 9:30 AM Length (cm): 1.1 Width (cm): 0.4 Depth (cm): 0.5 Area (cm^2): 0.44 Time taken: 10/25/2024 9:31 AM Length (cm): 1.1 Width (cm): 0.4 Depth (cm): 0.3 Percent Debrided (%): 100 Surface Area (cm^2): 0.44 Area Debrided (cm^2): 0.44 Volume (cm^3): 0.13 Devitalized tissue debrided: callus, fibrin and slough Devitalized tissue debrided comment: Devitalized skin Instrument: Blade and forceps Amount of bleeding: small Hemostasis obtained with: Pressure Procedural pain: 0 Post-procedural pain: 0 Response to treatment: Procedure was tolerated well us Patsy Granado MD IN CLINIC/BEDSIDE ORDERAB LES Final Result * Debridement Diabetic Ulcer (Cluster ) Right Heel (10/11/2024 9:00 AM EDT) Patsy Lutz MD - 10/11/2024 9:00 AM EDT Patsy Granado MD 10/11/2024 10:01 AM Debridement Diabetic Ulcer (Cluster ) Right Heel Performed by: Patsy Granado MD Authorized by: Patsy Granado MD Associated wounds: Wound Diabetic Ulcer 11/24/23 Heel Right Consent: Consent obtained: Verbal Consent given by: Patient Risks discussed: Yes Time out: Immediately prior to the procedure a time out was called Time out performed at: 10/11/2024 9:28 AM Debridement Details: Performed by: Physician Type: selective Pain control: Lidocaine 5% Pain control administration: topical anesthesia Severity of Tissue Pre Debridement: Fat layer exposed Severity of Tissue Post Debridement: Fat layer exposed Time taken: 10/11/2024 9:09 AM Length (cm): 1 Width (cm): 0.7 Depth (cm): 0.7 Area (cm^2): 0.7 Time taken: 10/11/2024 9:10 AM Length (cm): 1 Width (cm): 0.7 Depth (cm): 0.5 Percent Debrided (%): 100 Surface Area (cm^2): 0.7 Area Debrided (cm^2): 0.7 Volume (cm^3): 0.35 Devitalized tissue debrided: callus, fibrin and slough Devitalized tissue debrided comment: Devitalized skin Instrument: Blade and forceps Amount of bleeding: small Hemostasis obtained with: Pressure Procedural pain: 0 Post-procedural pain: 0 Response to treatment: Procedure was tolerated well Patsy Granado MD IN CLINIC/BEDSIDE ORDERAB LES Final Result * Debridement Diabetic Ulcer (clustered) Right;Plantar Foot (10/11/2024 9:00 AM EDT) Patsy Lutz MD - 10/11/2024 9:00 AM EDT Patsy Granado MD 10/11/2024 10:01 AM Debridement Diabetic Ulcer (clustered) Right;Plantar Foot Performed by: Patsy Granado MD Authorized by: Patsy Granado MD Associated wounds: Wound Diabetic Ulcer 07/05/24 Foot Right;Plantar Consent: Consent obtained: Verbal Consent given by: Patient Risks discussed: Yes Time out: Immediately prior to the procedure a time out was called Time out performed at: 10/11/2024 9:24 AM Debridement Details: Performed by: Physician Type: selective Pain control: Lidocaine 5% Pain control administration: topical anesthesia Severity of Tissue Pre Debridement: Fat layer exposed Severity of Tissue Post Debridement: Fat layer exposed Time taken: 10/11/2024 9:09 AM Length (cm): 0.5 Width (cm): 0.5 Depth (cm): 0.5 Area (cm^2): 0.25 Time taken: 10/11/2024 9:10 AM Length (cm): 0.5 Width (cm): 0.5 Depth (cm): 0.3 Percent Debrided (%): 100 Surface Area (cm^2): 0.25 Area Debrided (cm^2): 0.25 Volume (cm^3): 0.08 Devitalized tissue debrided: callus, fibrin and slough Devitalized tissue debrided comment: Devitalized skin Instrument: Blade and forceps Amount of bleeding: small Hemostasis obtained with: Pressure Procedural pain: 0 Post-procedural pain: 0 Response to treatment: Procedure was tolerated well Patsy Granado MD IN CLINIC/BEDSIDE ORDERAB LES Final Result * Debridement Diabetic Ulcer (Cluster ) Right Heel (10/04/2024 9:00 AM EDT) Patsy Lutz MD - 10/04/2024 9:00 AM EDT Patsy Granado MD 10/04/2024 11:10 AM Debridement Diabetic Ulcer (Cluster ) Right Heel Performed by: Patsy Granado MD Authorized by: Patsy Granado MD Associated wounds: Wound Diabetic Ulcer 11/24/23 Heel Right Consent: Consent obtained: Verbal Consent given by: Patient Risks discussed: Yes Time out: Immediately prior to the procedure a time out was called Time out performed at: 10/04/2024 9:32 AM Debridement Details: Performed by: Physician Type: selective Pain control: Lidocaine 5% Pain control administration: topical anesthesia Severity of Tissue Pre Debridement: Fat layer exposed Severity of Tissue Post Debridement: Fat layer exposed Time taken: 10/04/2024 9:04 AM Length (cm): 1.3 Width (cm): 0.9 Depth (cm): 0.6 Area (cm^2): 1.17 Time taken: 10/04/2024 9:05 AM Length (cm): 1.3 Width (cm): 0.9 Depth (cm): 0.3 Percent Debrided (%): 100 Surface Area (cm^2): 1.17 Area Debrided (cm^2): 1.17 Volume (cm^3): 0.35 Devitalized tissue debrided: callus, fibrin and slough Devitalized tissue debrided comment: Devitalized skin Instrument: Blade and forceps Amount of bleeding: small Hemostasis obtained with: Pressure Procedural pain: 0 Post-procedural pain: 0 Response to treatment: Procedure was tolerated well us Patsy Granado MD IN CLINIC/BEDSIDE ORDERAB LES Final Result * Debridement Diabetic Ulcer (clustered) Right;Plantar Foot (10/04/2024 9:00 AM EDT) Patsy Lutz MD - 10/04/2024 9:00 AM EDT Patsy Granado MD 10/04/2024 11:10 AM Debridement Diabetic Ulcer (clustered) Right;Plantar Foot Performed by: Patsy Granado MD Authorized by: Patsy Granado MD Associated wounds: Wound Diabetic Ulcer 07/05/24 Foot Right;Plantar Consent: Consent obtained: Verbal Consent given by: Patient Risks discussed: Yes Time out: Immediately prior to the procedure a time out was called Time out performed at: 10/04/2024 9:28 AM Debridement Details: Performed by: Physician Type: selective Pain control: Lidocaine 5% Pain control administration: topical anesthesia Severity of Tissue Pre Debridement: Fat layer exposed Severity of Tissue Post Debridement: Fat layer exposed Time taken: 10/04/2024 9:02 AM Length (cm): 1 Width (cm): 0.3 Depth (cm): 0.5 Area (cm^2): 0.3 Time taken: 10/04/2024 9:03 AM Length (cm): 1 Width (cm): 0.3 Depth (cm): 0.2 Percent Debrided (%): 100 Surface Area (cm^2): 0.3 Area Debrided (cm^2): 0.3 Volume (cm^3): 0.06 Devitalized tissue debrided: callus, fibrin and slough Devitalized tissue debrided comment: Devitalized skin Instrument: Blade and forceps Amount of bleeding: small Hemostasis obtained with: Pressure Procedural pain: 0 Post-procedural pain: 0 Response to treatment: Procedure was tolerated well us Patsy Granado MD IN CLINIC/BEDSIDE ORDERAB LES Final Result * Debridement Diabetic Ulcer (Cluster ) Right Heel (09/27/2024 9:15 AM EDT) Patsy Lutz MD - 09/27/2024 9:15 AM EDT Patsy Granado MD 09/27/2024 10:50 AM Debridement Diabetic Ulcer (Cluster ) Right Heel Performed by: Patsy Granado MD Authorized by: Patsy Granado MD Associated wounds: Wound Diabetic Ulcer 11/24/23 Heel Right Consent: Consent obtained: Verbal Consent given by: Patient Risks discussed: Yes Time out: Immediately prior to the procedure a time out was called Time out performed at: 09/27/2024 9:40 AM Debridement Details: Performed by: Physician Type: selective Pain control: Lidocaine 5% Pain control administration: topical anesthesia Severity of Tissue Pre Debridement: Fat layer exposed Severity of Tissue Post Debridement: Fat layer exposed Time taken: 09/27/2024 9:22 AM Length (cm): 2 Width (cm): 3.6 Depth (cm): 0.5 Area (cm^2): 7.2 Time taken: 09/27/2024 9:23 AM Length (cm): 2 Width (cm): 3.6 Depth (cm): 0.4 Percent Debrided (%): 100 Surface Area (cm^2): 7.2 Area Debrided (cm^2): 7.2 Volume (cm^3): 2.88 Devitalized tissue debrided: callus, fibrin and slough Devitalized tissue debrided comment: Devitalized skin Instrument: Blade and forceps Amount of bleeding: small Hemostasis obtained with: Pressure Procedural pain: 0 Post-procedural pain: 0 Response to treatment: Procedure was tolerated well us Patsy Granado MD IN CLINIC/BEDSIDE ORDERAB LES Final Result * Debridement Diabetic Ulcer (clustered) Right;Plantar Foot (09/27/2024 9:15 AM EDT) Patsy Lutz MD - 09/27/2024 9:15 AM EDT Patsy Granado MD 09/27/2024 10:50 AM Debridement Diabetic Ulcer (clustered) Right;Plantar Foot Performed by: Patsy Granado MD Authorized by: Patsy Granado MD Associated wounds: Wound Diabetic Ulcer 07/05/24 Foot Right;Plantar Consent: Consent obtained: Verbal Consent given by: Patient Risks discussed: Yes Time out: Immediately prior to the procedure a time out was called Time out performed at: 09/27/2024 9:34 AM Debridement Details: Performed by: Physician Type: selective Pain control: Lidocaine 5% Pain control administration: topical anesthesia Severity of Tissue Pre Debridement: Fat layer exposed Severity of Tissue Post Debridement: Fat layer exposed Time taken: 09/27/2024 9:25 AM Length (cm): 1 Width (cm): 1.5 Depth (cm): 0.3 Area (cm^2): 1.5 Time taken: 09/27/2024 9:26 AM Length (cm): 1 Width (cm): 1.5 Depth (cm): 0.2 Percent Debrided (%): 100 Surface Area (cm^2): 1.5 Area Debrided (cm^2): 1.5 Volume (cm^3): 0.3 Devitalized tissue debrided: callus, fibrin and slough Devitalized tissue debrided comment: Devitalized skin Instrument: Blade and forceps Amount of bleeding: small Hemostasis obtained with: Pressure Procedural pain: 0 Post-procedural pain: 0 Response to treatment: Procedure was tolerated well Patsy Granado MD IN CLINIC/BEDSIDE ORDERAB LES Final Result * Debridement Diabetic Ulcer (Cluster ) Right Heel (09/20/2024 9:15 AM EDT) Patsy Lutz MD - 09/20/2024 9:15 AM EDT Patsy Granado MD 09/20/2024 1:56 PM Debridement Diabetic Ulcer (Cluster ) Right Heel Performed by: Patsy Granado MD Authorized by: Patsy Granado MD Associated wounds: Wound Diabetic Ulcer 11/24/23 Heel Right Consent: Consent obtained: Verbal Consent given by: Patient Risks discussed: Yes Time out: Immediately prior to the procedure a time out was called Time out performed at: 09/20/2024 10:26 AM Debridement Details: Performed by: Physician Type: selective Pain control: Lidocaine 5% Pain control administration: topical anesthesia Severity of Tissue Pre Debridement: Fat layer exposed Severity of Tissue Post Debridement: Fat layer exposed Time taken: 09/20/2024 9:39 AM Length (cm): 1.6 (Cluster of 2) Width (cm): 3.4 Depth (cm): 0.5 Area (cm^2): 5.44 Time taken: 09/20/2024 9:40 AM Length (cm): 1.6 Width (cm): 3.4 Depth (cm): 0.5 Percent Debrided (%): 75 Surface Area (cm^2): 5.44 Area Debrided (cm^2): 4.08 Volume (cm^3): 2.72 Devitalized tissue debrided: callus, fibrin and slough Instrument: Blade and forceps Amount of bleeding: small Hemostasis obtained with: Pressure Procedural pain: 0 Post-procedural pain: 0 Response to treatment: Procedure was tolerated well Result [facility] Patsy Granado MD IN CLINIC/BEDSIDE ORDERAB LES Final Result * Debridement Diabetic Ulcer (clustered) Right;Plantar Foot (09/20/2024 9:15 AM EDT) Patsy Lutz MD - 09/20/2024 9:15 AM EDT Patsy Granado MD 09/20/2024 1:56 PM Debridement Diabetic Ulcer (clustered) Right;Plantar Foot Performed by: Patsy Granado MD Authorized by: Patsy Granado MD Associated wounds: Wound Diabetic Ulcer 07/05/24 Foot Right;Plantar Consent: Consent obtained: Verbal Consent given by: Patient Risks discussed: Yes Time out: Immediately prior to the procedure a time out was called Time out performed at: 09/20/2024 10:23 AM Debridement Details: Performed by: Physician Type: selective Pain control: Lidocaine 5% Pain control administration: topical anesthesia Severity of Tissue Pre Debridement: Fat layer exposed Severity of Tissue Post Debridement: Fat layer exposed Time taken: 09/20/2024 9:41 AM Length (cm): 0.5 Width (cm): 1.7 Depth (cm): 0.4 Area (cm^2): 0.85 Time taken: 09/20/2024 9:42 AM Length (cm): 0.5 Width (cm): 1.7 Depth (cm): 0.4 Percent Debrided (%): 100 Surface Area (cm^2): 0.85 Area Debrided (cm^2): 0.85 Volume (cm^3): 0.34 Devitalized tissue debrided: callus, fibrin and slough Instrument: Blade and forceps Amount of bleeding: small Hemostasis obtained with: Pressure Procedural pain: 0 Post-procedural pain: 0 Response to treatment: Procedure was tolerated well us Patsy Granado MD IN CLINIC/BEDSIDE ORDERAB LES Final Result * (ABNORMAL) Culture wound with gram stain (09/13/2024 10:45 AM EDT) Culture, Wound Escherichia coli(A) JUANJOSE 09/16/2024 8:09 AM EDT [facility] Comment: The organism value for this result has been updated. These results have been appended to the previously preliminary verified report. This is an edited result. Previous organism was Gram negative bacilli on 09/14/2024 at 1119 EDT. Culture, Wound Enterococcus faecalis(A) JUANJOSE 09/16/2024 8:09 AM EDT [facility] Comment: The organism value for this result has been updated. These results have been appended to the previously preliminary verified report. Gram Stain Result Rare Polymorphonuclear leukocytes(A) 09/16/2024 8:09 AM EDT [facility] Gram Stain Result Rare Epithelial cells(A) 09/16/2024 8:09 AM EDT [facility] Gram Stain Result Many Gram positive cocci(A) 09/16/2024 8:09 AM EDT [facility] Gram Stain Result Rare Gram negative bacilli(A) 09/16/2024 8:09 AM T [facility] Swab Structure of right foot / Unknown Non-blood Collection / Unknown 09/13/2024 10:45 AM EDT 09/13/2024 4:15 PM EDT [facility] - 09/16/2024 8:09 AM EDT SPARSE SKIN JOE NOTED Organism Antibiotic Method Susceptibility Escherichia coli Amoxicillin/Clavulanate JUANJOSE 8 ug/ml: Susceptible Escherichia coli Ampicillin/Sulbactam JUANJOSE 16 ug/ml: Intermediate Escherichia coli Piperacillin/Tazobactam JUANJOSE <=4 ug/ml: Susceptible Escherichia coli Cefazolin (Other) JUANJOSE 4 ug/ml: Intermediate Escherichia coli Cefoxitin JUANJOSE <=4 ug/ml: Susceptible Escherichia coli Ceftazidime JUANJOSE <=0.5 ug/ml: Susceptible Escherichia coli Ceftriaxone JUANJOSE <=0.25 ug/ml: Susceptible Escherichia coli Cefepime JUANJOSE <=0.12 ug/ml: Susceptible Escherichia coli Meropenem JUANJOSE <=0.25 ug/ml: Susceptible Escherichia coli Amikacin JUANJOSE 2 ug/ml: Susceptible Escherichia coli Gentamicin JUANJOSE <=1 ug/ml: Susceptible Escherichia coli Ciprofloxacin JUANJOSE <=0.06 ug/ml: Susceptible Escherichia coli Levofloxacin JUANJOSE <=0.12 ug/ml: Susceptible Escherichia coli Trimethoprim/Sulfamethoxazole JUANJOSE <=20 ug/ml: Susceptible Enterococcus faecalis Benzylpenicillin JUANJOSE 4 ug/ml: Susceptible Enterococcus faecalis Ampicillin JUANJOSE <=2 ug/ml: Susceptible Enterococcus faecalis Linezolid JUANJOSE 2 ug/ml: Susceptible Enterococcus faecalis Vancomycin JUANJOSE 1 ug/ml: Susceptible Patsy Granado MD LAB MICROBIOLOGY - GENERA L ORDERABLES Final Result [facility] ([facility] [address] [place] [address], * Debridement Diabetic Ulcer Right Heel (09/13/2024 9:30 AM EDT) Patsy Lutz MD - 09/13/2024 9:30 AM EDT Patsy Granado MD 09/13/2024 1:20 PM Debridement Diabetic Ulcer Right Heel Performed by: Patsy Granado MD Authorized by: Patsy Granado MD Associated wounds: Wound Diabetic Ulcer 11/24/23 Heel Right Consent: Consent obtained: Verbal Consent given by: Patient Risks discussed: Yes Time out: Immediately prior to the procedure a time out was called Time out performed at: 09/13/2024 10:40 AM Debridement Details: Performed by: Physician Type: selective Pain control: Lidocaine 4% Pain control administration: topical anesthesia Severity of Tissue Pre Debridement: Fat layer exposed Severity of Tissue Post Debridement: Fat layer exposed Time taken: 09/13/2024 10:05 AM Length (cm): 1 Width (cm): 0.9 Depth (cm): 0.8 Area (cm^2): 0.9 Time taken: 09/13/2024 10:06 AM Length (cm): 3.1 Width (cm): 5 Depth (cm): 0.5 Percent Debrided (%): 100 Surface Area (cm^2): 15.5 Area Debrided (cm^2): 15.5 Volume (cm^3): 7.75 Tissue and other material debrided comment: Wound culture taken of right heel wound Devitalized tissue debrided: callus, fibrin and slough Devitalized tissue debrided comment: Devitalized skin Instrument: Blade and forceps Amount of bleeding: small Hemostasis obtained with: Pressure Procedural pain: 0 Post-procedural pain: 0 Response to treatment: Procedure was tolerated well Patsy Granado MD IN CLINIC/BEDSIDE ORDERAB LES Final Result * Debridement Diabetic Ulcer (clustered) Right;Plantar Foot (09/13/2024 9:30 AM EDT) Patsy Lutz MD - 09/13/2024 9:30 AM EDT Patsy Granado MD 09/13/2024 1:20 PM Debridement Diabetic Ulcer (clustered) Right;Plantar Foot Performed by: Patsy Granado MD Authorized by: Patsy Granado MD Associated wounds: Wound Diabetic Ulcer 07/05/24 Foot Right;Plantar Consent: Consent obtained: Verbal Consent given by: Patient Risks discussed: Yes Time out: Immediately prior to the procedure a time out was called Time out performed at: 09/13/2024 10:32 AM Debridement Details: Performed by: Physician Type: selective Pain control: Lidocaine 4% Pain control administration: topical anesthesia Severity of Tissue Pre Debridement: Fat layer exposed Severity of Tissue Post Debridement: Fat layer exposed Time taken: 09/13/2024 10:04 AM Length (cm): 0.3 Width (cm): 0.5 Depth (cm): 0.4 Area (cm^2): 0.15 Time taken: 09/13/2024 10:05 AM Length (cm): 0.6 Width (cm): 1.6 Depth (cm): 0.2 Percent Debrided (%): 100 Surface Area (cm^2): 0.96 Area Debrided (cm^2): 0.96 Volume (cm^3): 0.19 Devitalized tissue debrided: callus, fibrin and slough Devitalized tissue debrided comment: Devitalized skin Instrument: Blade and forceps Amount of bleeding: small Hemostasis obtained with: Pressure Procedural pain: 0 Post-procedural pain: 0 Response to treatment: Procedure was tolerated well us Patsy Granado MD IN CLINIC/BEDSIDE ORDERAB LES Final Result * Debridement Diabetic Ulcer Right Heel (08/30/2024 9:30 AM EDT) Patsy Lutz MD - 08/30/2024 9:30 AM EDT Patsy Granado MD 08/30/2024 12:08 PM Debridement Diabetic Ulcer Right Heel Performed by: Patsy Granado MD Authorized by: Patsy Granado MD Associated wounds: Wound Diabetic Ulcer 11/24/23 Heel Right Consent: Consent obtained: Verbal Consent given by: Patient Risks discussed: Yes Time out: Immediately prior to the procedure a time out was called Time out performed at: 08/30/2024 10:06 AM Debridement Details: Performed by: Physician Type: selective Pain control: Lidocaine 5% Pain control administration: topical anesthesia Severity of Tissue Pre Debridement: Fat layer exposed Severity of Tissue Post Debridement: Fat layer exposed Time taken: 08/30/2024 9:43 AM Length (cm): 0.8 Width (cm): 0.6 Depth (cm): 0.5 Area (cm^2): 0.48 Time taken: 08/30/2024 9:44 AM Length (cm): 0.8 Width (cm): 0.6 Depth (cm): 0.5 Percent Debrided (%): 100 Surface Area (cm^2): 0.48 Area Debrided (cm^2): 0.48 Volume (cm^3): 0.24 Devitalized tissue debrided: callus, fibrin and slough Devitalized tissue debrided comment: Devitalized skin Instrument: Blade and forceps Amount of bleeding: small Hemostasis obtained with: Pressure Procedural pain: 0 Post-procedural pain: 0 Response to treatment: Procedure was tolerated well us Patsy Granado MD IN CLINIC/BEDSIDE ORDERAB LES Final Result * Debridement Diabetic Ulcer (clustered) Right;Plantar Foot (08/30/2024 9:30 AM EDT) Patsy Lutz MD - 08/30/2024 9:30 AM EDT Patsy Granado MD 08/30/2024 12:08 PM Debridement Diabetic Ulcer (clustered) Right;Plantar Foot Performed by: Patsy Granado MD Authorized by: Patsy Granado MD Associated wounds: Wound Diabetic Ulcer 07/05/24 Foot Right;Plantar Consent: Consent obtained: Verbal Consent given by: Patient Risks discussed: Yes Time out: Immediately prior to the procedure a time out was called Time out performed at: 08/30/2024 9:59 AM Debridement Details: Performed by: Physician Type: selective Pain control: Lidocaine 5% Pain control administration: topical anesthesia Severity of Tissue Pre Debridement: Limited to breakdown of skin Severity of Tissue Post Debridement: Limited to breakdown of skin Time taken: 08/30/2024 9:43 AM Length (cm): 0 Width (cm): 0 Depth (cm): 0 Area (cm^2): 0 Time taken: 08/30/2024 9:44 AM Length (cm): 0.2 Width (cm): 0.3 Depth (cm): 0.1 Percent Debrided (%): 100 Surface Area (cm^2): 0.06 Area Debrided (cm^2): 0.06 Volume (cm^3): 0.01 Devitalized tissue debrided: callus and fibrin Devitalized tissue debrided comment: Devitalized skin Instrument: Blade and forceps Amount of bleeding: small Hemostasis obtained with: Pressure Procedural pain: 0 Post-procedural pain: 0 Response to treatment: Procedure was tolerated well us Patsy Granado MD IN CLINIC/BEDSIDE ORDERAB LES Final Result * Debridement Diabetic Ulcer Right Heel (08/16/2024 9:15 AM EDT) Patsy Lutz MD - 08/16/2024 9:15 AM EDT Patsy Granado MD 08/16/2024 12:41 PM Debridement Diabetic Ulcer Right Heel Performed by: Patsy Granado MD Authorized by: Patsy Granado MD Associated wounds: Wound Diabetic Ulcer 11/24/23 Heel Right Consent: Consent obtained: Verbal Consent given by: Patient Risks discussed: Yes Time out: Immediately prior to the procedure a time out was called Time out performed at: 08/16/2024 10:11 AM Debridement Details: Performed by: Physician Type: selective Pain control: Lidocaine 5% Pain control administration: topical anesthesia Severity of Tissue Pre Debridement: Fat layer exposed Severity of Tissue Post Debridement: Fat layer exposed Time taken: 08/16/2024 9:37 AM Length (cm): 0.6 Width (cm): 0.5 Depth (cm): 0.5 Area (cm^2): 0.3 Time taken: 08/16/2024 9:38 AM Length (cm): 0.6 Width (cm): 0.5 Depth (cm): 0.3 Percent Debrided (%): 100 Surface Area (cm^2): 0.3 Area Debrided (cm^2): 0.3 Volume (cm^3): 0.09 Devitalized tissue debrided: callus, fibrin and slough Devitalized tissue debrided comment: Devitalized skin Instrument: Blade and forceps Amount of bleeding: small Hemostasis obtained with: Pressure and silver nitrate Procedural pain: 0 Post-procedural pain: 0 Response to treatment: Procedure was tolerated well us Patsy Granado MD IN CLINIC/BEDSIDE ORDERAB LES Final Result from Last 3 Months Additional Health Concerns Active Problems Noted Date Diagnosed Date Impaired Tissue 12/29/2023 Education needed on impact of smoking on wound 1 02/27/2023 Education needed related to ulceration/compromised skin integrity. 12/29/2023 Insurance [employer] MED[employer]ARE [employer]AGE MEDICAID - [place] [employer] [place] Care Teams [employer] Relationship Specialty Start Date End Date Zia Morales MD [address] [place] [address] Dr Esteban MA PCP - General Internal Medicine 12/15/23
== END 2024-11-09 06:56 | disposition home or self-care (01) ==
LOC: HO.LAB 06:55
PROVIDERS: Absent Provider Physician Assistant Medical; PCP Physician Assistant Medical; Visit Provider Internal Medicine
DX: E11.65 Type 2 diabetes mellitus with hyperglycemia (principal); E11.40 Type 2 diabetes mellitus with diabetic neuropathy, unspecified; Z13.220 Encounter for screening for lipoid disorders; R63.5 Abnormal weight gain; Z79.899 Other long term (current) drug therapy
CPT/HCPCS: 36415; 80053; 80061; 82043; 82570; 83036; 84443

== ENCOUNTER 2024-11-17 09:39 | Outpatient (AMB) | payer MEDICARE, MEDICAID, SELFPAY ==
--- OUTSIDE RECORDS SUMMARY | 2024-11-15 09:30 | XMS_ITS | Encounter Summary ---
Author Organization [facility] Address [address] [place] [address] Care Team Providers Care Intelligence Officer Name Role Phone Zia Morales MD Primary Care Provider [phone] Reason for Visit * Reason Comments Wound Care Encounter Details Date Type Department Care Team (Latest Contact Info) Description 11/15/2024 9:30 AM EDT Office Visit [facility] [address] [place] [address] Patsy Granado MD [address] [place] [address] [phone] Type 2 diabetes mellitus with foot ulcer (CODE) ([facility] V24, [facility] V28) (Primary Dx); Non-pressure chronic ulcer of right heel and midfoot with fat layer exposed ([facility] V24, [facility] V28); Non-pressure chronic ulcer of other part of right foot with fat layer exposed ([facility] V24, [facility] V28); Diabetic polyneuropathy associated with type 2 diabetes mellitus ([facility] V24, [facility] V28) Social History Tobacco Use Types Packs/Day [...] Sign Reading Time Taken Comments Blood Pressure 145/78 11/15/2024 10:00 AM EDT Pulse 96 11/15/2024 10:00 AM EDT Temperature 36.3 C (97.4 F) 11/15/2024 10:00 AM EDT Respiratory Rate 18 11/15/2024 10:00 AM EDT Oxygen Saturation 97% 11/15/2024 10:00 AM EDT Inhaled Oxygen Concentration - - Weight - - Height - - Body Mass Index - - documented in this encounter Progress Notes * Monica Gotti RN - 11/15/2024 9:30 AM EDT PROVIDER ORDERS Go to ER if you are presenting with fever, chills, increased redness, pain, swelling, warmth aroundwound area and/or foul smelling odor. If you have any questions or concerns, please contact the [facility] [place] at . Follow up(s)/ Referrals: Podiatry: Follow up as scheduled -Make sure to use your offloading shoe and try breaking in your diabetic shoes Penitentiary: Home care: [facility] Additional Orders: -Increase protein [...] please remove / unwrap compression and notify [facility] [place] at . ) -Elevate legs above heart level as much as possible, -Avoid standing for extended periods of time Offloading: -Peg Assist offloading shoe to right foot- make sure to wear to help offload wound areas -Try breaking in diabetic shoes to see if modifications need to be done -Limit pressure to wound as much as [...] AG)- cut to fit to wound bed, Collagen- will dissolve in wound. If not dissolving, you may moisten with saline prior to covering (collagen to base, alg ag over) Secondary dressinx4 woven gauze (non-sterile), 5x9 ABD pad Secure with: 3 conforming gauze roll, Spandage size 3, 1 paper tape Compression Therapy: Elevate legs above heart level as much as possible Dressing Change Frequency: Every Other Day Wound #2 (Right 1st met plantar foot): Cleanser: Cleanse with Vashe Periwound: Apply Zinc Oxide to pamela wound Topical: N/A Primary dressing: Hydrofiber with silver (Aquacel AG)- cut to fit to wound bed, Collagen- will dissolve in wound. If not dissolving, you may moisten with saline prior to covering (collagen to base, alg ag over) Secondary dressinx4 woven gauze (non-sterile) Secure with: 4 conforming gauze roll , Spandage size 3, 1 paper tape Compression Therapy: Elevate legs above heart level as much as possible Dressing Change Frequency: Every Other Day * Patsy Granado MD - 11/15/2024 9:30 AM EDTAssociated Order(s): Debridement Diabetic Ulcer (clustered) Right;Plantar Foot; Debridement Diabetic Ulcer (Cluster ) Right Heel Post-Procedure Diagnose(s): Type 2 diabetes mellitus with foot ulcer (CODE) ([facility] V24, [facility] V28); Non-pressure chronic ulcer of other part of right foot with fat layer exposed ([facility] V24, [facility] V28); Diabetic polyneuropathy associated with type 2 diabetes mellitus ([facility] V24, [facility] V28); Non- pressure chronic ulcer of right heel and midfoot with fat layer exposed ([facility] V24, [facility] V28) Images from the original note were not included. [facility] at [address] [address] Office Visit Visit Date: 11/15/2024 Patient Name: Colleen Das Date of : 1955 PCP: Zia Morales MD HPI: Colleen comes in for follow-up right foot first toe MP joint ulcer and right heel ulcer treated with Telma and alginate dressing change 3 times a week. She has a history of diabetes mellitus with neuropathy, and obesity. She has had no fever no chills. She declined to have a total contact cast for her right foot to offload it, she is afraid of falling down. Visiting nurse helping with dressing change at home. Assessment and Plan: Type 2 diabetes mellitus with foot ulcer (CODE) ([facility] V24, [facility] V28) (Primary) - Debridement Diabetic Ulcer (clustered) Right;Plantar Foot - Debridement Diabetic Ulcer (Cluster ) Right Heel Non-pressure chronic ulcer of right heel and midfoot with fat layer exposed ([facility] V24, [facility] V28) - Debridement Diabetic Ulcer (Cluster ) Right Heel Non-pressure chronic ulcer of other part of right foot with fat layer exposed ([facility] V24, [facility]) - Debridement Diabetic Ulcer (clustered) Right;Plantar Foot Diabetic polyneuropathy associated with type 2 diabetes mellitus ([facility] V24, [facility] V28) - Debridement Diabetic Ulcer (clustered) Right;Plantar Foot - Debridement Diabetic Ulcer (Cluster ) Right Heel Right foot first toe and heel ulcer selective debrided with scalpel and forceps removing callus fibrin and slough. Continue with Telma and alginate dressing. All questions were answered to her satisfaction. She was counseled regarding my impressions, instructions for management, and the importance of compliance with treatment. Follow up in about 1 week (around 11/22/2024) for Follow up with Dr. Granado. >>>>>>>>>>>>>>>>>>>>>>>>>>>>>>>>>>>>>>>>>>>>>>>>>>> Vital Signs: Visit Vitals BP (!) 145/78 (BP Location: Right arm, Patient Position: Sitting, BP Cuff Size: Adult) Pulse 96 Temp 36.3 ??C (97.4 ??F) (Temporal) Resp 18 Review of Systems: Review of Systems PHYSICAL EXAM. Right plantar MP joint ulcer about the same size with thick callus around the edges fibrin and slough. There is some central granulation tissue. Small amount of serous drainage malodor. Right heel ulcer also with thick callus around the edges central granulation tissue, fibrin and slough, malodor. Periwound skin intact no cellulitis. No foot [...] Location Orientation: Right Assessments 12/29/2023 9:16 AM 11/15/2024 10:04 AM Wound Image Wound Bed Tissue Assessment Granulation;Pale;[place];Sloughing Granulation;Sloughing Pamela-Wound Assessment Callused;Peeling Callused;Dry Wound Length (cm) 0.9 cm 1 cm Wound Width (cm) 1.5 cm 0.9 cm Wound Surface Area (cm^2) 1.35 cm^2 0.71 cm^2 Wound Depth (cm) 0.3 cm 0.4 cm Wound Volume (cm^3) 0.405 cm^3 0.188 cm^3 Wound Healing % -- 54 Drainage Description Serosanguineous -- Drainage Amount Moderate Large Treatments Other (Comment);Cleansed Cleansed Dressing Gauze Alginate;Gauze Dressing Status Removed Removed Wound Bed Granulation (%) 90 % 80 % Wound Bed Epithelialization (%) -- 0 % Wound Bed Slough (%) 10 % 20 % Wound Bed Eschar (%) 0 % 0 % Tunneling 0 cm 0 cm Undermining 0.3 cm -- Underming Start Clock Position of Wound 10 o'clock 2 o'clock Underming End Clock Position of Wound 1 o'clock 6 o'clock Edges Well-defined edges;Not attached Not attached;Well-defined edges Non-staged Wound Description Full thickness Full thickness Active Orders Date Order Priority Status Authorizing Provider 11/15/24 1042 Debridement Diabetic Ulcer (Cluster ) Right Heel Routine Active Patsy Granado MD Inactive Orders Date Order Priority Status Authorizing Provider 11/08/24 0947 Debridement Diabetic Ulcer (Cluster ) Right Heel Routine Completed Patsy Granado MD 10/25/24 1040 Debridement Diabetic Ulcer (Cluster ) [...] Location Orientation: Right;Plantar... Assessments 07/05/2024 9:09 AM 11/15/2024 10:02 AM Wound Image Wound Bed Tissue Assessment [place] -- Pamela-Wound Assessment Callused;Dry -- Wound Length (cm) 1 cm 0.7 cm Wound Width (cm) 1.2 cm 0.5 cm Wound Surface Area (cm^2) 1.2 cm^2 0.27 cm^2 Wound Depth (cm) 0.2 cm 0.4 cm Wound Volume (cm^3) 0.24 cm^3 0.073 cm^3 Wound Healing % -- 70 Drainage Description Serosanguineous -- Drainage Amount -- Large Treatments Cleansed Cleansed Dressing -- Alginate;Gauze Dressing Status -- Removed Wound Bed Granulation (%) 100 % 80 % Wound Bed Epithelialization (%) -- 0 % Wound Bed Slough (%) 0 % 20 % Wound Bed Eschar (%) 0 % 0 % Tunneling 0 cm 0 cm Undermining 0 cm 0.3 cm Underming Start Clock Position of Wound -- 12 o'clock Underming End Clock Position of Wound -- 3 o'clock Edges Attached edges -- Non-staged Wound Description -- Full thickness Active Orders Date Order Priority Status Authorizing Provider 11/15/24 1037 Debridement Diabetic Ulcer (clustered) Right;Plantar Foot Routine Active Patsy Granado MD Inactive Orders Date Order Priority Status Authorizing Provider 11/08/24 0947 Debridement Diabetic Ulcer (clustered) Right;Plantar Foot Routine Completed Patsy Granado MD 10/25/24 1029 Debridement Diabetic Ulcer (clustered) Right;Plantar [...] out was called Time out performed at: 11/15/2024 10:37 AM Debridement Details: Performed by: Physician Type: selective Pain control: Lidocaine 4% Pain control administration: topical anesthesia Severity of Tissue Pre Debridement: Fat layer exposed Severity of Tissue Post Debridement: Fat layer exposed Time taken: 11/15/2024 10:02 AM Length (cm): 0.7 Width (cm): 0.5 Depth (cm): 0.4 Area (cm^2): 0.35 Time taken: 11/15/2024 10:03 AM Length (cm): 0.7 Width (cm): 0.5 Depth (cm): 0.3 Percent Debrided (%): 100 Surface Area (cm^2): 0.35 Area Debrided (cm^2): 0.35 Volume (cm^3): 0.11 Devitalized tissue debrided: callus, fibrin and slough [...] out was called Time out performed at: 11/15/2024 10:42 AM Debridement Details: Performed by: Physician Type: selective Pain control: Lidocaine 4% Pain control administration: topical anesthesia Severity of Tissue Pre Debridement: Fat layer exposed Severity of Tissue Post Debridement: Fat layer exposed Time taken: 11/15/2024 10:04 AM Length (cm): 1 Width (cm): 0.9 Depth (cm): 0.4 Area (cm^2): 0.9 Time taken: 11/15/2024 10:05 AM Length (cm): 1 Width (cm): 0.9 Depth (cm): 0.3 Percent [...] any questions or concerns, please contact the [facility] [place] at . Follow up(s)/ Referrals: Podiatry: Follow up as scheduled -Make sure to use your offloading shoe and try breaking in your diabetic shoes Penitentiary: Home care: [facility] Additional Orders: -Increase protein [...] please remove / unwrap compression and notify [facility] at . ) -Elevate legs above heart level as much as possible, -Avoid standing for extended periods of time Offloading: -Peg Assist offloading shoe to right foot- make sure to wear to help offload wound areas -Try breaking in diabetic shoes to see if modifications need to be done -Limit pressure to wound as much as [...] AG)- cut to fit to wound bed, Collagen- will dissolve in wound. If not dissolving, you may moisten with saline prior to covering (collagen to base, alg ag over) Secondary dressinx4 woven gauze (non-sterile), 5x9 ABD pad Secure with: 3 conforming gauze roll, Spandage size 3, 1 paper tape Compression Therapy: Elevate legs above heart level as much as possible Dressing Change Frequency: Every Other Day Wound #2 (Right 1st met plantar foot): Cleanser: Cleanse with Vashe Periwound: Apply Zinc Oxide to pamela wound Topical: N/A Primary dressing: Hydrofiber with silver (Aquacel AG)- cut to fit to wound bed, Collagen- will dissolve in wound. If not dissolving, you may moisten with saline prior to covering (collagen to base, alg ag over) Secondary dressinx4 woven gauze (non-sterile) Secure with: 4 conforming gauze roll , Spandage size 3, 1 paper tape Compression Therapy: Elevate legs above heart level as much as possible Dressing Change Frequency: Every Other Day 11/15/2024 12:52 PM EDT Patsy Granado MD * Kalee Grayson RN - 11/15/2024 9:30 AM EDT Discharge Patient directed to check out at front facer and collect visit summary with wound care directions and book follow up as directed. Dressings applied: Wound #1 (Right heel): Cleanser: Cleanse with Vashe Periwound: Apply Zinc Oxide to pamela wound Primary dressing: Hydrofiber with silver (Aquacel AG)- cut to fit to wound bed, Collagen- will dissolve in wound. If not dissolving, you may moisten with saline prior to covering (collagen to base, alg ag over) Secondary dressinx4 woven gauze (non-sterile), 5x9 ABD pad Secure with: 3 conforming gauze roll, Spandage size 3, 1 paper tape Wound #2 (Right 1st met plantar foot): Cleanser: Cleanse with Vashe Periwound: Apply Zinc Oxide to pamela wound Primary dressing: Hydrofiber with silver (Aquacel AG)- cut to fit to wound bed, Collagen- will dissolve in wound. If not dissolving, you may moisten with saline prior to covering (collagen to base, alg ag over) Secondary dressinx4 woven gauze (non-sterile) Secure with: 4 conforming gauze roll , Spandage size 3, 1 paper tape Dressing technique was demonstrated and explained. Patient questions answered. Pt discharge from wound care center without issue or incidence. documented in this encounter Plan of Treatment Upcoming Encounters Date Type Department Care Team (Late st Contact Info) Description 11/22/2024 9:15 AM EDT Clinical Support [facility] [address] [place] [phone] 12/06/2024 9:15 AM EDT Clinical Support [facility] [address] [place] [phone] 12/20/2024 9:15 AM EST Clinical Support [facility] [address] [place] [phone] documented as of this encounter Goals Goal Patient Goal Type Associated Problems Recent Progress Patient-Stated? Author Decrease Wound Volume by X% by date (in notes) Care Plan Impaired Tissue No change(2024 10:44 AM EDT) No Monica Gotti, RN Note: 04/26- Patient still is not wearing Offloading shoe 11/15- Patient educated on last visit on 11/08 about diabetic shoes and trying to wear them to see if modifications need to be done. Today she states she still has not tried them. She states she promises to try using them Patient and Caregiver Understand Wound Care Education Care Plan Impaired Tissue Not on track( 025 10:43 AM EDT) No Monica Gotti RN Wound [...] Education Care Plan Education needed related to ulceration/comp romised skin integrity. Monica Delgado RN documented as of this encounter Procedures Procedure Name Priority Date/Time Associated Diagnosis Comments DEBRIDEMENT Routine 11/15/2024 9:30 AM EDT Type 2 diabetes mellitus with foot ulcer (CODE) ([facility] V24, CMS/[facility] V28) Non-pressure chronic ulcer of right heel and midfoot with fat layer exposed (CMS/[facility] V24, CMS/HCC V28) Diabetic polyneuropathy associated with type 2 diabetes mellitus (CMS/HCC V24, CMS/HCC V28) DEBRIDEMENT Routine 11/15/2024 9:30 AM EDT Type 2 diabetes mellitus with foot ulcer (CODE) (CMS/[facility] V24, CMS/HCC V28) Non-pressure chronic ulcer of other part of right foot with fat layer exposed (CMS/HCC V24, CMS/HCC V28) Diabetic polyneuropathy associated with type 2 diabetes mellitus (CMS/HCC V24, CMS/HCC V28) documented in this encounter Results * Debridement Diabetic Ulcer (Cluster ) Right Heel (11/15/2024 9:30 AM EDT) Patsy Lutz MD - 11/15/2024 9:30 AM EDT Patsy Granado MD 11/15/2024 12:52 PM Debridement Diabetic Ulcer (Cluster ) Right Heel Performed by: Patsy Granado MD Authorized by: Patsy Granado MD Associated wounds: Wound Diabetic Ulcer 11/24/23 Heel Right Consent: Consent obtained: Verbal Consent given by: Patient Risks discussed: Yes Time out: Immediately prior to the procedure a time out was called Time out performed at: 11/15/2024 10:42 AM Debridement Details: Performed by: Physician Type: selective Pain control: Lidocaine 4% Pain control administration: topical anesthesia Severity of Tissue Pre Debridement: Fat layer exposed Severity of Tissue Post Debridement: Fat layer exposed Time taken: 11/15/2024 10:04 AM Length (cm): 1 Width (cm): 0.9 Depth (cm): 0.4 Area (cm^2): 0.9 Time taken: 11/15/2024 10:05 AM Length (cm): 1 Width (cm): 0.9 Depth (cm): 0.3 Percent [...] * Debridement Diabetic Ulcer (clustered) Right;Plantar Foot (11/15/2024 9:30 AM EDT) Patsy Lutz MD - 11/15/2024 9:30 AM EDT Patsy Granado MD 11/15/2024 12:52 PM Debridement Diabetic Ulcer (clustered) Right;Plantar Foot Performed by: Patsy Granado MD Authorized by: Patsy Granado MD Associated wounds: Wound Diabetic Ulcer 07/05/24 Foot Right;Plantar Consent: Consent obtained: Verbal Consent given by: Patient Risks discussed: Yes Time out: Immediately prior to the procedure a time out was called Time out performed at: 11/15/2024 10:37 AM Debridement Details: Performed by: Physician Type: selective Pain control: Lidocaine 4% Pain control administration: topical anesthesia Severity of Tissue Pre Debridement: Fat layer exposed Severity of Tissue Post Debridement: Fat layer exposed Time taken: 11/15/2024 10:02 AM Length (cm): 0.7 Width (cm): 0.5 Depth (cm): 0.4 Area (cm^2): 0.35 Time taken: 11/15/2024 10:03 AM Length (cm): 0.7 Width (cm): 0.5 Depth (cm): 0.3 Percent Debrided (%): 100 Surface Area (cm^2): 0.35 Area Debrided (cm^2): 0.35 Volume (cm^3): 0.11 Devitalized tissue debrided: callus, fibrin and slough Devitalized tissue debrided comment: Devitalized skin Instrument: Blade and forceps Amount of bleeding: small Hemostasis obtained with: Pressure Procedural pain: 0 Post-procedural pain: 0 Response to treatment: Procedure was tolerated well us Patsy Granado MD IN CLINIC/BEDSIDE ORDERAB LES Final Result documented in this encounter Visit Diagnoses Diagnosis Type 2 diabetes mellitus with foot ulcer (CODE) ([facility] V24, [facility] V28)- Primary Non-pressure chronic ulcer of right heel and midfoot with fat layer exposed ([facility] V24, [facility] V28) Non-pressure chronic ulcer of other part of right foot with fat layer exposed ([facility] V24, [facility] V28) Diabetic polyneuropathy associated with type 2 diabetes mellitus ([facility] V24, [facility] V28) documented in this encounter Additional Health Concerns Active Problems Noted Date Diagnosed Date Impaired Tissue 12/29/2023 Education needed on impact of smoking on wound 1 02/27/2023 Education needed related to ulceration/compromised skin integrity. 12/29/2023 documented as of this encounter Care Teams Intelligence Officer Relationship Specialty Start Date End Date Zia Morales MD [address] [place] [address] Dr Esteban MA PCP - General Internal Medicine 12/15/23 documented as of this encounter
[2024-11-17 08:03] VITALS: BP 138/84; PULSE 103; TEMP 36.7; O2SAT 97; BMI 39.3
--- NOTE | 2024-11-17 08:03 | MHC.PC.OV ---
Vital Signs 11/17/24 08:03 Height 5 ft 7 in Weight 251 lb BMI 39.3 BP 138/84 Blood Pressure Location Rt brachial Position Sitting Pulse 103 H Pulse Source Pulse Oximeter Temp 98.1 F Temp Source Temporal Artery Scan Pulse Oximetry (%) 97 Oxygen Delivery Method Room Air Intake Visit Reasons: to establish care, austen Morales pt. 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 Required: No Accompanied by: Self / Same As Patient Allergies Sulfa (Sulfonamide Antibiotics) Allergy (Severe, Verified 11/17/24 09:48) RED HIVES Iodinated Contrast Media (IV CONTRAST) Allergy (Mild, Verified 11/17/24 08:06) itching on trunk of body dye-radiology Allergy (Unknown, Uncoded 07/01/24 10:19) Unknown Medication List - Last Reconciled 11/17/24 by JANUSZ Salcedo blood sugar diagnostic (True Metrix Glucose Test Strip) As directed glipizide ER 10 mg PO .twice a day metformin 500 mg PO BID 30 days kabtmran-rlklvuybn-EM 3.5-10,000-1 mg/mL-unit/mL-% 4 drps otic (ears) BID 7 days Tobacco use date assessed: 11/17/24 Fall risk assessment: No Falls in past year Last assessed Fall Risk: 11/17/24 Dental Screening Dental Screen Date: 11/17/24 Did you have a dental visit in the last 12 months?: No Did you have a dental problem in the last 6 months where you did not have access to dental care?: No HPI HPI Comments History of Present Illness Details The patient is a 68-year-old female presenting for management of Type 2 Diabetes Mellitus and Hyperlipidemia. She is currently on glipizide 10 mg BID and metformin 500mg BID, but her recent blood work indicates an increase in HbA1c to 7.9%. The target HbA1c is below 7%, and dietary modifications have been discussed to help achieve this goal. The patient also has hyperlipidemia, with a total cholesterol level of 202 mg/dL and an LDL cholesterol level of 127 mg/dL. The goal is to reduce LDL cholesterol below 70 mg/dL through dietary changes, emphasizing reduced intake of fats and increased fiber consumption. The patient reports a non-healing wound on her foot, for which she is receiving treatment at the [facility]. The wound has been present for about a year, and she has been advised to limit weight-bearing activities to aid healing. Additionally, the patient experiences itching in her ears, which she attributes to scratching. She has been advised against using Q-tips and will be prescribed eardrops containing an antibiotic and hydrocortisone to alleviate symptoms. Patient was informed and verbally consented to the use of an ambient scribe for clinic note documentation during this visit. [facility] Medical History (Updated 11/17/24 @ 11:04 by JANUSZ Salcedo) Diabetic foot ulcer Hyperlipidemia MDD (major depressive disorder), recurrent episode, mild Medication management Morbid obesity Family History Mother No problems noted. Father No problems noted. Social History Housing: House Patient Tobacco Use Status: Never used Tobacco e-Cigarette/Vaping Use: Never Used service: No Current occupational status: retired Cognitive needs: Yes (cane) Hearing needs: No Vision needs: Yes (reading glasses) Questionnaire PHQ-9 Over the last 2 weeks, how often have you been bothered by any of the following problems? 1. Little interest or pleasure in doing things: not at all 2. Feeling down, depressed, or hopeless: several days 3. Trouble falling or staying asleep, or sleeping too much: nearly every day (Trouble staying asleep) 4. Feeling tired or having little energy: nearly every day 5. Poor appetite or overeating: nearly every day 6. Feeling bad about yourself - or that you are a failure or have let yourself or your family down: not at all 7. Trouble concentrating on things, such as reading the newspaper or watching television: not at all 8. Moving or speaking so slowly that other people could have noticed. Or the opposite - being so fidgety or restless that you have been moving around a lot more than usual: not at all 9. Thoughts that you would be better off or of hurting yourself in some way: not at all Total score: 10 Depression Screening Interpretation: Positive Depression Screening Follow-up: Follow-up Visit Requested Depression Screening Done: Yes Source: Developed by Drs. René Barnard, Nava Jenkins, Florentin Lucio and colleagues, with an educational jana from [employer]. Thrive Questionnaire Date Thrive assessed: 11/17/24 I am a: Patient Within the past 12 months, did the food you bought not last and you didn't have the money to get more?: Never true Within the past 12 months, did you worry whether your food would run out before you got money to buy more?: Never true Do you have trouble getting transportation to medical appointments?: No Do you have trouble paying your heating and electricity bill?: No Do you have trouble taking care of your child, family member or friend?: No Do you have trouble with day-to-day activities such as bathing, preparing meals, shopping, managing finances, etc.?: No Are you currently unemployed and looking for a job?: No Are you interested in more education?: No THRIVE Score: 0 AUDIT C Alcohol Use Questionnaire (AUDIT-C) 1. How often do you have a drink containing alcohol?: Never 3. How often do you have six or more drinks on one occasion?: Never Total Score: 0 CARISA-7 AMB Questionnaire CARISA-7 Date CARISA - 7 assessed: 11/17/24 Feeling nervous, anxious, or on edge: 0 = Not at all Not being able to stop or control worryin = Not at all Worrying too much about different things: 0 = Not at all Trouble relaxin = Not at all Being so restless that it is hard to sit still: 0 = Not at all Becoming easily annoyed or irritable: 0 = Not at all Feeling afraid as if something awful might happen: 0 = Not at all Total CARISA-7 score (0-4 normal; 5-9 mild; 10-14 moderate; 15-21 severe): 0 Source: Developed by Drs. René Barnard, Nava Jenkins, Florentin Lucio and colleagues, with an educational jana from [employer]. Review of Systems Const Details: CONSTITUTIONAL Reports difficulty controlling blood sugar levels. HEAD/NECK Negative EAR/NOSE/MOUTH/THROAT Negative RESPIRATORY Negative CARDIOVASCULAR Negative GASTROINTESTINAL Negative MUSCULOSKELETAL Negative NEUROLOGICAL Negative PSYCHIATRIC Negative - Endocrine: Reports difficulty controlling blood sugar levels. - Dermatological: Reports non-healing foot wound. - ENT: Reports itching in ears. Physical exam (Primary Care) Vital Signs: Last Vital Signs Temp 98.1 F 11/17/24 08:03 Pulse 103 H 11/17/24 08:03 BP 138/84 11/17/24 08:03 Pulse Ox 97 11/17/24 08:03 Oxygen Delivery Method Room Air 11/17/24 08:03 BMI result Body Mass Index 39.3 GENERAL Well developed, obese, in no apparent distress HEENT Head-Normocephalic Eyes- PERRLA, EOMI, Conjuctiva clear, lids WNL Ears- Canals inflamed, TMs WNL Neck- Supple, No lymphadenopathy, thyroid WNL RESPIRATORY Normal I:E, Clear to auscultation CARDIOVASCULAR Regular, rate and rhythm, No murmurs or rubs GASTROINTESTINAL Soft, nontender, normal bowel sounds, no masses NEUROLOGICAL Gait normal PSYCHIATRIC Oriented to person, place and time Mood and affect Anxious Appearance WNL Speech WNL Thought processes WNL Tobacco/Smoking Status: Tobacco use Status Tobacco use date assessed 11/17/24 11/17/24 08:10 Patient Tobacco Use Status Never used Tobacco 11/17/24 08:10 e-Cigarette/Vaping Use Never Used 11/17/24 08:10 PHQ-9: PHQ-9 Score PHQ-9: Total score 10 11/17/24 09:50 Depression Screening Interpretation: Positive Depression Screening Follow-up: Follow-up Visit Requested Thrive Assessment: Date of Thrive Assessment Date Thrive assessed 11/17/24 11/17/24 08:10 Coding Level of Care Code Established Pt Est Pt Level 4 (61445) Patient Type Established Diagnoses Type 2 diabetes mellitus with hyperglycemia, without long-term current use of insulin E11.65 Diabetes mellitus type: type 2 Diabetes mellitus usp insulin use: without computer terminal operator use Diabetes mellitus complication status: with hyperglycemia Pure hypercholesterolemia E78.00 Hyperlipidemia type: pure hypercholesterolemia Diabetic foot ulcer E11.621; L97.509 Diabetic foot ulcer location: unspecified part of foot Laterality: right MDD (major depressive disorder), recurrent episode, mild F33.0 Other infective acute otitis externa of both ears H60.393 Otitis externa type: other infective Chronicity: acute Morbid obesity E66.01 Time Spent (min) 35 Comment Time spent on chart review, Medication reconciliation, H&P, patient education and orders Assessment & Plan Assessment & Plan (1) Diabetes mellitus: Code(s): E11.9 - Type 2 diabetes mellitus without complications Category: Medical Qualifiers: Diabetes mellitus type: type 2 Diabetes mellitus usp insulin use: without computer terminal operator use Diabetes mellitus complication status: with hyperglycemia Qualified Code(s): E11.65 - Type 2 diabetes mellitus with hyperglycemia Plan: The patient's HbA1c has increased to 7.9%, indicating suboptimal glycemic control. The plan includes dietary modifications to reduce carbohydrate intake and increase physical activity through short, frequent walks. Follow-up blood work will be conducted before the next visit to assess progress. Patient declines to have her medications adjusted at this time. (2) Hyperlipidemia: Code(s): E78.5 - Hyperlipidemia, unspecified Category: Medical Qualifiers: Hyperlipidemia type: pure hypercholesterolemia Qualified Code(s): E78.00 - Pure hypercholesterolemia, unspecified Plan: The patient's LDL cholesterol is 127 mg/dL, above the target of less than 70 mg/dL. Dietary changes are recommended, focusing on reducing fat intake and increasing fiber consumption. Discussed medications but patient declined. Discussed CV risks associated with Diabetes and the need to reduce risk factors. (3) Diabetic foot ulcer: Code(s): E11.621 - Type 2 diabetes mellitus with foot ulcer; L97.509 - Non-pressure chronic ulcer of other part of unspecified foot with unspecified severity Category: Medical Qualifiers: Diabetic foot ulcer location: unspecified part of foot Laterality: right Plan: The patient has a non-healing wound on her foot, treated at the [facility] for about a year. She is advised to limit weight-bearing activities to promote healing. She was advised of the importance of better sugar control for healing. (4) MDD (major depressive disorder), recurrent episode, mild: Comment: PHQ9 was 10 today Code(s): F33.0 - Major depressive disorder, recurrent, mild Category: Medical Plan: Recommended patient seek counseling. Discussed medications for MDD. Patient declines. Patient to follow up in 2 months or sooner if symptoms persist or worsen. (5) Bilateral otitis externa: Code(s): H60.93 - Unspecified otitis externa, bilateral Qualifiers: Otitis externa type: other infective Chronicity: acute Qualified Code(s): H60.393 - Other infective otitis externa, bilateral Plan: The patient reports itching in her ears, likely due to scratching. Eardrops requested. Patient to avoid Qtips. Patient to follow up as needed if symptoms persist or worsen. (6) Morbid obesity: Comment: BMI today was 39.3 Code(s): E66.01 - Morbid (severe) obesity due to excess calories Category: Medical Plan: Discussed the health risks of obesity with the patient. Reviewed benefits of even moderate weight loss with the patient. Patient will gradually try and increase exercise to 30-40 min 5-7 times per week. We discussed they may need to break the exercise up into 2-3 sessions daily due to foot. We discussed the patient adding more fruits and vegetables to their diet. Will monitor weight and follow up in 2 months. Plan During the visit, we discussed the importance of managing Type 2 Diabetes Mellitus and Hyperlipidemia through lifestyle modifications, including dietary changes and increased physical activity. We also addressed the non-healing foot wound and the need to limit weight-bearing activities to aid healing. For the itching in the ears, I recommended eardrops containing an antibiotic and hydrocortisone. Patient declines mammogram or colon cancer screening. Orders: Orders Glucose Random Today E11.65 - Type 2 diabetes mellitus with hyperglycemia Hemoglobin A1c Today E11.65 - Type 2 diabetes mellitus with hyperglycemia Lipid Panel Today E78.5 - Hyperlipidemia, unspecified Medications: New ghidekgq-havhygrlk-US 3.5-10,000-1 mg/mL-unit/mL-% 4 drps otic (ears) BID 10 mL 0RF for ear infections 7 days blood sugar diagnostic (True Metrix Glucose Test Strip) As directed 50 ea 6RF diabetes mellitus Refilled metformin 500 mg PO BID 180 tabs 0RF 30 days Patient Instructions: - Follow a diet low in carbohydrates and fats, and high in fiber. - Engage in short, frequent walks to improve blood sugar control. - Use prescribed eardrops twice daily to alleviate ear itching. - Schedule follow-up blood work before the next visit.
--- OUTSIDE RECORDS SUMMARY | 2024-11-17 10:33 | XMS_ITS | Patient Health Record ---
[facility] Address [address] [place] [address] Care Team Providers Care Litigation Specialist Name Role Phone Alison Christian MD Primary Care Provider Ivette Castellano Unavailable [phone] Allergies Allergen (clinical drug ingredient) Drug/Non Drug Allergy documented on EMR Reaction Allergy Type Onset Date Status sulfamethoxazole / trimethoprim Bactrim rash Drug Allergy Active Results Component Value Reference Range Notes HEMOGLOBIN A1C (GLYCOHEMOGLO BIN) Reviewed date:02/24/2024 09:07:31 [...] Problem Acquired hammer toe of right foot ([id number] ) Other hammer toe(s) (acquired), right foot (M20.41) Active confirmed Problem Acquired hammer toe of left foot ([id number] ) Other hammer toe(s) (acquired), left foot (M20.42) Active confirmed Problem Polyneuropathy due to type 2 diabetes mellitus (694116326) Type 2 diabetes mellitus with diabetic polyneuropathy (E11.42) Active confirmed Problem Chronic ulcer of right foot ([id number] 0) Type 2 diabetes mellitus with foot ulcer (E11.621) Active confirmed Vital Signs Blood pressure diastolic 82 mm Hg 08/18/2024 Height 5ft7in in 08/18/2024 Blood pressure systolic 134 mm Hg 08/18/2024 Weight 265 lbs 08/18/2024 BMI 41.5 kg/m2 08/18/2024 Encounters Encounter Location Date Provider Diagnosis [facility] [address] [place] [address] 11/21/2023 Ivette Diaz 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 L97.412 ; Cellulitis of right foot L03.115 ; Type 2 diabetes mellitus with diabetic polyneuropathy E11.42 ; Primary osteoarthritis, right ankle and foot M19.071 ; Post-traumatic arthritis of ankle, right M19.171 ; Rigid pes planus, right Q66.51 ; Type 2 diabetes mellitus with foot ulcer E11.621 and Tinea unguium B35.[address] [address] 02/24/2024 Ivette Diaz Neuropathic ulcer of right [...] Other hammer toe(s) (acquired), left foot M20.[address] [address] 05/19/2024 Ivette Diaz Type 2 diabetes mellitus [...] Other hammer toe(s) (acquired), left foot M20.[address] [address] 08/18/2024 Ivette Diaz Type 2 diabetes mellitus with foot ulcer E11.621 ; Type 2 diabetes mellitus with diabetic polyneuropathy E11.42 ; 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 L97.412 and Tinea unguium B35.[address] [address] 05/19/2024 Ivette Diaz Assessments Encounter Date Diagnosis [...] Details Provider Name:Ivette lock, 12/01/2024 09:00:00 AM, [address] [facility], [place], [address], Insurance Providers Payer Name Payer Address Payer Phone Subscriber Number Group Number Insured Name Patient Relationship to Insured Coverage Start Date Coverage End Date [employer] [address] [place]emayor [phone] [id number] [place] , Colleen Self - patient is the insured 4 Medical (General) History Medical History History ICD Code Diabetic Neuropathy ulcer Measles Bone implants/screws Surgical History Surgery Date(Month/Year) Broken right ankle 2012 Hospitalization History Reason Date(Month/Year) ER- fell 04/17/24 infected ulcer on left foot
--- OUTSIDE RECORDS SUMMARY | 2024-11-17 10:33 | XMS_ITS ---
Care Plan Created on: November 17, 2024 Colleen Das : 1955 Sex: Female Author Organization [facility] Address [address] [place] [address] Phone Care Team Providers Care Instructional Technology Coordinator Name Role Phone Zia Morales MD Primary Care Provider [phone] Active Problems Problem Noted Date Diagnosed Date Non-pressure chronic ulcer o f other part of right foot limited to breakdown of skin [place] [place] [facility] V28) 08/30/2024 Non-pressure chronic ulcer o f right heel and midfoot with fat layer exposed ([facility] [place], [facility] V28) 07/19/2024 Diabetic polyneuropathy asso ciated with type 2 diabetes mellitus ([facility] V24, [facility] V28) 05/24/2024 Type 2 diabetes mellitus wit h foot ulcer (CODE) ([facility] [place], [facility] V28) 04/26/2024 Chronic heel ulcer, right, w ith fat layer exposed ([facility] V24, [facility] V28) 01/12/2024 Type 2 diabetes mellitus wit h right diabetic foot ulcer ([facility] V24, [facility] V28) 01/05/2024 Non-pressure chronic ulcer o f other part of right foot with fat layer exposed ([facility] V24, [facility] V28) 01/05/2024 Additional Health Concerns Active Problems Noted Date Diagnosed Date Impaired Tissue 12/29/2023 Education needed on impact of smoking on wound 1 02/27/2023 Education needed related to ulceration/compromised skin integrity. 12/29/2023 Goals Goal Patient Goal Type Associated Problems Recent Progress Patient-Stated? Author Decrease Wound Volume by X% by date (in notes) Care Plan Impaired Tissue No change(2024 10:44 AM EDT) Monica Delgado RN Note: 04/26- [...] Not on track( 025 10:43 AM EDT) Monica Delgado RN Wound volume [...] ulceration/comp romised skin integrity. Monica Delgado RN Interventions Care [...]
--- OUTSIDE RECORDS SUMMARY | 2024-11-17 10:33 | XMS_ITS | Clinical Summary ---
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 ([facility] V24, [facility] V28) 07/19/2024 Diabetic polyneuropathy asso ciated with type 2 diabetes mellitus ([facility] V24, [facility] V28) 05/24/2024 Type 2 diabetes mellitus wit h foot ulcer (CODE) ([facility] V24, [facility] V28) 04/26/2024 Chronic heel ulcer, right, w ith fat layer exposed ([facility] V24, [facility] V28) 01/12/2024 Type 2 diabetes mellitus wit h right diabetic foot ulcer (CMS/HCC V24, CMS/HCC V28) 01/05/2024 Non-pressure chronic ulcer o f other part of right foot with fat layer exposed ([facility] V24, [facility] V28) 01/05/2024 Encounters Date Type Department Care Team Description 11/15/2024 9:30 AM EDT Office Visit [facility] [address] [place] [phone] Patsy Granado MD Type 2 diabetes mellitus with foot ulcer (CODE) ([facility] V24, [facility] V28) (Primary Dx); Non-pressure chronic ulcer of right heel and midfoot with fat layer exposed (CMS/HCC V24, CMS/HCC V28); Non-pressure chronic ulcer of other part of right foot with fat layer exposed (CMS/HCC V24, CMS/HCC V28); Diabetic polyneuropathy associated with type 2 diabetes mellitus (CMS/HCC V24, CMS/HCC V28) 11/08/2024 9:15 AM EDT Office Visit [facility] [address] [place] [address] [phone] Patsy Granado MD Type 2 diabetes mellitus with foot ulcer (CODE) ([facility]/HCC V24, CMS/[facility] V28) (Primary Dx); Non-pressure chronic ulcer of right heel and midfoot with fat layer exposed (CMS/HCC V24, CMS/HCC V28); Non-pressure chronic ulcer of other part of right foot with fat layer exposed (CMS/HCC V24, CMS/HCC V28); Diabetic polyneuropathy associated with type 2 diabetes mellitus (CMS/HCC V24, CMS/HCC V28) 10/25/2024 9:15 AM EDT Office Visit [facility] [address] [place] [address] [phone] Patsy Granado MD Type 2 diabetes mellitus with foot ulcer (CODE) ([facility]/HCC V24, CMS/HCC V28) (Primary Dx); Non-pressure chronic ulcer of right heel and midfoot with fat layer exposed (CMS/HCC V24, CMS/HCC V28); Non-pressure chronic ulcer of other part of right foot with fat layer exposed (CMS/HCC V24, CMS/HCC V28); Diabetic polyneuropathy associated with type 2 diabetes mellitus (CMS/HCC V24, CMS/HCC V28) 10/11/2024 9:00 AM EDT Office Visit [facility] [address] [place] [phone] Patsy Granado MD Type 2 diabetes mellitus [...] V28) 10/04/2024 9:00 AM EDT Office Visit [facility] [address] [place] [phone] Patsy Granado MD Type 2 diabetes mellitus [...] V28) 09/27/2024 9:15 AM EDT Office Visit [facility] [address] [place] [phone] Patsy Granado MD Type 2 diabetes mellitus [...] V28) 09/20/2024 9:15 AM EDT Office Visit [facility] [address] [place] [address] [phone] Patsy Granado MD Type 2 diabetes mellitus with foot ulcer (CODE) (CMS/HCC V24, CMS/HCC V28) (Primary Dx); Non-pressure chronic ulcer of right heel and midfoot with fat layer exposed (CMS/HCC V24, CMS/HCC V28); Non-pressure chronic ulcer of other part of right foot with fat layer exposed (CMS/HCC V24, CMS/HCC V28) 09/13/2024 9:30 AM EDT Office Visit [facility] [address] [place] [address] [phone] Patsy Granado MD Type 2 diabetes mellitus [...] V28) 08/30/2024 9:30 AM EDT Office Visit [facility] [address] [place] [phone] Patsy Granado MD Type 2 diabetes mellitus with foot ulcer (CODE) (CMS/HCC V24, CMS/HCC V28) (Primary Dx); Non-pressure chronic ulcer of right heel and midfoot with fat layer exposed (CMS/HCC V24, CMS/HCC V28); Non-pressure chronic ulcer of other part of right foot limited to breakdown of skin (CMS/HCC V24, CMS/HCC V28); Diabetic polyneuropathy associated with type 2 diabetes mellitus (CMS/HCC V24, CMS/HCC V28) from Last 3 Months Surgical History Surgery Date Site/Laterality Comments ANKLE FRACTURE SURGERY 02/18/2012 - 02/16/2013 Right Medical History Medical History Date Comments Diabetes mellitus (CMS/HCC V24, CMS/HCC V28) Arthritis Neuropathy Delayed wound [...] Description 11/22/2024 9:15 AM EDT Clinical Support [facility] [address] [place] [phone] 12/06/2024 9:15 AM EDT Clinical Support [facility] [address] [place] [phone] 12/20/2024 9:15 AM EST Clinical Support [facility] [address] [place] [phone] Health Maintenance Due Date Last Done Comments Breast Cancer Screening 1955 Colorectal Cancer Screening: Colonoscopy 1955 Diabetes: Annual GFR (Glomerular Filtration Rate) 1955 Diabetes: Annual Foot Exam 1966 Diabetes: Annual Retina Eye Exam 1966 Pneumococcal Vaccine: 50+ Years (1 of 2 - PCV) 12/17/1975 Zoster Vaccines (1 of 2) 2006 RSV Immunization Adult Patients (1 - Risk 60-74 years 1-dose series) 2016 DTaP,Tdap,and Td Vaccines (2 - Td or Tdap) 10/28/2022 10/28/2012 Cholesterol Screening (Lipid Panel) 11/27/2023 Diabetes: Annual Urine Albumin-Creatinine Ratio (uACR) 11/27/2023 Diabetes: Blood Sugar Contro l Test (HGBA1C) 11/27/2023 Hepatitis C Screening 11/27/2023 Medicare Annual Wellness Visit 11/27/2023 Osteoporosis Screening (Bone Density Screening) 11/27/2023 Social Influencers of Health Screening 11/27/2023 Depression Screening 02/18/2024 COVID-19 Vaccine (3 - 2024-2 6 season) [...] Care Plan Impaired Tissue Not on track( 10:43 AM EDT) Monica Delgado RN Wound [...] ulceration/comp romised skin integrity. Monica Delgado RN Procedures Procedure Name Priority Date/Time Associated Diagnosis Comments DEBRIDEMENT Routine 11/15/2024 9:30 AM EDT Type 2 diabetes mellitus with foot ulcer (CODE) ([facility] V24, [facility] V28) Non-pressure chronic ulcer of right heel and midfoot with fat layer exposed (CMS/[facility] V24, CMS/[facility] V28) Diabetic polyneuropathy associated with type 2 diabetes mellitus ([facility] V24, CMS/HCC V28) DEBRIDEMENT Routine 11/15/2024 9:30 [...] 2 diabetes mellitus (CMS/HCC V24, CMS/HCC V28) from Last 3 [...] ) Right Heel (10/25/2024 9:15 AM EDT) Narrative Patsy Granado MD - 10/25/2024 9:15 AM EDT Patsy [...] MD - 10/11/2024 9:00 AM EDT Patsy Granaod MD 10/11/2024 10:01 AM Debridement Diabetic Ulcer [...] by: Patsy Granado MD Authorized by: Patsy Graando MD Associated wounds: Wound Diabetic Ulcer 07/05/24 [...] to treatment: Procedure was tolerated well Result [facility] Patsy Granado MD IN CLINIC/BEDSIDE ORDERAB LES [...] Escherichia coli(A) JUANJOSE 09/16/2024 8:09 AM EDT [facility] Comment: The organism value for this result has been updated. These results have been appended to the previously preliminary verified report. This is an edited result. Previous organism was Gram negative bacilli on 09/14/2024 at 1119 EDT. Culture, Wound Enterococcus faecalis(A) JUANJOSE 09/16/2024 8:09 AM T [facility] Comment: The organism value for this result has been updated. These results have been appended to the previously preliminary verified report. Gram Stain Result Rare Polymorphonuclear leukocytes(A) 09/16/2024 8:09 AM EDT [facility] Gram Stain Result Rare Epithelial cells(A) 09/16/2024 8:09 AM EDT [facility] Gram Stain Result Many Gram positive cocci(A) 09/16/2024 8:09 AM EDT [facility] Gram Stain Result Rare Gram negative bacilli(A) 09/16/2024 8:09 AM EDT [facility] Swab Structure of right foot / Unknown Non-blood Collection / Unknown 09/13/2024 10:45 AM EDT 09/13/2024 4:15 PM EDT Narrative [facility] - 09/16/2024 8:09 AM EDT SPARSE [...] JUANJOSE <=0.12 ug/ml: Susceptible Escherichia coli Trimethoprim/Sulfamethoxazole JUAJNOSE <=20 ug/ml: Susceptible Enterococcus faecalis Benzylpenicillin JUANJOSE 4 ug/ml: Susceptible Enterococcus faecalis Ampicillin JUANJOSE <=2 ug/ml: Susceptible Enterococcus faecalis Linezolid JUANJOSE 2 ug/ml: Susceptible Enterococcus faecalis Vancomycin JUANJOSE 1 ug/ml: Susceptible us Patsy Granado MD LAB MICROBIOLOGY - GENERA L ORDERABLES Final Result [facility] [address] [place] [address], * Debridement Diabetic Ulcer Right Heel (09/13/2024 [...] related to ulceration/compromised skin integrity. 12/29/2023 Insurance [facility] MEDICARE ADVANTAGE MEDICAID - [place]ALTH [place] Care Teams Floral Design Teacher Relationship Specialty Start Date End Date Zia Morales MD [address] [place] [address] Dr [place] PCP - General Internal Medicine 12/15/23
--- OUTSIDE RECORDS SUMMARY | 2025-01-04 20:00 | XMS_ITS | Clinical Summary ---
Author Organization Unknown Care Team Providers Care Meat Cutting Block Repairer Name Role Phone JAK ALCARAZ, LINDA Unavailable Unavailable RHINA MARQUEZ, MERRITT Unavailable Unavailab dana ZABALA LPN, JENNI Unavailable Unavail able Payers Payer Name Policy Type Policy Number Effective Date Expira tion Date REPLACED BY [facility] [id number] MEDIC[facility] [id number] Problems Condition Name Condition Details Condition Category [...] DIABETIC POLYNEUROPAT HY Active 02-17 00:00: 00 [facility] (CURRENT) USE OF ORAL HYPOGLYCEMIC DRUGS Active [...] 11-09 00:00: 00 11-16 23:59 :00 No [id number] CELLULITIS RIGHT HEEL 1 tablet 2 TIMES DAILY 1 tablet 2 TIMES DAILY (route: oral) Med Classific ation: Anti-Infe ctive Agents doxycycline monohydrate 100 mg tablet 11-09 00:00: 00 11-16 23:59 :00 No [id number] CELLULITIS 1 tablet 2 TIMES DAILY 1 tablet 2 TIMES DAILY (route: oral) Med Classific ation: Anti-Infe ctive Agents metformin 500 mg tablet 11-06 00:00: 00 Yes [id number] DIABETES 1 tablet 2 TIMES DAILY 1 tablet 2 TIMES DAILY (route: oral) Med Classific ation: Endocrine acetaminoph en 325 mg tablet 11-09 00:00: 00 11-14 23:59 :00 No [id number] PAIN 2 tablet EVERY 4 HOURS 2 tablet EVERY 4 HOURS (route: oral) Med Classific ation: Analgesic , Anti-infl ammatory or Antipyret ic glipizide ER 10 mg tablet, extended release 24 hr 11-06 00:00: 00 Yes [id number] DIABETES 1 tablet 2 TIMES DAILY 1 tablet 2 TIMES DAILY (route: oral) Med Classific ation: Endocrine cholecalcif angie (vitamin D3) 25 mcg (1,000 unit) tablet 2023-02 00:00: 00 09-03 23:59 :00 No [id number] SUPPLEMENT 1 tablet DAILY 1 tablet DAILY (route: oral) Med Classific ation: Electroly te Balance-N utritiona l Products amlodipine 5 mg tablet 2023-02 00:00: 00 09-03 23:59 :00 No [id number] HTN 5 mg DAILY 5 mg DAILY (route: oral) Med Classific ation: Cardiovas cular Therapy Agents amoxicillin 500 mg-potassiu m clavulanate 125 mg tablet 05-19 00:00: 00 05-29 23:59 :00 No [id number] FOOT INFECTION 1 tablet 2 TIMES DAILY 1 tablet 2 TIMES DAILY (route: oral) Med Classific ation: Anti-Infe ctive Agents Vital Signs Vital Name Observation Time Observation Value Commen ts Temperature 2024-11-12 08:38:00.000 97.3 [degF] Pulse 2024-11-12 08:38:00.000 94 /min O2 Saturation (%) 2024-11-12 08:38:00.000 98 % Respirations 2024-11-12 08:38:00.000 18 /min Systolic Blood Pressure 2024-11-12 08:38:00.000 142 mm [Hg] Diastolic Blood Pressure 2024-11-12 08:38:00.000 72 mm [Hg] Plan of Treatment Planned Activity Planned Date Details Comments Future Scheduled Test RN TO OBSE RVE, ASSESS, EVALUATE, AND DEVELOP AN INDIVIDUALIZED PLAN OF CARE. AGENCY MAY ACCEPT ORDERS FROM CONSULTING PHYSICIANS. RN TO OBSERVE AND ASSESS, CATH LAB/DOUGHNUT FRYER TO OBSERVE FOR RISK FOR FALLS AND INSTRUCT IN FALL PREVENTION, HOME SAFETY, MEDICATION MANAGEMENT, INFECTION PREVENTION, AND NUTRITION MANAGEMENT. RN/CATH LAB/DOUGHNUT FRYER NURSE MAY PERFORM O2 SATURATION LEVEL ON ADMISSION AND PRN FOR RN TO ASSESS/CATH LAB TO OBSERVE PATIENT, WITH NOTIFICATION TO THE PHYSICIAN IF SATURATION IS 90% IN THE ABSENCE OF MORE SPECIFIC PARAMETERS FROM THE PHYSICIAN. AGENCY MAY PERFORM A RESUMPTION OF CARE VISIT FOLLOWING ANY HOSPITAL ADMISSION. RN/CATH LAB/DOUGHNUT FRYER TO MONITOR CO-MORBID CONDITIONS LISTED ON THE PLAN OF CARE AND ANY NEW CONDITIONS THAT PRESENT THEMSELVES DURING THIS EPISODE TO IDENTIFY CHANGES AND INTERVENE TO MINIMIZE COMPLICATIONS. [code = RN TO OBSERVE, ASSESS, EVALUATE, AND DEVELOP AN INDIVIDUALIZED PLAN OF CARE. AGENCY MAY ACCEPT ORDERS FROM CONSULTING PHYSICIANS. RN TO OBSERVE AND ASSESS, CATH LAB/DOUGHNUT FRYER TO OBSERVE FOR RISK FOR FALLS AND INSTRUCT IN FALL PREVENTION, HOME SAFETY, MEDICATION MANAGEMENT, INFECTION PREVENTION, AND NUTRITION MANAGEMENT. RN/CATH LAB/DOUGHNUT FRYER NURSE MAY PERFORM O2 SATURATION LEVEL ON ADMISSION AND PRN FOR RN TO ASSESS/CATH LAB TO OBSERVE PATIENT, WITH NOTIFICATION TO THE PHYSICIAN IF SATURATION IS 90% IN THE ABSENCE OF MORE SPECIFIC PARAMETERS FROM THE PHYSICIAN. AGENCY MAY PERFORM A RESUMPTION OF CARE VISIT FOLLOWING ANY HOSPITAL ADMISSION. RN/CATH LAB/DOUGHNUT FRYER TO MONITOR CO-MORBID CONDITIONS LISTED ON THE PLAN OF CARE AND ANY NEW CONDITIONS THAT PRESENT THEMSELVES DURING THIS EPISODE TO IDENTIFY CHANGES AND INTERVENE TO MINIMIZE COMPLICATIONS.] Future Scheduled Test MEDICATION MANAGEMENT; RN/CATH LAB/DOUGHNUT FRYER TO REVIEW MEDICATIONS FOR INTERACTIONS, EFFECTIVENESS OF DRUG THERAPY, AND SIGNS/SYMPTOMS OF ADVERSE REACTIONS. MAY INSTRUCT AND REINFORCE MEDICATION TEACHING RELATED TO THE USE OF MEDICATIONS, DOSAGE, FREQUENCY, PURPOSE, SIDE EFFECTS, AND TO REPORT COMPLICATIONS. [code = MEDICATION MANAGEMENT; RN/CATH LAB/DOUGHNUT FRYER TO REVIEW MEDICATIONS FOR INTERACTIONS, EFFECTIVENESS OF DRUG THERAPY, AND SIGNS/SYMPTOMS OF ADVERSE REACTIONS. MAY INSTRUCT AND REINFORCE MEDICATION TEACHING RELATED TO THE USE OF MEDICATIONS, DOSAGE, FREQUENCY, PURPOSE, SIDE EFFECTS, AND TO REPORT COMPLICATIONS.] Future Scheduled Test RISK FOR H OSPITALIZATION; RN TO ASSESS/TEACH, DOUGHNUT FRYER/CATH LAB TO OBSERVE/TEACH PATIENT/CAREGIVER ON RISK FOR HOSPITALIZATION/EMERGENCY ROOM VISITS, TEACH SIGNS AND SYMPTOMS THAT PUT PATIENT AT RISK, WHEN TO NOTIFY NURSE/PHYSICIAN OF COMPLICATIONS/DECLINE, AND WHEN TO CALL 911. [code = RISK FOR HOSPITALIZATION; RN TO ASSESS/TEACH, D[facility]NUT FRYER/CATH LAB TO OBSERVE/TEACH PATIENT/CAREGIVER ON RISK FOR HOSPITALIZATION/EMERGENCY ROOM VISITS, TEACH SIGNS AND SYMPTOMS THAT PUT PATIENT AT RISK, WHEN TO NOTIFY NURSE/PHYSICIAN OF COMPLICATIONS/DECLINE, AND WHEN TO CALL 911.] Future Scheduled Test SKIN INTEG RITY RN TO ASSESS AND TEACH, CATH LAB/DOUGHNUT FRYER TO OBSERVE AND TEACH INTEGUMENTARY STATUS TO IDENTIFY CHANGES AND INTERVENE TO MINIMIZE COMPLICATIONS. PROVIDE SKILLED TEACHING OF GENERAL WOUND AND SKIN CARE AND PREVENTION RELATED TO ACTUAL ALTERED SKIN INTEGRITY [code = SKIN INTEGRITY RN TO ASSESS AND TEACH, CATH LAB/DOUGHNUT FRYER TO OBSERVE AND TEACH INTEGUMENTARY STATUS TO IDENTIFY CHANGES AND INTERVENE TO MINIMIZE COMPLICATIONS. PROVIDE SKILLED TEACHING OF GENERAL WOUND AND SKIN CARE AND PREVENTION RELATED TO ACTUAL ALTERED SKIN INTEGRITY] Future Scheduled Test RN TO ASSE SS, CATH LAB/DOUGHNUT FRYER TO OBSERVE DIABETIC FOOT ULCERS - NEUROPATHIC AND INTERVENE TO MINIMIZE COMPLICATIONS. PROVIDE SKILLED TEACHING TO PATIENT/CAREGIVER RELATED TO ALTERED SKIN INTEGRITY. REPORT SIGNIFICANT CHANGES IN STATUS TO PHYSICIAN FOR EARLY INTERVENTION. [code = RN TO ASSESS, CATH LAB/DOUGHNUT FRYER TO OBSERVE DIABETIC FOOT ULCERS - NEUROPATHIC AND INTERVENE TO MINIMIZE COMPLICATIONS. PROVIDE SKILLED TEACHING TO PATIENT/CAREGIVER RELATED TO ALTERED SKIN INTEGRITY. REPORT SIGNIFICANT CHANGES IN STATUS TO PHYSICIAN FOR EARLY INTERVENTION.] Future Scheduled Test RN/CATH LAB/DOUGHNUT FRYER TO PERFORM/TEACH DIABETIC ULCER - NEUROPATHIC CARE TO RIGHT PLANTAR HEEL WOUND CLEANSE WITH NORMAL SALINE/VASHE, APPLY SILVER ALGINATE, APPLY 4X4 GAUZE, APPLY ZINC BARRIER TO PERIWOUND AREA TO PREVENT SKIN MACERATION AND PROTECT PERIWOUND COVER WITH ABD PAD AND KERLIX SECURE WITH TAPE. CHANGE DRESSING THREE TIMES AND PRN FOR DISLODGED DRESSING. RN/CATH LAB/DOUGHNUT FRYER TO PERFORM/TEACH DIABETIC ULCER - NEUROPATHIC CARE TO RIGHT PLANTAR METATARSAL WOUND CLEANSE WITH NORMAL SALINE/VASHE, APPLY SILVER ALGINATE, APPLY 4X4 GAUZE, APPLY ZINC BARRIER TO PERIWOUND AREA TO PREVENT SKIN MACERATION AND PROTECT PERIWOUND COVER WITH ABD PAD AND KERLIX SECURE WITH TAPE. CHANGE DRESSING THREE TIMES AND PRN FOR DISLODGED DRESSING. [code = RN/CATH LAB/DOUGHNUT FRYER TO PERFORM/TEACH DIABETIC ULCER - NEUROPATHIC CARE TO RIGHT PLANTAR HEEL WOUND CLEANSE WITH NORMAL SALINE/VASHE, APPLY SILVER ALGINATE, APPLY 4X4 GAUZE, APPLY ZINC BARRIER TO PERIWOUND AREA TO PREVENT SKIN MACERATION AND PROTECT PERIWOUND COVER WITH ABD PAD AND KERLIX SECURE WITH TAPE. CHANGE DRESSING THREE TIMES AND PRN FOR DISLODGED DRESSING. RN/CATH LAB/DOUGHNUT FRYER TO PERFORM/TEACH DIABETIC ULCER - NEUROPATHIC CARE TO RIGHT PLANTAR METATARSAL WOUND CLEANSE WITH NORMAL SALINE/VASHE, APPLY SILVER ALGINATE, APPLY 4X4 GAUZE, APPLY ZINC BARRIER TO PERIWOUND AREA TO PREVENT SKIN MACERATION AND PROTECT PERIWOUND COVER WITH ABD PAD AND KERLIX SECURE WITH TAPE. CHANGE DRESSING THREE TIMES AND PRN FOR DISLODGED DRESSING.] Future Scheduled Test PAIN MANAG EMENT; RN TO ASSESS AND TEACH, DOUGHNUT FRYER/CATH LAB TO OBSERVE AND TEACH AND PROVIDE EDUCATION ON PAIN MANAGEMENT TECHNIQUES. [code = PAIN MANAGEMENT; RN TO ASSESS AND TEACH, DOUGHNUT FRYER/CATH LAB TO OBSERVE AND TEACH AND PROVIDE EDUCATION ON PAIN MANAGEMENT TECHNIQUES.] Future Scheduled Test FALL REDUC TION MANAGEMENT; RN TO ASSESS AND OBSERVE, CATH LAB/DOUGHNUT FRYER TO OBSERVE FALL RISK FACTORS AND EDUCATE PATIENT/CAREGIVER ON STRATEGIES TO MINIMIZE THE RISK OF FALLING. [code = FALL REDUCTION MANAGEMENT; RN TO ASSESS AND OBSERVE, CATH LAB/DOUGHNUT FRYER TO OBSERVE FALL RISK FACTORS AND EDUCATE PATIENT/CAREGIVER ON STRATEGIES TO MINIMIZE THE RISK OF FALLING.] Goal 2024-05-07 Patient Goal - HELP HEEL THE WOUND Goal 2024-07-08 Patient Goal - HELP HEEL THE WOUND Goal 2024-09-03 Patient Goal - HELP HEEL THE WOUNDS Goal 2024-11-05 Patient Goal - HELP HEEL THE WOUNDS Goal Patient Goal - HELP HEEL THE WOUNDS Goal 2024-03-10 Patient Goal - HELP HEEL [...] TO CALL 911. Goal Provider Goal - CHANGES IN SKIN [...] End Date/Time Encounter Type Admission Type Attending [facility] Care Department Encounter ID Discharge Date Discharge Status Discharge Condition Discharge Reason Percent Goals Met 2024-11-07 00:00:00 2025-01-05 00:00:00 Outpatient RECERTIFIC ATION MERRITT LANTIGUA [facility] [id number] 0.00
== END 2024-11-17 10:18 | disposition home or self-care (01) ==
LOC: HO.HMCHD 09:39
PROVIDERS: PCP Physician Assistant Medical; Visit Provider Physician Assistant Medical
DX: E11.65 Type 2 diabetes mellitus with hyperglycemia (principal); E78.00 Pure hypercholesterolemia, unspecified; E11.621 Type 2 diabetes mellitus with foot ulcer; L97.509 Non-pressure chronic ulcer of other part of unspecified foot with unspecified severity; F33.0 Major depressive disorder, recurrent, mild; H60.393 Other infective otitis externa, bilateral; E66.01 Morbid (severe) obesity due to excess calories

== ENCOUNTER → 2024-11-17 09:39 | Outpatient (BNVA) | payer MEDICARE, MEDICAID, SELFPAY | PROVIDERS: PCP Physician Assistant Medical; Visit Provider Physician Assistant Medical | DX: E11.65 Type 2 diabetes mellitus with hyperglycemia (principal); E78.00 Pure hypercholesterolemia, unspecified; E11.621 Type 2 diabetes mellitus with foot ulcer; L97.519 Non-pressure chronic ulcer of other part of right foot with unspecified severity; F33.0 Major depressive disorder, recurrent, mild; H60.393 Other infective otitis externa, bilateral; E66.01 Morbid (severe) obesity due to excess calories; Z79.84 Long term (current) use of oral hypoglycemic drugs; Z68.39 Body mass index [BMI] 39.0-39.9, adult; Z79.899 Other long term (current) drug therapy | CPT/HCPCS: 96127; 99212 ==

== ENCOUNTER 2025-01-11 06:33 | Outpatient (REF) | payer MEDICARE, MEDICAID, SELFPAY ==
--- OUTSIDE RECORDS SUMMARY | 2025-01-11 06:37 | XMS_ITS ---
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 ([facility] V24, [facility] V28) 07/19/2024 Diabetic polyneuropathy asso ciated with type 2 diabetes mellitus ([facility] V24, [facility] V28) 05/24/2024 Type 2 diabetes mellitus wit h foot ulcer (CODE) ([facility] V24, [facility] V28) 04/26/2024 Chronic heel ulcer, right, w ith fat layer exposed ([facility] V24, [facility] V28) 01/12/2024 Type 2 diabetes mellitus wit h right diabetic foot ulcer ([facility] V24, [facility] V28) 01/05/2024 Non-pressure chronic ulcer o f other part of right foot with fat layer exposed ([facility] V24, [facility] V28) 01/05/2024 Additional Health Concerns Active Problems Noted Date Diagnosed Date Impaired Tissue 12/29/2023 Education needed on impact of smoking on wound 1 02/27/2023 Education needed related to ulceration/compromised skin integrity. 12/29/2023 Goals Goal Patient Goal Type Associated Problems Recent Progress Patient-Stated? Author Decrease Wound Volume by X% by date (in notes) Care Plan Impaired Tissue On track( 025 9:55 AM EST) Monica Delgado RN Note: 04/26- Patient still [...] Plan Impaired Tissue Not on track( 025 9:56 AM EST) Monica Delgado RN Wound volume [...]
--- OUTSIDE RECORDS SUMMARY | 2025-01-11 06:37 | XMS_ITS | Clinical Summary ---
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 ([facility] V24, [facility] V28) 07/19/2024 Diabetic polyneuropathy asso ciated with type 2 diabetes mellitus ([facility] V24, [facility] V28) 05/24/2024 Type 2 diabetes mellitus wit h foot ulcer (CODE) ([facility] V24, [facility] V28) 04/26/2024 Chronic heel ulcer, right, w ith fat layer exposed ([facility] V24, [facility] V28) 01/12/2024 Type 2 diabetes mellitus wit h right diabetic foot ulcer ([facility] V24, [facility] V28) 01/05/2024 Non-pressure chronic ulcer o f other part of right foot with fat layer exposed (CMS/HCC V24, CMS/HCC V28) 01/05/2024 Encounters Date Type Department Care Team Description 01/03/2025 9:30 AM EST Office Visit [facility] [address] [place] [phone] Patsy Granado MD Type 2 diabetes mellitus with foot ulcer (CODE) (CMS/HCC V24, CMS/HCC V28) (Primary Dx); Non-pressure chronic ulcer of right heel and midfoot with fat layer exposed (CMS/HCC V24, CMS/HCC V28); Non-pressure chronic ulcer of other part of right foot with fat layer exposed (CMS/HCC V24, CMS/HCC V28); Diabetic polyneuropathy associated with type 2 diabetes mellitus (CMS/HCC V24, CMS/HCC V28) 12/20/2024 9:15 AM EST Office Visit [facility] [address] [place] [phone] Patsy Granado MD Type 2 diabetes mellitus with foot ulcer (CODE) (CMS/HCC V24, CMS/HCC V28) (Primary Dx); Non-pressure chronic ulcer of right heel and midfoot with fat layer exposed (CMS/HCC V24, CMS/HCC V28); Non-pressure chronic ulcer of other part of right foot with fat layer exposed (CMS/HCC V24, CMS/HCC V28); Diabetic polyneuropathy associated with type 2 diabetes mellitus (CMS/HCC V24, CMS/HCC V28) 12/06/2024 9:15 AM EDT Office Visit [facility] [address] [place] [phone] Patsy Granado MD Type 2 diabetes mellitus with foot ulcer (CODE) (CMS/HCC V24, CMS/HCC V28) (Primary Dx); Non-pressure chronic ulcer of right heel and midfoot with fat layer exposed (CMS/HCC V24, CMS/HCC V28); Non-pressure chronic ulcer of other part of right foot with fat layer exposed (CMS/HCC V24, CMS/HCC V28); Diabetic polyneuropathy associated with type 2 diabetes mellitus (CMS/HCC V24, CMS/HCC V28) 11/22/2024 9:15 AM EDT Office Visit [facility] [address] [place] [phone] Adrian Madden PA Type 2 diabetes mellitus with foot ulcer (CODE) (CMS/HCC V24, CMS/HCC V28) (Primary Dx); Non-pressure chronic ulcer of right heel and midfoot with fat layer exposed (CMS/HCC V24, CMS/HCC V28); Non-pressure chronic ulcer of other part of right foot with fat layer exposed (CMS/HCC V24, CMS/HCC V28); Diabetic polyneuropathy associated with type 2 diabetes mellitus (CMS/HCC V24, CMS/HCC V28) 11/15/2024 9:30 AM EDT Office Visit [facility] [address] [place] [phone] Patsy Granado MD Type 2 diabetes mellitus [...] V28) 11/08/2024 9:15 AM EDT Office Visit [facility] [address] [place] [phone] Patsy Granado MD Type 2 diabetes mellitus [...] V28) 10/25/2024 9:15 AM EDT Office Visit [facility] [address] [place] [phone] Patsy Granado MD Type 2 diabetes mellitus [...] V28) 10/11/2024 9:00 AM EDT Office Visit [facility] [address] [place] [phone] Patsy Granado MD Type 2 diabetes mellitus with foot ulcer (CODE) (CMS/HCC V24, [facility] V28) (Primary Dx); Non-pressure chronic ulcer of [...] History Medical History Date Comments Diabetes mellitus ([facility] V24, [facility] V28) Arthritis Neuropathy Delayed wound healing Family [...] Sign Reading Time Taken Comments Blood Pressure 154/67 01/03/2025 9:20 AM EST Pulse 101 01/03/2025 9:20 AM EST Temperature 36.4 C (97.5 F) 01/03/2025 9:20 AM EST Respiratory Rate 18 01/03/2025 9:20 AM EST Oxygen Saturation 98% 01/03/2025 9:20 AM EST Inhaled Oxygen Concentration - - Weight 116 kg (255 lb) 12/29/2023 9:08 AM EST Height 170.2 cm (5' 7 ) 02/09/2024 9:26 AM EST Body Mass Index 39.94 12/29/2023 9:08 AM EST Plan of Treatment Upcoming Encounters Date Type Department Care Team (Late st Contact Info) Description 01/17/2025 9:15 AM EST Clinical Support [facility] [address] [place] [phone] Health Maintenance Due Date Last Done Comments Breast Cancer Screening 1955 Colorectal Cancer Screening: Colonoscopy 1955 Diabetes: Annual GFR (Glomerular Filtration Rate) 1956 Diabetes: Annual Foot Exam 1966 Diabetes: Annual Retina Eye Exam 1966 Pneumococcal Vaccine: 50+ Years (1 of 2 - PCV) 12/17/1975 RSV Immunization Adult Patients (1 - Risk 50-74 years 1-dose series) 2006 Zoster Vaccines (1 of 2) 2006 DTaP,Tdap,and Td Vaccines (2 - Td or [...] 2024 02/05/2021, 12/14/2020 Influenza Vaccine (#1) 2024 Falls Risk Assessment 04/26/2025 04/26/2024 HIB [...] notes) Care Plan Impaired Tissue On track( 9:55 AM EST) Monica Delgado RN Note: [...] needed related to ulceration/comp romised skin integrity. No Monica Gotti RN Procedures Procedure Name Priority Date/Time Associated Diagnosis Comments DEBRIDEMENT Routine 01/03/2025 9:30 AM EST Type 2 diabetes mellitus with foot ulcer (CODE) (CMS/HCC V24, CMS/HCC V28) Non-pressure chronic ulcer of right heel and midfoot with fat layer exposed (CMS/HCC V24, CMS/HCC V28) Diabetic polyneuropathy associated with type 2 diabetes mellitus (CMS/HCC V24, CMS/HCC V28) DEBRIDEMENT Routine 01/03/2025 9:30 AM EST Type 2 diabetes mellitus with foot ulcer (CODE) (CMS/HCC V24, CMS/HCC V28) Non-pressure chronic ulcer of other part of right foot with fat layer exposed (CMS/HCC V24, CMS/HCC V28) Diabetic polyneuropathy associated with type 2 diabetes mellitus (CMS/HCC V24, CMS/HCC V28) DEBRIDEMENT Routine 12/20/2024 9:15 AM EST Type 2 diabetes mellitus with foot ulcer (CODE) (CMS/HCC V24, CMS/HCC V28) Non-pressure chronic ulcer of other part of right foot with fat layer exposed (CMS/HCC V24, CMS/HCC V28) Diabetic polyneuropathy associated with type 2 diabetes mellitus (CMS/HCC V24, CMS/HCC V28) DEBRIDEMENT Routine 12/20/2024 9:15 AM EST Type 2 diabetes mellitus with foot ulcer (CODE) (CMS/HCC V24, CMS/HCC V28) Non-pressure chronic ulcer of right heel and midfoot with fat layer exposed (CMS/HCC V24, CMS/HCC V28) Diabetic polyneuropathy associated with type 2 diabetes mellitus (CMS/HCC V24, CMS/HCC V28) DEBRIDEMENT Routine 12/06/2024 9:15 AM EDT Type 2 diabetes mellitus with foot ulcer (CODE) (CMS/HCC V24, CMS/HCC V28) Non-pressure chronic ulcer of right heel and midfoot with fat layer exposed (CMS/HCC V24, CMS/HCC V28) Diabetic polyneuropathy associated with type 2 diabetes mellitus (CMS/HCC V24, CMS/HCC V28) DEBRIDEMENT Routine 12/06/2024 9:15 AM EDT Type 2 diabetes mellitus with foot ulcer (CODE) (CMS/HCC V24, CMS/HCC V28) Non-pressure chronic ulcer of other part of right foot with fat layer exposed (CMS/HCC V24, CMS/HCC V28) Diabetic polyneuropathy associated with type 2 diabetes mellitus (CMS/HCC V24, CMS/HCC V28) DEBRIDEMENT Routine 11/22/2024 9:15 AM EDT Type 2 diabetes mellitus with foot ulcer (CODE) (CMS/HCC V24, CMS/HCC V28) Non-pressure chronic ulcer of other part of right foot with fat layer exposed (CMS/HCC V24, CMS/HCC V28) Diabetic polyneuropathy associated with type 2 diabetes mellitus (CMS/HCC V24, CMS/HCC V28) DEBRIDEMENT Routine 11/22/2024 9:15 AM EDT Type 2 diabetes mellitus [...] Debridement Diabetic Ulcer (Cluster ) Right Heel (01/03/2025 9:30 AM EST) Patsy Lutz MD - 01/03/2025 9:30 AM EST Patsy Granado MD 01/03/2025 11:25 AM Debridement Diabetic Ulcer (Cluster ) Right Heel Performed by: Patsy Granado MD Authorized by: Patsy Granado MD Associated wounds: Wound Diabetic Ulcer 11/24/23 Heel Right Consent: Consent obtained: Verbal Consent given by: Patient Risks discussed: Yes Time out: Immediately prior to the procedure a time out was called Time out performed at: 01/03/2025 9:54 AM Debridement Details: Performed by: Physician Type: selective Pain control administration: topical anesthesia Time taken: 01/03/2025 9:29 AM Length (cm): 0.8 Width (cm): 0.8 Depth (cm): 0.6 Area (cm^2): 0.64 Time taken: 01/03/2025 9:30 AM Length (cm): 0.8 Width (cm): 0.8 Depth (cm): 0.4 Percent Debrided (%): 100 Surface Area (cm^2): 0.64 Area Debrided (cm^2): 0.64 Volume (cm^3): 0.26 Devitalized tissue debrided: callus, fibrin and slough Devitalized tissue debrided comment: Devitalized skin Instrument: Blade and forceps Amount of bleeding: small Hemostasis obtained with: Pressure Procedural pain: 0 Post-procedural pain: 0 Response to treatment: Procedure was tolerated well Patsy Granado MD IN CLINIC/BEDSIDE ORDERAB LES Final Result * Debridement Diabetic Ulcer (clustered) Right;Plantar Foot (01/03/2025 9:30 AM EST) Patsy Lutz MD - 01/03/2025 9:30 AM EST Patsy Granado MD 01/03/2025 11:25 AM Debridement Diabetic Ulcer (clustered) Right;Plantar Foot Performed by: Patsy Granado MD Authorized by: Patsy Granado MD Associated wounds: Wound Diabetic Ulcer 07/05/24 Foot Right;Plantar Consent: Consent obtained: Verbal Consent given by: Patient Risks discussed: Yes Time out: Immediately prior to the procedure a time out was called Time out performed at: 01/03/2025 9:51 AM Debridement Details: Performed by: Physician Type: selective Pain control: Lidocaine 5% Pain control administration: topical anesthesia Severity of Tissue Pre Debridement: Fat layer exposed Severity of Tissue Post Debridement: Fat layer exposed Time taken: 01/03/2025 9:28 AM Length (cm): 0.2 Width (cm): 0.3 Depth (cm): 0.3 Area (cm^2): 0.06 Time taken: 01/03/2025 9:29 AM Length (cm): 0.2 Width (cm): 0.3 Depth (cm): 0.2 Percent Debrided (%): 100 Surface Area (cm^2): 0.06 Area Debrided (cm^2): 0.06 Volume (cm^3): 0.01 Devitalized tissue debrided: callus, fibrin and slough Devitalized tissue debrided comment: Devitalized skin Instrument: Blade and forceps Amount of bleeding: small Hemostasis obtained with: Pressure Procedural pain: 0 Post-procedural pain: 0 Response to treatment: Procedure was tolerated well Patsy Granado MD IN CLINIC/BEDSIDE ORDERAB LES Final Result * Debridement Diabetic Ulcer (clustered) Right;Plantar Foot (12/20/2024 9:15 AM EST) Patsy Lutz MD - 12/20/2024 9:15 AM EST Patsy Granado MD 12/20/2024 12:13 PM Debridement Diabetic Ulcer (clustered) Right;Plantar Foot Performed by: Patsy Granado MD Authorized by: Patsy Granado MD Associated wounds: Wound Diabetic Ulcer 07/05/24 Foot Right;Plantar Consent: Consent obtained: Verbal Consent given by: Patient Risks discussed: Yes Time out: Immediately prior to the procedure a time out was called Time out performed at: 12/20/2024 9:53 AM Debridement Details: Performed by: Physician Type: selective Pain control: Lidocaine 5% Pain control administration: topical anesthesia Severity of Tissue Pre Debridement: Fat layer exposed Severity of Tissue Post Debridement: Fat layer exposed Time taken: 12/20/2024 9:29 AM Length (cm): 0.3 Width (cm): 0.3 Depth (cm): 0.3 Area (cm^2): 0.09 Time taken: 12/20/2024 9:30 AM Length (cm): 0.3 Width (cm): 0.3 Depth (cm): 0.3 Percent Debrided (%): 100 Surface Area (cm^2): 0.09 Area Debrided (cm^2): 0.09 Volume (cm^3): 0.03 Devitalized tissue debrided: callus, exudate and fibrin Instrument: Blade and forceps Amount of bleeding: small Hemostasis obtained with: Pressure Procedural pain: 0 Post-procedural pain: 0 Response to treatment: Procedure was tolerated well us Patsy Granado MD IN CLINIC/BEDSIDE ORDERAB LES Final Result * Debridement Diabetic Ulcer (Cluster ) Right Heel (12/20/2024 9:15 AM EST) Patsy Lutz MD - 12/20/2024 9:15 AM EST Patsy Granado MD 12/20/2024 12:13 PM Debridement Diabetic Ulcer (Cluster ) Right Heel Performed by: Patsy Granado MD Authorized by: Patsy Granado MD Associated wounds: Wound Diabetic Ulcer 11/24/23 Heel Right Consent: Consent obtained: Verbal Consent given by: Patient Risks discussed: Yes Time out: Immediately prior to the procedure a time out was called Time out performed at: 12/20/2024 9:52 AM Debridement Details: Performed by: Physician Type: selective Pain control: Lidocaine 5% Pain control administration: topical anesthesia Severity of Tissue Pre Debridement: Fat layer exposed Severity of Tissue Post Debridement: Fat layer exposed Time taken: 12/20/2024 9:29 AM Length (cm): 1 Width (cm): 1 Depth (cm): 0.5 Area (cm^2): 1 Time taken: 12/20/2024 9:30 AM Length (cm): 1 Width (cm): 1 Depth (cm): 0.5 Percent Debrided (%): 100 Surface Area (cm^2): 1 Area Debrided (cm^2): 1 Volume (cm^3): 0.5 Devitalized tissue debrided: callus, exudate, fibrin and slough Instrument: Blade and forceps Amount of bleeding: small Hemostasis obtained with: Pressure Procedural pain: 0 Post-procedural pain: 0 Response to treatment: Procedure was tolerated well us Patsy Granado MD IN CLINIC/BEDSIDE ORDERAB LES Final Result * Debridement Diabetic Ulcer (Cluster ) Right Heel (12/06/2024 9:15 AM EDT) Patsy Lutz MD - 12/06/2024 9:15 AM EDT Patsy Granado MD 12/06/2024 10:13 AM Debridement Diabetic Ulcer (Cluster ) Right Heel Performed by: Patsy Granado MD Authorized by: Patsy Granado MD Associated wounds: Wound Diabetic Ulcer 11/24/23 Heel Right Consent: Consent obtained: Verbal Consent given by: Patient Risks discussed: Yes Time out: Immediately prior to the procedure a time out was called Time out performed at: 12/06/2024 9:47 AM Debridement Details: Performed by: Physician Type: selective Pain control: Lidocaine 4% Pain control administration: topical anesthesia Severity of Tissue Pre Debridement: Fat layer exposed Severity of Tissue Post Debridement: Fat layer exposed Time taken: 12/06/2024 9:16 AM Length (cm): 1.2 Width (cm): 0.8 Depth (cm): 0.5 Area (cm^2): 0.96 Time taken: 12/06/2024 9:17 AM Length (cm): 1.2 Width (cm): 0.8 Depth (cm): 0.4 Percent Debrided (%): 100 Surface Area (cm^2): 0.96 Area Debrided (cm^2): 0.96 Volume (cm^3): 0.38 Devitalized tissue debrided: callus, fibrin and slough Devitalized tissue debrided comment: Devitalized skin Instrument: Blade and forceps Amount of bleeding: small Hemostasis obtained with: Pressure Procedural pain: 0 Post-procedural pain: 0 Response to treatment: Procedure was tolerated well us Patsy Granado MD IN CLINIC/BEDSIDE ORDERAB LES Final Result * Debridement Diabetic Ulcer (clustered) Right;Plantar Foot (12/06/2024 9:15 AM EDT) Patsy Lutz MD - 12/06/2024 9:15 AM EDT Patsy Granado MD 12/06/2024 10:13 AM Debridement Diabetic Ulcer (clustered) Right;Plantar Foot Performed by: Patsy Granado MD Authorized by: Patsy Granado MD Associated wounds: Wound Diabetic Ulcer 07/05/24 Foot Right;Plantar Consent: Consent obtained: Verbal Consent given by: Patient Risks discussed: Yes Time out: Immediately prior to the procedure a time out was called Time out performed at: 12/06/2024 9:45 AM Debridement Details: Performed by: Physician Type: selective Pain control: Lidocaine 4% Pain control administration: topical anesthesia Severity of Tissue Pre Debridement: Fat layer exposed Severity of Tissue Post Debridement: Fat layer exposed Time taken: 12/06/2024 9:14 AM Length (cm): 0.6 Width (cm): 0.4 Depth (cm): 0.4 Area (cm^2): 0.24 Time taken: 12/06/2024 9:15 AM Length (cm): 0.6 Width (cm): 0.4 Depth (cm): 0.3 Percent Debrided (%): 100 Surface Area (cm^2): 0.24 Area Debrided (cm^2): 0.24 Volume (cm^3): 0.07 Devitalized tissue debrided: callus, fibrin and slough Devitalized tissue debrided comment: Devitalized skin Instrument: Blade and forceps Amount of bleeding: small Hemostasis obtained with: Pressure Procedural pain: 0 Post-procedural pain: 0 Response to treatment: Procedure was tolerated well Patsy Granado MD IN CLINIC/BEDSIDE ORDERAB LES Final Result * Debridement Diabetic Ulcer (clustered) Right;Plantar Foot (11/22/2024 9:15 AM EDT) Oneil Awan MD - 11/22/2024 9:15 AM EDT Oneil Grissom MD 11/25/2024 3:19 PM Debridement Diabetic Ulcer (clustered) Right;Plantar Foot Performed by: JANUSZ Sanders Authorized by: JANUSZ Sanders Associated wounds: Wound Diabetic Ulcer 07/05/24 Foot Right;Plantar Consent: Consent obtained: Verbal Consent given by: Patient Risks discussed: Yes Time out: Immediately prior to the procedure a time out was called Debridement Details: Performed by: JANUSZ Type: surgical Level: subcutaneous tissue Pain control: Lidocaine 4% Severity of Tissue Pre Debridement: Fat layer exposed Severity of Tissue Post Debridement: Fat layer exposed Time taken: 11/22/2024 9:27 AM Length (cm): 1 Width (cm): 0.5 Depth (cm): 0.4 Area (cm^2): 0.39 Time taken: 11/22/2024 9:28 AM Length (cm): 1 Width (cm): 0.5 Depth (cm): 0.4 Percent Debrided (%): 75 Surface Area (cm^2): 0.5 Area Debrided (cm^2): 0.38 Volume (cm^3): 0.2 Tissue and other material debrided: dermis, epidermis and subcutaneous tissue Devitalized tissue debrided: biofilm, callus, necrotic debris and slough Instrument: Curette Amount of bleeding: none Hemostasis obtained with: Not applicable Procedural pain: 0 Post-procedural pain: 0 Response to treatment: Procedure was tolerated well Adrian BOUDREAUX IN CLINIC/BEDSIDE ORDERABLE S Final Result * Debridement Diabetic Ulcer (Cluster ) Right Heel (11/22/2024 9:15 AM EDT) Oneil Awan MD - 11/22/2024 9:15 AM EDBekah Grissom MD 11/25/2024 3:19 PM Debridement Diabetic Ulcer (Cluster ) Right Heel Performed by: JANUSZ Sanders Authorized by: JANUSZ Sanders Associated wounds: Wound Diabetic Ulcer 11/24/23 Heel Right Consent: Consent obtained: Verbal Consent given by: Patient Risks discussed: Yes Time out: Immediately prior to the procedure a time out was called Debridement Details: Performed by: PA Type: surgical Level: subcutaneous tissue Pain control: Lidocaine 4% Severity of Tissue Pre Debridement: Fat layer exposed Severity of Tissue Post Debridement: Fat layer exposed Time taken: 11/22/2024 9:26 AM Length (cm): 1 Width (cm): 0.9 Depth (cm): 0.4 Area (cm^2): 0.71 Time taken: 11/22/2024 9:27 AM Length (cm): 1 Width (cm): 0.9 Depth (cm): 0.4 Percent Debrided (%): 75 Surface Area (cm^2): 0.9 Area Debrided (cm^2): 0.68 Volume (cm^3): 0.36 Tissue and other material debrided: dermis, epidermis and subcutaneous tissue Devitalized tissue debrided: biofilm, callus, necrotic debris and slough Instrument: Curette and forceps Amount of bleeding: none Hemostasis obtained with: Not applicable Procedural pain: 0 Post-procedural pain: 0 Response to treatment: Procedure was tolerated well Adrian BOUDREAUX IN CLINIC/BEDSIDE ORDERABLE S Final Result * Debridement Diabetic Ulcer (Cluster ) Right Heel (11/15/2024 9:30 AM EDT) Patsy Lutz MD - 11/15/2024 9:30 AM EDT Patsy Granaod MD 11/15/2024 12:52 PM Debridement Diabetic Ulcer [...] to treatment: Procedure was tolerated well Result [facility] Patsy Granado MD IN CLINIC/BEDSIDE ORDERAB [...] Ulcer (Cluster ) Right Heel Performed by: Patys Granado MD Authorized by: Patsy Granado MD [...] Right;Plantar Foot (10/11/2024 9:00 AM EDT) Patsy Luzt MD - 10/11/2024 9:00 AM EDT Patsy [...] - [place] [employer] Care Teams Importer Exporter Relationship Specialty Start Date End Date Zia Morales MD [address] [place] [address] Dr Esteban [place] PCP - General Internal Medicine 12/15/23
[2025-01-11 07:36] LABS: Hemoglobin A1C 152.1892 umol/L
[2025-01-11 07:45] LABS: Alanine Aminotransferase 22 U/L (0-31); Albumin Level 4.3 g/dL (3.5-5.0); Alkaline Phosphatase 107 U/L (39-117); Anion Gap 12 (12-20); Aspartate Amino Transferase 22 U/L (5-31); Blood Urea Nitrogen 15 mg/dL (9-16); Calcium 9.7 mg/dL (8.4-10.2); Carbon Dioxide 28 mmol/L (22-29); Chloride 106 mmol/L (96-108); Cholesterol 215 mg/dL (<200); Estimated Glomerular Filt Rate > 60; HDL Cholesterol 60 mg/dL (>40); Potassium 4.2 mmol/L (3.3-5.1); Sodium 142 mmol/L (135-145); Total Protein 8.0 g/dL (6.5-8.0); Triglycerides 117 mg/dL (<150)
== END 2025-01-11 06:34 | disposition home or self-care (01) ==
LOC: HO.LAB 06:33
PROVIDERS: Internal Medicine; PCP Student in an Organized Health Care Education/Training Program; Visit Provider Physician Assistant Medical
DX: E11.65 Type 2 diabetes mellitus with hyperglycemia (principal); E11.40 Type 2 diabetes mellitus with diabetic neuropathy, unspecified; E78.5 Hyperlipidemia, unspecified
CPT/HCPCS: 36415; 80053; 80061; 83036